=== PATIENT | male | born 1965 | race Caucasian/White ===

== ENCOUNTER 2017-09-07 10:08 | Inpatient (IN) | payer MEDICARE, MEDICAID ==
[~2017-09-07 10:08] MED LIST: ROCURONIUM BROMIDE INJ 50 MG/5 ML VIAL IV ONE
[2017-09-07] MEDS ORDERED: PROPOFOL 100 ML IV PRN (10:20)
[2017-09-07] MEDS ORDERED: ETOMIDATE INJ/PF 20 MG/10 ML SDV IV ONE ×2 (10:27→13:38)
[2017-09-07] MEDS: NORMAL SALINE 1000 ML 1,000 ML IV PRN ×7 (11:10→16:18)
[2017-09-07 11:19] LABS: VENOUS BLOOD HCO3 16.1 mmol/L (20-32); VENOUS BLOOD PH 7.31 (7.30-7.42)
[2017-09-07 11:22] LABS: HEMATOCRIT 44.4 % (37.9-51.0); HEMOGLOBIN 14.2 g/dL (13.5-17.0); MEAN CORPUSCULAR HEMOGLOBIN 29.4 pg (27.0-33.4); MEAN CORPUSCULAR HGB CONC 31.9 g/dL (32.0-36.0); MEAN CORPUSCULAR VOLUME 92 fl (80-97); PLATELET COUNT 310 10^3/uL (150-450); RED BLOOD COUNT 4.83 10^6/uL (4.35-5.55); RED CELL DISTRIBUTION WIDTH 14.9 % (11.5-14.0); WHITE BLOOD COUNT 16.7 10^3/uL (4.0-10.5)
[2017-09-07 11:31] LABS: INTERNATIONAL RATION (INR) 1.04; PARTIAL THROMBOPLASTIN TIME 24.7 SEC (23.5-35.8); PROTHROMBIN TIME 14.1 SEC (11.4-15.4)
[2017-09-07] MEDS ORDERED: DEXTROSE 5%-WATER 250 ML with NOREPINEPHRINE BITARTRATE 4 MG IV PRN ×2 (11:33)
[2017-09-07 11:36] LABS: ALANINE AMINOTRANSFERASE 28 U/L (21-72); ALBUMIN 4.5 g/dL (3.5-5.0); ALKALINE PHOSPHATASE 191 U/L (38-126); ASPARTATE AMINO TRANSFERASE 14 U/L (17-59); BILIRUBIN,DIRECT 0.5 mg/dL (0.0-0.4); BILIRUBIN,TOTAL 0.5 mg/dL (0.2-1.3); BLOOD UREA NITROGEN 57 mg/dL (7-20); CALCIUM 8.5 mg/dL (8.4-10.2); CREATINE KINASE 121 U/L (55-170); POTASSIUM 4.3 mmol/L (3.6-5.0); TOTAL PROTEIN 6.5 g/dL (6.3-8.2)
[2017-09-07] MEDS ORDERED: NOREPINEPHRINE BITARTRATE INJ/PF 4 MG/4 ML SDV IV ONE ×2 (11:37→16:15)
--- NOTE | 2017-09-07 11:37 | RADIOLOGY REPORT (SQ) ---
EXAM DESCRIPTION: CHEST SINGLE VIEW COMPLETED DATE/TIME: 09/07/2017 11:25 am REASON FOR STUDY: ams COMPARISON: 08/17/2010 EXAM PARAMETERS: NUMBER OF VIEWS: One view. TECHNIQUE: Single frontal radiographic view of the chest acquired. RADIATION DOSE: NA LIMITATIONS: None. FINDINGS: LUNGS AND PLEURA: Patchy airspace opacities left lower lobe. Lungs and pleural spaces oth erwise clear. MEDIASTINUM AND HILAR STRUCTURES: No masses. Contour normal. HEART AND VASCULAR STRUCTURES: Heart normal in size. Normal vasculature. BONES: No acute findings. HARDWARE: Endotracheal tube terminates 4.2 cm above the felicitas. Nasogastric tube with side port appr oximately 7.7 cm above the GE junction. Right IJ venous catheter terminates within the caval atrial junction. OTHER: No other significant finding. IMPRESSION: PATCHY AIRSPACE OPACITIES LEFT LOWER LOBE MAY REPRESENT SUBSEGMENTAL ATELECTASIS, ASPIRA TION, OR DEVELOPING PNEUMONIA. NASOGASTRIC TUBE WITH SIDE PORT 7.7 CM ABOVE THE GE JUNCTION. ADVANCEMENT IS RECOMMENDED. REMAINING LINES/TUBES ARE ADEQUATELY POSITIONED. TECHNICAL DOCUMENTATION: JOB ID: [id number] [employer]- All Rights Reserved Reading location - IP/workstation name: [email or web address]
--- NOTE | 2017-09-07 11:38 | RADIOLOGY REPORT (SQ) ---
EXAM DESCRIPTION: CT HEAD WITHOUT COMPLETED DATE/TIME: 09/07/2017 11:28 am REASON FOR STUDY: ams COMPARISON: None. TECHNIQUE: Axial images acquired through the brain without intravenous contrast. Images reviewed wi th bone, brain and subdural windows. Images stored on PACS. All CT scanners at this facility use dose modulation, iterative reconstruction, and/or weight based d osing when appropriate to reduce radiation dose to as low as reasonably achievable (ALARA). [facility]: Dose Right [facility]: CareDose [facility]: Dose Right [facility]: Teradose 4D [facility]: [email or web address] RADIATION DOSE: CT Rad equipment meets quality standard of care and radiation dose reduction techniq ues were employed. CTDIvol: 53.2 mGy. DLP: 991 mGy-cm. mGy. LIMITATIONS: None. FINDINGS: VENTRICLES: Normal size and contour. CEREBRUM: No masses. No hemorrhage. No midline shift. No evidence for acute infarction. Normal gra y/white matter differentiation. No areas of low density in the white matter. CEREBELLUM: No masses. No hemorrhage. No alteration of density. No evidence for acute infarction. EXTRAAXIAL SPACES: No fluid collections. No masses. ORBITS AND GLOBE: No intra- or extraconal masses. Normal contour of globe without masses. CALVARIUM: No fracture. PARANASAL SINUSES: No fluid or mucosal thickening. SOFT TISSUES: No mass or hematoma. OTHER: No other significant finding. IMPRESSION: NORMAL BRAIN CT WITHOUT CONTRAST. EVIDENCE OF ACUTE STROKE: NO. COMMENT: Quality ID # [id number]: Final reports with documentation of one or more dose reduction techniques (e.g., Automated exposure control, adjustment of the mA and/or kV according to patient size, use of iterative reconstruction technique) TECHNICAL DOCUMENTATION: JOB ID: [id number] [employer]- All Rights Reserved Reading location - IP/workstation name: [email or web address]
[2017-09-07 11:41] LABS: CARBON DIOXIDE 15 mmol/L (22-30); CHLORIDE 95 mmol/L (98-107); SODIUM 148.4 mmol/L (137-145)
[2017-09-07 11:44] LABS: ACETAMINOPHEN < 10 ug/mL (10-30); ALCOHOL < 10 mg/dL (NONE DETECTED); SALICYLATE < 1.0 mg/dL (2.0-20.0)
[2017-09-07 11:46] LABS: ABSOLUTE LYMPHOCYTES# (MANUAL) 0.3 10^3/uL (0.5-4.7); ABSOLUTE MONOCYTES # (MANUAL) 0.5 10^3/uL (0.1-1.4); ABSOLUTE NEUTROPHILS# (MANUAL) 15.7 10^3/uL (1.7-8.2); BASOPHILS % (MANUAL) 1 % (0-2); EOSINOPHILS % (MANUAL) 0 % (0-6); LYMPHOCYTES % (MANUAL) 2 % (13-45); MONOCYTES % (MANUAL) 3 % (3-13); SEGMENTED NEUTROPHILS % (MAN) 94 % (42-78); TOTAL CELLS COUNTED 100
[2017-09-07 11:48] LABS: ANION GAP 38 (5-19); ANISOCYTOSIS SLIGHT; GLUCOSE 915 mg/dL (75-110); PLATELET COMMENT ADEQUATE; TOXIC GRANULATION SLIGHT
[2017-09-07 11:49] LABS: PLATELET CLUMPS PRESENT; PLATELET LARGE PRESENT
[2017-09-07 11:50] LABS: TROPONIN I 0.027 ng/mL
[2017-09-07] MEDS ORDERED: PIPERACILLIN/TAZOBACTAM 4.5 GM VIAL IV ONE (11:59)
[2017-09-07] MEDS ORDERED: LORAZEPAM INJ 2 MG/1 ML VIAL IV ONE (12:33)
[2017-09-07] MEDS ORDERED: MIDAZOLAM HCL 50 MG/100 ML RTUINJ IV PRN (12:36)
[2017-09-07] MEDS ORDERED: LIDOCAINE 1% INJ-PF (10 MG/ML) 30 ML SDV INJ ONE (12:44)
[2017-09-07] MEDS ORDERED: VECURONIUM BROMIDE INJ 10 MG VIAL IV ONE ×2 (12:49→12:51)
[2017-09-07 12:57] LABS: APPEARANCE,URINE SLIGHTLY-CLOUDY; BILIRUBIN,URINE NEGATIVE (NEGATIVE); COLOR,URINE YELLOW; GLUCOSE, URINE >=500 mg/dL (NEGATIVE); KETONES,URINE 20 mg/dL (NEGATIVE); LEUKOCYTE ESTERASE,URINE NEGATIVE (NEGATIVE); NITRITE,URINE NEGATIVE (NEGATIVE); PROTEIN,URINE NEGATIVE (NEGATIVE); URINE SPECIFIC GRAVITY 1.024; UROBILINOGEN,URINE NEGATIVE mg/dL (<2.0)
[2017-09-07 12:59] LABS: URINE AMPHETAMINES SCREEN NEGATIVE; URINE BARBITURATES SCREEN NEGATIVE; URINE BENZODIAZEPINES SCREEN UNCONFIRMED POSITIVE; URINE COCAINE SCREEN NEGATIVE; URINE MARIJUANA (THC) SCREEN NEGATIVE; URINE METHADONE SCREEN NEGATIVE; URINE PHENCYCLIDINE SCREEN NEGATIVE
[2017-09-07] MEDS ORDERED: ONDANSETRON HCL INJ/PF 4 MG/2 ML SDV IV PRN ×2 (13:03→13:59)
--- NOTE | 2017-09-07 13:09 | ER Document Report ---
ED General - General Chief Complaint: Altered Mental Status Stated Complaint: ALTERED MENTAL STATUS Time Seen by Provider: 09/07/17 10:17 TRAVEL OUTSIDE OF THE [place] IN LAST 30 DAYS: No - HPI Patient complains to provider of: Altered mental status fever Notes: Patient coming in for evaluation of altered mental status fever. Patient has a history of diabetes schizophrenia hypertension on multiple medications. According EMS family members found the patient earlier this morning with fever nonresponsive. EMS states patient was responding to painful stimuli as they placed an IO N. Upon arrival here patient had minimal responsiveness. Patient' s eyes are open however he was not blinking down pupils are equal and reactive however patient is not following commands not giving any verbal response. Decision made to go ahead and intubate the patient. Patient family member arrived later stating patient otherwise was normal last 24 hours lives by himself however the check on him every morning around 9:00. Patient although he is on multiple psychiatric medications this is controlled by his family members and they do administer his medications. Family stated there is no evidence patient had any access to any extra medications. No other sick contacts recent change with the patient be placed on rexultia for his psychiatric symptoms. - Related Data Allergies/Adverse Reactions: No Known Allergies Allergy (Unverified 09/25/10 10:31) Past Medical History - Social History Smoking Status: Unknown if Ever Smoked Family History: Reviewed & Not Pertinent Patient has suicidal ideation: No - unable to assess Patient has homicidal ideation: No - unable to assess - Past Medical History Cardiac Medical History: Reports: Hx Coronary Artery Disease - hyperlipedmia Denies: Hx Heart Attack, Hx Hypertension Pulmonary Medical History: Denies: Hx Asthma, Hx Bronchitis, Hx COPD, Hx Pneumonia Neurological Medical History: Denies: Hx Cerebrovascular Accident, Hx Seizures Endocrine Medical History: Reports: Hx Diabetes Mellitus Type 2 Renal/ Medical History: Denies: Hx Peritoneal Dialysis Musculoskeltal Medical History: Denies Hx Arthritis Psychiatric Medical History: Reports: Hx Attention Deficit Hyperactivity Disorder Past Surgical History: Denies: Hx Pacemaker Review of Systems - Review of Systems -: Yes ROS unobtainable due to patient's medical condition - Altered mental status Physical Exam - Vital signs Vitals: Resp 36 H 09/07/17 10:10 Interpretation: Hypotensive, Tachycardic, Tachypneic, Febrile - General General appearance: Unresponsive In distress: Severe - HEENT Head: Normocephalic, Atraumatic Eyes: Normal Conjunctiva: Normal Cornea: Embedded foreign body Eyelashes: Normal Pupils: PERRL - Respiratory Respiratory status: Tachypnea Chest status: Nontender Breath sounds: Normal Chest palpation: Normal - Cardiovascular Rhythm: Regular, Tachycardia Heart sounds: Normal auscultation Murmur: No - Abdominal Inspection: Normal Distension: No distension Bowel sounds: Normal Organomegaly: No organomegaly - Back Back: Normal, Nontender - Extremities General upper extremity: Normal inspection, Nontender, Normal color, Other - No rigidity. No: Normal temperature - Warm General lower extremity: Normal inspection, Nontender, Normal color, Other - No rigidity. No: Normal temperature - Warm - Neurological Winslow Coma Scale Eye Opening: Spontaneous Faye Coma Scale Verbal: None Faye Coma Scale Motor: None Faye Coma Scale Total: 6 Sensory: Normal - Skin Skin Temperature: Warm Skin Moisture: Dry Skin Color: Normal Course - Re-evaluation Re-evalutation: 09/07/17 15:01 Patient coming in for altered mental status and a fever. Patient's laboratory studies a slight leukocytosis with chest x-ray showing some patchy infiltrates possible pneumonia. Possible aspiration patient was found down patient was started on Zosyn. Care should profile showed acute renal failure with iron gap no acidosis on VBG. Blood sugar is elevated over 900 with osmolar elevation as well. Head CT was otherwise negative. Urinalysis was positive for benzos however patient is prescribed Valium. Patient is on multiple psychiatric medications with a new antipsychotic consideration for serotonin syndrome neuroleptic malignant syndrome sepsis and meningitis were all in the differential. Also retain most of the lab work back did consult with hospitalist who is requesting lumbar puncture be performed. Patient will be sent to the ICU. Central line was placed as noted. Intubation performed as noted. Lumbar puncture performed as noted. CSF otherwise looks clear. Antibiotics have been ordered by the hospitalist for meningitis coverage. I did send of herpes simplex virus PCR from CSF. serotonin syndrome in neuroleptic malignant syndrome upon discussion collaboration with the family and the hospitalist is less likely patient according family members does not have access to his medications. After antipyretics and IV fluids temperature did normalize. Patient will be admitted to ICU - Vital Signs Vital signs: Temp Pulse Resp BP Pulse Ox 22 H 93/56 L 100 09/07/17 14:01 09/07/17 14:01 09/07/17 14:33 - Laboratory Result Diagrams: 09/07/17 10:54 09/07/17 10:54 Laboratory results interpreted by me: 09/07/17 09/07/17 09/07/17 10:30 10:54 10:54 WBC 16.7 H MCHC 31.9 L RDW 14.9 H Seg Neuts % (Manual) 94 H Lymphocytes % (Manual) 2 L Abs Neuts (Manual) 15.7 H Abs Lymphs (Manual) 0.3 L VBG pCO2 VBG HCO3 Sodium 148.4 H Chloride 95 L Carbon Dioxide 15 L Anion Gap 38 H BUN 57 H Creatinine 3.02 H Est GFR ( Amer) 27 L Est GFR (Non-Af Amer) 22 L Glucose 915 H* Serum Osmolality Direct Bilirubin 0.5 H AST 14 L Alkaline Phosphatase 191 H Ammonia Urine Glucose (UA) >=500 H Urine Ketones 20 H CSF Glucose CSF Total Protein Salicylates < 1.0 L Acetaminophen < 10 L Valproic Acid < 10.0 L 09/07/17 09/07/17 09/07/17 10:54 10:54 10:54 WBC MCHC RDW Seg Neuts % (Manual) Lymphocytes % (Manual) Abs Neuts (Manual) Abs Lymphs (Manual) VBG pCO2 33.0 L VBG HCO3 16.1 L Sodium Chloride Carbon Dioxide Anion Gap BUN Creatinine Est GFR ( Amer) Est GFR (Non-Af Amer) Glucose Serum Osmolality 375 H Direct Bilirubin AST Alkaline Phosphatase Ammonia < 8.7 L Urine Glucose (UA) Urine Ketones CSF Glucose CSF Total Protein Salicylates Acetaminophen Valproic Acid 09/07/17 13:29 WBC MCHC RDW Seg Neuts % (Manual) Lymphocytes % (Manual) Abs Neuts (Manual) Abs Lymphs (Manual) VBG pCO2 VBG HCO3 Sodium Chloride Carbon Dioxide Anion Gap BUN Creatinine Est GFR ( Amer) Est GFR (Non-Af Amer) Glucose Serum Osmolality Direct Bilirubin AST Alkaline Phosphatase Ammonia Urine Glucose (UA) Urine Ketones CSF Glucose 472 H CSF Total Protein 85 H Salicylates Acetaminophen Valproic Acid Critical Care Note - Critical Care Note Total time excluding time spent on procedures (mins): 85 Comments: Time spent multiple evaluations patient critical illness hypotensive fever tachycardia possible sepsis versus serotonin syndrome or neuroleptic malignant syndrome multiple discussions with hospitalist and family members Discharge - Discharge Clinical Impression: Acute kidney injury, Unresponsiveness, Schizophrenia, Diabetes 1.5, managed as type 2, Hyperglycemic hyperosmolar nonketotic coma Altered mental state Qualifiers: Altered mental status type: unspecified Qualified Code(s): R41.82 - Altered mental status, unspecified Fever Qualifiers: Fever type: unspecified Qualified Code(s): R50.9 - Fever, unspecified Condition: Critical Disposition: ADMITTED INPATIENT Admitting Provider: [place] Hospitalist [facility] [place] Unit Admitted: ICU
[2017-09-07] MEDS ORDERED: GLUCAGON,HUMAN RECOMB 1 MG INJ IM PRN (13:36)
[2017-09-07] MEDS ORDERED: DEXTROSE 50%-WATER 25 GM/50 ML DISP.SYRIN IV PRN ×2 (13:36)
[2017-09-07] MEDS ORDERED: DEXTROSE 40% GEL 15 GM TUBE PO PRN ×2 (13:36)
[2017-09-07] MEDS ORDERED: ROCURONIUM BROMIDE INJ 50 MG/5 ML VIAL IV ONE (13:38)
[2017-09-07] MEDS ORDERED: INSULIN REG, HUMAN 100 UNIT/ML 3 ML VIAL (PYX) ONE (13:45)
[2017-09-07] MEDS: NORMAL SALINE 100 ML with INSULIN REGULAR, HUMAN 100 UNIT IV PRN ×4 (13:53→22:01)
[2017-09-07 14:24] LABS: GLUCOSE,CSF 472 mg/dL (40-70); PROTEIN,CSF 85 mg/dL (12-60)
--- NOTE | 2017-09-07 14:25 | PDOC H&P ---
History of Present Illness Admission Date/PCP: 09/07/17 13:58 YOLETTE TORRES MD History of Present Illness: LIAM GRANT is a 51 year old male patient presented with unresponsiveness. Since patient intubated and on mechanical ventilation is not source of history. Brief history is obtained from verbal communication with the ER attending, Patient found unresponsive. Patient has long-standing history of schizophrenia, diabetes mellitus and hypertension. Patient also found to have fever of 102.5. Scan of the head was done and it is unremarkable. To rule out meningitis lumbar puncture was done the appearance of CSF is crystal-clear for the results are pending. Patient is empirically covered with Zosyn. Further detailed history and review of systems unobtainable. Past Medical History Cardiac Medical History: Reports: Coronary Artery Disease - hyperlipedmia Denies: Myocardial Infarction, Hypertension Pulmonary Medical History: Denies: Asthma, Bronchitis, Chronic Obstructive Pulmonary Disease (COPD), Pneumonia Neurological Medical History: Denies: Seizures Endocrine Medical History: Reports: Diabetes Mellitus Type 2 Musculoskeltal Medical History: Denies: Arthritis Psychiatric Medical History: Reports: Attention Deficit Hyperactivity Disorder Hematology: Denies: Anemia Past Surgical History Past Surgical History: Denies: Pacemaker Social History Smoking Status: Unknown if Ever Smoked Family History Family History: Reviewed & Not Pertinent Parental Family History Reviewed: No Children Family History Reviewed: No Sibling(s) Family History Reviewed.: No - Patient intubated Medication/Allergy Home Medications: Atorvastatin Calcium 10 mg PO DAILY 09/07/17 Brexpiprazole [Rexulti] 0.5 mg PO DAILY 09/07/17 Chlorpromazine HCl [Thorazine 50 mg Tablet] 50 mg PO BID 09/07/17 Clozapine 25 mg PO QAM 09/07/17 Clozapine 200 mg PO BID 09/07/17 Desmopressin Acetate 0.2 mg PO TID 09/07/17 Desmopressin Acetate [Ddavp] 0.4 mg PO QHS 09/07/17 Diazepam 10 mg PO QID PRN 09/07/17 Docusate Sodium 100 mg PO BID PRN 09/07/17 Esomeprazole Magnesium 40 mg PO DAILY 09/07/17 Levothyroxine Sodium 50 mcg PO DAILY 09/07/17 Losartan/Hydrochlorothiazide [Losartan-Hctz 100-25 mg Tab] 1 each PO DAILY 09/07 Metformin HCl [Metformin HCl ER] 500 mg PO QHS 09/07/17 Olanzapine 10 mg PO DAILY 09/07/17 Paroxetine HCl [Paxil] 30 mg PO QAM 09/07/17 Ropinirole HCl 1 mg PO QAM 09/07/17 Ropinirole HCl 3.5 mg PO QHS 09/07/17 Trihexyphenidyl HCl 5 mg PO TID 09/07/17 Allergies/Adverse Reactions: No Known Allergies Allergy (Unverified 09/25/10 10:31) Review of Systems ROS unobtainable: Due to mental status Physical Exam Vital Signs: Temp Pulse Resp BP Pulse Ox 22 H 93/56 L 100 09/07/17 14:01 09/07/17 14:01 09/07/17 14:01 General appearance: PRESENT: other - On mechanical ventilation Respiratory exam: PRESENT: decreased breath sounds Cardiovascular exam: PRESENT: tachycardia GI/Abdominal exam: PRESENT: normal bowel sounds, soft. ABSENT: distended, guarding, mass, organolmegaly, rebound, tenderness Results Impressions: Chest X-Ray 09/07/17 10:18 IMPRESSION: PATCHY AIRSPACE OPACITIES LEFT LOWER LOBE MAY REPRESENT SUBSEGMENTAL ATELECTASIS, ASPIRATION, OR DEVELOPING PNEUMONIA. NASOGASTRIC TUBE WITH SIDE PORT 7.7 CM ABOVE THE GE JUNCTION. ADVANCEMENT IS RECOMMENDED. REMAINING LINES/TUBES ARE ADEQUATELY POSITIONED. Head CT 09/07/17 10:48 IMPRESSION: NORMAL BRAIN CT WITHOUT CONTRAST. EVIDENCE OF ACUTE STROKE: NO. Assessment & Plan - Diagnosis (1) DKA (diabetic ketoacidoses) Qualifiers: Diabetes mellitus type: type 2 Is this a current diagnosis for this admission?: Yes Plan: Patient has been started on insulin drip. He is also being hydrated aggressively. He is also only Levophed because of hypotension. (2) Unresponsiveness Plan: In light of unresponsiveness and unexplained fever to have meningitis considered LP was done results pending in the meantime patient covered with Zosyn. (3) Schizophrenia Is this a current diagnosis for this admission?: Yes Plan: Continue his home medication as soon as he is intubated. (4) Diabetes 1.5, managed as type 2 Is this a current diagnosis for this admission?: Yes Plan: Continue insulin drip present transitioned him to subcu soon as he awakened and able to tolerate. (5) Acute kidney injury Is this a current diagnosis for this admission?: Yes Plan: Cautious hydration and will avoid nephrotoxic agents - Time Time Spent: 30 to 50 Minutes - Inpatient Certification Medical Necessity: Need for IV Antibiotics
[2017-09-07] MEDS ORDERED: HEPARIN SOD (PORCINE) 5,000 UNIT/ML 1 ML SYRINGE SUBCUT ONE (15:00)
[2017-09-07 15:03] LABS: ARTERIAL BLOOD BASE EXCESS -13.5 mmol/L; ARTERIAL BLOOD FIO2 35%; ARTERIAL BLOOD H2CO3 0.87 mmol/L (1.05-1.35); ARTERIAL BLOOD HCO3 12.3 mmol/L (20-26); ARTERIAL BLOOD O2 SATURATION 96.9 % (94-98); ARTERIAL BLOOD PCO2 28.9 mmHg (35-45); ARTERIAL BLOOD PH 7.25 (7.35-7.45); ARTERIAL BLOOD PO2 103.2 mmHg (80-100); ARTERIAL BLOOD TOTAL CO2 13.2 mmol/L (23-27)
[2017-09-07 15:12] LABS: APPEARANCE ALL TUBES CLEAR; COLOR ALL TUBES COLORLESS; CSF TOTAL VOLUME 2.5 CC; CSF TUBE NUMBER 1; RED BLOOD CELL,CSF 0 /uL (0-10); VOLUME TUBE 2 0.5 CC; VOLUME TUBE 3 0.5 CC; VOLUME TUBE 4 0.5 CC
[2017-09-07 15:13] LABS: APPEARANCE ALL TUBES CLEAR; COLOR ALL TUBES COLORLESS; CSF TUBE NUMBER 4; VOLUME TUBE 2 0.5 CC; WHITE BLOOD CELL,CSF 3 /uL (0-5)
[2017-09-07 15:14] LABS: CSF TOTAL VOLUME 2.5 CC; RED BLOOD CELL,CSF 0 /uL (0-10); VOLUME TUBE 3 0.5 CC; VOLUME TUBE 4 0.5 CC
[2017-09-07 15:15] LABS: WHITE BLOOD CELL,CSF 3 /uL (0-5)
--- NOTE | 2017-09-07 16:01 | EKG REPORT ---
SEVERITY:- ABNORMAL ECG - SINUS TACHYCARDIA RIGHT AXIS DEVIATION PROBABLE INFERIOR INFARCT, OLD PROLONGED QT INTERVAL : Confirmed by: Jacob Dumont MD 07-Sep-2017 16:00:38
[2017-09-07] MEDS ORDERED: PHENYLEPHRINE HCL INJ/PF 10 MG/1 ML SDV ONE (16:15)
[2017-09-07] MEDS: DEXTROSE 5%-WATER 250 ML with NOREPINEPHRINE BITARTRATE 4 MG IV PRN ×4 (16:18→21:56)
[2017-09-07 16:47] LABS: ARTERIAL BLOOD BASE EXCESS -6.8 mmol/L; ARTERIAL BLOOD FIO2 30%; ARTERIAL BLOOD H2CO3 0.69 mmol/L (1.05-1.35); ARTERIAL BLOOD HCO3 15.3 mmol/L (20-26); ARTERIAL BLOOD O2 SATURATION 97.5 % (94-98); ARTERIAL BLOOD PH 7.44 (7.35-7.45); ARTERIAL BLOOD PO2 93.3 mmHg (80-100)
[2017-09-07 17:09] LABS: BLOOD UREA NITROGEN 51 mg/dL (7-20); CHLORIDE 110 mmol/L (98-107); POTASSIUM 3.6 mmol/L (3.6-5.0)
[2017-09-07 17:14] LABS: CARBON DIOXIDE 17 mmol/L (22-30); SODIUM 153.7 mmol/L (137-145)
[2017-09-07 17:17] LABS: ANION GAP 27 (5-19)
[2017-09-07 17:18] LABS: GLUCOSE 622 mg/dL (75-110)
[2017-09-07] MEDS ORDERED: PIPERACILLIN SODIUM/TAZOBACTAM 4.5 GM in NORMAL SALINE 100 ML IV SCH (18:00)
[2017-09-07] MEDS ORDERED: PIPERACILLIN/TAZOBACTAM 3.375 GM VIAL IV ONE (18:09)
[2017-09-07] MEDS: PIPERACILLIN SODIUM/TAZOBACTAM 3.375 GM in NORMAL SALINE 100 ML IV SCH (18:29)
[2017-09-07 19:12] LABS: ANION GAP 19 (5-19); BLOOD UREA NITROGEN 49 mg/dL (7-20); CARBON DIOXIDE 22 mmol/L (22-30); CHLORIDE 113 mmol/L (98-107); POTASSIUM 3.3 mmol/L (3.6-5.0); SODIUM 154.1 mmol/L (137-145)
[2017-09-07 19:24] LABS: GLUCOSE 477 mg/dL (75-110)
[2017-09-07 21:37] LABS: ANION GAP 17 (5-19); BLOOD UREA NITROGEN 44 mg/dL (7-20); CALCIUM 8.2 mg/dL (8.4-10.2); CARBON DIOXIDE 24 mmol/L (22-30); CHLORIDE 116 mmol/L (98-107); GLUCOSE 326 mg/dL (75-110); SODIUM 156.7 mmol/L (137-145)
[2017-09-07] MEDS ORDERED: PROPOFOL 100 ML IV ONE (21:39)
[2017-09-07] MEDS: MIDAZOLAM HCL 50 MG/100 ML RTUINJ IV PRN (21:54)
[2017-09-07] MEDS ORDERED: PANTOPRAZOLE SODIUM 40 MG VIAL IV SCH ×2 (22:00)
[2017-09-07] MEDS: POTASSI CL 20 MEQ/1/2NS 1L 20 MEQ/1,000 ML RTUINJ IV SCH (22:09)
[2017-09-07] MEDS: HEPARIN SOD (PORCINE) 5,000 UNIT/ML 1 ML SYRINGE SUBCUT SCH (23:04)
[2017-09-07 23:15] LABS: ANION GAP 14 (5-19); BLOOD UREA NITROGEN 43 mg/dL (7-20); CALCIUM 8.3 mg/dL (8.4-10.2); CARBON DIOXIDE 26 mmol/L (22-30); CHLORIDE 118 mmol/L (98-107); GLUCOSE 248 mg/dL (75-110); SODIUM 157.8 mmol/L (137-145)
[2017-09-07] MEDS ORDERED: ACETAMINOPHEN 650 MG SUPP.RECT PR ONE (23:41)
[2017-09-07] MEDS ORDERED: ACETAMINOPHEN 650 MG SUPP.RECT PR PRN (23:56)
[2017-09-08] MEDS: POTASSI CL 20 MEQ/1/2NS 1L 20 MEQ/1,000 ML RTUINJ IV SCH (00:24)
[2017-09-08] MEDS: POTASSIUM CHLORIDE 20 MEQ/50 ML RTU IV SCH ×2 (00:27→01:25)
[2017-09-08] MEDS: PIPERACILLIN SODIUM/TAZOBACTAM 3.375 GM in NORMAL SALINE 100 ML IV SCH ×5 (00:31→23:36)
[2017-09-08] MEDS ORDERED: PANTOPRAZOLE SODIUM 80 MG in NORMAL SALINE 100 ML IV ONE (00:45)
[2017-09-08 00:46] LABS: ANION GAP 12 (5-19); BLOOD UREA NITROGEN 37 mg/dL (7-20); CALCIUM 8.1 mg/dL (8.4-10.2); CARBON DIOXIDE 25 mmol/L (22-30); CHLORIDE 119 mmol/L (98-107); GLUCOSE 177 mg/dL (75-110); SODIUM 156.3 mmol/L (137-145)
[2017-09-08] MEDS: NORMAL SALINE 100 ML with PANTOPRAZOLE SODIUM 80 MG IV PRN ×6 (00:54→17:33)
[2017-09-08] MEDS ORDERED: POTASSI CL 20 MEQ/1/2NS 1L 20 MEQ/1,000 ML RTUINJ IV SCH ×2 (01:00→02:00)
[2017-09-08 02:40] LABS: ANION GAP 11 (5-19); BLOOD UREA NITROGEN 36 mg/dL (7-20); CARBON DIOXIDE 25 mmol/L (22-30); CHLORIDE 120 mmol/L (98-107); GLUCOSE 132 mg/dL (75-110); POTASSIUM 3.2 mmol/L (3.6-5.0); SODIUM 156.2 mmol/L (137-145)
[2017-09-08] MEDS: PROPOFOL 100 ML IV PRN ×4 (03:05→21:00)
[2017-09-08] MEDS: DEXTROSE 5%-WATER 250 ML with NOREPINEPHRINE BITARTRATE 4 MG IV PRN ×6 (03:08→21:11)
[2017-09-08 04:32] LABS: ANION GAP 13 (5-19); BLOOD UREA NITROGEN 34 mg/dL (7-20); CALCIUM 7.8 mg/dL (8.4-10.2); CARBON DIOXIDE 21 mmol/L (22-30); CHLORIDE 119 mmol/L (98-107); GLUCOSE 190 mg/dL (75-110); POTASSIUM 3.6 mmol/L (3.6-5.0); SODIUM 153.4 mmol/L (137-145)
[2017-09-08 05:27] LABS: ARTERIAL BLOOD BASE EXCESS -5.1 mmol/L; ARTERIAL BLOOD H2CO3 0.69 mmol/L (1.05-1.35); ARTERIAL BLOOD HCO3 16.5 mmol/L (20-26); ARTERIAL BLOOD PCO2 22.9 mmHg (35-45); ARTERIAL BLOOD PH 7.48 (7.35-7.45); ARTERIAL BLOOD PO2 139.9 mmHg (80-100); ARTERIAL BLOOD TOTAL CO2 17.2 mmol/L (23-27)
[2017-09-08 05:29] LABS: ARTERIAL BLOOD FIO2 30%
[2017-09-08] MEDS ORDERED: PHENYLEPHRINE HCL INJ/PF 10 MG/1 ML SDV ONE (06:08)
[2017-09-08] MEDS: HEPARIN SOD (PORCINE) 5,000 UNIT/ML 1 ML SYRINGE SUBCUT SCH ×3 (06:19→22:04)
[2017-09-08 06:29] LABS: APPEARANCE,URINE CLOUDY; BILIRUBIN,URINE NEGATIVE (NEGATIVE); COLOR,URINE YELLOW; GLUCOSE, URINE >=500 mg/dL (NEGATIVE); KETONES,URINE 20 mg/dL (NEGATIVE); LEUKOCYTE ESTERASE,URINE TRACE (NEGATIVE); NITRITE,URINE NEGATIVE (NEGATIVE); PROTEIN,URINE NEGATIVE (NEGATIVE); UROBILINOGEN,URINE NEGATIVE mg/dL (<2.0)
[2017-09-08 06:34] LABS: ABSOLUTE BASOPHILS # (AUTO) 0.2 10^3/uL (0.0-0.2); ABSOLUTE LYMPHOCYTES (AUTO) 1.7 10^3/uL (0.5-4.7); ABSOLUTE MONOCYTES (AUTO) 2.2 10^3/uL (0.1-1.4); ABSOLUTE NEUT (AUTO) 12.5 10^3/uL (1.7-8.2); BASOPHILS % (AUTO) 1.2 % (0-2); EOSINOPHILS % (AUTO) 0.2 % (0-6); HEMATOCRIT 38.1 % (37.9-51.0); HEMOGLOBIN 12.6 g/dL (13.5-17.0); LYMPHOCYTES % (AUTO) 10.2 % (13-45); MEAN CORPUSCULAR HGB CONC 33.1 g/dL (32.0-36.0); MONOCYTES % (AUTO) 13.3 % (3-13); PLATELET COUNT 331 10^3/uL (150-450); RED BLOOD COUNT 4.34 10^6/uL (4.35-5.55); RED CELL DISTRIBUTION WIDTH 14.4 % (11.5-14.0); SEGMENTED NEUTROPHILS % (AUTO) 75.1 % (42-78); TOTAL CELLS COUNTED % (AUTO) 100 %; WHITE BLOOD COUNT 16.7 10^3/uL (4.0-10.5)
[2017-09-08 06:42] LABS: MEAN CORPUSCULAR VOLUME 88 fl (80-97)
[2017-09-08 06:48] LABS: ALANINE AMINOTRANSFERASE 28 U/L (21-72); ALKALINE PHOSPHATASE 134 U/L (38-126); ANION GAP 19 (5-19); ASPARTATE AMINO TRANSFERASE 15 U/L (17-59); BILIRUBIN,DIRECT 0.3 mg/dL (0.0-0.4); BILIRUBIN,TOTAL 0.4 mg/dL (0.2-1.3); BLOOD UREA NITROGEN 33 mg/dL (7-20); CALCIUM 7.7 mg/dL (8.4-10.2); CARBON DIOXIDE 16 mmol/L (22-30); CHLORIDE 117 mmol/L (98-107); GLUCOSE 259 mg/dL (75-110); POTASSIUM 3.4 mmol/L (3.6-5.0)
--- NOTE | 2017-09-08 07:07 | RADIOLOGY REPORT (SQ) ---
EXAM DESCRIPTION: CHEST SINGLE VIEW CLINICAL HISTORY: 51 years Male, On mechanical ventilation COMPARISON: 09/07/17. NUMBER OF VIEWS/TECHNIQUE: 1/AP LIMITATIONS: None. FINDINGS: Adequate lung volume, clear parenchyma, adequate appearing endotracheal tube tip is 4.2 cm from the felicitas, right jugular central line tip at the upper right atrium, and adequate appearing enteric tube. No pneumothorax. No acute bone defect. IMPRESSION: No significant change.
[2017-09-08] MEDS: POTASSI CL 20 MEQ/D5-1/2NS 1L 1,000 ML IV PRN ×3 (08:15→23:40)
[2017-09-08] MEDS ORDERED: DEXTROSE 40% GEL 15 GM TUBE PO PRN ×2 (08:40)
[2017-09-08] MEDS ORDERED: DEXTROSE 50%-WATER 25 GM/50 ML DISP.SYRIN IV PRN ×2 (08:40)
[2017-09-08] MEDS ORDERED: GLUCAGON,HUMAN RECOMB 1 MG INJ IM PRN (08:40)
--- NOTE | 2017-09-08 08:47 | PDOC CONSULTATION ---
Consultation Consult Date: 09/07/17 Attending physician:: YELENA ARGUETA Consult reason:: pna;acute resp failure rachel;septic shock;DKA History of Present Illness Admission Date/PCP: 09/07/17 13:58 YOLETTE TORRES MD History of Present Illness: LIAM GRANT is a 51 year old male currently intubated per chart patient found unresponsive;subsuquently intubated with history of diabetes,schizophrenia,poor compliance Past Medical History Cardiac Medical History: Reports: Coronary Artery Disease - hyperlipedmia Denies: Myocardial Infarction, Hypertension Pulmonary Medical History: Denies: Asthma, Bronchitis, Chronic Obstructive Pulmonary Disease (COPD), Pneumonia Neurological Medical History: Denies: Seizures Endocrine Medical History: Reports: Diabetes Mellitus Type 2 Musculoskeltal Medical History: Denies: Arthritis Psychiatric Medical History: Reports: Attention Deficit Hyperactivity Disorder, Schizoaffective Disorder Traumatic Medical History: Denies: Gunshot Wound Hematology: Denies: Anemia, Sickle Cell Disease Infectious Medical History: Denies: Methicillin-Resistant Staph Aureus Past Surgical History Past Surgical History: Denies: Pacemaker Social History Information Source: [facility] Records Smoking Status: Unknown if Ever Smoked Family History Parental Family History Reviewed: No Children Family History Reviewed: No Sibling(s) Family History Reviewed.: No Medication/Allergy Home Medications: Atorvastatin Calcium 10 mg PO DAILY 09/07/17 Brexpiprazole [Rexulti] 0.5 mg PO DAILY 09/07/17 Chlorpromazine HCl [Thorazine 50 mg Tablet] 50 mg PO Q12 09/07/17 Clozapine 25 mg PO QAM 09/07/17 Clozapine 200 mg PO ACSUPPER 09/07/17 Clozapine [Clozaril 100 Mg Tablet] 200 mg PO QHS 09/07/17 Desmopressin Acetate 0.2 mg PO TID 09/07/17 Desmopressin Acetate [Ddavp] 0.4 mg PO QHS 09/07/17 Diazepam 10 mg PO Q6 09/07/17 Docusate Sodium 100 mg PO Q12 09/07/17 Esomeprazole Magnesium 40 mg PO DAILY 09/07/17 Levothyroxine Sodium 50 mcg PO DAILY 09/07/17 Losartan/Hydrochlorothiazide [Losartan-Hctz 100-25 mg Tab] 1 each PO DAILY 09/07 Metformin HCl [Metformin HCl ER] 500 mg PO QHS 09/07/17 Olanzapine 10 mg PO DAILY 09/07/17 Paroxetine HCl [Paxil] 30 mg PO QAM 09/07/17 Ropinirole HCl 1 mg PO QAM 09/07/17 Ropinirole HCl 3 mg PO QHS 09/07/17 Trihexyphenidyl HCl 5 mg PO Q8 09/07/17 Allergies/Adverse Reactions: No Known Allergies Allergy (Unverified 09/25/10 10:31) Review of Systems ROS unobtainable: Due to endotracheal tube Physical Exam Vital Signs: Temp Pulse Resp BP Pulse Ox 22 H 93/56 L 100 09/07/17 14:01 09/07/17 14:01 09/07/17 14:33 General appearance: PRESENT: no acute distress, disheveled, well-developed, well -nourished. ABSENT: cooperative, mild distress Head exam: PRESENT: atraumatic, normocephalic Eye exam: PRESENT: conjunctiva pale. ABSENT: EOMI, nystagmus, periorbital swelling, scleral icterus Mouth exam: PRESENT: dry mucosa, neck supple, tongue midline, other - ET tube Neck exam: ABSENT: carotid bruit, JVD, lymphadenopathy, thyromegaly, tracheal deviation, tracheostomy Respiratory exam: PRESENT: decreased breath sounds, prolonged expiratory phas, rales, rhonchi, symmetrical, unlabored. ABSENT: retraction, stridor, tachypnea Cardiovascular exam: PRESENT: RRR, +S1, +S2, tachycardia Pulses: PRESENT: normal radial pulses GI/Abdominal exam: PRESENT: diminished bowel sounds, soft Extremities exam: ABSENT: calf tenderness, clubbing, full ROM, joint swelling Musculoskeletal exam: ABSENT: ambulatory, deformity, dislocation, full ROM Neurological exam: ABSENT: awake, oriented to person Skin exam: PRESENT: dry, warm Results Laboratory Results: 09/07/17 14:45 09/07/17 09/07/17 14:45 14:45 Carbonic Acid 0.87 L HCO3/H2CO3 Ratio 14:1 ABG pH 7.25 L ABG pCO2 28.9 L ABG pO2 103.2 H ABG HCO3 12.3 L ABG O2 Saturation 96.9 ABG Base Excess -13.5 FiO2 35% Glucose 725 H* Impressions: Chest X-Ray 09/07/17 10:18 IMPRESSION: PATCHY AIRSPACE OPACITIES LEFT LOWER LOBE MAY REPRESENT SUBSEGMENTAL ATELECTASIS, ASPIRATION, OR DEVELOPING PNEUMONIA. NASOGASTRIC TUBE WITH SIDE PORT 7.7 CM ABOVE THE GE JUNCTION. ADVANCEMENT IS RECOMMENDED. REMAINING LINES/TUBES ARE ADEQUATELY POSITIONED. Head CT 09/07/17 10:48 IMPRESSION: NORMAL BRAIN CT WITHOUT CONTRAST. EVIDENCE OF ACUTE STROKE: NO. Assessment & Plan - Diagnosis (1) Acute respiratory failure Qualifiers: Respiratory failure complication: hypoxia Qualified Code(s): J96.01 - Acute respiratory failure with hypoxia Is this a current diagnosis for this admission?: Yes Plan: maintain adequate ventilation maintain ph (2) DKA (diabetic ketoacidoses) Qualifiers: Diabetes mellitus type: type 2 Is this a current diagnosis for this admission?: Yes Plan: bs /.700;urine +ketones;ph acidotic (3) Schizophrenia Is this a current diagnosis for this admission?: Yes - Time Total Critical Time (Minutes): 60
[2017-09-08 08:58] LABS: ANION GAP 19 (5-19); BLOOD UREA NITROGEN 31 mg/dL (7-20); CALCIUM 7.6 mg/dL (8.4-10.2); CARBON DIOXIDE 16 mmol/L (22-30); CHLORIDE 117 mmol/L (98-107); GLUCOSE 296 mg/dL (75-110); POTASSIUM 3.3 mmol/L (3.6-5.0); SODIUM 152.2 mmol/L (137-145)
[2017-09-08] MEDS ORDERED: ONDANSETRON HCL INJ/PF 4 MG/2 ML SDV IV PRN (09:00)
[2017-09-08] MEDS ORDERED: PROPOFOL 100 ML IV ONE (09:28)
[2017-09-08] MEDS ORDERED: ENOXAPARIN SODIUM INJ 30 MG/0.3 ML DISP.SYRIN SUBCUT SCH (10:00)
[2017-09-08] MEDS ORDERED: ENOXAPARIN SODIUM INJ 40 MG/0.4 ML DISP.SYRIN SUBCUT SCH (10:00)
[2017-09-08] MEDS ORDERED: LEVOTHYROXINE SODIUM INJ/PF 0.5 MG SDV IV SCH (10:00)
--- NOTE | 2017-09-08 11:24 | PDOC PROGRESS REPORT ---
Subjective Progress Note for:: 09/08/17 Subjective:: intubated Reason For Visit: UNRESPONSIVE,HYPERGLYCEMIC HYPEROSMOLAR STATE Physical Exam Vital Signs: Temp Pulse Resp BP Pulse Ox 36.9 F L 92 22 H 97/66 L 100 09/07/17 14:25 09/07/17 20:06 09/08/17 08:31 09/08/17 08:30 09/08/17 08:31 Intake & Output 09/07/17 09/08/17 09/09/17 06:59 06:59 06:59 Intake Total 1369 4626 Output Total 3050 325 Balance -1681 4301 Weight 81 kg General appearance: PRESENT: no acute distress, disheveled, well-developed, well -nourished. ABSENT: cooperative Head exam: PRESENT: atraumatic, normocephalic Eye exam: PRESENT: conjunctiva pale. ABSENT: EOMI, nystagmus, periorbital swelling, scleral icterus Mouth exam: PRESENT: dry mucosa, neck supple, tongue midline, other - ET tube in place Neck exam: ABSENT: carotid bruit, JVD, lymphadenopathy, thyromegaly, tracheal deviation, tracheostomy Respiratory exam: PRESENT: decreased breath sounds, prolonged expiratory phas, rhonchi, symmetrical, unlabored. ABSENT: retraction, stridor, tachypnea Cardiovascular exam: PRESENT: RRR, +S1, +S2, tachycardia Pulses: PRESENT: normal radial pulses GI/Abdominal exam: PRESENT: diminished bowel sounds, soft Extremities exam: ABSENT: clubbing, joint swelling, pedal edema Musculoskeletal exam: ABSENT: deformity, dislocation Neurological exam: ABSENT: awake, oriented to person Skin exam: PRESENT: dry, warm Results Laboratory Results: 09/08/17 05:50 09/07/17 09/07/17 09/07/17 14:45 14:45 16:30 WBC RBC Hgb Hct MCV MCH MCHC RDW Plt Count Seg Neutrophils % Lymphocytes % Monocytes % Eosinophils % Basophils % Absolute Neutrophils Absolute Lymphocytes Absolute Monocytes Absolute Eosinophils Absolute Basophils Carbonic Acid 0.87 L HCO3/H2CO3 Ratio 14:1 ABG pH 7.25 L ABG pCO2 28.9 L ABG pO2 103.2 H ABG HCO3 12.3 L ABG O2 Saturation 96.9 ABG Base Excess -13.5 FiO2 35% Sodium Potassium Chloride Carbon Dioxide Anion Gap BUN Creatinine Est GFR ( Amer) Est GFR (Non-Af Amer) Glucose 725 H* Cancelled Calcium Magnesium Total Bilirubin AST ALT Alkaline Phosphatase Ammonia Total Protein Albumin TSH Urine Color Urine Appearance Urine pH Ur Specific [place] Urine Protein Urine Glucose (UA) Urine Ketones Urine Blood Urine Nitrite Ur Leukocyte Esterase Urine WBC (Auto) Urine RBC (Auto) 09/07/17 09/07/17 09/07/17 16:30 16:30 18:30 WBC RBC Hgb Hct MCV MCH MCHC RDW Plt Count Seg Neutrophils % Lymphocytes % Monocytes % Eosinophils % Basophils % Absolute Neutrophils Absolute Lymphocytes Absolute Monocytes Absolute Eosinophils Absolute Basophils Carbonic Acid 0.69 L HCO3/H2CO3 Ratio 22:1 ABG pH 7.44 ABG pCO2 23.0 L ABG pO2 93.3 ABG HCO3 15.3 L ABG O2 Saturation 97.5 ABG Base Excess -6.8 FiO2 30% Sodium 153.7 H 154.1 H Potassium 3.6 3.3 L Chloride 110 H 113 H Carbon Dioxide 17 L 22 Anion Gap 27 H 19 BUN 51 H 49 H Creatinine 2.23 H 1.82 H Est GFR ( Amer) 38 L 48 L Est GFR (Non-Af Amer) 31 L 39 L Glucose 622 H* 477 H* Calcium 8.0 L 8.0 L Magnesium 3.6 H Total Bilirubin AST ALT Alkaline Phosphatase Ammonia Total Protein Albumin TSH Urine Color Urine Appearance Urine pH Ur Specific [place] Urine Protein Urine Glucose (UA) Urine Ketones Urine Blood Urine Nitrite Ur Leukocyte Esterase Urine WBC (Auto) Urine RBC (Auto) 09/07/17 09/07/17 09/08/17 20:55 22:40 00:10 WBC RBC Hgb Hct MCV MCH MCHC RDW Plt Count Seg Neutrophils % Lymphocytes % Monocytes % Eosinophils % Basophils % Absolute Neutrophils Absolute Lymphocytes Absolute Monocytes Absolute Eosinophils Absolute Basophils Carbonic Acid HCO3/H2CO3 Ratio ABG pH ABG pCO2 ABG pO2 ABG HCO3 ABG O2 Saturation ABG Base Excess FiO2 Sodium 156.7 H 157.8 H 156.3 H Potassium 3.0 L* 3.0 L* 3.0 L* Chloride 116 H 118 H 119 H Carbon Dioxide 24 26 25 Anion Gap 17 14 12 BUN 44 H 43 H 37 H Creatinine 1.47 H 1.44 H 1.39 H Est GFR ( Amer) > 60 > 60 > 60 Est GFR (Non-Af Amer) 50 L 52 L 54 L Glucose 326 H 248 H 177 H Calcium 8.2 L 8.3 L 8.1 L Magnesium Total Bilirubin AST ALT Alkaline Phosphatase Ammonia Total Protein Albumin TSH Urine Color Urine Appearance Urine pH Ur Specific [place] Urine Protein Urine Glucose (UA) Urine Ketones Urine Blood Urine Nitrite Ur Leukocyte Esterase Urine WBC (Auto) Urine RBC (Auto) 09/08/17 09/08/17 09/08/17 02:05 04:05 05:15 WBC RBC Hgb Hct MCV MCH MCHC RDW Plt Count Seg Neutrophils % Lymphocytes % Monocytes % Eosinophils % Basophils % Absolute Neutrophils Absolute Lymphocytes Absolute Monocytes Absolute Eosinophils Absolute Basophils Carbonic Acid 0.69 L HCO3/H2CO3 Ratio 23:1 ABG pH 7.48 H ABG pCO2 22.9 L ABG pO2 139.9 H ABG HCO3 16.5 L ABG O2 Saturation 99.0 H ABG Base Excess -5.1 FiO2 30% Sodium 156.2 H 153.4 H Potassium 3.2 L 3.6 Chloride 120 H 119 H Carbon Dioxide 25 21 L Anion Gap 11 13 BUN 36 H 34 H Creatinine 1.33 H 1.22 Est GFR ( Amer) > 60 > 60 Est GFR (Non-Af Amer) 56 L > 60 Glucose 132 H 190 H Calcium 8.0 L 7.8 L Magnesium Total Bilirubin AST ALT Alkaline Phosphatase Ammonia Total Protein Albumin TSH Urine Color Urine Appearance Urine pH Ur Specific [place] Urine Protein Urine Glucose (UA) Urine Ketones Urine Blood Urine Nitrite Ur Leukocyte Esterase Urine WBC (Auto) Urine RBC (Auto) 09/08/17 09/08/17 09/08/17 05:50 05:50 05:50 WBC 16.7 H RBC 4.34 L Hgb 12.6 L Hct 38.1 MCV 88 D MCH 29.0 MCHC 33.1 RDW 14.4 H Plt Count 331 Seg Neutrophils % 75.1 Lymphocytes % 10.2 L Monocytes % 13.3 H Eosinophils % 0.2 Basophils % 1.2 Absolute Neutrophils 12.5 H Absolute Lymphocytes 1.7 Absolute Monocytes 2.2 H Absolute Eosinophils 0.0 Absolute Basophils 0.2 Carbonic Acid HCO3/H2CO3 Ratio ABG pH ABG pCO2 ABG pO2 ABG HCO3 ABG O2 Saturation ABG Base Excess FiO2 Sodium 152.0 H Potassium 3.4 L Chloride 117 H Carbon Dioxide 16 L Anion Gap 19 BUN 33 H Creatinine 1.16 Est GFR ( Amer) > 60 Est GFR (Non-Af Amer) > 60 Glucose 259 H Calcium 7.7 L Magnesium 3.2 H Total Bilirubin 0.4 AST 15 L ALT 28 Alkaline Phosphatase 134 H Ammonia Total Protein 5.0 L Albumin 3.0 L TSH 0.05 L Urine Color Urine Appearance Urine pH Ur Specific [place] Urine Protein Urine Glucose (UA) Urine Ketones Urine Blood Urine Nitrite Ur Leukocyte Esterase Urine WBC (Auto) Urine RBC (Auto) 09/08/17 09/08/17 05:50 06:25 WBC RBC Hgb Hct MCV MCH MCHC RDW Plt Count Seg Neutrophils % Lymphocytes % Monocytes % Eosinophils % Basophils % Absolute Neutrophils Absolute Lymphocytes Absolute Monocytes Absolute Eosinophils Absolute Basophils Carbonic Acid HCO3/H2CO3 Ratio ABG pH ABG pCO2 ABG pO2 ABG HCO3 ABG O2 Saturation ABG Base Excess FiO2 Sodium Potassium Chloride Carbon Dioxide Anion Gap BUN Creatinine Est GFR ( Amer) Est GFR (Non-Af Amer) Glucose Calcium Magnesium Total Bilirubin AST ALT Alkaline Phosphatase Ammonia < 8.7 L Total Protein Albumin TSH Urine Color YELLOW Urine Appearance CLOUDY Urine pH 5.0 Ur Specific [place] 1.020 Urine Protein NEGATIVE Urine Glucose (UA) >=500 H Urine Ketones 20 H Urine Blood MODERATE H Urine Nitrite NEGATIVE Ur Leukocyte Esterase TRACE H Urine WBC (Auto) 9 Urine RBC (Auto) 23 Impressions: Head CT 09/07/17 10:48 IMPRESSION: NORMAL BRAIN CT WITHOUT CONTRAST. EVIDENCE OF ACUTE STROKE: NO. Chest X-Ray 09/08/17 06:00 IMPRESSION: No significant change. Assessment & Plan - Diagnosis (1) Acute respiratory failure Qualifiers: Respiratory failure complication: hypoxia Qualified Code(s): J96.01 - Acute respiratory failure with hypoxia Is this a current diagnosis for this admission?: Yes Plan: Decreased respiratory rate adequate ventilation, Normalize ph (2) DKA (diabetic ketoacidoses) Qualifiers: Diabetes mellitus type: type 2 Is this a current diagnosis for this admission?: Yes Plan: Blood sugars improved persistent ketonuria (3) Schizophrenia Is this a current diagnosis for this admission?: Yes - Time Total Critical Time (Minutes): 40
[2017-09-08] MEDS: LEVOTHYROXINE SODIUM INJ/PF 0.1 MG SDV IV SCH (11:35)
[2017-09-08] MEDS: MIDAZOLAM HCL 50 MG/100 ML RTUINJ IV PRN ×2 (11:36→22:39)
[2017-09-08] MEDS: INSULIN LISPRO 100 UNIT/ML 3 ML VIAL SUBCUT PRN ×4 (11:48→23:56)
[2017-09-08] MEDS ORDERED: POTASSIUM CHLORIDE 20 MEQ/15 ML UDCUP PO ONE (12:15)
--- NOTE | 2017-09-08 12:36 | PDOC PROGRESS REPORT ---
Subjective Progress Note for:: 09/08/17 Subjective:: LIAM GRANT is a 51 year old male patient presented with unresponsiveness. Since patient intubated and on mechanical ventilation is not source of history. Brief history is obtained from verbal communication with the ER attending, Patient found unresponsive. Patient has PMH of schizophrenia , diabetes mellitus, CAD, noncompliance and hypertension. Patient also found to have fever of 102.5. Scan of the head was done and it is unremarkable. Lumbar puncture done and clear CSF with normal opening pressure obtained, Gram stain is negative and cultures are negative. Patient has been managed with aggressive hydration and since patient is hypotensive he has been on Levophed. His insulin drip discontinued and patient switched to subcu Lantus and sliding scale. Still patient has fever of 101.7 this morning. His acute kidney injury is improving evidence of a creatinine trending down from 3.1-1.16. His latest anion gap is 19. Patient has been covered with [employer] empirically. [employer] is on board. Reason For Visit: UNRESPONSIVE,HYPERGLYCEMIC HYPEROSMOLAR STATE Physical Exam Vital Signs: Temp Pulse Resp BP Pulse Ox 36.9 F L 80 16 110/72 100 09/07/17 14:25 09/08/17 10:00 09/08/17 11:31 09/08/17 11:31 09/08/17 12:00 Intake & Output 09/07/17 09/08/17 09/09/17 06:59 06:59 06:59 Intake Total 1369 4626 Output Total 3050 1050 Balance -1681 3576 Weight 81 kg Results Laboratory Results: 09/08/17 05:50 09/08/17 08:00 09/07/17 09/07/17 09/07/17 14:45 14:45 16:30 WBC RBC Hgb Hct MCV MCH MCHC RDW Plt Count Seg Neutrophils % Lymphocytes % Monocytes % Eosinophils % Basophils % Absolute Neutrophils Absolute Lymphocytes Absolute Monocytes Absolute Eosinophils Absolute Basophils Carbonic Acid 0.87 L HCO3/H2CO3 Ratio 14:1 ABG pH 7.25 L ABG pCO2 28.9 L ABG pO2 103.2 H ABG HCO3 12.3 L ABG O2 Saturation 96.9 ABG Base Excess -13.5 FiO2 35% Sodium Potassium Chloride Carbon Dioxide Anion Gap BUN Creatinine Est GFR ( Amer) Est GFR (Non-Af Amer) Glucose 725 H* Cancelled Calcium Magnesium Total Bilirubin AST ALT Alkaline Phosphatase Ammonia Total Protein Albumin TSH Urine Color Urine Appearance Urine pH Ur Specific [place] Urine Protein Urine Glucose (UA) Urine Ketones Urine Blood Urine Nitrite Ur Leukocyte Esterase Urine WBC (Auto) Urine RBC (Auto) 09/07/17 09/07/17 09/07/17 16:30 16:30 18:30 WBC RBC Hgb Hct MCV MCH MCHC RDW Plt Count Seg Neutrophils % Lymphocytes % Monocytes % Eosinophils % Basophils % Absolute Neutrophils Absolute Lymphocytes Absolute Monocytes Absolute Eosinophils Absolute Basophils Carbonic Acid 0.69 L HCO3/H2CO3 Ratio 22:1 ABG pH 7.44 ABG pCO2 23.0 L ABG pO2 93.3 ABG HCO3 15.3 L ABG O2 Saturation 97.5 ABG Base Excess -6.8 FiO2 30% Sodium 153.7 H 154.1 H Potassium 3.6 3.3 L Chloride 110 H 113 H Carbon Dioxide 17 L 22 Anion Gap 27 H 19 BUN 51 H 49 H Creatinine 2.23 H 1.82 H Est GFR ( Amer) 38 L 48 L Est GFR (Non-Af Amer) 31 L 39 L Glucose 622 H* 477 H* Calcium 8.0 L 8.0 L Magnesium 3.6 H Total Bilirubin AST ALT Alkaline Phosphatase Ammonia Total Protein Albumin TSH Urine Color Urine Appearance Urine pH Ur Specific [place] Urine Protein Urine Glucose (UA) Urine Ketones Urine Blood Urine Nitrite Ur Leukocyte Esterase Urine WBC (Auto) Urine RBC (Auto) 09/07/17 09/07/17 09/08/17 20:55 22:40 00:10 WBC RBC Hgb Hct MCV MCH MCHC RDW Plt Count Seg Neutrophils % Lymphocytes % Monocytes % Eosinophils % Basophils % Absolute Neutrophils Absolute Lymphocytes Absolute Monocytes Absolute Eosinophils Absolute Basophils Carbonic Acid HCO3/H2CO3 Ratio ABG pH ABG pCO2 ABG pO2 ABG HCO3 ABG O2 Saturation ABG Base Excess FiO2 Sodium 156.7 H 157.8 H 156.3 H Potassium 3.0 L* 3.0 L* 3.0 L* Chloride 116 H 118 H 119 H Carbon Dioxide 24 26 25 Anion Gap 17 14 12 BUN 44 H 43 H 37 H Creatinine 1.47 H 1.44 H 1.39 H Est GFR ( Amer) > 60 > 60 > 60 Est GFR (Non-Af Amer) 50 L 52 L 54 L Glucose 326 H 248 H 177 H Calcium 8.2 L 8.3 L 8.1 L Magnesium Total Bilirubin AST ALT Alkaline Phosphatase Ammonia Total Protein Albumin TSH Urine Color Urine Appearance Urine pH Ur Specific [place] Urine Protein Urine Glucose (UA) Urine Ketones Urine Blood Urine Nitrite Ur Leukocyte Esterase Urine WBC (Auto) Urine RBC (Auto) 09/08/17 09/08/17 09/08/17 02:05 04:05 05:15 WBC RBC Hgb Hct MCV MCH MCHC RDW Plt Count Seg Neutrophils % Lymphocytes % Monocytes % Eosinophils % Basophils % Absolute Neutrophils Absolute Lymphocytes Absolute Monocytes Absolute Eosinophils Absolute Basophils Carbonic Acid 0.69 L HCO3/H2CO3 Ratio 23:1 ABG pH 7.48 H ABG pCO2 22.9 L ABG pO2 139.9 H ABG HCO3 16.5 L ABG O2 Saturation 99.0 H ABG Base Excess -5.1 FiO2 30% Sodium 156.2 H 153.4 H Potassium 3.2 L 3.6 Chloride 120 H 119 H Carbon Dioxide 25 21 L Anion Gap 11 13 BUN 36 H 34 H Creatinine 1.33 H 1.22 Est GFR ( Amer) > 60 > 60 Est GFR (Non-Af Amer) 56 L > 60 Glucose 132 H 190 H Calcium 8.0 L 7.8 L Magnesium Total Bilirubin AST ALT Alkaline Phosphatase Ammonia Total Protein Albumin TSH Urine Color Urine Appearance Urine pH Ur Specific [place] Urine Protein Urine Glucose (UA) Urine Ketones Urine Blood Urine Nitrite Ur Leukocyte Esterase Urine WBC (Auto) Urine RBC (Auto) 09/08/17 09/08/17 09/08/17 05:50 05:50 05:50 WBC 16.7 H RBC 4.34 L Hgb 12.6 L Hct 38.1 MCV 88 D MCH 29.0 MCHC 33.1 RDW 14.4 H Plt Count 331 Seg Neutrophils % 75.1 Lymphocytes % 10.2 L Monocytes % 13.3 H Eosinophils % 0.2 Basophils % 1.2 Absolute Neutrophils 12.5 H Absolute Lymphocytes 1.7 Absolute Monocytes 2.2 H Absolute Eosinophils 0.0 Absolute Basophils 0.2 Carbonic Acid HCO3/H2CO3 Ratio ABG pH ABG pCO2 ABG pO2 ABG HCO3 ABG O2 Saturation ABG Base Excess FiO2 Sodium 152.0 H Potassium 3.4 L Chloride 117 H Carbon Dioxide 16 L Anion Gap 19 BUN 33 H Creatinine 1.16 Est GFR ( Amer) > 60 Est GFR (Non-Af Amer) > 60 Glucose 259 H Calcium 7.7 L Magnesium 3.2 H Total Bilirubin 0.4 AST 15 L ALT 28 Alkaline Phosphatase 134 H Ammonia Total Protein 5.0 L Albumin 3.0 L TSH 0.05 L Urine Color Urine Appearance Urine pH Ur Specific [place] Urine Protein Urine Glucose (UA) Urine Ketones Urine Blood Urine Nitrite Ur Leukocyte Esterase Urine WBC (Auto) Urine RBC (Auto) 09/08/17 09/08/17 09/08/17 05:50 06:25 08:00 WBC RBC Hgb Hct MCV MCH MCHC RDW Plt Count Seg Neutrophils % Lymphocytes % Monocytes % Eosinophils % Basophils % Absolute Neutrophils Absolute Lymphocytes Absolute Monocytes Absolute Eosinophils Absolute Basophils Carbonic Acid HCO3/H2CO3 Ratio ABG pH ABG pCO2 ABG pO2 ABG HCO3 ABG O2 Saturation ABG Base Excess FiO2 Sodium 152.2 H Potassium 3.3 L Chloride 117 H Carbon Dioxide 16 L Anion Gap 19 BUN 31 H Creatinine 1.25 Est GFR ( Amer) > 60 Est GFR (Non-Af Amer) > 60 Glucose 296 H Calcium 7.6 L Magnesium Total Bilirubin AST ALT Alkaline Phosphatase Ammonia < 8.7 L Total Protein Albumin TSH Urine Color YELLOW Urine Appearance CLOUDY Urine pH 5.0 Ur Specific [place] 1.020 Urine Protein NEGATIVE Urine Glucose (UA) >=500 H Urine Ketones 20 H Urine Blood MODERATE H Urine Nitrite NEGATIVE Ur Leukocyte Esterase TRACE H Urine WBC (Auto) 9 Urine RBC (Auto) 23 Impressions: Head CT 09/07/17 10:48 IMPRESSION: NORMAL BRAIN CT WITHOUT CONTRAST. EVIDENCE OF ACUTE STROKE: NO. Chest X-Ray 09/08/17 06:00 IMPRESSION: No significant change. Assessment & Plan - Diagnosis (1) DKA (diabetic ketoacidoses) Qualifiers: Diabetes mellitus type: type 2 Is this a current diagnosis for this admission?: Yes Plan: Patient has been started on prandial insulin subcu and his insulin drip discontinued He is also being hydrated aggressively. He is being on Levophed because of hypotension. His blood pressure has been improving. (2) Unresponsiveness Is this a current diagnosis for this admission?: Yes Plan: In light of unresponsiveness and unexplained fever to have meningitis considered LP was done results pending in the meantime patient covered with [employer]. (3) Schizophrenia Qualifiers: Schizophrenia type: unspecified Qualified Code(s): F20.9 - Schizophrenia, unspecified Is this a current diagnosis for this admission?: Yes Plan: Continue his home medication as soon as he is intubated. (4) Diabetes 1.5, managed as type 2 Is this a current diagnosis for this admission?: Yes (5) Acute kidney injury Is this a current diagnosis for this admission?: Yes Plan: Resolving. - Time Time Spent with patient: 35 or more minutes
[2017-09-08] MEDS: DEXTROSE 5%-WATER 250 ML with PHENYLEPHRINE HCL 40 MG IV PRN ×4 (14:41→23:37)
[2017-09-08 15:22] LABS: APPEARANCE,URINE SLIGHTLY-CLOUDY; BILIRUBIN,URINE NEGATIVE (NEGATIVE); COLOR,URINE STRAW; GLUCOSE, URINE >=500 mg/dL (NEGATIVE); KETONES,URINE 80 mg/dL (NEGATIVE); LEUKOCYTE ESTERASE,URINE NEGATIVE (NEGATIVE); NITRITE,URINE NEGATIVE (NEGATIVE); PROTEIN,URINE NEGATIVE (NEGATIVE); URIC ACID CRYSTALS,URINE MANY /HPF; URINE SPECIFIC GRAVITY 1.024; UROBILINOGEN,URINE NEGATIVE mg/dL (<2.0)
[2017-09-08 15:37] LABS: ANION GAP 17 (5-19); BLOOD UREA NITROGEN 28 mg/dL (7-20); CALCIUM 7.9 mg/dL (8.4-10.2); CARBON DIOXIDE 16 mmol/L (22-30); CHLORIDE 119 mmol/L (98-107); GLUCOSE 359 mg/dL (75-110); POTASSIUM 3.9 mmol/L (3.6-5.0); SODIUM 151.7 mmol/L (137-145)
[2017-09-08 17:35] LABS: ANION GAP 16 (5-19); BLOOD UREA NITROGEN 26 mg/dL (7-20); CARBON DIOXIDE 18 mmol/L (22-30); CHLORIDE 121 mmol/L (98-107); GLUCOSE 268 mg/dL (75-110); POTASSIUM 3.3 mmol/L (3.6-5.0); SODIUM 154.9 mmol/L (137-145)
[2017-09-08] MEDS ORDERED: ALTEPLASE INJ 2 MG VIAL (CATH CLEARANCE) IV ONE (17:45)
[2017-09-08] MEDS ORDERED: POTASSI CL 20 MEQ/50 ML RIDER 20 MEQ/50 ML RTUPB IV ONE (18:48)
[2017-09-08] MEDS ORDERED: POTASSIUM CHLORIDE 20 MEQ/15 ML UDCUP ONE (18:48)
[2017-09-08] MEDS: POTASSI CL 20 MEQ/50 ML RIDER 20 MEQ/50 ML RTUPB IV SCH ×2 (18:53→20:51)
[2017-09-08 23:32] LABS: ANION GAP 10 (5-19); BLOOD UREA NITROGEN 20 mg/dL (7-20); CALCIUM 7.8 mg/dL (8.4-10.2); CARBON DIOXIDE 19 mmol/L (22-30); CHLORIDE 122 mmol/L (98-107); GLUCOSE 282 mg/dL (75-110); POTASSIUM 3.8 mmol/L (3.6-5.0); SODIUM 151.3 mmol/L (137-145)
[2017-09-08] MEDS: INSULIN GLARGINE,HUM.REC.ANLOG 300 UNIT/3 ML INSULN.PEN SUBCUT SCH (23:38)
[2017-09-09 05:39] LABS: ARTERIAL BLOOD BASE EXCESS -4.1 mmol/L; ARTERIAL BLOOD H2CO3 0.79 mmol/L (1.05-1.35); ARTERIAL BLOOD HCO3 18.4 mmol/L (20-26); ARTERIAL BLOOD PCO2 26.1 mmHg (35-45); ARTERIAL BLOOD PH 7.47 (7.35-7.45); ARTERIAL BLOOD PO2 143.3 mmHg (80-100); ARTERIAL BLOOD TOTAL CO2 19.2 mmol/L (23-27)
[2017-09-09 05:41] LABS: ARTERIAL BLOOD FIO2 30%
[2017-09-09 05:44] LABS: ABSOLUTE BASOPHILS # (AUTO) 0.1 10^3/uL (0.0-0.2); ABSOLUTE EOSINOPHILS # (AUTO) 0.1 10^3/uL (0.0-0.6); ABSOLUTE NEUT (AUTO) 6.2 10^3/uL (1.7-8.2); BASOPHILS % (AUTO) 1.1 % (0-2); HEMATOCRIT 33.9 % (37.9-51.0); HEMOGLOBIN 11.3 g/dL (13.5-17.0); LYMPHOCYTES % (AUTO) 21.6 % (13-45); MEAN CORPUSCULAR HEMOGLOBIN 29.4 pg (27.0-33.4); MEAN CORPUSCULAR HGB CONC 33.2 g/dL (32.0-36.0); MEAN CORPUSCULAR VOLUME 89 fl (80-97); MONOCYTES % (AUTO) 10.7 % (3-13); PLATELET COUNT 253 10^3/uL (150-450); RED BLOOD COUNT 3.83 10^6/uL (4.35-5.55); RED CELL DISTRIBUTION WIDTH 14.9 % (11.5-14.0); SEGMENTED NEUTROPHILS % (AUTO) 65.6 % (42-78); TOTAL CELLS COUNTED % (AUTO) 100 %; WHITE BLOOD COUNT 9.4 10^3/uL (4.0-10.5)
[2017-09-09] MEDS: PIPERACILLIN SODIUM/TAZOBACTAM 3.375 GM in NORMAL SALINE 100 ML IV SCH ×3 (06:07→17:30)
[2017-09-09] MEDS: HEPARIN SOD (PORCINE) 5,000 UNIT/ML 1 ML SYRINGE SUBCUT SCH ×3 (06:08→21:48)
[2017-09-09] MEDS: NORMAL SALINE 100 ML with PANTOPRAZOLE SODIUM 80 MG IV PRN ×6 (06:09→21:49)
--- NOTE | 2017-09-09 06:23 | RADIOLOGY REPORT (SQ) ---
EXAM DESCRIPTION: CHEST SINGLE VIEW CLINICAL HISTORY: On mechanical ventilation COMPARISON: 09/08/2017 FINDINGS: Single frontal view of the chest. Endotracheal tube, NG tube, and right IJ central venous catheter unchanged. Heart is not enlarged. Low lung volumes. Possible small left pleural effusion. No lobar consolidation or pneumothorax identified. No acute osseous abnormalities. Upper abdominal soft tissues are unremarkable. IMPRESSION: 1. No significant interval change.
[2017-09-09] MEDS: INSULIN LISPRO 100 UNIT/ML 3 ML VIAL SUBCUT PRN ×3 (06:35→17:37)
[2017-09-09] MEDS: MIDAZOLAM HCL 50 MG/100 ML RTUINJ IV PRN ×2 (08:35→15:42)
[2017-09-09 08:43] LABS: ANION GAP 8 (5-19); BLOOD UREA NITROGEN 14 mg/dL (7-20); CALCIUM 7.8 mg/dL (8.4-10.2); CARBON DIOXIDE 23 mmol/L (22-30); CHLORIDE 126 mmol/L (98-107); GLUCOSE 198 mg/dL (75-110); POTASSIUM 3.4 mmol/L (3.6-5.0)
[2017-09-09] MEDS: LEVOTHYROXINE SODIUM INJ/PF 0.1 MG SDV IV SCH (09:39)
[2017-09-09] MEDS: POTASSIUM CHLORIDE 20 MEQ/15 ML UDCUP NG SCH (09:39)
[2017-09-09] MEDS ORDERED: (PENDING PHARMACY ID) (Paroxetine Hcl [Paxil] 30 MG) PO SCH (10:30)
[2017-09-09 10:33] LABS: APPEARANCE,URINE CLOUDY; BILIRUBIN,URINE NEGATIVE (NEGATIVE); COLOR,URINE YELLOW; GLUCOSE, URINE >=500 mg/dL (NEGATIVE); KETONES,URINE TRACE mg/dL (NEGATIVE); LEUKOCYTE ESTERASE,URINE NEGATIVE (NEGATIVE); NITRITE,URINE NEGATIVE (NEGATIVE); PROTEIN,URINE 30 mg/dL (NEGATIVE); URIC ACID CRYSTALS,URINE MODERATE /HPF; URINE SPECIFIC GRAVITY 1.032; UROBILINOGEN,URINE NEGATIVE mg/dL (<2.0)
--- NOTE | 2017-09-09 10:53 | PDOC PROGRESS REPORT ---
Subjective Progress Note for:: 09/09/17 Subjective:: Patient is sedated with Diprivan, intubated and on the vent Reason For Visit: UNRESPONSIVE,HYPERGLYCEMIC HYPEROSMOLAR STATE Physical Exam Vital Signs: Temp Pulse Resp BP Pulse Ox 99.0 F 78 18 115/76 98 09/09/17 02:00 09/09/17 09:27 09/09/17 10:16 09/09/17 10:16 09/09/17 10:16 Intake & Output 09/08/17 09/09/17 09/10/17 06:59 06:59 06:59 Intake Total 1369 34151 Output Total 3050 4600 350 Balance -1681 5807 -350 Weight 81 kg 84.2 kg General appearance: PRESENT: no acute distress Head exam: PRESENT: atraumatic Respiratory exam: PRESENT: clear to auscultation cleo Cardiovascular exam: PRESENT: RRR GI/Abdominal exam: PRESENT: soft Extremities exam: PRESENT: other - No edema Neurological exam: PRESENT: other - Deferred Psychiatric exam: PRESENT: other - Sedated Skin exam: PRESENT: warm Results Laboratory Results: 09/09/17 05:30 09/09/17 08:05 09/08/17 09/08/17 09/08/17 14:55 14:55 17:00 WBC RBC Hgb Hct MCV MCH MCHC RDW Plt Count Seg Neutrophils % Lymphocytes % Monocytes % Eosinophils % Basophils % Absolute Neutrophils Absolute Lymphocytes Absolute Monocytes Absolute Eosinophils Absolute Basophils Carbonic Acid HCO3/H2CO3 Ratio ABG pH ABG pCO2 ABG pO2 ABG HCO3 ABG O2 Saturation ABG Base Excess FiO2 Sodium 151.7 H 154.9 H Potassium 3.9 3.3 L Chloride 119 H 121 H Carbon Dioxide 16 L 18 L Anion Gap 17 16 BUN 28 H 26 H Creatinine 1.19 1.11 Est GFR ( Amer) > 60 > 60 Est GFR (Non-Af Amer) > 60 > 60 Glucose 359 H 268 H Calcium 7.9 L 8.0 L Magnesium Triglycerides Urine Color STRAW Urine Appearance SLIGHTLY-CLOUDY Urine pH 5.0 Ur Specific [place] 1.024 Urine Protein NEGATIVE Urine Glucose (UA) >=500 H Urine Ketones 80 H Urine Blood NEGATIVE Urine Nitrite NEGATIVE Ur Leukocyte Esterase NEGATIVE Urine WBC (Auto) 2 Urine RBC (Auto) 2 09/08/17 09/09/17 09/09/17 23:00 05:20 05:30 WBC 9.4 RBC 3.83 L Hgb 11.3 L Hct 33.9 L MCV 89 MCH 29.4 MCHC 33.2 RDW 14.9 H Plt Count 253 Seg Neutrophils % 65.6 Lymphocytes % 21.6 Monocytes % 10.7 Eosinophils % 1.0 Basophils % 1.1 Absolute Neutrophils 6.2 Absolute Lymphocytes 2.0 Absolute Monocytes 1.0 Absolute Eosinophils 0.1 Absolute Basophils 0.1 Carbonic Acid 0.79 L HCO3/H2CO3 Ratio 23:1 ABG pH 7.47 H ABG pCO2 26.1 L ABG pO2 143.3 H ABG HCO3 18.4 L ABG O2 Saturation 99.0 H ABG Base Excess -4.1 FiO2 30% Sodium 151.3 H Potassium 3.8 Chloride 122 H Carbon Dioxide 19 L Anion Gap 10 BUN 20 Creatinine 1.02 Est GFR ( Amer) > 60 Est GFR (Non-Af Amer) > 60 Glucose 282 H Calcium 7.8 L Magnesium Triglycerides Urine Color Urine Appearance Urine pH Ur Specific [place] Urine Protein Urine Glucose (UA) Urine Ketones Urine Blood Urine Nitrite Ur Leukocyte Esterase Urine WBC (Auto) Urine RBC (Auto) 09/09/17 09/09/17 09/09/17 05:30 08:05 09:35 WBC RBC Hgb Hct MCV MCH MCHC RDW Plt Count Seg Neutrophils % Lymphocytes % Monocytes % Eosinophils % Basophils % Absolute Neutrophils Absolute Lymphocytes Absolute Monocytes Absolute Eosinophils Absolute Basophils Carbonic Acid HCO3/H2CO3 Ratio ABG pH ABG pCO2 ABG pO2 ABG HCO3 ABG O2 Saturation ABG Base Excess FiO2 Sodium 157.0 H Potassium 3.4 L Chloride 126 H Carbon Dioxide 23 Anion Gap 8 BUN 14 Creatinine 0.93 Est GFR ( Amer) > 60 Est GFR (Non-Af Amer) > 60 Glucose 198 H Calcium 7.8 L Magnesium 2.8 H Triglycerides 276 H Urine Color YELLOW Urine Appearance CLOUDY Urine pH 5.0 Ur Specific [place] 1.032 Urine Protein 30 H Urine Glucose (UA) >=500 H Urine Ketones TRACE H Urine Blood SMALL H Urine Nitrite NEGATIVE Ur Leukocyte Esterase NEGATIVE Urine WBC (Auto) 4 Urine RBC (Auto) 35 Impressions: Head CT 09/07/17 10:48 IMPRESSION: NORMAL BRAIN CT WITHOUT CONTRAST. EVIDENCE OF ACUTE STROKE: NO. Chest X-Ray 09/09/17 06:00 IMPRESSION: 1. No significant interval change. Assessment & Plan - Diagnosis (1) Diabetes insipidus Is this a current diagnosis for this admission?: Yes Plan: Start him on IV DDAVP and follow his sodium closely. 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 I will stop his D5 half-normal and change him over to just half normal (3) Acute respiratory failure Qualifiers: Respiratory failure complication: hypoxia Qualified Code(s): J96.01 - Acute respiratory failure with hypoxia Is this a current diagnosis for this admission?: Yes Plan: Continue the vent. I think he will probably be weaned today however absent his antipsychotics it would be challenging. I will restart some of his antipsychotics and start trying to wean his Diprivan (5) Schizophrenia Qualifiers: Schizophrenia type: unspecified Qualified Code(s): F20.9 - Schizophrenia, unspecified Is this a current diagnosis for this admission?: Yes Plan: Given his medication list I gather that he has been rather difficult to control. Extremity adding back his antipsychotics. Reportedly his brother believes that the latest edition (Rexulti) resulted in his decompensation so I will continue to hold that - Inpatient Certification Based on my medical assessment, after consideration of the patient's comorbidities, presenting symptoms, or acuity I expect that the services needed warrant INPATIENT care.: Yes
[2017-09-09] MEDS ORDERED: CLOZAPINE 25 MG TABLET PO ONE (11:30)
[2017-09-09] MEDS ORDERED: CHLORPROMAZINE HCL 50 MG TABLET PO ONE (11:30)
[2017-09-09] MEDS: PROPOFOL 100 ML IV PRN ×3 (12:32→21:49)
[2017-09-09] MEDS: POTASSI CL 20 MEQ/1/2NS 1L 1000 ML IV PRN ×2 (12:34→19:48)
[2017-09-09 17:58] LABS: ALBUMIN 2.4 g/dL (3.5-5.0); ANION GAP 9 (5-19); BLOOD UREA NITROGEN 12 mg/dL (7-20); CALCIUM 7.6 mg/dL (8.4-10.2); CARBON DIOXIDE 20 mmol/L (22-30); CHLORIDE 125 mmol/L (98-107); GLUCOSE 151 mg/dL (75-110); PHOSPHORUS 2.3 mg/dL (2.5-4.5); POTASSIUM 3.6 mmol/L (3.6-5.0); SODIUM 153.9 mmol/L (137-145)
[2017-09-09] MEDS ORDERED: DESMOPRESSIN ACETATE INJ 4 MCG/1 ML AMPULE IV SCH (18:00)
[2017-09-09] MEDS: CHLORPROMAZINE HCL 50 MG TABLET PO SCH (21:46)
[2017-09-09] MEDS: CLOZAPINE 100 MG TABLET PO SCH (21:47)
[2017-09-09] MEDS: METFORMIN HCL 500 MG TABLET PO SCH (21:47)
[2017-09-09] MEDS: DOCUSATE SODIUM 100 MG CAPSULE PO SCH (21:47)
[2017-09-09] MEDS: INSULIN GLARGINE,HUM.REC.ANLOG 300 UNIT/3 ML INSULN.PEN SUBCUT SCH (21:50)
[2017-09-09] MEDS ORDERED: (PENDING PHARMACY ID) (Metformin Hcl [Metformin Hcl Er] 500 MG) PO SCH (22:00)
[2017-09-10] MEDS: PIPERACILLIN SODIUM/TAZOBACTAM 3.375 GM in NORMAL SALINE 100 ML IV SCH ×5 (00:11→23:10)
[2017-09-10] MEDS: MIDAZOLAM HCL 50 MG/100 ML RTUINJ IV PRN ×3 (00:12→20:23)
[2017-09-10] MEDS: PROPOFOL 100 ML IV PRN ×5 (03:00→22:16)
[2017-09-10] MEDS: POTASSI CL 20 MEQ/1/2NS 1L 1000 ML IV PRN ×3 (03:01→20:23)
[2017-09-10 05:12] LABS: ABSOLUTE EOSINOPHILS # (AUTO) 0.1 10^3/uL (0.0-0.6); ABSOLUTE LYMPHOCYTES (AUTO) 1.9 10^3/uL (0.5-4.7); ABSOLUTE MONOCYTES (AUTO) 0.5 10^3/uL (0.1-1.4); ABSOLUTE NEUT (AUTO) 4.3 10^3/uL (1.7-8.2); BASOPHILS % (AUTO) 0.7 % (0-2); EOSINOPHILS % (AUTO) 2.1 % (0-6); HEMATOCRIT 30.5 % (37.9-51.0); HEMOGLOBIN 10.2 g/dL (13.5-17.0); LYMPHOCYTES % (AUTO) 27.1 % (13-45); MEAN CORPUSCULAR HEMOGLOBIN 29.9 pg (27.0-33.4); MEAN CORPUSCULAR HGB CONC 33.6 g/dL (32.0-36.0); MEAN CORPUSCULAR VOLUME 89 fl (80-97); MONOCYTES % (AUTO) 7.6 % (3-13); PLATELET COUNT 183 10^3/uL (150-450); RED BLOOD COUNT 3.43 10^6/uL (4.35-5.55); RED CELL DISTRIBUTION WIDTH 15.2 % (11.5-14.0); SEGMENTED NEUTROPHILS % (AUTO) 62.5 % (42-78); TOTAL CELLS COUNTED % (AUTO) 100 %; WHITE BLOOD COUNT 6.9 10^3/uL (4.0-10.5)
[2017-09-10 05:14] LABS: ARTERIAL BLOOD BASE EXCESS -7.4 mmol/L; ARTERIAL BLOOD H2CO3 0.79 mmol/L (1.05-1.35); ARTERIAL BLOOD HCO3 15.9 mmol/L (20-26); ARTERIAL BLOOD O2 SATURATION 98.9 % (94-98); ARTERIAL BLOOD PCO2 26.1 mmHg (35-45); ARTERIAL BLOOD PO2 141.9 mmHg (80-100); ARTERIAL BLOOD TOTAL CO2 16.7 mmol/L (23-27)
[2017-09-10 05:18] LABS: ARTERIAL BLOOD FIO2 30%
[2017-09-10] MEDS: HEPARIN SOD (PORCINE) 5,000 UNIT/ML 1 ML SYRINGE SUBCUT SCH ×3 (05:27→22:17)
[2017-09-10 05:35] LABS: ALANINE AMINOTRANSFERASE 31 U/L (21-72); ALBUMIN 2.4 g/dL (3.5-5.0); ALKALINE PHOSPHATASE 101 U/L (38-126); ANION GAP 13 (5-19); ASPARTATE AMINO TRANSFERASE 14 U/L (17-59); BILIRUBIN,DIRECT 0.3 mg/dL (0.0-0.4); BILIRUBIN,TOTAL 0.3 mg/dL (0.2-1.3); BLOOD UREA NITROGEN 13 mg/dL (7-20); CALCIUM 7.7 mg/dL (8.4-10.2); CARBON DIOXIDE 16 mmol/L (22-30); CHLORIDE 125 mmol/L (98-107); GLUCOSE 163 mg/dL (75-110); POTASSIUM 4.1 mmol/L (3.6-5.0); SODIUM 153.6 mmol/L (137-145); TOTAL PROTEIN 4.4 g/dL (6.3-8.2)
--- NOTE | 2017-09-10 07:23 | RADIOLOGY REPORT (SQ) ---
EXAM DESCRIPTION: CHEST SINGLE VIEW CLINICAL HISTORY: On mechanical ventilation COMPARISON: 09/09/2017 FINDINGS: Single frontal view of the chest. Endotracheal tube, NG tube, and right IJ central venous catheter unchanged. Heart is not enlarged. Low lung volumes. Small left pleural effusion. No lobar consolidation or pneumothorax identified. No acute osseous abnormalities. Upper abdominal soft tissues are unremarkable. IMPRESSION: 1. No significant interval change. Electronically signed by: Puma Bolivar 09/10/2017 6:22 AM
[2017-09-10] MEDS: LEVOTHYROXINE SODIUM INJ/PF 0.1 MG SDV IV SCH (09:01)
[2017-09-10] MEDS: PAROXETINE HCL 20 MG TABLET PO SCH (09:02)
[2017-09-10] MEDS: OLANZAPINE 5 MG TABLET PO SCH (09:03)
[2017-09-10] MEDS: METFORMIN HCL 500 MG TABLET PO SCH ×2 (09:04→22:13)
[2017-09-10] MEDS ORDERED: OLANZAPINE 10 MG PO SCH (10:00)
[2017-09-10] MEDS: CLOZAPINE 25 MG TABLET PO SCH (10:03)
[2017-09-10] MEDS: CHLORPROMAZINE HCL 50 MG TABLET PO SCH ×2 (10:03→22:14)
[2017-09-10] MEDS: DOCUSATE SODIUM 100 MG CAPSULE PO SCH ×2 (10:04→22:15)
[2017-09-10 10:08] LABS: APPEARANCE,URINE SLIGHTLY-CLOUDY; BILIRUBIN,URINE NEGATIVE (NEGATIVE); COLOR,URINE YELLOW; GLUCOSE, URINE >=500 mg/dL (NEGATIVE); KETONES,URINE 80 mg/dL (NEGATIVE); LEUKOCYTE ESTERASE,URINE NEGATIVE (NEGATIVE); NITRITE,URINE NEGATIVE (NEGATIVE); PROTEIN,URINE NEGATIVE (NEGATIVE); URINE SPECIFIC GRAVITY 1.033; UROBILINOGEN,URINE NEGATIVE mg/dL (<2.0)
[2017-09-10] MEDS: POTASSIUM CHLORIDE 20 MEQ/15 ML UDCUP NG SCH (11:12)
[2017-09-10] MEDS ORDERED: DESMOPRESSIN ACETATE INJ 4 MCG/1 ML AMPULE IV SCH (12:00)
--- NOTE | 2017-09-10 12:59 | PDOC PROGRESS REPORT ---
Subjective Progress Note for:: 09/09/17 Subjective:: intubated Reason For Visit: UNRESPONSIVE,HYPERGLYCEMIC HYPEROSMOLAR STATE Physical Exam Vital Signs: Temp Pulse Resp BP Pulse Ox 99.0 F 75 18 114/73 98 09/09/17 02:00 09/09/17 06:00 09/09/17 07:31 09/09/17 07:31 09/09/17 07:31 Intake & Output 09/08/17 09/09/17 09/10/17 06:59 06:59 06:59 Intake Total 1369 43972 Output Total 3050 4600 175 Balance -1681 5807 -175 Weight 81 kg 84.2 kg General appearance: PRESENT: no acute distress, disheveled, obese. ABSENT: cooperative Head exam: PRESENT: atraumatic, normocephalic Eye exam: PRESENT: conjunctiva pale. ABSENT: EOMI, nystagmus, periorbital swelling, scleral icterus Mouth exam: PRESENT: dry mucosa, neck supple, tongue midline, other - ET tube in place Neck exam: ABSENT: carotid bruit, JVD, lymphadenopathy, thyromegaly, tracheal deviation, tracheostomy Respiratory exam: PRESENT: decreased breath sounds, prolonged expiratory phas, rhonchi, symmetrical, unlabored. ABSENT: retraction, stridor, tachypnea Cardiovascular exam: PRESENT: RRR, +S1, +S2, tachycardia Pulses: PRESENT: normal radial pulses GI/Abdominal exam: PRESENT: diminished bowel sounds, soft Extremities exam: ABSENT: clubbing, full ROM, joint swelling Musculoskeletal exam: ABSENT: ambulatory, deformity, dislocation, full ROM Neurological exam: ABSENT: awake, oriented to person Skin exam: PRESENT: dry, warm Results Laboratory Results: 09/09/17 05:30 09/08/17 23:00 09/08/17 09/08/17 09/08/17 08:00 14:55 14:55 WBC RBC Hgb Hct MCV MCH MCHC RDW Plt Count Seg Neutrophils % Lymphocytes % Monocytes % Eosinophils % Basophils % Absolute Neutrophils Absolute Lymphocytes Absolute Monocytes Absolute Eosinophils Absolute Basophils Carbonic Acid HCO3/H2CO3 Ratio ABG pH ABG pCO2 ABG pO2 ABG HCO3 ABG O2 Saturation ABG Base Excess FiO2 Sodium 152.2 H 151.7 H Potassium 3.3 L 3.9 Chloride 117 H 119 H Carbon Dioxide 16 L 16 L Anion Gap 19 17 BUN 31 H 28 H Creatinine 1.25 1.19 Est GFR ( Amer) > 60 > 60 Est GFR (Non-Af Amer) > 60 > 60 Glucose 296 H 359 H Calcium 7.6 L 7.9 L Magnesium Triglycerides Urine Color STRAW Urine Appearance SLIGHTLY-CLOUDY Urine pH 5.0 Ur Specific [place] 1.024 Urine Protein NEGATIVE Urine Glucose (UA) >=500 H Urine Ketones 80 H Urine Blood NEGATIVE Urine Nitrite NEGATIVE Ur Leukocyte Esterase NEGATIVE Urine WBC (Auto) 2 Urine RBC (Auto) 2 09/08/17 09/08/17 09/09/17 17:00 23:00 05:20 WBC RBC Hgb Hct MCV MCH MCHC RDW Plt Count Seg Neutrophils % Lymphocytes % Monocytes % Eosinophils % Basophils % Absolute Neutrophils Absolute Lymphocytes Absolute Monocytes Absolute Eosinophils Absolute Basophils Carbonic Acid 0.79 L HCO3/H2CO3 Ratio 23:1 ABG pH 7.47 H ABG pCO2 26.1 L ABG pO2 143.3 H ABG HCO3 18.4 L ABG O2 Saturation 99.0 H ABG Base Excess -4.1 FiO2 30% Sodium 154.9 H 151.3 H Potassium 3.3 L 3.8 Chloride 121 H 122 H Carbon Dioxide 18 L 19 L Anion Gap 16 10 BUN 26 H 20 Creatinine 1.11 1.02 Est GFR ( Amer) > 60 > 60 Est GFR (Non-Af Amer) > 60 > 60 Glucose 268 H 282 H Calcium 8.0 L 7.8 L Magnesium Triglycerides Urine Color Urine Appearance Urine pH Ur Specific [place] Urine Protein Urine Glucose (UA) Urine Ketones Urine Blood Urine Nitrite Ur Leukocyte Esterase Urine WBC (Auto) Urine RBC (Auto) 09/09/17 09/09/17 05:30 05:30 WBC 9.4 RBC 3.83 L Hgb 11.3 L Hct 33.9 L MCV 89 MCH 29.4 MCHC 33.2 RDW 14.9 H Plt Count 253 Seg Neutrophils % 65.6 Lymphocytes % 21.6 Monocytes % 10.7 Eosinophils % 1.0 Basophils % 1.1 Absolute Neutrophils 6.2 Absolute Lymphocytes 2.0 Absolute Monocytes 1.0 Absolute Eosinophils 0.1 Absolute Basophils 0.1 Carbonic Acid HCO3/H2CO3 Ratio ABG pH ABG pCO2 ABG pO2 ABG HCO3 ABG O2 Saturation ABG Base Excess FiO2 Sodium Potassium Chloride Carbon Dioxide Anion Gap BUN Creatinine Est GFR ( Amer) Est GFR (Non-Af Amer) Glucose Calcium Magnesium 2.8 H Triglycerides 276 H Urine Color Urine Appearance Urine pH Ur Specific [place] Urine Protein Urine Glucose (UA) Urine Ketones Urine Blood Urine Nitrite Ur Leukocyte Esterase Urine WBC (Auto) Urine RBC (Auto) Impressions: Head CT 09/07/17 10:48 IMPRESSION: NORMAL BRAIN CT WITHOUT CONTRAST. EVIDENCE OF ACUTE STROKE: NO. Chest X-Ray 09/09/17 06:00 IMPRESSION: 1. No significant interval change. Assessment & Plan - Diagnosis (1) Acute respiratory failure Qualifiers: Respiratory failure complication: hypoxia Qualified Code(s): J96.01 - Acute respiratory failure with hypoxia Is this a current diagnosis for this admission?: Yes Plan: Multiple pathogens detected and ET aspirate (2) DKA (diabetic ketoacidoses) Qualifiers: Diabetes mellitus type: type 2 Is this a current diagnosis for this admission?: Yes Plan: Ketonuria and acidosis persist (3) Schizophrenia Qualifiers: Schizophrenia type: unspecified Qualified Code(s): F20.9 - Schizophrenia, unspecified Is this a current diagnosis for this admission?: Yes - Time Total Critical Time (Minutes): 40
--- NOTE | 2017-09-10 13:01 | PDOC PROGRESS REPORT ---
Subjective Progress Note for:: 09/10/17 Subjective:: intubated Reason For Visit: UNRESPONSIVE,HYPERGLYCEMIC HYPEROSMOLAR STATE Physical Exam Vital Signs: Temp Pulse Resp BP Pulse Ox 97.4 F 59 L 18 105/78 100 09/10/17 12:00 09/10/17 12:00 09/10/17 12:17 09/10/17 12:17 09/10/17 12:17 Intake & Output 09/09/17 09/10/17 09/11/17 06:59 06:59 06:59 Intake Total 20081 4581 70 Output Total 4600 1985 485 Balance 9083 3469 -765 Weight 84.2 kg 84.5 kg General appearance: PRESENT: no acute distress, disheveled, obese. ABSENT: cooperative Head exam: PRESENT: atraumatic, normocephalic Eye exam: PRESENT: conjunctiva pale. ABSENT: EOMI, nystagmus, periorbital swelling, scleral icterus Mouth exam: PRESENT: dry mucosa, neck supple, tongue midline, other - ET tube in place Neck exam: ABSENT: carotid bruit, JVD, lymphadenopathy, thyromegaly, tracheal deviation, tracheostomy Respiratory exam: PRESENT: decreased breath sounds, prolonged expiratory phas, rales, rhonchi, symmetrical, unlabored. ABSENT: retraction, stridor, tachypnea Cardiovascular exam: PRESENT: RRR, +S1, +S2, tachycardia Pulses: PRESENT: normal radial pulses GI/Abdominal exam: PRESENT: diminished bowel sounds, soft Extremities exam: ABSENT: clubbing, full ROM, joint swelling Musculoskeletal exam: ABSENT: ambulatory, deformity, dislocation Neurological exam: ABSENT: awake, oriented to person Skin exam: PRESENT: dry, warm Results Laboratory Results: 09/10/17 04:50 09/10/17 04:50 09/09/17 09/10/17 09/10/17 17:25 04:50 04:50 WBC 6.9 RBC 3.43 L Hgb 10.2 L Hct 30.5 L MCV 89 MCH 29.9 MCHC 33.6 RDW 15.2 H Plt Count 183 Seg Neutrophils % 62.5 Lymphocytes % 27.1 Monocytes % 7.6 Eosinophils % 2.1 Basophils % 0.7 Absolute Neutrophils 4.3 Absolute Lymphocytes 1.9 Absolute Monocytes 0.5 Absolute Eosinophils 0.1 Absolute Basophils 0.0 Carbonic Acid 0.79 L HCO3/H2CO3 Ratio 20:1 ABG pH 7.40 ABG pCO2 26.1 L ABG pO2 141.9 H ABG HCO3 15.9 L ABG O2 Saturation 98.9 H ABG Base Excess -7.4 FiO2 30% Sodium 153.9 H Potassium 3.6 Chloride 125 H Carbon Dioxide 20 L Anion Gap 9 BUN 12 Creatinine 0.83 Est GFR ( Amer) > 60 Est GFR (Non-Af Amer) > 60 Glucose 151 H Calcium 7.6 L Phosphorus 2.3 L Magnesium Total Bilirubin AST ALT Alkaline Phosphatase Total Protein Albumin 2.4 L Urine Color Urine Appearance Urine pH Ur Specific [place] Urine Protein Urine Glucose (UA) Urine Ketones Urine Blood Urine Nitrite Ur Leukocyte Esterase Urine WBC (Auto) Urine RBC (Auto) 09/10/17 09/10/17 04:50 09:30 WBC RBC Hgb Hct MCV MCH MCHC RDW Plt Count Seg Neutrophils % Lymphocytes % Monocytes % Eosinophils % Basophils % Absolute Neutrophils Absolute Lymphocytes Absolute Monocytes Absolute Eosinophils Absolute Basophils Carbonic Acid HCO3/H2CO3 Ratio ABG pH ABG pCO2 ABG pO2 ABG HCO3 ABG O2 Saturation ABG Base Excess FiO2 Sodium 153.6 H Potassium 4.1 Chloride 125 H Carbon Dioxide 16 L Anion Gap 13 BUN 13 Creatinine 0.76 Est GFR ( Amer) > 60 Est GFR (Non-Af Amer) > 60 Glucose 163 H Calcium 7.7 L Phosphorus Magnesium 2.4 H Total Bilirubin 0.3 AST 14 L ALT 31 Alkaline Phosphatase 101 Total Protein 4.4 L Albumin 2.4 L Urine Color YELLOW Urine Appearance SLIGHTLY-CLOUDY Urine pH 5.0 Ur Specific [place] 1.033 Urine Protein NEGATIVE Urine Glucose (UA) >=500 H Urine Ketones 80 H Urine Blood NEGATIVE Urine Nitrite NEGATIVE Ur Leukocyte Esterase NEGATIVE Urine WBC (Auto) 1 Urine RBC (Auto) 26 09/07/17 14:45 Tracheal Aspirate Gram Stain - Final 09/07/17 14:45 Tracheal Aspirate Sputum Culture - Final Proteus Vulgaris Acinetobacter Baumannii/Haem Klebsiella Oxytoca Group B Beta Streptococcus Normal Madhavi Absent Impressions: Head CT 09/07/17 10:48 IMPRESSION: NORMAL BRAIN CT WITHOUT CONTRAST. EVIDENCE OF ACUTE STROKE: NO. Chest X-Ray 09/10/17 06:00 IMPRESSION: 1. No significant interval change. Assessment & Plan - Diagnosis (1) Acute respiratory failure Qualifiers: Respiratory failure complication: hypoxia Qualified Code(s): J96.01 - Acute respiratory failure with hypoxia Is this a current diagnosis for this admission?: Yes Plan: Significant acidosis metabolic persists respiratory compensation adequate to maintain acceptable pH (2) DKA (diabetic ketoacidoses) Qualifiers: Diabetes mellitus type: type 2 Is this a current diagnosis for this admission?: Yes Plan: Ketonuria and acidosis persist (3) Schizophrenia Qualifiers: Schizophrenia type: unspecified Qualified Code(s): F20.9 - Schizophrenia, unspecified Is this a current diagnosis for this admission?: Yes - Time Total Critical Time (Minutes): 40
--- NOTE | 2017-09-10 13:58 | PDOC PROGRESS REPORT ---
Subjective Progress Note for:: 09/10/17 Subjective:: Patient remains sedated and on the vent. Sedation holiday this morning today and him becoming exceedingly agitated and sedation was resumed Reason For Visit: UNRESPONSIVE,HYPERGLYCEMIC HYPEROSMOLAR STATE Physical Exam Vital Signs: Temp Pulse Resp BP Pulse Ox 97.4 F 59 L 18 105/78 100 09/10/17 12:00 09/10/17 12:00 09/10/17 12:17 09/10/17 12:17 09/10/17 12:17 Intake & Output 09/09/17 09/10/17 09/11/17 06:59 06:59 06:59 Intake Total 93896 4523 70 Output Total 4600 1985 485 Balance 8412 1712 -105 Weight 84.2 kg 84.5 kg General appearance: PRESENT: no acute distress Respiratory exam: PRESENT: clear to auscultation cleo Cardiovascular exam: PRESENT: RRR GI/Abdominal exam: PRESENT: soft Neurological exam: PRESENT: other Psychiatric exam: PRESENT: other - GERD Skin exam: PRESENT: warm Results Laboratory Results: 09/10/17 04:50 09/10/17 04:50 09/09/17 09/10/17 09/10/17 17:25 04:50 04:50 WBC 6.9 RBC 3.43 L Hgb 10.2 L Hct 30.5 L MCV 89 MCH 29.9 MCHC 33.6 RDW 15.2 H Plt Count 183 Seg Neutrophils % 62.5 Lymphocytes % 27.1 Monocytes % 7.6 Eosinophils % 2.1 Basophils % 0.7 Absolute Neutrophils 4.3 Absolute Lymphocytes 1.9 Absolute Monocytes 0.5 Absolute Eosinophils 0.1 Absolute Basophils 0.0 Carbonic Acid 0.79 L HCO3/H2CO3 Ratio 20:1 ABG pH 7.40 ABG pCO2 26.1 L ABG pO2 141.9 H ABG HCO3 15.9 L ABG O2 Saturation 98.9 H ABG Base Excess -7.4 FiO2 30% Sodium 153.9 H Potassium 3.6 Chloride 125 H Carbon Dioxide 20 L Anion Gap 9 BUN 12 Creatinine 0.83 Est GFR ( Amer) > 60 Est GFR (Non-Af Amer) > 60 Glucose 151 H Calcium 7.6 L Phosphorus 2.3 L Magnesium Total Bilirubin AST ALT Alkaline Phosphatase Total Protein Albumin 2.4 L Urine Color Urine Appearance Urine pH Ur Specific [place] Urine Protein Urine Glucose (UA) Urine Ketones Urine Blood Urine Nitrite Ur Leukocyte Esterase Urine WBC (Auto) Urine RBC (Auto) 09/10/17 09/10/17 04:50 09:30 WBC RBC Hgb Hct MCV MCH MCHC RDW Plt Count Seg Neutrophils % Lymphocytes % Monocytes % Eosinophils % Basophils % Absolute Neutrophils Absolute Lymphocytes Absolute Monocytes Absolute Eosinophils Absolute Basophils Carbonic Acid HCO3/H2CO3 Ratio ABG pH ABG pCO2 ABG pO2 ABG HCO3 ABG O2 Saturation ABG Base Excess FiO2 Sodium 153.6 H Potassium 4.1 Chloride 125 H Carbon Dioxide 16 L Anion Gap 13 BUN 13 Creatinine 0.76 Est GFR ( Amer) > 60 Est GFR (Non-Af Amer) > 60 Glucose 163 H Calcium 7.7 L Phosphorus Magnesium 2.4 H Total Bilirubin 0.3 AST 14 L ALT 31 Alkaline Phosphatase 101 Total Protein 4.4 L Albumin 2.4 L Urine Color YELLOW Urine Appearance SLIGHTLY-CLOUDY Urine pH 5.0 Ur Specific [place] 1.033 Urine Protein NEGATIVE Urine Glucose (UA) >=500 H Urine Ketones 80 H Urine Blood NEGATIVE Urine Nitrite NEGATIVE Ur Leukocyte Esterase NEGATIVE Urine WBC (Auto) 1 Urine RBC (Auto) 26 09/07/17 14:45 Tracheal Aspirate Gram Stain - Final 09/07/17 14:45 Tracheal Aspirate Sputum Culture - Final Proteus Vulgaris Acinetobacter Baumannii/Haem Klebsiella Oxytoca Group B Beta Streptococcus Normal Madhavi Absent Impressions: Head CT 09/07/17 10:48 IMPRESSION: NORMAL BRAIN CT WITHOUT CONTRAST. EVIDENCE OF ACUTE STROKE: NO. Chest X-Ray 09/10/17 06:00 IMPRESSION: 1. No significant interval change. Assessment & Plan - Diagnosis (1) Diabetes insipidus Is this a current diagnosis for this admission?: Yes Plan: Increase IV DDAVP and follow his sodium closely. Restart his oral DDAVP once his sodium has normalized (2) DM hyperosmolarity type II, uncontrolled Qualifiers: Diabetes mellitus terminal gauger supervisor insulin use: with chcf use Diabetes mellitus complication detail: with coma Qualified Code(s): E11.01 - Type 2 diabetes mellitus with hyperosmolarity with coma; Z79.4 - skilled nursing (current) use of insulin; Z79.4 - skilled nursing (current) use of insulin; Z79.4 - long term care pharmacist ( current) use of insulin; Z79.4 - long term care pharmacist (current) use of insulin Is this a current diagnosis for this admission?: Yes Plan: Every 4 Accu-Cheks with sliding scale insulin. I will stop his D5 half-normal and change him over to just half normal (3) Acute respiratory failure Qualifiers: Respiratory failure complication: hypoxia Qualified Code(s): J96.01 - Acute respiratory failure with hypoxia Is this a current diagnosis for this admission?: Yes Plan: Per pulmonology (4) Schizophrenia Qualifiers: Schizophrenia type: unspecified Qualified Code(s): F20.9 - Schizophrenia, unspecified Is this a current diagnosis for this admission?: Yes Plan: Given his medication list I gather that he has been rather difficult to control. Continue adding back his antipsychotics and sedatives. Reportedly his brother believes that the latest edition (Rexulti) resulted in his decompensation so I will continue to hold that, but everything else now will admit and added back.
[2017-09-10] MEDS: CEFTAZIDIME PENTAHYDRATE 1 GM in DEXTROSE 5%-WATER 50 ML IV SCH ×2 (14:58→22:15)
[2017-09-10] MEDS: DIAZEPAM 5 MG TABLET PO SCH ×2 (17:40→23:10)
[2017-09-10] MEDS: DESMOPRESSIN ACETATE INJ 4 MCG/1 ML AMPULE IV SCH ×2 (17:49→23:11)
[2017-09-10] MEDS ORDERED: CLOZAPINE 100 MG TABLET PO SCH (18:00)
[2017-09-10 21:08] LABS: HSV I DNA Negative (Negative)
[2017-09-10] MEDS: ROPINIROLE HCL 1 MG TABLET PO SCH (22:13)
[2017-09-10] MEDS: CLOZAPINE 100 MG TABLET PO SCH (22:14)
[2017-09-10] MEDS: FAMOTIDINE INJ/PF 20 MG/2 ML SDV IV SCH (22:15)
[2017-09-10] MEDS: INSULIN GLARGINE,HUM.REC.ANLOG 300 UNIT/3 ML INSULN.PEN SUBCUT SCH (22:18)
[2017-09-11] MEDS: PROPOFOL 100 ML IV PRN ×6 (02:38→22:23)
[2017-09-11] MEDS: PIPERACILLIN SODIUM/TAZOBACTAM 3.375 GM in NORMAL SALINE 100 ML IV SCH ×4 (05:08→23:47)
[2017-09-11] MEDS: MIDAZOLAM HCL 50 MG/100 ML RTUINJ IV PRN ×2 (05:09→19:52)
[2017-09-11] MEDS: DESMOPRESSIN ACETATE INJ 4 MCG/1 ML AMPULE IV SCH ×4 (05:09→23:46)
[2017-09-11] MEDS: DIAZEPAM 5 MG TABLET PO SCH ×4 (05:09→23:47)
[2017-09-11] MEDS: CEFTAZIDIME PENTAHYDRATE 1 GM in DEXTROSE 5%-WATER 50 ML IV SCH ×3 (05:10→22:17)
[2017-09-11] MEDS: HEPARIN SOD (PORCINE) 5,000 UNIT/ML 1 ML SYRINGE SUBCUT SCH ×3 (05:10→22:21)
[2017-09-11 05:49] LABS: ABSOLUTE EOSINOPHILS # (AUTO) 0.2 10^3/uL (0.0-0.6); ABSOLUTE MONOCYTES (AUTO) 0.5 10^3/uL (0.1-1.4); ABSOLUTE NEUT (AUTO) 4.9 10^3/uL (1.7-8.2); BASOPHILS % (AUTO) 0.6 % (0-2); EOSINOPHILS % (AUTO) 2.2 % (0-6); HEMATOCRIT 32.5 % (37.9-51.0); HEMOGLOBIN 10.8 g/dL (13.5-17.0); LYMPHOCYTES % (AUTO) 26.3 % (13-45); MEAN CORPUSCULAR HEMOGLOBIN 29.9 pg (27.0-33.4); MEAN CORPUSCULAR HGB CONC 33.3 g/dL (32.0-36.0); MEAN CORPUSCULAR VOLUME 90 fl (80-97); MONOCYTES % (AUTO) 6.6 % (3-13); PLATELET COUNT 188 10^3/uL (150-450); RED BLOOD COUNT 3.62 10^6/uL (4.35-5.55); RED CELL DISTRIBUTION WIDTH 14.9 % (11.5-14.0); SEGMENTED NEUTROPHILS % (AUTO) 64.3 % (42-78); TOTAL CELLS COUNTED % (AUTO) 100 %; WHITE BLOOD COUNT 7.6 10^3/uL (4.0-10.5)
[2017-09-11 05:51] LABS: ARTERIAL BLOOD BASE EXCESS -13.9 mmol/L; ARTERIAL BLOOD H2CO3 0.82 mmol/L (1.05-1.35); ARTERIAL BLOOD HCO3 11.8 mmol/L (20-26); ARTERIAL BLOOD PCO2 27.2 mmHg (35-45); ARTERIAL BLOOD PH 7.25 (7.35-7.45); ARTERIAL BLOOD PO2 123.3 mmHg (80-100); ARTERIAL BLOOD TOTAL CO2 12.6 mmol/L (23-27)
[2017-09-11 05:52] LABS: ARTERIAL BLOOD FIO2 30%
[2017-09-11 06:04] LABS: ALANINE AMINOTRANSFERASE 34 U/L (21-72); ALBUMIN 2.5 g/dL (3.5-5.0); ALKALINE PHOSPHATASE 111 U/L (38-126); ANION GAP 16 (5-19); ASPARTATE AMINO TRANSFERASE 12 U/L (17-59); BILIRUBIN,DIRECT 0.2 mg/dL (0.0-0.4); BILIRUBIN,TOTAL 0.2 mg/dL (0.2-1.3); BLOOD UREA NITROGEN 14 mg/dL (7-20); CALCIUM 8.2 mg/dL (8.4-10.2); CARBON DIOXIDE 11 mmol/L (22-30); CHLORIDE 122 mmol/L (98-107); GLUCOSE 140 mg/dL (75-110); POTASSIUM 4.6 mmol/L (3.6-5.0); SODIUM 148.6 mmol/L (137-145); TOTAL PROTEIN 4.5 g/dL (6.3-8.2)
[2017-09-11 06:15] LABS: APPEARANCE,URINE CLOUDY; BILIRUBIN,URINE NEGATIVE (NEGATIVE); COLOR,URINE YELLOW; GLUCOSE, URINE >=500 mg/dL (NEGATIVE); KETONES,URINE 80 mg/dL (NEGATIVE); LEUKOCYTE ESTERASE,URINE NEGATIVE (NEGATIVE); NITRITE,URINE NEGATIVE (NEGATIVE); PROTEIN,URINE NEGATIVE (NEGATIVE); URIC ACID CRYSTALS,URINE FEW /HPF; URINE SPECIFIC GRAVITY 1.024; UROBILINOGEN,URINE NEGATIVE mg/dL (<2.0)
--- NOTE | 2017-09-11 06:35 | RADIOLOGY REPORT (SQ) ---
EXAM DESCRIPTION: CHEST SINGLE VIEW CLINICAL HISTORY: resp failure COMPARISON: 09/10/2017 FINDINGS: Single frontal view of the chest. Endotracheal tube, NG tube, and right IJ central venous catheter unchanged. Heart is not enlarged. Low lung volumes. Small left pleural effusion. No lobar consolidation or pneumothorax identified. No acute osseous abnormalities. Upper abdominal soft tissues are unremarkable. IMPRESSION: 1. Stable appearance of the chest. Electronically signed by: Puma Bolivar 09/11/2017 5:33 AM CDT
[2017-09-11 07:10] LABS: HSV II DNA Negative (Negative)
[2017-09-11] MEDS: ROPINIROLE HCL 1 MG TABLET PO SCH ×2 (08:56→22:19)
[2017-09-11] MEDS: FAMOTIDINE INJ/PF 20 MG/2 ML SDV IV SCH ×2 (09:09→22:19)
[2017-09-11] MEDS: DOCUSATE SODIUM 100 MG CAPSULE PO SCH ×2 (09:15→22:18)
[2017-09-11] MEDS: PAROXETINE HCL 20 MG TABLET PO SCH (09:15)
[2017-09-11] MEDS: OLANZAPINE 5 MG TABLET PO SCH (09:17)
[2017-09-11] MEDS: METFORMIN HCL 500 MG TABLET PO SCH ×2 (09:18→22:17)
[2017-09-11] MEDS: LEVOTHYROXINE SODIUM INJ/PF 0.1 MG SDV IV SCH (09:18)
[2017-09-11] MEDS: CHLORPROMAZINE HCL 50 MG TABLET PO SCH ×2 (09:21→22:20)
[2017-09-11] MEDS: CLOZAPINE 25 MG TABLET PO SCH (09:22)
[2017-09-11] MEDS: 1/2 NORMAL SALINE 1,000 ML IV PRN ×2 (12:02→19:54)
--- NOTE | 2017-09-11 13:59 | PDOC PROGRESS REPORT ---
Subjective Progress Note for:: 09/11/17 Subjective:: Sedated and on the vent. We have been trying to wean down his sedation to see whether his home medications less Rexulti (which his brother believes is what tipped him over the edge) will keep him calm enough to extubate. Somewhat mixed results so far. Reason For Visit: UNRESPONSIVE,HYPERGLYCEMIC HYPEROSMOLAR STATE Physical Exam Vital Signs: Temp Pulse Resp BP Pulse Ox 97.6 F 75 12 104/70 99 09/11/17 12:00 09/11/17 08:00 09/11/17 12:19 09/11/17 12:19 09/11/17 12:19 Intake & Output 09/10/17 09/11/17 09/12/17 06:59 06:59 06:59 Intake Total 4583 5511 Output Total 6608 5651 502 Balance 2728 7579 - Weight 84.5 kg 87 kg General appearance: PRESENT: no acute distress Exam: Will open his eyes to stimulation but then drifts right back to sleep Respiratory exam: PRESENT: clear to auscultation cleo Cardiovascular exam: PRESENT: RRR GI/Abdominal exam: PRESENT: soft Neurological exam: PRESENT: other - Moving all 4 extremities. Psychiatric exam: PRESENT: other - Sedated Skin exam: PRESENT: warm Results Laboratory Results: 09/11/17 05:30 09/11/17 05:30 09/11/17 09/11/17 09/11/17 05:30 05:30 05:30 WBC 7.6 RBC 3.62 L Hgb 10.8 L Hct 32.5 L MCV 90 MCH 29.9 MCHC 33.3 RDW 14.9 H Plt Count 188 Seg Neutrophils % 64.3 Lymphocytes % 26.3 Monocytes % 6.6 Eosinophils % 2.2 Basophils % 0.6 Absolute Neutrophils 4.9 Absolute Lymphocytes 2.0 Absolute Monocytes 0.5 Absolute Eosinophils 0.2 Absolute Basophils 0.0 Carbonic Acid 0.82 L HCO3/H2CO3 Ratio 14:1 ABG pH 7.25 L ABG pCO2 27.2 L ABG pO2 123.3 H ABG HCO3 11.8 L ABG O2 Saturation 98.0 ABG Base Excess -13.9 FiO2 30% Sodium 148.6 H Potassium 4.6 Chloride 122 H Carbon Dioxide 11 L Anion Gap 16 BUN 14 Creatinine 0.61 Est GFR ( Amer) > 60 Est GFR (Non-Af Amer) > 60 Glucose 140 H Calcium 8.2 L Magnesium 2.1 Total Bilirubin 0.2 AST 12 L ALT 34 Alkaline Phosphatase 111 Total Protein 4.5 L Albumin 2.5 L Urine Color Urine Appearance Urine pH Ur Specific [place] Urine Protein Urine Glucose (UA) Urine Ketones Urine Blood Urine Nitrite Ur Leukocyte Esterase Urine WBC (Auto) Urine RBC (Auto) 09/11/17 05:30 WBC RBC Hgb Hct MCV MCH MCHC RDW Plt Count Seg Neutrophils % Lymphocytes % Monocytes % Eosinophils % Basophils % Absolute Neutrophils Absolute Lymphocytes Absolute Monocytes Absolute Eosinophils Absolute Basophils Carbonic Acid HCO3/H2CO3 Ratio ABG pH ABG pCO2 ABG pO2 ABG HCO3 ABG O2 Saturation ABG Base Excess FiO2 Sodium Potassium Chloride Carbon Dioxide Anion Gap BUN Creatinine Est GFR ( Amer) Est GFR (Non-Af Amer) Glucose Calcium Magnesium Total Bilirubin AST ALT Alkaline Phosphatase Total Protein Albumin Urine Color YELLOW Urine Appearance CLOUDY Urine pH 5.0 Ur Specific [place] 1.024 Urine Protein NEGATIVE Urine Glucose (UA) >=500 H Urine Ketones 80 H Urine Blood MODERATE H Urine Nitrite NEGATIVE Ur Leukocyte Esterase NEGATIVE Urine WBC (Auto) 2 Urine RBC (Auto) >182 09/07/17 14:45 Tracheal Aspirate Gram Stain - Final 09/07/17 14:45 Tracheal Aspirate Sputum Culture - Final Proteus Vulgaris Acinetobacter Baumannii/Haem Klebsiella Oxytoca Group B Beta Streptococcus Normal Madhavi Absent Impressions: Head CT 09/07/17 10:48 IMPRESSION: NORMAL BRAIN CT WITHOUT CONTRAST. EVIDENCE OF ACUTE STROKE: NO. Chest X-Ray 09/11/17 06:00 IMPRESSION: 1. Stable appearance of the chest. Assessment & Plan - Diagnosis (1) Diabetes insipidus Is this a current diagnosis for this admission?: Yes Plan: Increase IV DDAVP and follow his sodium closely. Restart his oral DDAVP once his sodium has normalized (2) DM hyperosmolarity type II, uncontrolled Qualifiers: Diabetes mellitus termite renewal inspector insulin use: with snf use Diabetes mellitus complication detail: with coma Qualified Code(s): E11.01 - Type 2 diabetes mellitus with hyperosmolarity with coma; Z79.4 - termite control technician (current) use of insulin; Z79.4 - care home (current) use of insulin; Z79.4 - termite control technician ( current) use of insulin; Z79.4 - care home (current) use of insulin Is this a current diagnosis for this admission?: Yes Plan: Every 4 Accu-Cheks with sliding scale insulin. I will stop his D5 half-normal and change him over to just half normal (3) Acute respiratory failure Qualifiers: Respiratory failure complication: hypoxia Qualified Code(s): J96.01 - Acute respiratory failure with hypoxia Is this a current diagnosis for this admission?: Yes Plan: Per pulmonology (4) Schizophrenia Qualifiers: Schizophrenia type: unspecified Qualified Code(s): F20.9 - Schizophrenia, unspecified Is this a current diagnosis for this admission?: Yes Plan: Given his medication list I gather that he has been rather difficult to control. He is on everything from home except Rexulti which was last medication started. Presumably it was started because he had an adequate control of his symptoms on the other medications. I will restart this tomorrow if we are unable to control his behavior without sedation.
[2017-09-11] MEDS: CLOZAPINE 100 MG TABLET PO SCH (22:19)
[2017-09-11] MEDS: INSULIN GLARGINE,HUM.REC.ANLOG 300 UNIT/3 ML INSULN.PEN SUBCUT SCH (22:23)
--- NOTE | 2017-09-11 22:26 | PDOC PROGRESS REPORT ---
Subjective Progress Note for:: 09/11/17 Subjective:: intubated Reason For Visit: UNRESPONSIVE,HYPERGLYCEMIC HYPEROSMOLAR STATE Physical Exam Vital Signs: Temp Pulse Resp BP Pulse Ox 97.7 F 75 14 105/72 100 09/11/17 08:00 09/11/17 08:00 09/11/17 10:19 09/11/17 10:19 09/11/17 10:19 Intake & Output 09/10/17 09/11/17 09/12/17 06:59 06:59 06:59 Intake Total 4557 4602 Output Total 1984 3354 856 Balance 9973 1966 - Weight 84.5 kg 87 kg General appearance: PRESENT: no acute distress, disheveled, obese. ABSENT: cooperative Head exam: PRESENT: atraumatic, normocephalic Eye exam: PRESENT: conjunctiva pale. ABSENT: EOMI, nystagmus, periorbital swelling, scleral icterus Mouth exam: PRESENT: dry mucosa, neck supple, tongue midline, other - ET tube Neck exam: ABSENT: carotid bruit, JVD, lymphadenopathy, thyromegaly, tracheal deviation, tracheostomy Respiratory exam: PRESENT: decreased breath sounds, prolonged expiratory phas, rales, rhonchi, symmetrical, unlabored. ABSENT: retraction, stridor, tachypnea Cardiovascular exam: PRESENT: RRR, +S1, +S2, tachycardia Pulses: PRESENT: normal radial pulses GI/Abdominal exam: PRESENT: diminished bowel sounds, soft Extremities exam: ABSENT: clubbing, full ROM, joint swelling Musculoskeletal exam: ABSENT: deformity, dislocation Neurological exam: ABSENT: awake, oriented to person Skin exam: PRESENT: dry, warm Results Laboratory Results: 09/11/17 05:30 09/11/17 05:30 09/11/17 09/11/17 09/11/17 05:30 05:30 05:30 WBC 7.6 RBC 3.62 L Hgb 10.8 L Hct 32.5 L MCV 90 MCH 29.9 MCHC 33.3 RDW 14.9 H Plt Count 188 Seg Neutrophils % 64.3 Lymphocytes % 26.3 Monocytes % 6.6 Eosinophils % 2.2 Basophils % 0.6 Absolute Neutrophils 4.9 Absolute Lymphocytes 2.0 Absolute Monocytes 0.5 Absolute Eosinophils 0.2 Absolute Basophils 0.0 Carbonic Acid 0.82 L HCO3/H2CO3 Ratio 14:1 ABG pH 7.25 L ABG pCO2 27.2 L ABG pO2 123.3 H ABG HCO3 11.8 L ABG O2 Saturation 98.0 ABG Base Excess -13.9 FiO2 30% Sodium 148.6 H Potassium 4.6 Chloride 122 H Carbon Dioxide 11 L Anion Gap 16 BUN 14 Creatinine 0.61 Est GFR ( Amer) > 60 Est GFR (Non-Af Amer) > 60 Glucose 140 H Calcium 8.2 L Magnesium 2.1 Total Bilirubin 0.2 AST 12 L ALT 34 Alkaline Phosphatase 111 Total Protein 4.5 L Albumin 2.5 L Urine Color Urine Appearance Urine pH Ur Specific [place] Urine Protein Urine Glucose (UA) Urine Ketones Urine Blood Urine Nitrite Ur Leukocyte Esterase Urine WBC (Auto) Urine RBC (Auto) 09/11/17 05:30 WBC RBC Hgb Hct MCV MCH MCHC RDW Plt Count Seg Neutrophils % Lymphocytes % Monocytes % Eosinophils % Basophils % Absolute Neutrophils Absolute Lymphocytes Absolute Monocytes Absolute Eosinophils Absolute Basophils Carbonic Acid HCO3/H2CO3 Ratio ABG pH ABG pCO2 ABG pO2 ABG HCO3 ABG O2 Saturation ABG Base Excess FiO2 Sodium Potassium Chloride Carbon Dioxide Anion Gap BUN Creatinine Est GFR ( Amer) Est GFR (Non-Af Amer) Glucose Calcium Magnesium Total Bilirubin AST ALT Alkaline Phosphatase Total Protein Albumin Urine Color YELLOW Urine Appearance CLOUDY Urine pH 5.0 Ur Specific [place] 1.024 Urine Protein NEGATIVE Urine Glucose (UA) >=500 H Urine Ketones 80 H Urine Blood MODERATE H Urine Nitrite NEGATIVE Ur Leukocyte Esterase NEGATIVE Urine WBC (Auto) 2 Urine RBC (Auto) >182 09/07/17 14:45 Tracheal Aspirate Gram Stain - Final 09/07/17 14:45 Tracheal Aspirate Sputum Culture - Final Proteus Vulgaris Acinetobacter Baumannii/Haem Klebsiella Oxytoca Group B Beta Streptococcus Normal Madhavi Absent Impressions: Head CT 09/07/17 10:48 IMPRESSION: NORMAL BRAIN CT WITHOUT CONTRAST. EVIDENCE OF ACUTE STROKE: NO. Chest X-Ray 09/11/17 06:00 IMPRESSION: 1. Stable appearance of the chest. Assessment & Plan - Diagnosis (1) Acute respiratory failure Qualifiers: Respiratory failure complication: hypoxia Qualified Code(s): J96.01 - Acute respiratory failure with hypoxia Is this a current diagnosis for this admission?: Yes Plan: remains ventilator dependent severe metabolic acidosis with resp compensation (2) DKA (diabetic ketoacidoses) Qualifiers: Diabetes mellitus type: type 2 Is this a current diagnosis for this admission?: Yes Plan: Ketonuria and acidosis persist (3) Schizophrenia Qualifiers: Schizophrenia type: unspecified Qualified Code(s): F20.9 - Schizophrenia, unspecified Is this a current diagnosis for this admission?: Yes - Time Total Critical Time (Minutes): 45
[2017-09-12] MEDS: PROPOFOL 100 ML IV PRN ×3 (03:45→22:21)
[2017-09-12 04:57] LABS: HEMATOCRIT 30.1 % (37.9-51.0); MEAN CORPUSCULAR HEMOGLOBIN 29.9 pg (27.0-33.4); MEAN CORPUSCULAR HGB CONC 33.4 g/dL (32.0-36.0); MEAN CORPUSCULAR VOLUME 90 fl (80-97); PLATELET COUNT 201 10^3/uL (150-450); RED BLOOD COUNT 3.35 10^6/uL (4.35-5.55); RED CELL DISTRIBUTION WIDTH 14.8 % (11.5-14.0); WHITE BLOOD COUNT 5.8 10^3/uL (4.0-10.5)
[2017-09-12 04:58] LABS: ARTERIAL BLOOD BASE EXCESS -15.5 mmol/L; ARTERIAL BLOOD H2CO3 0.66 mmol/L (1.05-1.35); ARTERIAL BLOOD HCO3 9.7 mmol/L (20-26); ARTERIAL BLOOD O2 SATURATION 98.7 % (94-98); ARTERIAL BLOOD PCO2 21.8 mmHg (35-45); ARTERIAL BLOOD PH 7.27 (7.35-7.45); ARTERIAL BLOOD PO2 147.7 mmHg (80-100); ARTERIAL BLOOD TOTAL CO2 10.4 mmol/L (23-27)
[2017-09-12 04:59] LABS: ARTERIAL BLOOD FIO2 30%
[2017-09-12 05:13] LABS: ALANINE AMINOTRANSFERASE 32 U/L (21-72); ALBUMIN 2.3 g/dL (3.5-5.0); ALKALINE PHOSPHATASE 119 U/L (38-126); ASPARTATE AMINO TRANSFERASE 13 U/L (17-59); BILIRUBIN,DIRECT 0.2 mg/dL (0.0-0.4); BILIRUBIN,TOTAL 0.2 mg/dL (0.2-1.3); BLOOD UREA NITROGEN 10 mg/dL (7-20); CALCIUM 8.1 mg/dL (8.4-10.2); CHLORIDE 116 mmol/L (98-107); GLUCOSE 102 mg/dL (75-110); SODIUM 141.2 mmol/L (137-145); TOTAL PROTEIN 4.3 g/dL (6.3-8.2); TRIGLYCERIDES 475 mg/dL (<150)
[2017-09-12 05:20] LABS: ANION GAP 14 (5-19)
[2017-09-12 05:21] LABS: BASOPHILS % (MANUAL) 0 % (0-2)
[2017-09-12 05:24] LABS: ABSOLUTE MONOCYTES # (MANUAL) 0.3 10^3/uL (0.1-1.4)
[2017-09-12 05:26] LABS: ABSOLUTE LYMPHOCYTES# (MANUAL) 1.6 10^3/uL (0.5-4.7); ABSOLUTE NEUTROPHILS# (MANUAL) 3.8 10^3/uL (1.7-8.2); BAND NEUTROPHILS % (MANUAL) 2 % (3-5); CARBON DIOXIDE 11 mmol/L (22-30); EOSINOPHILS % (MANUAL) 1 % (0-6); LYMPHOCYTES % (MANUAL) 27 % (13-45); METAMYELOCYTES % (MANUAL) 1 % (0); MONOCYTES % (MANUAL) 6 % (3-13); SEGMENTED NEUTROPHILS % (MAN) 61 % (42-78); TOTAL CELLS COUNTED 100
[2017-09-12 05:28] LABS: ANISOCYTOSIS SLIGHT; POIKILOCYTOSIS SLIGHT; TEAR DROP CELLS 1+; TOXIC GRANULATION SLIGHT
[2017-09-12 05:29] LABS: PLATELET COMMENT ADEQUATE; PLATELET LARGE PRESENT
[2017-09-12 05:30] LABS: MYELOCYTES % (MANUAL) 2 % (0)
[2017-09-12] MEDS: PIPERACILLIN SODIUM/TAZOBACTAM 3.375 GM in NORMAL SALINE 100 ML IV SCH ×3 (05:51→17:15)
[2017-09-12] MEDS: CEFTAZIDIME PENTAHYDRATE 1 GM in DEXTROSE 5%-WATER 50 ML IV SCH ×3 (05:51→22:17)
[2017-09-12] MEDS: DESMOPRESSIN ACETATE INJ 4 MCG/1 ML AMPULE IV SCH ×3 (05:52→17:14)
[2017-09-12] MEDS: 1/2 NORMAL SALINE 1,000 ML IV PRN (05:52)
[2017-09-12] MEDS: DIAZEPAM 5 MG TABLET PO SCH ×3 (05:52→17:16)
[2017-09-12] MEDS: MIDAZOLAM HCL 50 MG/100 ML RTUINJ IV PRN ×2 (05:53→22:18)
[2017-09-12] MEDS: HEPARIN SOD (PORCINE) 5,000 UNIT/ML 1 ML SYRINGE SUBCUT SCH ×3 (05:54→22:13)
--- NOTE | 2017-09-12 07:22 | RADIOLOGY REPORT (SQ) ---
EXAM DESCRIPTION: CHEST SINGLE VIEW CLINICAL HISTORY: resp failure/shock. Endotracheal tube. COMPARISON: 09/11/2017 FINDINGS: Single frontal view of the chest. Endotracheal tube, NG tube, and right IJ central venous catheter unchanged. Heart is not enlarged. Low lung volumes. Small left pleural effusion. No lobar consolidation or pneumothorax identified. No acute osseous abnormalities. Upper abdominal soft tissues are unremarkable. IMPRESSION: 1. Stable appearance of the chest. Electronically signed by: Puma Bolivar 09/12/2017 6:21 AM CDT
[2017-09-12] MEDS: ROPINIROLE HCL 1 MG TABLET PO SCH ×2 (09:05→22:16)
[2017-09-12] MEDS ORDERED: WATER FOR INJECTION,STERILE 1,000 ML with SODIUM BICARBONATE 100 MEQ IV PRN ×2 (09:05)
[2017-09-12] MEDS: DOCUSATE SODIUM 100 MG CAPSULE PO SCH ×2 (09:09→22:20)
[2017-09-12] MEDS: FAMOTIDINE INJ/PF 20 MG/2 ML SDV IV SCH ×2 (09:10→22:17)
[2017-09-12] MEDS: LEVOTHYROXINE SODIUM INJ/PF 0.1 MG SDV IV SCH (09:11)
[2017-09-12] MEDS: CLOZAPINE 25 MG TABLET PO SCH (09:14)
[2017-09-12] MEDS: CHLORPROMAZINE HCL 50 MG TABLET PO SCH ×2 (09:16→22:15)
[2017-09-12] MEDS ORDERED: DEXTROSE 40% GEL 15 GM TUBE PO PRN (09:27)
[2017-09-12] MEDS ORDERED: GLUCAGON,HUMAN RECOMB 1 MG INJ IM PRN (09:27)
[2017-09-12] MEDS ORDERED: DEXTROSE 40% GEL 15 GM TUBE X 2 PO PRN (09:27)
[2017-09-12] MEDS ORDERED: DEXTROSE 50%-WATER SYRINGE 25 GM/50 ML DOSE IV PRN (09:27)
[2017-09-12] MEDS ORDERED: DEXTROSE 50%-WATER SYRINGE 12.5 GM/25 ML DOSE IV PRN (09:27)
[2017-09-12] MEDS: PAROXETINE HCL 20 MG TABLET PO SCH (09:28)
[2017-09-12] MEDS: OLANZAPINE 5 MG TABLET PO SCH (09:31)
[2017-09-12] MEDS: METFORMIN HCL 500 MG TABLET PO SCH (09:58)
[2017-09-12] MEDS: DEXTROSE 5%-WATER 1000 ML 1,000 ML with SODIUM BICARBONATE 100 MEQ IV PRN ×4 (10:52→22:19)
[2017-09-12] MEDS: INSULIN, REGULAR 100 UNIT/100 ML NORMAL SALINE IV PRN ×4 (11:20→14:15)
--- NOTE | 2017-09-12 14:40 | Progress Note ---
Provider Note Provider Note: ID Consult Note I was asked to review this patient's chart by Pharmacy. I have reviewed the patient's chart, including the CXR, Microbiology results, and progress notes. Patient has a culture from a tracheal aspirate that is growing multiple organisms, including Group B Strep, Acinetobacter, and Klebsiella. CXR is unremarkable. Blood cultures are negative. Patient is afebrile. WBC is now normal. I suspect that the patient has colonization with the above organisms. Given negative CXR, I would consider stopping all antibiotics in this patient. If you feel that the patient needs to be on an antibiotic, would change Zosyn and ceftazidime to ceftriaxone. Please contact me if there are any questions. Justin Geller MD Pager: [phone]
--- NOTE | 2017-09-12 14:55 | PDOC PROGRESS REPORT ---
Subjective Progress Note for:: 09/12/17 Subjective:: Sedated and on the vent. We have been trying to wean down his sedation to see whether his home medications less Rexulti (which his brother believes is what tipped him over the edge) will keep him calm enough to extubate. Somewhat mixed results so far. Reason For Visit: UNRESPONSIVE,HYPERGLYCEMIC HYPEROSMOLAR STATE Physical Exam Vital Signs: Temp Pulse Resp BP Pulse Ox 97.7 F 76 18 105/74 100 09/12/17 12:00 09/12/17 12:00 09/12/17 12:00 09/12/17 12:00 09/12/17 12:00 Intake & Output 09/11/17 09/12/17 09/13/17 06:59 06:59 06:59 Intake Total 4602 4478 Output Total 2635 3805 935 Balance 1967 673 -935 Weight 87 kg 87.8 kg General appearance: PRESENT: no acute distress Respiratory exam: PRESENT: clear to auscultation cleo Cardiovascular exam: PRESENT: RRR GI/Abdominal exam: PRESENT: soft Musculoskeletal exam: PRESENT: normal inspection Neurological exam: PRESENT: other - Sedated Skin exam: PRESENT: warm Results Laboratory Results: 09/12/17 04:45 09/12/17 04:45 09/12/17 09/12/17 09/12/17 04:45 04:45 04:45 WBC 5.8 RBC 3.35 L Hgb 10.0 L Hct 30.1 L MCV 90 MCH 29.9 MCHC 33.4 RDW 14.8 H Plt Count 201 Seg Neutrophils % Not Reportable Lymphocytes % Not Reportable Monocytes % Not Reportable Eosinophils % Not Reportable Basophils % Not Reportable Absolute Neutrophils Not Reportable Absolute Lymphocytes Not Reportable Absolute Monocytes Not Reportable Absolute Eosinophils Not Reportable Absolute Basophils Not Reportable Carbonic Acid 0.66 L HCO3/H2CO3 Ratio 14:1 ABG pH 7.27 L ABG pCO2 21.8 L ABG pO2 147.7 H ABG HCO3 9.7 L ABG O2 Saturation 98.7 H ABG Base Excess -15.5 FiO2 30% Sodium 141.2 Potassium 4.0 Chloride 116 H Carbon Dioxide 11 L Anion Gap 14 BUN 10 Creatinine 0.60 Est GFR ( Amer) > 60 Est GFR (Non-Af Amer) > 60 Glucose 102 Calcium 8.1 L Magnesium 1.9 Total Bilirubin 0.2 AST 13 L ALT 32 Alkaline Phosphatase 119 Total Protein 4.3 L Albumin 2.3 L Triglycerides 475 H 09/12/17 04:45 NT-Pro-B Natriuret Pep 412 Impressions: Head CT 09/07/17 10:48 IMPRESSION: NORMAL BRAIN CT WITHOUT CONTRAST. EVIDENCE OF ACUTE STROKE: NO. Chest X-Ray 09/12/17 06:00 IMPRESSION: 1. Stable appearance of the chest. Assessment & Plan - Diagnosis (1) Diabetes insipidus Is this a current diagnosis for this admission?: Yes Plan: Sodium has normalized. Continue his current DDAVP (2) Metabolic acidosis Is this a current diagnosis for this admission?: Yes Plan: Notably more severe than has been previous. Historically he has had type II diabetes that has been treated with Metformin. Though he has been getting insulin here. He came in with hyperosmolar nonketotic syndrome. I would be surprised if this was DKA. I will check a lactic acid. Could be from extended propofol. Continue to monitor closely. I will put him on some bicarb as a temporizing measure (3) DM hyperosmolarity type II, uncontrolled Qualifiers: Diabetes mellitus long term care social worker insulin use: with long-term use Diabetes mellitus complication detail: with coma Qualified Code(s): E11.01 - Type 2 diabetes mellitus with hyperosmolarity with coma; Z79.4 - terminal operator (current) use of insulin; Z79.4 - terminal operator (current) use of insulin; Z79.4 - terminal operator ( current) use of insulin; Z79.4 - terminal operator (current) use of insulin Is this a current diagnosis for this admission?: Yes Plan: Every 4 Accu-Cheks with sliding scale insulin. (4) Acute respiratory failure Qualifiers: Respiratory failure complication: hypoxia Qualified Code(s): J96.01 - Acute respiratory failure with hypoxia Is this a current diagnosis for this admission?: Yes Plan: Per pulmonology (5) Schizophrenia Qualifiers: Schizophrenia type: unspecified Qualified Code(s): F20.9 - Schizophrenia, unspecified Is this a current diagnosis for this admission?: Yes Plan: Given his medication list I gather that he has been rather difficult to control. He is on everything from home except Rexulti which was last medication started. Presumably it was started because he had an adequate control of his symptoms on the other medications. Continue his current medications
[2017-09-12 19:13] LABS: ALBUMIN 2.2 g/dL (3.5-5.0); ANION GAP 15 (5-19); BLOOD UREA NITROGEN 9 mg/dL (7-20); CALCIUM 8.1 mg/dL (8.4-10.2); CARBON DIOXIDE 11 mmol/L (22-30); CHLORIDE 110 mmol/L (98-107); GLUCOSE 126 mg/dL (75-110); PHOSPHORUS 3.5 mg/dL (2.5-4.5); POTASSIUM 4.2 mmol/L (3.6-5.0); SODIUM 136.2 mmol/L (137-145)
[2017-09-12 19:15] LABS: APPEARANCE,URINE CLOUDY; BILIRUBIN,URINE NEGATIVE (NEGATIVE); COLOR,URINE YELLOW; GLUCOSE, URINE >=500 mg/dL (NEGATIVE); KETONES,URINE 80 mg/dL (NEGATIVE); LEUKOCYTE ESTERASE,URINE NEGATIVE (NEGATIVE); NITRITE,URINE NEGATIVE (NEGATIVE); PROTEIN,URINE NEGATIVE (NEGATIVE); URINE SPECIFIC GRAVITY 1.021; UROBILINOGEN,URINE NEGATIVE mg/dL (<2.0)
[2017-09-12] MEDS: INSULIN GLARGINE,HUM.REC.ANLOG 300 UNIT/3 ML INSULN.PEN SUBCUT SCH (22:14)
[2017-09-12] MEDS: CLOZAPINE 100 MG TABLET PO SCH (22:15)
[2017-09-13] MEDS: DIAZEPAM 5 MG TABLET PO SCH ×4 (00:25→17:58)
[2017-09-13] MEDS: PIPERACILLIN SODIUM/TAZOBACTAM 3.375 GM in NORMAL SALINE 100 ML IV SCH ×4 (00:25→17:58)
[2017-09-13] MEDS: DESMOPRESSIN ACETATE INJ 4 MCG/1 ML AMPULE IV SCH ×2 (00:26→06:03)
[2017-09-13] MEDS: PROPOFOL 100 ML IV PRN ×3 (03:09→21:58)
[2017-09-13 05:02] LABS: ABSOLUTE EOSINOPHILS # (AUTO) 0.1 10^3/uL (0.0-0.6); ABSOLUTE LYMPHOCYTES (AUTO) 1.2 10^3/uL (0.5-4.7); ABSOLUTE MONOCYTES (AUTO) 0.5 10^3/uL (0.1-1.4); ABSOLUTE NEUT (AUTO) 4.6 10^3/uL (1.7-8.2); BASOPHILS % (AUTO) 0.5 % (0-2); EOSINOPHILS % (AUTO) 2.3 % (0-6); HEMATOCRIT 28.9 % (37.9-51.0); LYMPHOCYTES % (AUTO) 18.9 % (13-45); MEAN CORPUSCULAR HGB CONC 34.6 g/dL (32.0-36.0); MEAN CORPUSCULAR VOLUME 87 fl (80-97); MONOCYTES % (AUTO) 8.3 % (3-13); PLATELET COUNT 211 10^3/uL (150-450); RED BLOOD COUNT 3.33 10^6/uL (4.35-5.55); RED CELL DISTRIBUTION WIDTH 14.1 % (11.5-14.0); TOTAL CELLS COUNTED % (AUTO) 100 %; WHITE BLOOD COUNT 6.5 10^3/uL (4.0-10.5)
[2017-09-13 05:04] LABS: ARTERIAL BLOOD BASE EXCESS -9.3 mmol/L; ARTERIAL BLOOD H2CO3 0.75 mmol/L (1.05-1.35); ARTERIAL BLOOD HCO3 14.3 mmol/L (20-26); ARTERIAL BLOOD O2 SATURATION 98.7 % (94-98); ARTERIAL BLOOD PH 7.38 (7.35-7.45); ARTERIAL BLOOD PO2 135.4 mmHg (80-100); ARTERIAL BLOOD TOTAL CO2 15.1 mmol/L (23-27)
[2017-09-13 05:05] LABS: ARTERIAL BLOOD FIO2 30%
[2017-09-13 05:18] LABS: ALANINE AMINOTRANSFERASE 31 U/L (21-72); ALBUMIN 2.3 g/dL (3.5-5.0); ALKALINE PHOSPHATASE 140 U/L (38-126); ANION GAP 15 (5-19); ASPARTATE AMINO TRANSFERASE 16 U/L (17-59); BILIRUBIN,DIRECT 0.2 mg/dL (0.0-0.4); BILIRUBIN,TOTAL 0.2 mg/dL (0.2-1.3); BLOOD UREA NITROGEN 7 mg/dL (7-20); CALCIUM 7.8 mg/dL (8.4-10.2); CARBON DIOXIDE 14 mmol/L (22-30); CHLORIDE 105 mmol/L (98-107); GLUCOSE 125 mg/dL (75-110); PHOSPHORUS 3.4 mg/dL (2.5-4.5); POTASSIUM 3.3 mmol/L (3.6-5.0); SODIUM 133.8 mmol/L (137-145); TOTAL PROTEIN 4.2 g/dL (6.3-8.2)
[2017-09-13] MEDS: HEPARIN SOD (PORCINE) 5,000 UNIT/ML 1 ML SYRINGE SUBCUT SCH ×3 (06:04→22:02)
[2017-09-13] MEDS: CEFTAZIDIME PENTAHYDRATE 1 GM in DEXTROSE 5%-WATER 50 ML IV SCH ×3 (06:06→21:59)
--- NOTE | 2017-09-13 07:07 | RADIOLOGY REPORT (SQ) ---
EXAM DESCRIPTION: CHEST SINGLE VIEW CLINICAL HISTORY: resp failure. Endotracheal tube. COMPARISON: 09/12/2017 FINDINGS: Single frontal view of the chest. Endotracheal tube, NG tube, and right IJ central venous catheter unchanged. Heart is not enlarged. Low lung volumes. Small left pleural effusion. Interval increase in bilateral perihilar and streaky bibasilar opacities. No acute osseous abnormalities. Upper abdominal soft tissues are unremarkable. IMPRESSION: 1. Interval increase in perihilar and bibasilar opacities. This may be related to low lung volumes and atelectasis however developing pneumonic process could produce a similar appearance. Electronically signed by: Puma Bolivar 09/13/2017 6:05 AM CDT
[2017-09-13] MEDS: ROPINIROLE HCL 1 MG TABLET PO SCH ×2 (07:49→22:01)
[2017-09-13] MEDS ORDERED: DESMOPRESSIN ACETATE 0.2 MG PO SCH (10:00)
[2017-09-13] MEDS: CHLORPROMAZINE HCL 50 MG TABLET PO SCH ×2 (10:39→22:01)
[2017-09-13] MEDS: OLANZAPINE 5 MG TABLET PO SCH (10:40)
[2017-09-13] MEDS: PAROXETINE HCL 20 MG TABLET PO SCH (10:40)
[2017-09-13] MEDS: DOCUSATE SODIUM 100 MG CAPSULE PO SCH ×2 (10:41→22:04)
[2017-09-13] MEDS: LEVOTHYROXINE SODIUM INJ/PF 0.1 MG SDV IV SCH (10:41)
[2017-09-13] MEDS: CLOZAPINE 25 MG TABLET PO SCH (10:41)
[2017-09-13] MEDS: FAMOTIDINE INJ/PF 20 MG/2 ML SDV IV SCH ×2 (10:44→22:02)
[2017-09-13] MEDS: MAGNESIUM SULFATE 1 GM/D5W 100 ML IV SCH ×2 (11:36→12:47)
[2017-09-13] MEDS: DEXTROSE 5%-WATER 1000 ML 1,000 ML with SODIUM BICARBONATE 100 MEQ IV PRN ×4 (11:36→21:59)
[2017-09-13] MEDS: POTASSIUM CHLORIDE 20 MEQ/15 ML UDCUP NG SCH ×2 (12:21→14:21)
[2017-09-13 13:44] LABS: APPEARANCE,URINE CLOUDY; BILIRUBIN,URINE NEGATIVE (NEGATIVE); COLOR,URINE YELLOW; GLUCOSE, URINE >=500 mg/dL (NEGATIVE); KETONES,URINE 80 mg/dL (NEGATIVE); LEUKOCYTE ESTERASE,URINE NEGATIVE (NEGATIVE); NITRITE,URINE NEGATIVE (NEGATIVE); PROTEIN,URINE 30 mg/dL (NEGATIVE); URINE SPECIFIC GRAVITY 1.025; UROBILINOGEN,URINE NEGATIVE mg/dL (<2.0)
--- NOTE | 2017-09-13 14:42 | PDOC PROGRESS REPORT ---
Subjective Progress Note for:: 09/13/17 Subjective:: Sedated and on the vent. We have been trying to wean down his sedation to see whether his home medications less Rexulti (which his brother believes is what tipped him over the edge) will keep him calm enough to extubate. Somewhat mixed results so far. Reason For Visit: UNRESPONSIVE,HYPERGLYCEMIC HYPEROSMOLAR STATE Physical Exam Vital Signs: Temp Pulse Resp BP Pulse Ox 98.1 F 90 24 H 121/76 99 09/13/17 00:00 09/12/17 20:00 09/13/17 12:15 09/13/17 12:04 09/13/17 12:15 Intake & Output 09/12/17 09/13/17 09/14/17 06:59 06:59 06:59 Intake Total 4478 3978 Output Total 3805 3490 775 Balance 673 488 -775 Weight 87.8 kg 88.6 kg General appearance: PRESENT: no acute distress Respiratory exam: PRESENT: clear to auscultation cleo Cardiovascular exam: PRESENT: RRR GI/Abdominal exam: PRESENT: soft Neurological exam: PRESENT: other - Sedated. Moving all extremities Skin exam: PRESENT: warm Results Laboratory Results: 09/13/17 04:50 09/13/17 04:50 09/12/17 09/12/17 09/12/17 14:50 14:50 18:34 WBC RBC Hgb Hct MCV MCH MCHC RDW Plt Count Seg Neutrophils % Lymphocytes % Monocytes % Eosinophils % Basophils % Absolute Neutrophils Absolute Lymphocytes Absolute Monocytes Absolute Eosinophils Absolute Basophils Carbonic Acid HCO3/H2CO3 Ratio ABG pH ABG pCO2 ABG pO2 ABG HCO3 ABG O2 Saturation ABG Base Excess FiO2 Sodium 136.2 L Potassium 4.2 Chloride 110 H Carbon Dioxide 11 L Anion Gap 15 BUN 9 Creatinine 0.61 Est GFR ( Amer) > 60 Est GFR (Non-Af Amer) > 60 Glucose 126 H Lactic Acid 0.7 Calcium 8.1 L Phosphorus 3.5 Magnesium Total Bilirubin AST ALT Alkaline Phosphatase Total Protein Albumin 2.2 L Urine Color YELLOW Urine Appearance CLOUDY Urine pH 5.0 Ur Specific [place] 1.021 Urine Protein NEGATIVE Urine Glucose (UA) >=500 H Urine Ketones 80 H Urine Blood SMALL H Urine Nitrite NEGATIVE Ur Leukocyte Esterase NEGATIVE Urine WBC (Auto) 4 Urine RBC (Auto) 09/13/17 09/13/1709/13/18 04:50 04:50 04:50 WBC 6.5 RBC 3.33 L Hgb 10.0 L Hct 28.9 L MCV 87 MCH 30.0 MCHC 34.6 RDW 14.1 H Plt Count 211 Seg Neutrophils % 70.0 Lymphocytes % 18.9 Monocytes % 8.3 Eosinophils % 2.3 Basophils % 0.5 Absolute Neutrophils 4.6 Absolute Lymphocytes 1.2 Absolute Monocytes 0.5 Absolute Eosinophils 0.1 Absolute Basophils 0.0 Carbonic Acid 0.75 L HCO3/H2CO3 Ratio 19:1 ABG pH 7.38 ABG pCO2 25.0 L ABG pO2 135.4 H ABG HCO3 14.3 L ABG O2 Saturation 98.7 H ABG Base Excess -9.3 FiO2 30% Sodium 133.8 L Potassium 3.3 L Chloride 105 Carbon Dioxide 14 L Anion Gap 15 BUN 7 Creatinine 0.52 Est GFR ( Amer) > 60 Est GFR (Non-Af Amer) > 60 Glucose 125 H Lactic Acid Calcium 7.8 L Phosphorus 3.4 Magnesium 1.7 Total Bilirubin 0.2 AST 16 L ALT 31 Alkaline Phosphatase 140 H Total Protein 4.2 L Albumin 2.3 L Urine Color Urine Appearance Urine pH Ur Specific [place] Urine Protein Urine Glucose (UA) Urine Ketones Urine Blood Urine Nitrite Ur Leukocyte Esterase Urine WBC (Auto) Urine RBC (Auto) 09/13/17 13:10 WBC RBC Hgb Hct MCV MCH MCHC RDW Plt Count Seg Neutrophils % Lymphocytes % Monocytes % Eosinophils % Basophils % Absolute Neutrophils Absolute Lymphocytes Absolute Monocytes Absolute Eosinophils Absolute Basophils Carbonic Acid HCO3/H2CO3 Ratio ABG pH ABG pCO2 ABG pO2 ABG HCO3 ABG O2 Saturation ABG Base Excess FiO2 Sodium Potassium Chloride Carbon Dioxide Anion Gap BUN Creatinine Est GFR ( Amer) Est GFR (Non-Af Amer) Glucose Lactic Acid Calcium Phosphorus Magnesium Total Bilirubin AST ALT Alkaline Phosphatase Total Protein Albumin Urine Color YELLOW Urine Appearance CLOUDY Urine pH 5.0 Ur Specific [place] 1.025 Urine Protein 30 H Urine Glucose (UA) >=500 H Urine Ketones 80 H Urine Blood MODERATE H Urine Nitrite NEGATIVE Ur Leukocyte Esterase NEGATIVE Urine WBC (Auto) 1 Urine RBC (Auto) 138 09/07/17 15:17 Blood Blood Culture - Final NO GROWTH IN 5 DAYS 09/12/17 09/12/17 04:45 14:50 Creatine Kinase 40 L NT-Pro-B Natriuret Pep 412 Impressions: Head CT 09/07/17 10:48 IMPRESSION: NORMAL BRAIN CT WITHOUT CONTRAST. EVIDENCE OF ACUTE STROKE: NO. Chest X-Ray 09/13/17 06:00 IMPRESSION: 1. Interval increase in perihilar and bibasilar opacities. This may be related to low lung volumes and atelectasis however developing pneumonic process could produce a similar appearance. Assessment & Plan - Diagnosis (1) Diabetes insipidus Is this a current diagnosis for this admission?: Yes Plan: Sodium has normalized. Resume outpatient/home dose of DDAVP (2) Metabolic acidosis Is this a current diagnosis for this admission?: Yes Plan: Notably more severe than has been previous. Historically he has had type II diabetes that has been treated with Metformin. Though he has been getting insulin here. He came in with hyperosmolar nonketotic syndrome and was not acidotic at that time. I would be surprised if this was DKA, but lactic acid was normal and urine continues to show ketones. Could be from extended propofol. Continue to monitor closely. I will put him on some bicarb as a temporizing measure (3) DM hyperosmolarity type II, uncontrolled Qualifiers: Diabetes mellitus longterm insulin use: with long term care pharmacist use Diabetes mellitus complication detail: with coma Qualified Code(s): E11.01 - Type 2 diabetes mellitus with hyperosmolarity with coma; Z79.4 - senior care (current) use of insulin; Z79.4 - senior care (current) use of insulin; Z79.4 - senior care ( current) use of insulin; Z79.4 - technician terminal and repeater (current) use of insulin Is this a current diagnosis for this admission?: Yes Plan: Very puzzling situation. His serum glucose has been reasonably well-controlled , but his urine continues to show very high glucose and ketones. I will start him on insulin drip, supplement his glucose as needed, and follow his CO2 to see if that improves. (4) Acute respiratory failure Qualifiers: Respiratory failure complication: hypoxia Qualified Code(s): J96.01 - Acute respiratory failure with hypoxia Is this a current diagnosis for this admission?: Yes Plan: Per pulmonology (5) Schizophrenia Qualifiers: Schizophrenia type: unspecified Qualified Code(s): F20.9 - Schizophrenia, unspecified Is this a current diagnosis for this admission?: Yes Plan: Given his medication list I gather that he has been rather difficult to control. He is on everything from home except Rexulti which was last medication started. Presumably it was started because he had an adequate control of his symptoms on the other medications. I do not see nor does the pharmacy after review see any medications that would cause his acidosis. Continue his current medications
[2017-09-13] MEDS: DESMOPRESSIN ACETATE 0.1 MG TABLET PO SCH ×2 (17:57→22:00)
[2017-09-13] MEDS: MIDAZOLAM HCL 50 MG/100 ML RTUINJ IV PRN (17:58)
[2017-09-13 19:46] LABS: ALBUMIN 2.2 g/dL (3.5-5.0); BLOOD UREA NITROGEN 5 mg/dL (7-20); CALCIUM 7.7 mg/dL (8.4-10.2); CHLORIDE 101 mmol/L (98-107); GLUCOSE 155 mg/dL (75-110); PHOSPHORUS 2.7 mg/dL (2.5-4.5); POTASSIUM 3.3 mmol/L (3.6-5.0)
[2017-09-13 19:48] LABS: APPEARANCE,URINE CLEAR; BILIRUBIN,URINE NEGATIVE (NEGATIVE); COLOR,URINE YELLOW; GLUCOSE, URINE >=500 mg/dL (NEGATIVE); KETONES,URINE 20 mg/dL (NEGATIVE); LEUKOCYTE ESTERASE,URINE NEGATIVE (NEGATIVE); NITRITE,URINE NEGATIVE (NEGATIVE); PROTEIN,URINE NEGATIVE (NEGATIVE); URINE SPECIFIC GRAVITY 1.017; UROBILINOGEN,URINE NEGATIVE mg/dL (<2.0)
[2017-09-13 20:09] LABS: SODIUM 130.2 mmol/L (137-145)
[2017-09-13 20:10] LABS: CARBON DIOXIDE 23 mmol/L (22-30)
[2017-09-13 20:11] LABS: ANION GAP 6 (5-19)
[2017-09-13] MEDS ORDERED: DESMOPRESSIN ACETATE 0.4 MG PO SCH (22:00)
[2017-09-13] MEDS: CLOZAPINE 100 MG TABLET PO SCH (22:01)
[2017-09-14] MEDS: DIAZEPAM 5 MG TABLET PO SCH ×5 (02:04→23:14)
[2017-09-14] MEDS: PIPERACILLIN SODIUM/TAZOBACTAM 3.375 GM in NORMAL SALINE 100 ML IV SCH ×2 (02:05→05:58)
[2017-09-14] MEDS: PROPOFOL 100 ML IV PRN ×2 (02:38→08:41)
[2017-09-14 05:24] LABS: ABSOLUTE EOSINOPHILS # (AUTO) 0.1 10^3/uL (0.0-0.6); ABSOLUTE LYMPHOCYTES (AUTO) 1.2 10^3/uL (0.5-4.7); ABSOLUTE MONOCYTES (AUTO) 0.5 10^3/uL (0.1-1.4); EOSINOPHILS % (AUTO) 2.2 % (0-6); HEMATOCRIT 26.1 % (37.9-51.0); HEMOGLOBIN 9.2 g/dL (13.5-17.0); LYMPHOCYTES % (AUTO) 24.1 % (13-45); MEAN CORPUSCULAR HGB CONC 35.4 g/dL (32.0-36.0); MEAN CORPUSCULAR VOLUME 85 fl (80-97); MONOCYTES % (AUTO) 10.8 % (3-13); PLATELET COUNT 225 10^3/uL (150-450); RED BLOOD COUNT 3.08 10^6/uL (4.35-5.55); RED CELL DISTRIBUTION WIDTH 14.1 % (11.5-14.0); SEGMENTED NEUTROPHILS % (AUTO) 61.9 % (42-78); TOTAL CELLS COUNTED % (AUTO) 100 %; WHITE BLOOD COUNT 4.8 10^3/uL (4.0-10.5)
[2017-09-14 05:46] LABS: APPEARANCE,URINE SLIGHTLY-CLOUDY; BILIRUBIN,URINE NEGATIVE (NEGATIVE); COLOR,URINE YELLOW; GLUCOSE, URINE >=500 mg/dL (NEGATIVE); KETONES,URINE 20 mg/dL (NEGATIVE); LEUKOCYTE ESTERASE,URINE NEGATIVE (NEGATIVE); NITRITE,URINE NEGATIVE (NEGATIVE); PROTEIN,URINE NEGATIVE (NEGATIVE); URINE SPECIFIC GRAVITY 1.027
[2017-09-14 05:49] LABS: ARTERIAL BLOOD BASE EXCESS 1.1 mmol/L; ARTERIAL BLOOD H2CO3 1.02 mmol/L (1.05-1.35); ARTERIAL BLOOD HCO3 24.4 mmol/L (20-26); ARTERIAL BLOOD PCO2 33.8 mmHg (35-45); ARTERIAL BLOOD PH 7.48 (7.35-7.45); ARTERIAL BLOOD PO2 101.7 mmHg (80-100); ARTERIAL BLOOD TOTAL CO2 25.5 mmol/L (23-27)
[2017-09-14 05:52] LABS: ARTERIAL BLOOD FIO2 30%
[2017-09-14 05:57] LABS: ALBUMIN 2.1 g/dL (3.5-5.0); ANION GAP 6 (5-19); BLOOD UREA NITROGEN 5 mg/dL (7-20); CALCIUM 7.7 mg/dL (8.4-10.2); CARBON DIOXIDE 25 mmol/L (22-30); CHLORIDE 98 mmol/L (98-107); GLUCOSE 136 mg/dL (75-110); PHOSPHORUS 3.2 mg/dL (2.5-4.5); POTASSIUM 3.1 mmol/L (3.6-5.0); SODIUM 128.7 mmol/L (137-145)
[2017-09-14] MEDS: DEXTROSE 10%-WATER 1,000 ML IV PRN ×2 (05:59→20:54)
[2017-09-14] MEDS: CEFTAZIDIME PENTAHYDRATE 1 GM in DEXTROSE 5%-WATER 50 ML IV SCH (05:59)
[2017-09-14] MEDS: HEPARIN SOD (PORCINE) 5,000 UNIT/ML 1 ML SYRINGE SUBCUT SCH ×3 (06:00→23:13)
[2017-09-14] MEDS: ROPINIROLE HCL 1 MG TABLET PO SCH ×2 (07:05→23:12)
--- NOTE | 2017-09-14 07:05 | RADIOLOGY REPORT (SQ) ---
EXAM DESCRIPTION: CHEST SINGLE VIEW CLINICAL HISTORY: resp failure. Endotracheal tube. COMPARISON: 09/13/2017 FINDINGS: Single frontal view of the chest. Endotracheal tube, NG tube, and right IJ central venous catheter unchanged. Heart is not enlarged. Low lung volumes. Small left pleural effusion. Interval improved aeration with persistent bilateral perihilar and streaky bibasilar opacities. No acute osseous abnormalities. Upper abdominal soft tissues are unremarkable. IMPRESSION: 1. Lidoderm approved aeration of the lung bases bilaterally. Otherwise stable appearance of the chest. Electronically signed by: Puma Bolivar 09/14/2017 6:03 AM CDT
[2017-09-14] MEDS: LEVOTHYROXINE SODIUM INJ/PF 0.1 MG SDV IV SCH (09:12)
[2017-09-14] MEDS: CLOZAPINE 25 MG TABLET PO SCH (09:12)
[2017-09-14] MEDS: OLANZAPINE 5 MG TABLET PO SCH (09:13)
[2017-09-14] MEDS: PAROXETINE HCL 20 MG TABLET PO SCH (09:13)
[2017-09-14] MEDS: DESMOPRESSIN ACETATE 0.1 MG TABLET PO SCH ×4 (09:13→23:11)
[2017-09-14] MEDS: CHLORPROMAZINE HCL 50 MG TABLET PO SCH ×2 (09:14→23:09)
[2017-09-14] MEDS: DOCUSATE SODIUM 100 MG CAPSULE PO SCH ×2 (09:14→23:15)
[2017-09-14] MEDS: FAMOTIDINE INJ/PF 20 MG/2 ML SDV IV SCH ×2 (09:14→23:11)
[2017-09-14] MEDS: POTASSIUM CHLORIDE 20 MEQ/15 ML UDCUP PO SCH ×2 (09:50→11:36)
[2017-09-14] MEDS: INSULIN, REGULAR 100 UNIT/100 ML NORMAL SALINE IV PRN ×2 (10:06)
[2017-09-14] MEDS: DEXTROSE 5%-WATER 1000 ML 1,000 ML with SODIUM BICARBONATE 100 MEQ IV PRN ×4 (10:23→20:05)
--- NOTE | 2017-09-14 10:58 | PDOC PROGRESS REPORT ---
Subjective Progress Note for:: 09/14/17 Subjective:: 51-year-old male with a past medical history of Coronary artery disease Hyperlipidemia COPD Type 2 diabetes ADD Schizophrenia Hypertension. ABDs insipidus He was admitted on September 07 when he was found unresponsive with a fever of 102.5 F, found to have acute renal failure, DKA and severe hypernatremia due to diabetes insipidus. The patient was intubated started on an insulin drip and IV fluids and admitted to the intensive care unit. Hypernatremia was treated with DDAVP and electrolyte and fluid adjustment. Reason For Visit: UNRESPONSIVE,HYPERGLYCEMIC HYPEROSMOLAR STATE Physical Exam Vital Signs: Temp Pulse Resp BP Pulse Ox 98.1 F 72 20 121/83 100 09/14/17 08:00 09/14/17 08:00 09/14/17 10:15 09/14/17 10:05 09/14/17 10:15 Intake & Output 09/13/17 09/14/17 09/15/17 06:59 06:59 06:59 Intake Total 3978 5238 Output Total 3490 2800 600 Balance 488 2438 -600 Weight 88.6 kg 90 kg General appearance: PRESENT: other - sedated on vent, Og tube present Head exam: PRESENT: normocephalic Eye exam: ABSENT: scleral icterus Ear exam: PRESENT: normal external ear exam Throat exam: PRESENT: other - sedated on vent Neck exam: PRESENT: other Respiratory exam: PRESENT: symmetrical, unlabored. ABSENT: crackles Cardiovascular exam: PRESENT: RRR GI/Abdominal exam: PRESENT: normal bowel sounds, soft. ABSENT: tenderness Rectal exam: PRESENT: deferred Gentrourinary exam: PRESENT: indwelling catheter Extremities exam: PRESENT: +2 edema Neurological exam: PRESENT: other - sedated on vent Psychiatric exam: PRESENT: other - sedated on vent Skin exam: ABSENT: petechiae Results Laboratory Results: 09/14/17 05:10 09/14/17 05:10 09/13/17 09/13/17 09/13/17 13:10 18:56 19:11 WBC RBC Hgb Hct MCV MCH MCHC RDW Plt Count Seg Neutrophils % Lymphocytes % Monocytes % Eosinophils % Basophils % Absolute Neutrophils Absolute Lymphocytes Absolute Monocytes Absolute Eosinophils Absolute Basophils Carbonic Acid HCO3/H2CO3 Ratio ABG pH ABG pCO2 ABG pO2 ABG HCO3 ABG O2 Saturation ABG Base Excess FiO2 Sodium 130.2 L Potassium 3.3 L Chloride 101 Carbon Dioxide 23 Anion Gap 6 BUN 5 L Creatinine 0.53 Est GFR ( Amer) > 60 Est GFR (Non-Af Amer) > 60 Glucose 155 H Calcium 7.7 L Phosphorus 2.7 Magnesium Albumin 2.2 L Urine Color YELLOW YELLOW Urine Appearance CLOUDY CLEAR Urine pH 5.0 5.0 Ur Specific [place] 1.025 1.017 Urine Protein 30 H NEGATIVE Urine Glucose (UA) >=500 H >=500 H Urine Ketones 80 H 20 H Urine Blood MODERATE H MODERATE H Urine Nitrite NEGATIVE NEGATIVE Ur Leukocyte Esterase NEGATIVE NEGATIVE Urine WBC (Auto) 1 2 Urine RBC (Auto) 138 24 09/14/17 09/14/17 09/14/17 05:10 05:10 05:10 WBC 4.8 RBC 3.08 L Hgb 9.2 L Hct 26.1 L MCV 85 MCH 30.0 MCHC 35.4 RDW 14.1 H Plt Count 225 Seg Neutrophils % 61.9 Lymphocytes % 24.1 Monocytes % 10.8 Eosinophils % 2.2 Basophils % 1.0 Absolute Neutrophils 3.0 Absolute Lymphocytes 1.2 Absolute Monocytes 0.5 Absolute Eosinophils 0.1 Absolute Basophils 0.0 Carbonic Acid 1.02 L HCO3/H2CO3 Ratio 23:1 ABG pH 7.48 H ABG pCO2 33.8 L ABG pO2 101.7 H ABG HCO3 24.4 ABG O2 Saturation 98.0 ABG Base Excess 1.1 FiO2 30% Sodium 128.7 L Potassium 3.1 L Chloride 98 Carbon Dioxide 25 Anion Gap 6 BUN 5 L Creatinine 0.46 L Est GFR ( Amer) > 60 Est GFR (Non-Af Amer) > 60 Glucose 136 H Calcium 7.7 L Phosphorus 3.2 Magnesium 1.9 Albumin 2.1 L Urine Color Urine Appearance Urine pH Ur Specific [place] Urine Protein Urine Glucose (UA) Urine Ketones Urine Blood Urine Nitrite Ur Leukocyte Esterase Urine WBC (Auto) Urine RBC (Auto) 09/14/17 05:15 WBC RBC Hgb Hct MCV MCH MCHC RDW Plt Count Seg Neutrophils % Lymphocytes % Monocytes % Eosinophils % Basophils % Absolute Neutrophils Absolute Lymphocytes Absolute Monocytes Absolute Eosinophils Absolute Basophils Carbonic Acid HCO3/H2CO3 Ratio ABG pH ABG pCO2 ABG pO2 ABG HCO3 ABG O2 Saturation ABG Base Excess FiO2 Sodium Potassium Chloride Carbon Dioxide Anion Gap BUN Creatinine Est GFR ( Amer) Est GFR (Non-Af Amer) Glucose Calcium Phosphorus Magnesium Albumin Urine Color YELLOW Urine Appearance SLIGHTLY-CLOUDY Urine pH 5.0 Ur Specific [place] 1.027 Urine Protein NEGATIVE Urine Glucose (UA) >=500 H Urine Ketones 20 H Urine Blood MODERATE H Urine Nitrite NEGATIVE Ur Leukocyte Esterase NEGATIVE Urine WBC (Auto) 12 Urine RBC (Auto) >182 09/12/17 09/12/17 04:45 14:50 Creatine Kinase 40 L NT-Pro-B Natriuret Pep 412 Impressions: Head CT 09/07/17 10:48 IMPRESSION: NORMAL BRAIN CT WITHOUT CONTRAST. EVIDENCE OF ACUTE STROKE: NO. Chest X-Ray 09/14/17 06:00 IMPRESSION: 1. Lidoderm approved aeration of the lung bases bilaterally. Otherwise stable appearance of the chest. Assessment & Plan - Diagnosis (1) Acute kidney injury Is this a current diagnosis for this admission?: Yes Plan: Improved with IV fluids. Continue to monitor kidney function. (2) Acute respiratory failure Qualifiers: Respiratory failure complication: hypoxia Qualified Code(s): J96.01 - Acute respiratory failure with hypoxia Is this a current diagnosis for this admission?: Yes (3) Altered mental state Qualifiers: Altered mental status type: stupor Qualified Code(s): R40.1 - Stupor Is this a current diagnosis for this admission?: Yes Plan: Likely secondary to medications for schizophrenia and diabetic ketoacidosis. (4) Diabetes 1.5, managed as type 2 Is this a current diagnosis for this admission?: Yes (5) Diabetes insipidus Is this a current diagnosis for this admission?: Yes Plan: Continue desmopressin. Monitor sodium levels. (6) Schizophrenia Qualifiers: Schizophrenia type: unspecified Qualified Code(s): F20.9 - Schizophrenia, unspecified Is this a current diagnosis for this admission?: Yes Plan: On clozapine and Zyprexa and paroxetine. (7) DKA (diabetic ketoacidoses) Qualifiers: Diabetes mellitus type: type 2 Is this a current diagnosis for this admission?: Yes Plan: Present on admission. Anion gap closed but ketonuria persists. - Time Time Spent with patient: 35 or more minutes
[2017-09-14] MEDS ORDERED: LACTOBACILLUS ACIDOPHILUS 250 MG TAB NG ONE (12:00)
[2017-09-14 12:21] LABS: ALBUMIN 2.3 g/dL (3.5-5.0); ANION GAP 6 (5-19); BLOOD UREA NITROGEN 4 mg/dL (7-20); CALCIUM 7.9 mg/dL (8.4-10.2); CARBON DIOXIDE 27 mmol/L (22-30); CHLORIDE 96 mmol/L (98-107); GLUCOSE 144 mg/dL (75-110); PHOSPHORUS 2.9 mg/dL (2.5-4.5); POTASSIUM 3.4 mmol/L (3.6-5.0); SODIUM 129.2 mmol/L (137-145)
[2017-09-14] MEDS ORDERED: DEXAMETHASONE SOD PHOS INJ 10 MG/1 ML VIAL IV ONE (12:30)
[2017-09-14] MEDS ORDERED: DEXAMETHASONE SOD PHOSPHATE INJ 4 MG/1 ML VIAL ONE (12:42)
[2017-09-14] MEDS ORDERED: DEXAMETHASONE SOD PHOSPHATE INJ 4 MG/1 ML VIAL IV ONE (13:00)
--- NOTE | 2017-09-14 15:31 | PDOC PROGRESS REPORT ---
Subjective Progress Note for:: 09/12/17 Subjective:: Intubated and sedated Reason For Visit: UNRESPONSIVE,HYPERGLYCEMIC HYPEROSMOLAR STATE Physical Exam Vital Signs: Temp Pulse Resp BP Pulse Ox 98.1 F 90 18 123/80 100 09/13/17 00:00 09/12/17 20:00 09/13/17 06:15 09/13/17 06:04 09/13/17 08:00 Intake & Output 09/12/17 09/13/17 09/14/17 06:59 06:59 06:59 Intake Total 4478 3978 Output Total 3805 3490 300 Balance 673 488 -300 Weight 87.8 kg 88.6 kg General appearance: PRESENT: no acute distress, disheveled, obese. ABSENT: cooperative Head exam: PRESENT: atraumatic, normocephalic Eye exam: PRESENT: conjunctiva pale. ABSENT: EOMI, nystagmus, periorbital swelling, scleral icterus Mouth exam: PRESENT: dry mucosa, neck supple, tongue midline, other - ET tube in place Neck exam: ABSENT: carotid bruit, JVD, lymphadenopathy, thyromegaly, tracheal deviation, tracheostomy Respiratory exam: PRESENT: decreased breath sounds, prolonged expiratory phas, rales, rhonchi, symmetrical, unlabored. ABSENT: retraction, stridor, tachypnea Cardiovascular exam: PRESENT: RRR, +S1, +S2, tachycardia Pulses: PRESENT: normal radial pulses GI/Abdominal exam: PRESENT: diminished bowel sounds, soft Extremities exam: ABSENT: clubbing, joint swelling Musculoskeletal exam: ABSENT: deformity, dislocation Neurological exam: ABSENT: awake, oriented to person Skin exam: PRESENT: dry, warm Results Laboratory Results: 09/13/17 04:50 09/13/17 04:50 09/12/17 09/12/17 09/12/17 14:50 14:50 18:34 WBC RBC Hgb Hct MCV MCH MCHC RDW Plt Count Seg Neutrophils % Lymphocytes % Monocytes % Eosinophils % Basophils % Absolute Neutrophils Absolute Lymphocytes Absolute Monocytes Absolute Eosinophils Absolute Basophils Carbonic Acid HCO3/H2CO3 Ratio ABG pH ABG pCO2 ABG pO2 ABG HCO3 ABG O2 Saturation ABG Base Excess FiO2 Sodium 136.2 L Potassium 4.2 Chloride 110 H Carbon Dioxide 11 L Anion Gap 15 BUN 9 Creatinine 0.61 Est GFR ( Amer) > 60 Est GFR (Non-Af Amer) > 60 Glucose 126 H Lactic Acid 0.7 Calcium 8.1 L Phosphorus 3.5 Magnesium Total Bilirubin AST ALT Alkaline Phosphatase Total Protein Albumin 2.2 L Urine Color YELLOW Urine Appearance CLOUDY Urine pH 5.0 Ur Specific [place] 1.021 Urine Protein NEGATIVE Urine Glucose (UA) >=500 H Urine Ketones 80 H Urine Blood SMALL H Urine Nitrite NEGATIVE Ur Leukocyte Esterase NEGATIVE Urine WBC (Auto) 4 09/13/17 09/13/17 09/13/17 04:50 04:50 04:50 WBC 6.5 RBC 3.33 L Hgb 10.0 L Hct 28.9 L MCV 87 MCH 30.0 MCHC 34.6 RDW 14.1 H Plt Count 211 Seg Neutrophils % 70.0 Lymphocytes % 18.9 Monocytes % 8.3 Eosinophils % 2.3 Basophils % 0.5 Absolute Neutrophils 4.6 Absolute Lymphocytes 1.2 Absolute Monocytes 0.5 Absolute Eosinophils 0.1 Absolute Basophils 0.0 Carbonic Acid 0.75 L HCO3/H2CO3 Ratio 19:1 ABG pH 7.38 ABG pCO2 25.0 L ABG pO2 135.4 H ABG HCO3 14.3 L ABG O2 Saturation 98.7 H ABG Base Excess -9.3 FiO2 30% Sodium 133.8 L Potassium 3.3 L Chloride 105 Carbon Dioxide 14 L Anion Gap 15 BUN 7 Creatinine 0.52 Est GFR ( Amer) > 60 Est GFR (Non-Af Amer) > 60 Glucose 125 H Lactic Acid Calcium 7.8 L Phosphorus 3.4 Magnesium 1.7 Total Bilirubin 0.2 AST 16 L ALT 31 Alkaline Phosphatase 140 H Total Protein 4.2 L Albumin 2.3 L Urine Color Urine Appearance Urine pH Ur Specific [place] Urine Protein Urine Glucose (UA) Urine Ketones Urine Blood Urine Nitrite Ur Leukocyte Esterase Urine WBC (Auto) 09/07/17 15:17 Blood Blood Culture - Final NO GROWTH IN 5 DAYS 09/12/17 09/12/17 04:45 14:50 Creatine Kinase 40 L NT-Pro-B Natriuret Pep 412 Impressions: Head CT 09/07/17 10:48 IMPRESSION: NORMAL BRAIN CT WITHOUT CONTRAST. EVIDENCE OF ACUTE STROKE: NO. Chest X-Ray 09/13/17 06:00 IMPRESSION: 1. Interval increase in perihilar and bibasilar opacities. This may be related to low lung volumes and atelectasis however developing pneumonic process could produce a similar appearance. Assessment & Plan - Diagnosis (1) Acute respiratory failure Qualifiers: Respiratory failure complication: hypoxia Qualified Code(s): J96.01 - Acute respiratory failure with hypoxia Is this a current diagnosis for this admission?: Yes Plan: remains ventilator dependent severe metabolic acidosis with adequate compensation (2) DKA (diabetic ketoacidoses) Qualifiers: Diabetes mellitus type: type 2 Is this a current diagnosis for this admission?: Yes Plan: Ketonuria and acidosis persist (3) Schizophrenia Qualifiers: Schizophrenia type: unspecified Qualified Code(s): F20.9 - Schizophrenia, unspecified Is this a current diagnosis for this admission?: Yes - Time Total Critical Time (Minutes): 40
--- NOTE | 2017-09-14 15:33 | PDOC PROGRESS REPORT ---
Subjective Progress Note for:: 09/13/17 Subjective:: Intubated and sedated Reason For Visit: UNRESPONSIVE,HYPERGLYCEMIC HYPEROSMOLAR STATE Physical Exam Vital Signs: Temp Pulse Resp BP Pulse Ox 98.1 F 90 18 123/80 100 09/13/17 00:00 09/12/17 20:00 09/13/17 06:15 09/13/17 06:04 09/13/17 08:00 Intake & Output 09/12/17 09/13/17 09/14/17 06:59 06:59 06:59 Intake Total 4478 3978 Output Total 3805 3490 300 Balance 673 488 -300 Weight 87.8 kg 88.6 kg General appearance: PRESENT: no acute distress, disheveled, obese, well- developed, well-nourished. ABSENT: cooperative, severe distress Head exam: PRESENT: atraumatic, normocephalic Eye exam: PRESENT: conjunctiva pale. ABSENT: EOMI, nystagmus, periorbital swelling, scleral icterus Mouth exam: PRESENT: dry mucosa, neck supple, tongue midline, other - ET tube in place Neck exam: ABSENT: carotid bruit, JVD, lymphadenopathy, thyromegaly, tracheal deviation, tracheostomy Respiratory exam: PRESENT: decreased breath sounds, prolonged expiratory phas, rhonchi, symmetrical, unlabored. ABSENT: retraction, stridor Cardiovascular exam: PRESENT: RRR, +S1, +S2, tachycardia Pulses: PRESENT: normal radial pulses GI/Abdominal exam: PRESENT: diminished bowel sounds, soft Extremities exam: ABSENT: clubbing, joint swelling, pedal edema Musculoskeletal exam: ABSENT: deformity, dislocation Neurological exam: ABSENT: awake, oriented to person Skin exam: PRESENT: dry, warm Results Laboratory Results: 09/13/17 04:50 09/13/17 04:50 09/12/17 09/12/17 09/12/17 14:50 14:50 18:34 WBC RBC Hgb Hct MCV MCH MCHC RDW Plt Count Seg Neutrophils % Lymphocytes % Monocytes % Eosinophils % Basophils % Absolute Neutrophils Absolute Lymphocytes Absolute Monocytes Absolute Eosinophils Absolute Basophils Carbonic Acid HCO3/H2CO3 Ratio ABG pH ABG pCO2 ABG pO2 ABG HCO3 ABG O2 Saturation ABG Base Excess FiO2 Sodium 136.2 L Potassium 4.2 Chloride 110 H Carbon Dioxide 11 L Anion Gap 15 BUN 9 Creatinine 0.61 Est GFR ( Amer) > 60 Est GFR (Non-Af Amer) > 60 Glucose 126 H Lactic Acid 0.7 Calcium 8.1 L Phosphorus 3.5 Magnesium Total Bilirubin AST ALT Alkaline Phosphatase Total Protein Albumin 2.2 L Urine Color YELLOW Urine Appearance CLOUDY Urine pH 5.0 Ur Specific [place] 1.021 Urine Protein NEGATIVE Urine Glucose (UA) >=500 H Urine Ketones 80 H Urine Blood SMALL H Urine Nitrite NEGATIVE Ur Leukocyte Esterase NEGATIVE Urine WBC (Auto) 4 09/13/17 09/13/17 09/13/17 04:50 04:50 04:50 WBC 6.5 RBC 3.33 L Hgb 10.0 L Hct 28.9 L MCV 87 MCH 30.0 MCHC 34.6 RDW 14.1 H Plt Count 211 Seg Neutrophils % 70.0 Lymphocytes % 18.9 Monocytes % 8.3 Eosinophils % 2.3 Basophils % 0.5 Absolute Neutrophils 4.6 Absolute Lymphocytes 1.2 Absolute Monocytes 0.5 Absolute Eosinophils 0.1 Absolute Basophils 0.0 Carbonic Acid 0.75 L HCO3/H2CO3 Ratio 19:1 ABG pH 7.38 ABG pCO2 25.0 L ABG pO2 135.4 H ABG HCO3 14.3 L ABG O2 Saturation 98.7 H ABG Base Excess -9.3 FiO2 30% Sodium 133.8 L Potassium 3.3 L Chloride 105 Carbon Dioxide 14 L Anion Gap 15 BUN 7 Creatinine 0.52 Est GFR ( Amer) > 60 Est GFR (Non-Af Amer) > 60 Glucose 125 H Lactic Acid Calcium 7.8 L Phosphorus 3.4 Magnesium 1.7 Total Bilirubin 0.2 AST 16 L ALT 31 Alkaline Phosphatase 140 H Total Protein 4.2 L Albumin 2.3 L Urine Color Urine Appearance Urine pH Ur Specific [place] Urine Protein Urine Glucose (UA) Urine Ketones Urine Blood Urine Nitrite Ur Leukocyte Esterase Urine WBC (Auto) 09/07/17 15:17 Blood Blood Culture - Final NO GROWTH IN 5 DAYS 09/12/17 09/12/17 04:45 14:50 Creatine Kinase 40 L NT-Pro-B Natriuret Pep 412 Impressions: Head CT 09/07/17 10:48 IMPRESSION: NORMAL BRAIN CT WITHOUT CONTRAST. EVIDENCE OF ACUTE STROKE: NO. Chest X-Ray 09/13/17 06:00 IMPRESSION: 1. Interval increase in perihilar and bibasilar opacities. This may be related to low lung volumes and atelectasis however developing pneumonic process could produce a similar appearance. Assessment & Plan - Diagnosis (1) Acute respiratory failure Qualifiers: Respiratory failure complication: hypoxia Qualified Code(s): J96.01 - Acute respiratory failure with hypoxia Is this a current diagnosis for this admission?: Yes Plan: remains ventilator dependent severe metabolic acidosis with adequate compensation (2) DKA (diabetic ketoacidoses) Qualifiers: Diabetes mellitus type: type 2 Is this a current diagnosis for this admission?: Yes Plan: Ketonuria and acidosis persist (3) Schizophrenia Qualifiers: Schizophrenia type: unspecified Qualified Code(s): F20.9 - Schizophrenia, unspecified Is this a current diagnosis for this admission?: Yes - Time Total Critical Time (Minutes): 40
--- NOTE | 2017-09-14 15:37 | PDOC PROGRESS REPORT ---
Subjective Progress Note for:: 09/14/17 Subjective:: Intubated, sedated arousable Reason For Visit: UNRESPONSIVE,HYPERGLYCEMIC HYPEROSMOLAR STATE Physical Exam Vital Signs: Temp Pulse Resp BP Pulse Ox 98.5 F 74 14 109/79 99 09/14/17 04:56 09/13/17 10:21 09/14/17 06:15 09/14/17 06:05 09/14/17 06:15 Intake & Output 09/13/17 09/14/17 09/15/17 06:59 06:59 06:59 Intake Total 3978 5238 Output Total 3490 2800 Balance 488 2438 Weight 88.6 kg 90 kg General appearance: PRESENT: no acute distress, disheveled, obese, well- developed, well-nourished Head exam: PRESENT: atraumatic, normocephalic Eye exam: PRESENT: conjunctiva pale, EOMI. ABSENT: nystagmus, periorbital swelling, scleral icterus Mouth exam: PRESENT: dry mucosa, neck supple, tongue midline, other - ET tube Neck exam: ABSENT: carotid bruit, JVD, lymphadenopathy, thyromegaly, tracheal deviation, tracheostomy Respiratory exam: PRESENT: decreased breath sounds, prolonged expiratory phas, rales, rhonchi, symmetrical, unlabored. ABSENT: retraction, stridor, tachypnea Cardiovascular exam: PRESENT: RRR, +S1, +S2. ABSENT: tachycardia Pulses: PRESENT: normal radial pulses GI/Abdominal exam: PRESENT: diminished bowel sounds, soft Gentrourinary exam: PRESENT: indwelling catheter Extremities exam: ABSENT: clubbing, joint swelling Musculoskeletal exam: ABSENT: deformity, dislocation Neurological exam: PRESENT: awake, oriented to person Psychiatric exam: PRESENT: flat affect Skin exam: PRESENT: dry, warm Results Laboratory Results: 09/14/17 05:10 09/14/17 05:10 09/13/17 09/13/17 09/13/17 13:10 18:56 19:11 WBC RBC Hgb Hct MCV MCH MCHC RDW Plt Count Seg Neutrophils % Lymphocytes % Monocytes % Eosinophils % Basophils % Absolute Neutrophils Absolute Lymphocytes Absolute Monocytes Absolute Eosinophils Absolute Basophils Carbonic Acid HCO3/H2CO3 Ratio ABG pH ABG pCO2 ABG pO2 ABG HCO3 ABG O2 Saturation ABG Base Excess FiO2 Sodium 130.2 L Potassium 3.3 L Chloride 101 Carbon Dioxide 23 Anion Gap 6 BUN 5 L Creatinine 0.53 Est GFR ( Amer) > 60 Est GFR (Non-Af Amer) > 60 Glucose 155 H Calcium 7.7 L Phosphorus 2.7 Magnesium Albumin 2.2 L Urine Color YELLOW YELLOW Urine Appearance CLOUDY CLEAR Urine pH 5.0 5.0 Ur Specific [place] 1.025 1.017 Urine Protein 30 H NEGATIVE Urine Glucose (UA) >=500 H >=500 H Urine Ketones 80 H 20 H Urine Blood MODERATE H MODERATE H Urine Nitrite NEGATIVE NEGATIVE Ur Leukocyte Esterase NEGATIVE NEGATIVE Urine WBC (Auto) 1 2 Urine RBC (Auto) 138 24 09/14/17 09/14/17 09/14/17 05:10 05:10 05:10 WBC 4.8 RBC 3.08 L Hgb 9.2 L Hct 26.1 L MCV 85 MCH 30.0 MCHC 35.4 RDW 14.1 H Plt Count 225 Seg Neutrophils % 61.9 Lymphocytes % 24.1 Monocytes % 10.8 Eosinophils % 2.2 Basophils % 1.0 Absolute Neutrophils 3.0 Absolute Lymphocytes 1.2 Absolute Monocytes 0.5 Absolute Eosinophils 0.1 Absolute Basophils 0.0 Carbonic Acid 1.02 L HCO3/H2CO3 Ratio 23:1 ABG pH 7.48 H ABG pCO2 33.8 L ABG pO2 101.7 H ABG HCO3 24.4 ABG O2 Saturation 98.0 ABG Base Excess 1.1 FiO2 30% Sodium 128.7 L Potassium 3.1 L Chloride 98 Carbon Dioxide 25 Anion Gap 6 BUN 5 L Creatinine 0.46 L Est GFR ( Amer) > 60 Est GFR (Non-Af Amer) > 60 Glucose 136 H Calcium 7.7 L Phosphorus 3.2 Magnesium 1.9 Albumin 2.1 L Urine Color Urine Appearance Urine pH Ur Specific [place] Urine Protein Urine Glucose (UA) Urine Ketones Urine Blood Urine Nitrite Ur Leukocyte Esterase Urine WBC (Auto) Urine RBC (Auto) 09/14/17 05:15 WBC RBC Hgb Hct MCV MCH MCHC RDW Plt Count Seg Neutrophils % Lymphocytes % Monocytes % Eosinophils % Basophils % Absolute Neutrophils Absolute Lymphocytes Absolute Monocytes Absolute Eosinophils Absolute Basophils Carbonic Acid HCO3/H2CO3 Ratio ABG pH ABG pCO2 ABG pO2 ABG HCO3 ABG O2 Saturation ABG Base Excess FiO2 Sodium Potassium Chloride Carbon Dioxide Anion Gap BUN Creatinine Est GFR ( Amer) Est GFR (Non-Af Amer) Glucose Calcium Phosphorus Magnesium Albumin Urine Color YELLOW Urine Appearance SLIGHTLY-CLOUDY Urine pH 5.0 Ur Specific [place] 1.027 Urine Protein NEGATIVE Urine Glucose (UA) >=500 H Urine Ketones 20 H Urine Blood MODERATE H Urine Nitrite NEGATIVE Ur Leukocyte Esterase NEGATIVE Urine WBC (Auto) 12 Urine RBC (Auto) >182 09/12/17 09/12/17 04:45 14:50 Creatine Kinase 40 L NT-Pro-B Natriuret Pep 412 Impressions: Head CT 09/07/17 10:48 IMPRESSION: NORMAL BRAIN CT WITHOUT CONTRAST. EVIDENCE OF ACUTE STROKE: NO. Chest X-Ray 09/14/17 06:00 IMPRESSION: 1. Lidoderm approved aeration of the lung bases bilaterally. Otherwise stable appearance of the chest. Assessment & Plan - Diagnosis (1) Acute respiratory failure Qualifiers: Respiratory failure complication: hypoxia Qualified Code(s): J96.01 - Acute respiratory failure with hypoxia Is this a current diagnosis for this admission?: Yes Plan: Demand for respiratory compensation there is currently < Acidosis is improved nominal will proceed with extubation is respiratory rate, minute ventilation, FiO2 and airway pressures suggest successful extubation (2) DKA (diabetic ketoacidoses) Qualifiers: Diabetes mellitus type: type 2 Is this a current diagnosis for this admission?: Yes Plan: Ketonuria persist (3) Schizophrenia Qualifiers: Schizophrenia type: unspecified Qualified Code(s): F20.9 - Schizophrenia, unspecified Is this a current diagnosis for this admission?: Yes - Time Total Critical Time (Minutes): 55
[2017-09-14] MEDS: LACTOBACILLUS ACIDOPHILUS 250 MG TAB NG SCH (17:05)
[2017-09-14 18:32] LABS: ALBUMIN 2.8 g/dL (3.5-5.0); ANION GAP 6 (5-19); BLOOD UREA NITROGEN 4 mg/dL (7-20); CALCIUM 8.8 mg/dL (8.4-10.2); CARBON DIOXIDE 32 mmol/L (22-30); CHLORIDE 101 mmol/L (98-107); GLUCOSE 163 mg/dL (75-110); PHOSPHORUS 3.6 mg/dL (2.5-4.5); POTASSIUM 3.9 mmol/L (3.6-5.0)
[2017-09-14] MEDS: CLOZAPINE 100 MG TABLET PO SCH (23:10)
[2017-09-15] MEDS: DIAZEPAM 5 MG TABLET PO SCH ×3 (06:02→17:16)
[2017-09-15] MEDS: HEPARIN SOD (PORCINE) 5,000 UNIT/ML 1 ML SYRINGE SUBCUT SCH (06:03)
[2017-09-15] MEDS: DEXTROSE 5%-WATER 1000 ML 1,000 ML with SODIUM BICARBONATE 100 MEQ IV PRN ×2 (06:04)
[2017-09-15 06:08] LABS: HEMATOCRIT 30.4 % (37.9-51.0); HEMOGLOBIN 10.6 g/dL (13.5-17.0); MEAN CORPUSCULAR HEMOGLOBIN 29.6 pg (27.0-33.4); MEAN CORPUSCULAR HGB CONC 34.9 g/dL (32.0-36.0); MEAN CORPUSCULAR VOLUME 85 fl (80-97); PLATELET COUNT 316 10^3/uL (150-450); RED BLOOD COUNT 3.58 10^6/uL (4.35-5.55); RED CELL DISTRIBUTION WIDTH 14.1 % (11.5-14.0); WHITE BLOOD COUNT 6.7 10^3/uL (4.0-10.5)
[2017-09-15 06:24] LABS: ALBUMIN 2.5 g/dL (3.5-5.0); ANION GAP 6 (5-19); BLOOD UREA NITROGEN 3 mg/dL (7-20); CALCIUM 8.7 mg/dL (8.4-10.2); CARBON DIOXIDE 35 mmol/L (22-30); CHLORIDE 104 mmol/L (98-107); GLUCOSE 195 mg/dL (75-110); PHOSPHORUS 3.6 mg/dL (2.5-4.5); POTASSIUM 3.5 mmol/L (3.6-5.0); SODIUM 144.5 mmol/L (137-145)
[2017-09-15 06:34] LABS: ABSOLUTE LYMPHOCYTES# (MANUAL) 1.6 10^3/uL (0.5-4.7); ABSOLUTE MONOCYTES # (MANUAL) 0.7 10^3/uL (0.1-1.4); ABSOLUTE NEUTROPHILS# (MANUAL) 4.3 10^3/uL (1.7-8.2); BAND NEUTROPHILS % (MANUAL) 2 % (3-5); BASOPHILS % (MANUAL) 0 % (0-2); EOSINOPHILS % (MANUAL) 1 % (0-6); LYMPHOCYTES % (MANUAL) 24 % (13-45); METAMYELOCYTES % (MANUAL) 1 % (0); MONOCYTES % (MANUAL) 11 % (3-13); SEGMENTED NEUTROPHILS % (MAN) 61 % (42-78); TOTAL CELLS COUNTED 100
[2017-09-15 06:34] LABS: APPEARANCE,URINE CLEAR; BILIRUBIN,URINE NEGATIVE (NEGATIVE); COLOR,URINE YELLOW; GLUCOSE, URINE >=500 mg/dL (NEGATIVE); KETONES,URINE NEGATIVE (NEGATIVE); LEUKOCYTE ESTERASE,URINE NEGATIVE (NEGATIVE); NITRITE,URINE NEGATIVE (NEGATIVE); PROTEIN,URINE 30 mg/dL (NEGATIVE); URINE SPECIFIC GRAVITY 1.027
[2017-09-15 06:36] LABS: SCHISTOCYTES SLIGHT; TOXIC GRANULATION 1+
[2017-09-15 06:37] LABS: PLATELET COMMENT ADEQUATE; PLATELET GIANT PRESENT; PLATELET LARGE PRESENT
--- NOTE | 2017-09-15 08:39 | RADIOLOGY REPORT (SQ) ---
EXAM DESCRIPTION: CHEST SINGLE VIEW COMPLETED DATE/TIME: 09/15/2017 6:09 am REASON FOR STUDY: resp failure COMPARISON: 09/14/2017 EXAM PARAMETERS: NUMBER OF VIEWS: One view. TECHNIQUE: Single frontal radiographic view of the chest acquired. RADIATION DOSE: NA LIMITATIONS: None. FINDINGS: LUNGS AND PLEURA: Low lung volumes. Persistent patchy bilateral perihilar and bibasilar streaky opacities. No pneumothorax or pleural effusion. MEDIASTINUM AND HILAR STRUCTURES: No masses. Contour normal. HEART AND VASCULAR STRUCTURES: Heart normal in size. Normal vasculature. BONES: No acute findings. HARDWARE: Endotracheal and nasogastric tubes have been removed. Right internal jugular central veno us catheter, unchanged. OTHER: No other significant finding. IMPRESSION: 1 Interval removal of endotracheal and nasogastric tube since the previous examination. 2 Persistent streaky bilateral perihilar and bibasilar opacities. TECHNICAL DOCUMENTATION: JOB ID: [id number] [employer]em[employer] K [employer]- All Rights Reserved Reading location - IP/workstation name: [email or web address]
[2017-09-15] MEDS: INSULIN, REGULAR 100 UNIT/100 ML NORMAL SALINE IV PRN ×2 (08:57)
[2017-09-15] MEDS: DESMOPRESSIN ACETATE 0.1 MG TABLET PO SCH ×4 (10:00→21:30)
[2017-09-15] MEDS: DEXTROSE 10%-WATER 1,000 ML IV PRN (10:34)
[2017-09-15] MEDS: LEVOTHYROXINE SODIUM INJ/PF 0.1 MG SDV IV SCH (10:39)
[2017-09-15] MEDS: FAMOTIDINE INJ/PF 20 MG/2 ML SDV IV SCH ×2 (10:40→21:35)
[2017-09-15] MEDS ORDERED: 1/2 NORMAL SALINE 1,000 ML with POTASSIUM CHLORIDE 40 MEQ IV PRN ×2 (12:01)
--- NOTE | 2017-09-15 12:18 | PDOC PROGRESS REPORT ---
Subjective Progress Note for:: 09/15/17 Subjective:: 51-year-old male with a past medical history of Coronary artery disease Hyperlipidemia COPD Type 2 diabetes ADD Schizophrenia Hypertension. Diabetes insipidus medication noncompliance He was admitted on September 07 when he was found unresponsive with a fever of 102.5 F, found to have acute renal failure, DKA and severe hypernatremia due to diabetes insipidus. The patient was intubated started on an insulin drip and IV fluids and admitted to the intensive care unit. Hypernatremia was treated with DDAVP and electrolyte and fluid adjustment. He was extubated on 09/14/17 and is awaiting a formal swallow eval. He will be weaned off the Insulin and D10 gtt and started on lantus and 1/2NS with potassium. Complains of dry mouth. Denies abdominal plain chest pain or shortness of breath. Reason For Visit: UNRESPONSIVE,HYPERGLYCEMIC HYPEROSMOLAR STATE Physical Exam Vital Signs: Temp Pulse Resp BP Pulse Ox 97.5 F 76 13 122/87 H 98 09/15/17 12:00 09/15/17 12:00 09/15/17 12:00 09/15/17 12:00 09/15/17 12:00 Intake & Output 09/14/17 09/15/17 09/16/17 06:59 06:59 06:59 Intake Total 5238 4648 Output Total 2800 36132 950 Balance 8388 -4664 -950 Weight 90 kg 84 kg General appearance: PRESENT: no acute distress, disheveled Head exam: PRESENT: normocephalic Eye exam: ABSENT: scleral icterus Ear exam: PRESENT: normal external ear exam Mouth exam: PRESENT: dry mucosa, neck supple Teeth exam: PRESENT: poor dentation Neck exam: ABSENT: tracheal deviation Respiratory exam: PRESENT: symmetrical, unlabored Cardiovascular exam: PRESENT: RRR GI/Abdominal exam: PRESENT: normal bowel sounds, soft. ABSENT: tenderness Rectal exam: PRESENT: deferred Gentrourinary exam: PRESENT: indwelling catheter Extremities exam: ABSENT: calf tenderness Neurological exam: PRESENT: awake, oriented to situation Psychiatric exam: PRESENT: flat affect Skin exam: ABSENT: petechiae Results Laboratory Results: 09/15/17 06:00 09/15/17 06:00 09/14/17 09/14/17 09/14/17 11:55 13:58 17:52 WBC RBC Hgb Hct MCV MCH MCHC RDW Plt Count Seg Neutrophils % Lymphocytes % Monocytes % Eosinophils % Basophils % Absolute Neutrophils Absolute Lymphocytes Absolute Monocytes Absolute Eosinophils Absolute Basophils Carbonic Acid HCO3/H2CO3 Ratio ABG pH ABG pCO2 ABG pO2 ABG HCO3 ABG O2 Saturation ABG Base Excess FiO2 Sodium 129.2 L 139.0 Potassium 3.4 L 3.4 L 3.9 Chloride 96 L 101 Carbon Dioxide 27 32 H Anion Gap 6 6 BUN 4 L 4 L Creatinine 0.51 L 0.51 L Est GFR ( Amer) > 60 > 60 Est GFR (Non-Af Amer) > 60 > 60 Glucose 144 H 163 H Calcium 7.9 L 8.8 Phosphorus 2.9 3.6 Magnesium Albumin 2.3 L 2.8 L Urine Color Urine Appearance Urine pH Ur Specific [place] Urine Protein Urine Glucose (UA) Urine Ketones Urine Blood Urine Nitrite Ur Leukocyte Esterase Urine WBC (Auto) Urine RBC (Auto) 09/15/17 09/15/17 09/15/17 06:00 06:00 06:10 WBC 6.7 RBC 3.58 L Hgb 10.6 L Hct 30.4 L MCV 85 MCH 29.6 MCHC 34.9 RDW 14.1 H Plt Count 316 Seg Neutrophils % Not Reportable Lymphocytes % Not Reportable Monocytes % Not Reportable Eosinophils % Not Reportable Basophils % Not Reportable Absolute Neutrophils Not Reportable Absolute Lymphocytes Not Reportable Absolute Monocytes Not Reportable Absolute Eosinophils Not Reportable Absolute Basophils Not Reportable Carbonic Acid HCO3/H2CO3 Ratio ABG pH ABG pCO2 ABG pO2 ABG HCO3 ABG O2 Saturation ABG Base Excess FiO2 Sodium 144.5 Potassium 3.5 L Chloride 104 Carbon Dioxide 35 H Anion Gap 6 BUN 3 L Creatinine 0.49 L Est GFR ( Amer) > 60 Est GFR (Non-Af Amer) > 60 Glucose 195 H Calcium 8.7 Phosphorus 3.6 Magnesium 2.4 H Albumin 2.5 L Urine Color YELLOW Urine Appearance CLEAR Urine pH 8.0 Ur Specific [place] 1.027 Urine Protein 30 H Urine Glucose (UA) >=500 H Urine Ketones NEGATIVE Urine Blood MODERATE H Urine Nitrite NEGATIVE Ur Leukocyte Esterase NEGATIVE Urine WBC (Auto) 4 Urine RBC (Auto) 47 09/15/17 08:00 WBC RBC Hgb Hct MCV MCH MCHC RDW Plt Count Seg Neutrophils % Lymphocytes % Monocytes % Eosinophils % Basophils % Absolute Neutrophils Absolute Lymphocytes Absolute Monocytes Absolute Eosinophils Absolute Basophils Carbonic Acid Cancelled HCO3/H2CO3 Ratio Cancelled ABG pH Cancelled ABG pCO2 Cancelled ABG pO2 Cancelled ABG HCO3 Cancelled ABG O2 Saturation Cancelled ABG Base Excess Cancelled FiO2 Cancelled Sodium Potassium Chloride Carbon Dioxide Anion Gap BUN Creatinine Est GFR ( Amer) Est GFR (Non-Af Amer) Glucose Calcium Phosphorus Magnesium Albumin Urine Color Urine Appearance Urine pH Ur Specific [place] Urine Protein Urine Glucose (UA) Urine Ketones Urine Blood Urine Nitrite Ur Leukocyte Esterase Urine WBC (Auto) Urine RBC (Auto) 09/12/17 09/12/17 04:45 14:50 Creatine Kinase 40 L NT-Pro-B Natriuret Pep 412 Impressions: Head CT 09/07/17 10:48 IMPRESSION: NORMAL BRAIN CT WITHOUT CONTRAST. EVIDENCE OF ACUTE STROKE: NO. Chest X-Ray 09/15/17 06:00 IMPRESSION: 1 Interval removal of endotracheal and nasogastric tube since the previous examination. 2 Persistent streaky bilateral perihilar and bibasilar opacities. Assessment & Plan - Diagnosis (1) Acute kidney injury Is this a current diagnosis for this admission?: Yes Plan: Improved with IV fluids. Continue to monitor kidney function. (2) Acute respiratory failure Qualifiers: Respiratory failure complication: hypoxia Qualified Code(s): J96.01 - Acute respiratory failure with hypoxia Is this a current diagnosis for this admission?: Yes Plan: Resolved (3) Altered mental state Qualifiers: Altered mental status type: stupor Qualified Code(s): R40.1 - Stupor Is this a current diagnosis for this admission?: Yes Plan: Likely secondary to medications for schizophrenia and diabetic ketoacidosis. Improving (4) Diabetes 1.5, managed as type 2 Is this a current diagnosis for this admission?: Yes Plan: Lantus and sliding scale, wean Insulin gtt off (5) Diabetes insipidus Is this a current diagnosis for this admission?: Yes Plan: Continue desmopressin. Monitor sodium levels. (6) Schizophrenia Qualifiers: Schizophrenia type: unspecified Qualified Code(s): F20.9 - Schizophrenia, unspecified Is this a current diagnosis for this admission?: Yes Plan: On clozapine and Zyprexa and paroxetine. psych consult for medication management (7) DKA (diabetic ketoacidoses) Qualifiers: Diabetes mellitus type: type 2 Is this a current diagnosis for this admission?: Yes Plan: Present on admission. Anion gap closed and ketonuria resolved - Time Time Spent with patient: 35 or more minutes
[2017-09-15 12:59] LABS: ANION GAP 7 (5-19); BLOOD UREA NITROGEN 3 mg/dL (7-20); CALCIUM 8.5 mg/dL (8.4-10.2); CARBON DIOXIDE 35 mmol/L (22-30); CHLORIDE 101 mmol/L (98-107); GLUCOSE 169 mg/dL (75-110); POTASSIUM 3.1 mmol/L (3.6-5.0); SODIUM 143.3 mmol/L (137-145)
[2017-09-15 13:01] LABS: HEMATOCRIT 29.3 % (37.9-51.0); HEMOGLOBIN 10.2 g/dL (13.5-17.0); MEAN CORPUSCULAR HEMOGLOBIN 29.7 pg (27.0-33.4); MEAN CORPUSCULAR HGB CONC 34.9 g/dL (32.0-36.0); MEAN CORPUSCULAR VOLUME 85 fl (80-97); PLATELET COUNT 327 10^3/uL (150-450); RED BLOOD COUNT 3.44 10^6/uL (4.35-5.55); WHITE BLOOD COUNT 6.7 10^3/uL (4.0-10.5)
[2017-09-15 13:07] LABS: INTERNATIONAL RATION (INR) 0.88; PROTHROMBIN TIME 12.3 SEC (11.4-15.4)
[2017-09-15] MEDS: LACTOBACILLUS ACIDOPHILUS 250 MG TAB NG SCH ×2 (13:40→17:15)
[2017-09-15] MEDS: OLANZAPINE 5 MG TABLET PO SCH (13:41)
[2017-09-15] MEDS: PAROXETINE HCL 20 MG TABLET PO SCH (13:42)
[2017-09-15] MEDS: ROPINIROLE HCL 1 MG TABLET PO SCH ×2 (13:43→21:28)
[2017-09-15] MEDS: DOCUSATE SODIUM 100 MG CAPSULE PO SCH ×2 (13:46→21:08)
[2017-09-15] MEDS: CHLORPROMAZINE HCL 50 MG TABLET PO SCH ×2 (13:47→21:36)
[2017-09-15] MEDS: CLOZAPINE 25 MG TABLET PO SCH (13:48)
--- NOTE | 2017-09-15 13:55 | PDOC PROGRESS REPORT ---
Subjective Progress Note for:: 09/15/17 Subjective:: 24 hours status post extubation stable thus far Reason For Visit: UNRESPONSIVE,HYPERGLYCEMIC HYPEROSMOLAR STATE Physical Exam Vital Signs: Temp Pulse Resp BP Pulse Ox 96.8 F L 92 13 111/78 98 09/15/17 03:52 09/14/17 20:00 09/15/17 06:00 09/15/17 05:35 09/15/17 06:00 Intake & Output 09/14/17 09/15/17 09/16/17 06:59 06:59 06:59 Intake Total 5238 4648 Output Total 8675 82812 Balance 1517 -9289 Weight 90 kg 84 kg General appearance: PRESENT: no acute distress, disheveled, obese Head exam: PRESENT: atraumatic, normocephalic Eye exam: PRESENT: conjunctiva pale, EOMI. ABSENT: nystagmus, periorbital swelling, scleral icterus Mouth exam: PRESENT: moist, neck supple, tongue midline Neck exam: ABSENT: carotid bruit, JVD, lymphadenopathy, thyromegaly, tracheal deviation, tracheostomy Respiratory exam: PRESENT: decreased breath sounds, prolonged expiratory phas, rales, rhonchi, unlabored, wheezes. ABSENT: retraction, stridor, tachypnea Cardiovascular exam: PRESENT: RRR, +S1, +S2, tachycardia Pulses: PRESENT: normal radial pulses GI/Abdominal exam: PRESENT: diminished bowel sounds, soft Extremities exam: ABSENT: calf tenderness, clubbing, joint swelling Musculoskeletal exam: ABSENT: ambulatory, deformity, dislocation Neurological exam: PRESENT: awake, oriented to person Skin exam: PRESENT: dry, warm Results Laboratory Results: 09/15/17 06:00 09/15/17 06:00 09/14/17 09/14/17 09/14/17 11:55 13:58 17:52 WBC RBC Hgb Hct MCV MCH MCHC RDW Plt Count Seg Neutrophils % Lymphocytes % Monocytes % Eosinophils % Basophils % Absolute Neutrophils Absolute Lymphocytes Absolute Monocytes Absolute Eosinophils Absolute Basophils Sodium 129.2 L 139.0 Potassium 3.4 L 3.4 L 3.9 Chloride 96 L 101 Carbon Dioxide 27 32 H Anion Gap 6 6 BUN 4 L 4 L Creatinine 0.51 L 0.51 L Est GFR ( Amer) > 60 > 60 Est GFR (Non-Af Amer) > 60 > 60 Glucose 144 H 163 H Calcium 7.9 L 8.8 Phosphorus 2.9 3.6 Magnesium Albumin 2.3 L 2.8 L Urine Color Urine Appearance Urine pH Ur Specific [place] Urine Protein Urine Glucose (UA) Urine Ketones Urine Blood Urine Nitrite Ur Leukocyte Esterase Urine WBC (Auto) Urine RBC (Auto) 09/15/17 09/15/17 09/15/17 06:00 06:00 06:10 WBC 6.7 RBC 3.58 L Hgb 10.6 L Hct 30.4 L MCV 85 MCH 29.6 MCHC 34.9 RDW 14.1 H Plt Count 316 Seg Neutrophils % Not Reportable Lymphocytes % Not Reportable Monocytes % Not Reportable Eosinophils % Not Reportable Basophils % Not Reportable Absolute Neutrophils Not Reportable Absolute Lymphocytes Not Reportable Absolute Monocytes Not Reportable Absolute Eosinophils Not Reportable Absolute Basophils Not Reportable Sodium 144.5 Potassium 3.5 L Chloride 104 Carbon Dioxide 35 H Anion Gap 6 BUN 3 L Creatinine 0.49 L Est GFR ( Amer) > 60 Est GFR (Non-Af Amer) > 60 Glucose 195 H Calcium 8.7 Phosphorus 3.6 Magnesium 2.4 H Albumin 2.5 L Urine Color YELLOW Urine Appearance CLEAR Urine pH 8.0 Ur Specific [place] 1.027 Urine Protein 30 H Urine Glucose (UA) >=500 H Urine Ketones NEGATIVE Urine Blood MODERATE H Urine Nitrite NEGATIVE Ur Leukocyte Esterase NEGATIVE Urine WBC (Auto) 4 Urine RBC (Auto) 47 09/12/17 09/12/17 04:45 14:50 Creatine Kinase 40 L NT-Pro-B Natriuret Pep 412 Impressions: Head CT 09/07/17 10:48 IMPRESSION: NORMAL BRAIN CT WITHOUT CONTRAST. EVIDENCE OF ACUTE STROKE: NO. Assessment & Plan - Diagnosis (1) Acute respiratory failure Qualifiers: Respiratory failure complication: hypoxia Qualified Code(s): J96.01 - Acute respiratory failure with hypoxia Is this a current diagnosis for this admission?: Yes Plan: Status post extubation stable thus far (2) DKA (diabetic ketoacidoses) Qualifiers: Diabetes mellitus type: type 2 Is this a current diagnosis for this admission?: Yes Plan: No ketonuria no acidosis (3) Schizophrenia Qualifiers: Schizophrenia type: unspecified Qualified Code(s): F20.9 - Schizophrenia, unspecified Is this a current diagnosis for this admission?: Yes - Time Total Critical Time (Minutes): 45
[2017-09-15] MEDS ORDERED: INSULIN GLARGINE,HUM.REC.ANLOG 300 UNIT/3 ML INSULN.PEN SUBCUT ONE (14:00)
[2017-09-15] MEDS ORDERED: POTASSIUM CHLORIDE 10 MEQ TABLET.SA PO ONE (15:00)
[2017-09-15] MEDS: 1/2 NORMAL SALINE 1,000 ML IV PRN ×2 (15:26→21:38)
[2017-09-15] MEDS ORDERED: CLOZAPINE 100 MG TABLET PO ONE (17:00)
[2017-09-15] MEDS: CLOZAPINE 100 MG TABLET PO SCH (21:35)
[2017-09-16] MEDS: DIAZEPAM 5 MG TABLET PO SCH ×2 (00:31→05:01)
[2017-09-16 05:29] LABS: HEMATOCRIT 27.2 % (37.9-51.0); HEMOGLOBIN 9.5 g/dL (13.5-17.0); MEAN CORPUSCULAR HEMOGLOBIN 29.9 pg (27.0-33.4); MEAN CORPUSCULAR HGB CONC 34.9 g/dL (32.0-36.0); MEAN CORPUSCULAR VOLUME 86 fl (80-97); PLATELET COUNT 364 10^3/uL (150-450); RED BLOOD COUNT 3.18 10^6/uL (4.35-5.55); RED CELL DISTRIBUTION WIDTH 14.4 % (11.5-14.0)
[2017-09-16 05:44] LABS: BLOOD UREA NITROGEN 3 mg/dL (7-20); CALCIUM 8.4 mg/dL (8.4-10.2); CARBON DIOXIDE 33 mmol/L (22-30); CHLORIDE 101 mmol/L (98-107); GLUCOSE 95 mg/dL (75-110); POTASSIUM 3.7 mmol/L (3.6-5.0); SODIUM 138.3 mmol/L (137-145)
[2017-09-16 06:06] LABS: ABSOLUTE MONOCYTES # (MANUAL) 0.9 10^3/uL (0.1-1.4); ABSOLUTE NEUTROPHILS# (MANUAL) 2.9 10^3/uL (1.7-8.2); BAND NEUTROPHILS % (MANUAL) 2 % (3-5); BASOPHILS % (MANUAL) 0 % (0-2); EOSINOPHILS % (MANUAL) 3 % (0-6); LYMPHOCYTES % (MANUAL) 34 % (13-45); MONOCYTES % (MANUAL) 15 % (3-13); MYELOCYTES % (MANUAL) 1 % (0); SEGMENTED NEUTROPHILS % (MAN) 45 % (42-78); TOTAL CELLS COUNTED 100; TOXIC VACUOLATION PRESENT
[2017-09-16 06:08] LABS: RBC MORPHOLOGY COMMENT NORMO-CYTIC/CHROMIC
[2017-09-16 06:09] LABS: PLATELET COMMENT ADEQUATE; PLATELET LARGE PRESENT
[2017-09-16 06:40] LABS: ANION GAP 5 (5-19)
[2017-09-16] MEDS ORDERED: DEXTROSE 50%-WATER 25 GM/50 ML DISP.SYRIN IV PRN ×2 (07:56)
[2017-09-16] MEDS ORDERED: INSULIN REG, HUMAN 100 UNIT/ML 3 ML VIAL (PYX) SUBCUT PRN (07:56)
[2017-09-16] MEDS ORDERED: GLUCAGON,HUMAN RECOMB 1 MG INJ IM PRN (07:56)
[2017-09-16] MEDS ORDERED: DEXTROSE 40% GEL 15 GM TUBE PO PRN ×2 (07:56)
[2017-09-16] MEDS ORDERED: 1/2 NORMAL SALINE 1,000 ML IV PRN (07:58)
[2017-09-16] MEDS ORDERED: DIAZEPAM 5 MG TABLET PO PRN (08:01)
[2017-09-16] MEDS: ROPINIROLE HCL 1 MG TABLET PO SCH ×2 (08:12→21:29)
--- NOTE | 2017-09-16 08:21 | RADIOLOGY REPORT (SQ) ---
EXAM DESCRIPTION: CHEST SINGLE VIEW COMPLETED DATE/TIME: 09/16/2017 6:52 am REASON FOR STUDY: pna COMPARISON: Chest films 09/15/2017, 09/14/2017, 09/13/2017, 09/08/2017 EXAM PARAMETERS: NUMBER OF VIEWS: One view. TECHNIQUE: Single frontal radiographic view of the chest acquired. RADIATION DOSE: NA LIMITATIONS: None. FINDINGS: LUNGS AND PLEURA: Minimal bandlike atelectasis at both bases. No pleural effusion. No pneumothorax. MEDIASTINUM AND HILAR STRUCTURES: No masses. Contour normal. HEART AND VASCULAR STRUCTURES: Borderline cardiomegaly BONES: No acute findings. HARDWARE: Right jugular line tip in the right atrium OTHER: No other significant finding. IMPRESSION: Minimal bibasilar atelectasis. TECHNICAL DOCUMENTATION: JOB ID: [id number] [employer]- All Rights Reserved Reading location - IP/workstation name: [email or web address]
[2017-09-16] MEDS: CHLORPROMAZINE HCL 50 MG TABLET PO SCH (10:00)
[2017-09-16] MEDS: OLANZAPINE 5 MG TABLET PO SCH ×2 (10:00→17:34)
[2017-09-16] MEDS: CLOZAPINE 25 MG TABLET PO SCH (10:00)
[2017-09-16] MEDS: DOCUSATE SODIUM 100 MG CAPSULE PO SCH ×2 (12:19→21:33)
[2017-09-16] MEDS: INSULIN GLARGINE,HUM.REC.ANLOG 300 UNIT/3 ML INSULN.PEN SUBCUT SCH (12:19)
[2017-09-16] MEDS: LEVOTHYROXINE SODIUM INJ/PF 0.1 MG SDV IV SCH (12:25)
[2017-09-16] MEDS: POTASSIUM CHLORIDE 20 MEQ/15 ML UDCUP PO SCH (12:26)
[2017-09-16] MEDS: FAMOTIDINE INJ/PF 20 MG/2 ML SDV IV SCH ×2 (12:26→21:32)
[2017-09-16] MEDS: LACTOBACILLUS ACIDOPHILUS 250 MG TAB NG SCH ×2 (12:27→17:33)
[2017-09-16] MEDS: PAROXETINE HCL 20 MG TABLET PO SCH (12:27)
[2017-09-16] MEDS: DESMOPRESSIN ACETATE 0.1 MG TABLET PO SCH ×4 (12:27→21:31)
[2017-09-16] MEDS: ENOXAPARIN SODIUM INJ 40 MG/0.4 ML DISP.SYRIN SUBCUT SCH (12:34)
--- NOTE | 2017-09-16 13:24 | PDOC PROGRESS REPORT ---
Subjective Progress Note for:: 09/16/17 Subjective:: 51-year-old male with a past medical history of Coronary artery disease Hyperlipidemia COPD Type 2 diabetes ADD Schizophrenia Hypertension. Diabetes insipidus medication noncompliance He was admitted on September 07 when he was found unresponsive with a fever of 102.5 F, found to have acute renal failure, DKA and severe hypernatremia due to diabetes insipidus. The patient was intubated started on an insulin drip and IV fluids and admitted to the intensive care unit. Hypernatremia was treated with DDAVP and electrolyte and fluid adjustment. He was extubated on 09/14/17 and okay with speech therapy. He was weaned off the Insulin and D10 gtt and started on lantus. Sugars are well controlled. He reports auditory hallucinations which are mild. He had one episode of visual hallucination yesterday. He is not sure of what medications he was taking at home. His brother Han lives with them and helps his with his medications. I have requested a home medication list. We have also requested psychiatry evaluation for possible titration of his medication since it is making him overly sedated. Plan to remove Spears catheter and right IJ central line and PT evaluation. Reason For Visit: UNRESPONSIVE,HYPERGLYCEMIC HYPEROSMOLAR STATE Physical Exam Vital Signs: Temp Pulse Resp BP Pulse Ox 97.7 F 89 16 137/73 H 97 09/16/17 12:00 09/16/17 12:00 09/16/17 12:00 09/16/17 12:00 09/16/17 12:00 Intake & Output 09/15/17 09/16/17 09/17/17 06:59 06:59 06:59 Intake Total 4648 3120 Output Total 63788 2345 880 Balance -7327 775 -880 Weight 84 kg 84.5 kg General appearance: PRESENT: no acute distress Head exam: PRESENT: normocephalic Eye exam: ABSENT: scleral icterus Ear exam: PRESENT: normal external ear exam Mouth exam: PRESENT: neck supple Neck exam: PRESENT: other - Right IJ triple-lumen Respiratory exam: PRESENT: rhonchi, symmetrical, unlabored Cardiovascular exam: PRESENT: RRR GI/Abdominal exam: PRESENT: normal bowel sounds, soft. ABSENT: tenderness Rectal exam: PRESENT: deferred Gentrourinary exam: PRESENT: indwelling catheter Extremities exam: ABSENT: pedal edema Musculoskeletal exam: PRESENT: normal inspection Neurological exam: PRESENT: alert, awake, oriented to person Psychiatric exam: PRESENT: appropriate affect Skin exam: ABSENT: petechiae Results Laboratory Results: 09/16/17 05:05 09/16/17 05:05 09/15/17 09/16/17 09/16/17 12:53 05:05 05:05 WBC 6.0 RBC 3.18 L Hgb 9.5 L Hct 27.2 L MCV 86 MCH 29.9 MCHC 34.9 RDW 14.4 H Plt Count 364 Seg Neutrophils % Not Reportable Lymphocytes % Not Reportable Monocytes % Not Reportable Eosinophils % Not Reportable Basophils % Not Reportable Absolute Neutrophils Not Reportable Absolute Lymphocytes Not Reportable Absolute Monocytes Not Reportable Absolute Eosinophils Not Reportable Absolute Basophils Not Reportable Sodium 138.3 Potassium 3.7 Chloride 101 Carbon Dioxide 33 H Anion Gap 5 BUN 3 L Creatinine Cancelled 0.42 L Est GFR ( Amer) Cancelled > 60 Est GFR (Non-Af Amer) Cancelled > 60 Glucose 95 Calcium 8.4 Magnesium 2.0 09/12/17 09/12/17 04:45 14:50 Creatine Kinase 40 L NT-Pro-B Natriuret Pep 412 Impressions: Head CT 09/07/17 10:48 IMPRESSION: NORMAL BRAIN CT WITHOUT CONTRAST. EVIDENCE OF ACUTE STROKE: NO. Chest X-Ray 09/16/17 06:00 IMPRESSION: Minimal bibasilar atelectasis. Assessment & Plan - Diagnosis (1) Acute kidney injury Is this a current diagnosis for this admission?: Yes Plan: Improved with IV fluids. Continue to monitor kidney function. (2) Acute respiratory failure Qualifiers: Respiratory failure complication: hypoxia Qualified Code(s): J96.01 - Acute respiratory failure with hypoxia Is this a current diagnosis for this admission?: Yes Plan: Resolved (3) Altered mental state Qualifiers: Altered mental status type: stupor Qualified Code(s): R40.1 - Stupor Is this a current diagnosis for this admission?: Yes Plan: Likely secondary to medications for schizophrenia and hypernatremia and diabetic ketoacidosis. Much improved. (4) Diabetes 1.5, managed as type 2 Is this a current diagnosis for this admission?: Yes Plan: Lantus and sliding scale. (5) Diabetes insipidus Is this a current diagnosis for this admission?: Yes Plan: Continue desmopressin. Monitor sodium levels. (6) Schizophrenia Qualifiers: Schizophrenia type: unspecified Qualified Code(s): F20.9 - Schizophrenia, unspecified Is this a current diagnosis for this admission?: Yes Plan: On clozapine and Zyprexa and paroxetine. Psych consult for medication management (7) DKA (diabetic ketoacidoses) Qualifiers: Diabetes mellitus type: type 2 Is this a current diagnosis for this admission?: Yes Plan: Present on admission. Anion gap closed and ketonuria resolved - Time Time Spent with patient: 35 or more minutes
--- NOTE | 2017-09-16 15:04 | PSYCHOLOGICAL NOTE ---
Psych Note - Psych Note Psych Note: Reason for consult: Medication recommendation Contact Permissions: Patient's brother Ant Garcia Patient is a 51-year-old male. Patient reports when he was in his early 20s he was diagnosed with schizophrenia and bipolar. Patient reports that he has been to inpatient psychiatric hospitals 3 times in his life 1 at [facility], one at [facility], and one in [facility]. Patient reports right now he feels that aside from medical his mental health is fine. Patient reports last time he was in inpatient was because a "pattern of mental health". Patient reports on a scale of 1 through 10, with 10 being things are better (regarding his depression) he is at a 9. Patient reports he is happy because he lives with his brother and his brother is a good vocational rehabilitation teacher. Patient reports he has been a patient at [facility] for 7 years. Patient reports he is doing fine. Medication recommendation made by contracted [facility] contracted psychiatric provider Dr. Preston MD includes: 1. Discontinue Valium 2. Discontinue Thorazine . Discontinue Paxil 4. Clozaril 200 mg q. at bedtime 5. Zyprexa 5 mg twice a day 6. Begin clonidine 0.1 mg every 12 hours as needed for agitation and anxiety 7. Begin Cogentin 1 mg daily 8. Begin Haldol 5 mg twice a day Diagnosis: Per Hx 295.90 (F20.9) Schizophrenia Disorder Per Hx 296.80 (F31.9) Bipolar Disorder Impression/plan: Patient is psychiatrically clear. Clinician observed the primary reason for consult was for medication recommendations, recommendations were made by contracted psychiatric provider. Please reconsult mental health if additional recommendations are needed. Attending physician in agreement with plan. Consulted with Dr. Ferrara regarding the management and care of patient.
[2017-09-16] MEDS ORDERED: CLOZAPINE 100 MG TABLET PO SCH (16:00)
[2017-09-16] MEDS ORDERED: BENZTROPINE MESYLATE 1 MG TABLET PO ONE (16:00)
[2017-09-16] MEDS: HALOPERIDOL 5 MG TABLET PO SCH (17:34)
--- NOTE | 2017-09-16 18:11 | PDOC PROGRESS REPORT ---
Subjective Progress Note for:: 09/16/17 Subjective:: stable thus far Reason For Visit: UNRESPONSIVE,HYPERGLYCEMIC HYPEROSMOLAR STATE Physical Exam Vital Signs: Temp Pulse Resp BP Pulse Ox 97.8 F 79 13 134/87 H 95 09/16/17 08:00 09/16/17 08:00 09/16/17 08:00 09/16/17 08:00 09/16/17 08:00 Intake & Output 09/15/17 09/16/17 09/17/17 06:59 06:59 06:59 Intake Total 4648 3120 Output Total 30749 8855 225 Balance -7378 775 -225 Weight 84 kg 84.5 kg General appearance: PRESENT: no acute distress, disheveled, obese Head exam: PRESENT: atraumatic, normocephalic Eye exam: PRESENT: conjunctiva pale, EOMI. ABSENT: nystagmus, periorbital swelling, scleral icterus Mouth exam: PRESENT: dry mucosa, neck supple, tongue midline Neck exam: ABSENT: carotid bruit, JVD, lymphadenopathy, thyromegaly, tracheal deviation, tracheostomy Respiratory exam: PRESENT: decreased breath sounds, prolonged expiratory phas, rales, rhonchi, unlabored. ABSENT: retraction, stridor, tachypnea Cardiovascular exam: PRESENT: RRR, +S1, +S2 Pulses: PRESENT: normal radial pulses GI/Abdominal exam: PRESENT: diminished bowel sounds, soft Extremities exam: ABSENT: clubbing, joint swelling Musculoskeletal exam: ABSENT: deformity, dislocation Neurological exam: PRESENT: awake Psychiatric exam: PRESENT: flat affect Skin exam: PRESENT: dry, warm Results Laboratory Results: 09/16/17 05:05 09/16/17 05:05 09/15/17 09/15/17 09/15/17 12:15 12:53 12:53 WBC 6.7 RBC 3.44 L Hgb 10.2 L Hct 29.3 L MCV 85 MCH 29.7 MCHC 34.9 RDW 14.0 Plt Count 327 Seg Neutrophils % Lymphocytes % Monocytes % Eosinophils % Basophils % Absolute Neutrophils Absolute Lymphocytes Absolute Monocytes Absolute Eosinophils Absolute Basophils Sodium 143.3 Potassium 3.1 L Chloride 101 Carbon Dioxide 35 H Anion Gap 7 BUN 3 L Creatinine 0.46 L Cancelled Est GFR ( Amer) > 60 Cancelled Est GFR (Non-Af Amer) > 60 Cancelled Glucose 169 H Calcium 8.5 Magnesium 09/16/17 09/16/17 05:05 05:05 WBC 6.0 RBC 3.18 L Hgb 9.5 L Hct 27.2 L MCV 86 MCH 29.9 MCHC 34.9 RDW 14.4 H Plt Count 364 Seg Neutrophils % Not Reportable Lymphocytes % Not Reportable Monocytes % Not Reportable Eosinophils % Not Reportable Basophils % Not Reportable Absolute Neutrophils Not Reportable Absolute Lymphocytes Not Reportable Absolute Monocytes Not Reportable Absolute Eosinophils Not Reportable Absolute Basophils Not Reportable Sodium 138.3 Potassium 3.7 Chloride 101 Carbon Dioxide 33 H Anion Gap 5 BUN 3 L Creatinine 0.42 L Est GFR ( Amer) > 60 Est GFR (Non-Af Amer) > 60 Glucose 95 Calcium 8.4 Magnesium 2.0 09/12/17 09/12/17 04:45 14:50 Creatine Kinase 40 L NT-Pro-B Natriuret Pep 412 Impressions: Head CT 09/07/17 10:48 IMPRESSION: NORMAL BRAIN CT WITHOUT CONTRAST. EVIDENCE OF ACUTE STROKE: NO. Chest X-Ray 09/16/17 06:00 IMPRESSION: Minimal bibasilar atelectasis. Assessment & Plan - Diagnosis (1) Acute respiratory failure Qualifiers: Respiratory failure complication: hypoxia Qualified Code(s): J96.01 - Acute respiratory failure with hypoxia Is this a current diagnosis for this admission?: Yes Plan: Respiratory status stable (2) DKA (diabetic ketoacidoses) Qualifiers: Diabetes mellitus type: type 2 Is this a current diagnosis for this admission?: Yes Plan: No ketonuria no acidosis (3) Schizophrenia Qualifiers: Schizophrenia type: unspecified Qualified Code(s): F20.9 - Schizophrenia, unspecified Is this a current diagnosis for this admission?: Yes - Time Total Critical Time (Minutes): 35
[2017-09-16] MEDS: CLOZAPINE 100 MG TABLET PO SCH (21:30)
[2017-09-17] MEDS: BENZTROPINE MESYLATE 1 MG TABLET PO SCH ×2 (05:23→18:09)
[2017-09-17] MEDS: HALOPERIDOL 5 MG TABLET PO SCH ×2 (05:23→18:07)
[2017-09-17] MEDS: OLANZAPINE 5 MG TABLET PO SCH ×2 (05:23→18:07)
[2017-09-17] MEDS: DOCUSATE SODIUM 100 MG CAPSULE PO SCH ×2 (09:52→21:12)
[2017-09-17] MEDS: LACTOBACILLUS ACIDOPHILUS 250 MG TAB NG SCH ×2 (11:36→18:09)
[2017-09-17] MEDS: ROPINIROLE HCL 1 MG TABLET PO SCH ×2 (11:37→21:15)
[2017-09-17] MEDS: DESMOPRESSIN ACETATE 0.1 MG TABLET PO SCH ×4 (11:38→21:15)
[2017-09-17] MEDS: POTASSIUM CHLORIDE 20 MEQ/15 ML UDCUP PO SCH (11:39)
[2017-09-17] MEDS: FAMOTIDINE INJ/PF 20 MG/2 ML SDV IV SCH ×2 (11:39→21:16)
--- NOTE | 2017-09-17 11:39 | PDOC PROGRESS REPORT ---
Subjective Progress Note for:: 09/17/17 Subjective:: w/o complaints Reason For Visit: UNRESPONSIVE,HYPERGLYCEMIC HYPEROSMOLAR STATE Physical Exam Vital Signs: Temp Pulse Resp BP Pulse Ox 98.1 F 80 14 144/87 H 97 09/17/17 04:00 09/17/17 04:00 09/17/17 06:15 09/17/17 04:43 09/17/17 04:43 Intake & Output 09/16/17 09/17/17 09/18/17 06:59 06:59 06:59 Intake Total 3120 1583 Output Total 2345 2060 Balance 775 -477 Weight 84.5 kg 83.9 kg General appearance: PRESENT: no acute distress, cooperative, disheveled, obese Head exam: PRESENT: atraumatic, normocephalic Eye exam: PRESENT: conjunctiva pale, EOMI. ABSENT: nystagmus, periorbital swelling, scleral icterus Mouth exam: PRESENT: moist, neck supple, tongue midline Neck exam: ABSENT: carotid bruit, JVD, lymphadenopathy, thyromegaly, tracheal deviation, tracheostomy Respiratory exam: PRESENT: decreased breath sounds, prolonged expiratory phas, rhonchi, symmetrical, unlabored. ABSENT: rales, retraction, stridor, tachypnea Cardiovascular exam: PRESENT: RRR, +S1, +S2 Pulses: PRESENT: normal radial pulses - 26859 GI/Abdominal exam: PRESENT: diminished bowel sounds, soft Extremities exam: ABSENT: calf tenderness, clubbing, full ROM Musculoskeletal exam: ABSENT: deformity, dislocation Neurological exam: PRESENT: awake Psychiatric exam: PRESENT: flat affect Skin exam: PRESENT: dry, warm Results Laboratory Results: 09/16/17 05:05 09/16/17 05:05 09/12/17 09/12/17 04:45 14:50 Creatine Kinase 40 L NT-Pro-B Natriuret Pep 412 Impressions: Head CT 09/07/17 10:48 IMPRESSION: NORMAL BRAIN CT WITHOUT CONTRAST. EVIDENCE OF ACUTE STROKE: NO. Chest X-Ray 09/16/17 06:00 IMPRESSION: Minimal bibasilar atelectasis. Assessment & Plan - Diagnosis (1) Acute respiratory failure Qualifiers: Respiratory failure complication: hypoxia Qualified Code(s): J96.01 - Acute respiratory failure with hypoxia Is this a current diagnosis for this admission?: Yes Plan: Respiratory status stable (2) DKA (diabetic ketoacidoses) Qualifiers: Diabetes mellitus type: type 2 Is this a current diagnosis for this admission?: Yes Plan: No ketonuria no acidosis (3) Schizophrenia Qualifiers: Schizophrenia type: unspecified Qualified Code(s): F20.9 - Schizophrenia, unspecified Is this a current diagnosis for this admission?: Yes - Time Total Critical Time (Minutes): 35
[2017-09-17] MEDS: ENOXAPARIN SODIUM INJ 40 MG/0.4 ML DISP.SYRIN SUBCUT SCH (11:40)
[2017-09-17] MEDS: INSULIN GLARGINE,HUM.REC.ANLOG 300 UNIT/3 ML INSULN.PEN SUBCUT SCH (11:45)
--- NOTE | 2017-09-17 16:58 | PDOC PROGRESS REPORT ---
Subjective Progress Note for:: 09/17/17 Subjective:: The patient is an extremely unfortunate 51-year-old male with a past medical history significant for adult onset schizophrenia with bipolar disorder. He has known diabetes insipidus, type 2 diabetes, coronary artery disease, hypertension and COPD. He has had issues with noncompliance in the past. The patient was admitted to the hospital on September 07 when he was found unresponsive with a fever of 102.5. He was found to have acute renal failure, diabetic ketoacidosis and severe hypernatremia due to his diabetes insipidus. The patient was initially intubated and started on an insulin drip with IV fluids. His hypernatremia was treated with DDAVP and electrolyte and fluid adjustments. He was extubated on 09/14/2017 and is doing quite well. He currently is off of his insulin drip and has been started on Lantus and his sugars are well controlled. He initially had some auditory hallucinations which have been quite mild resolved. Yesterday the patient was seen by psychiatry and they have made some adjustments to his medications. The patient lives with his brother Han and they feel it is safe for him to go home with him as he is helping manage his medications. The patient has had his Spears catheter removed and he was evaluated by physical therapy. He was quite weak but was able to ambulate a bit. Nursing staff thinks that physical therapy comes back and work with them that he will get back on his feet. He has been downgraded out of the ICU but is still there as there are no beds available. Today when I saw him he has no complaints. He is awake alert and oriented 3. He denies fever chills. No chest pain, shortness of breath or cough. No nausea , vomiting or diarrhea. He is voiding without difficulty after his Spears catheter was removed. Reason For Visit: UNRESPONSIVE,HYPERGLYCEMIC HYPEROSMOLAR STATE Physical Exam Vital Signs: Temp Pulse Resp BP Pulse Ox 97.7 F 85 19 125/87 H 97 09/17/17 12:00 09/17/17 12:00 09/17/17 14:45 09/17/17 12:00 09/17/17 12:00 Intake & Output 09/16/17 09/17/17 09/18/17 06:59 06:59 06:59 Intake Total 3120 1583 200 Output Total 2345 2060 Balance 775 -477 200 Weight 84.5 kg 83.9 kg General appearance: PRESENT: no acute distress, well-developed, well-nourished Head exam: PRESENT: atraumatic, normocephalic Respiratory exam: PRESENT: clear to auscultation cleo. ABSENT: rales, rhonchi, wheezes Cardiovascular exam: PRESENT: RRR. ABSENT: diastolic murmur, rubs, systolic murmur GI/Abdominal exam: PRESENT: normal bowel sounds, soft. ABSENT: distended, guarding, mass, organolmegaly, rebound, tenderness Rectal exam: PRESENT: deferred Extremities exam: PRESENT: full ROM. ABSENT: calf tenderness, clubbing, pedal edema Neurological exam: PRESENT: alert, awake, oriented to person, oriented to place , oriented to time, oriented to situation, CN II-XII grossly intact. ABSENT: motor sensory deficit Psychiatric exam: PRESENT: unusual affect. ABSENT: agitated, anxious, depressed Skin exam: PRESENT: dry, intact, warm. ABSENT: cyanosis, rash Results Laboratory Results: 09/16/17 05:05 09/16/17 05:05 09/12/17 09/12/17 04:45 14:50 Creatine Kinase 40 L NT-Pro-B Natriuret Pep 412 Impressions: Head CT 09/07/17 10:48 IMPRESSION: NORMAL BRAIN CT WITHOUT CONTRAST. EVIDENCE OF ACUTE STROKE: NO. Chest X-Ray 09/16/17 06:00 IMPRESSION: Minimal bibasilar atelectasis. Assessment & Plan - Diagnosis (1) Acute respiratory failure Qualifiers: Respiratory failure complication: hypoxia Qualified Code(s): J96.01 - Acute respiratory failure with hypoxia Is this a current diagnosis for this admission?: Yes Plan: Requiring mechanical ventilation in the ICU. Resolved. He has been successfully extubated and is doing quite well (2) DKA (diabetic ketoacidoses) Qualifiers: Diabetes mellitus type: type 2 Is this a current diagnosis for this admission?: Yes Plan: Resolved. His blood sugars are stable on current regimen (3) Acute renal failure Is this a current diagnosis for this admission?: Yes Plan: Secondary to severe dehydration from his diabetes insipidus. Resolved (4) Encephalopathy Is this a current diagnosis for this admission?: Yes Plan: Multifactorial secondary to his whole acute illness, urinary tract infection and electrolyte abnormalities. Resolved. He is back to his cognitive baseline (5) Diabetes insipidus Is this a current diagnosis for this admission?: Yes Plan: Continue current dosing of DDAVP (6) Diabetes 1.5, managed as type 2 Is this a current diagnosis for this admission?: Yes Plan: Stable on current regimen. (7) Hypernatremia Is this a current diagnosis for this admission?: Yes Plan: Secondary to uncontrolled diabetes insipidus. Resolved (8) UTI (urinary tract infection) Is this a current diagnosis for this admission?: Yes Plan: He is completed a course of antibiotic therapy (9) Schizophrenia Qualifiers: Schizophrenia type: unspecified Qualified Code(s): F20.9 - Schizophrenia, unspecified Is this a current diagnosis for this admission?: Yes Plan: Medications were adjusted by psychiatry and he is doing much better. (10) Anemia Is this a current diagnosis for this admission?: Yes Plan: He had a precipitous drop in his hemoglobin due to hemodilution. His hemoglobin is stable. (11) Hyponatremia Is this a current diagnosis for this admission?: Yes Plan: Resolved (12) Hematuria Is this a current diagnosis for this admission?: Yes Plan: Possibly due to his Spears catheter. Just need to keep an eye on this for now. (13) Hypokalemia Is this a current diagnosis for this admission?: Yes Plan: Repleted and resolved (14) Hypophosphatemia Is this a current diagnosis for this admission?: Yes Plan: Repleted and resolved - Time Time Spent with patient: 25-34 minutes - Inpatient Certification Medical Necessity: Other - Inpatient hospitalization remains necessary. Physical therapy has seen the patient and he does have some ambulatory dysfunction. Hopefully since his medications were adjusted yesterday and he is not so sleepy he will be able to further participate in he can just go directly home. Otherwise he may require subacute rehabilitation prior to discharge.
[2017-09-17] MEDS: CLOZAPINE 100 MG TABLET PO SCH (21:15)
[2017-09-18 04:15] LABS: ABSOLUTE BASOPHILS # (AUTO) 0.1 10^3/uL (0.0-0.2); ABSOLUTE EOSINOPHILS # (AUTO) 0.1 10^3/uL (0.0-0.6); ABSOLUTE NEUT (AUTO) 3.7 10^3/uL (1.7-8.2); BASOPHILS % (AUTO) 0.8 % (0-2); EOSINOPHILS % (AUTO) 1.4 % (0-6); HEMATOCRIT 31.6 % (37.9-51.0); HEMOGLOBIN 10.9 g/dL (13.5-17.0); LYMPHOCYTES % (AUTO) 28.7 % (13-45); MEAN CORPUSCULAR HEMOGLOBIN 29.5 pg (27.0-33.4); MEAN CORPUSCULAR HGB CONC 34.5 g/dL (32.0-36.0); MEAN CORPUSCULAR VOLUME 86 fl (80-97); MONOCYTES % (AUTO) 15.1 % (3-13); PLATELET COUNT 382 10^3/uL (150-450); RED BLOOD COUNT 3.69 10^6/uL (4.35-5.55); RED CELL DISTRIBUTION WIDTH 14.2 % (11.5-14.0); TOTAL CELLS COUNTED % (AUTO) 100 %; WHITE BLOOD COUNT 6.8 10^3/uL (4.0-10.5)
[2017-09-18 04:32] LABS: ANION GAP 9 (5-19); BLOOD UREA NITROGEN 5 mg/dL (7-20); CALCIUM 8.4 mg/dL (8.4-10.2); CARBON DIOXIDE 24 mmol/L (22-30); CHLORIDE 93 mmol/L (98-107); GLUCOSE 116 mg/dL (75-110)
[2017-09-18] MEDS: OLANZAPINE 5 MG TABLET PO SCH ×2 (06:26→17:37)
[2017-09-18] MEDS: HALOPERIDOL 5 MG TABLET PO SCH ×2 (06:26→17:37)
[2017-09-18] MEDS: BENZTROPINE MESYLATE 1 MG TABLET PO SCH ×2 (06:26→17:39)
[2017-09-18] MEDS: POTASSIUM CHLORIDE 20 MEQ/15 ML UDCUP PO SCH (09:46)
[2017-09-18] MEDS: FAMOTIDINE INJ/PF 20 MG/2 ML SDV IV SCH (09:46)
[2017-09-18] MEDS: LACTOBACILLUS ACIDOPHILUS 250 MG TAB NG SCH ×2 (09:47→17:39)
[2017-09-18] MEDS: ROPINIROLE HCL 1 MG TABLET PO SCH ×2 (09:47→22:32)
[2017-09-18] MEDS: DESMOPRESSIN ACETATE 0.1 MG TABLET PO SCH ×4 (09:48→22:31)
[2017-09-18] MEDS: INSULIN GLARGINE,HUM.REC.ANLOG 300 UNIT/3 ML INSULN.PEN SUBCUT SCH (09:49)
[2017-09-18] MEDS: ENOXAPARIN SODIUM INJ 40 MG/0.4 ML DISP.SYRIN SUBCUT SCH (10:05)
[2017-09-18] MEDS: DOCUSATE SODIUM 100 MG CAPSULE PO SCH ×2 (10:06→22:34)
--- NOTE | 2017-09-18 11:41 | PDOC PROGRESS REPORT ---
Subjective Progress Note for:: 09/18/17 Subjective:: w/o complaints Reason For Visit: UNRESPONSIVE,HYPERGLYCEMIC HYPEROSMOLAR STATE Physical Exam Vital Signs: Temp Pulse Resp BP Pulse Ox 97.4 F 77 13 150/88 H 99 09/18/17 04:00 09/18/17 08:00 09/18/17 07:00 09/18/17 04:16 09/18/17 04:00 Intake & Output 09/17/17 09/18/17 09/19/17 06:59 06:59 06:59 Intake Total 1583 1673 Output Total 2060 Balance -477 1673 Weight 83.9 kg 81.5 kg General appearance: PRESENT: no acute distress, disheveled, well-developed Head exam: PRESENT: atraumatic, normocephalic Eye exam: PRESENT: conjunctiva pale, EOMI. ABSENT: nystagmus, periorbital swelling, scleral icterus Mouth exam: PRESENT: dry mucosa, neck supple, tongue midline Neck exam: ABSENT: carotid bruit, JVD, lymphadenopathy, thyromegaly, tracheal deviation, tracheostomy Respiratory exam: PRESENT: decreased breath sounds, prolonged expiratory phas, rales, rhonchi, unlabored. ABSENT: retraction, stridor, tachypnea Cardiovascular exam: PRESENT: RRR, +S1, +S2 Pulses: PRESENT: normal radial pulses - [id number] GI/Abdominal exam: PRESENT: diminished bowel sounds, soft Extremities exam: ABSENT: calf tenderness, clubbing, joint swelling Musculoskeletal exam: ABSENT: deformity, dislocation Neurological exam: PRESENT: awake Psychiatric exam: PRESENT: flat affect Skin exam: PRESENT: dry, warm Results Laboratory Results: 09/18/17 03:53 09/18/17 03:53 09/18/17 09/18/17 03:53 03:53 WBC 6.8 RBC 3.69 L Hgb 10.9 L Hct 31.6 L MCV 86 MCH 29.5 MCHC 34.5 RDW 14.2 H Plt Count 382 Seg Neutrophils % 54.0 Lymphocytes % 28.7 Monocytes % 15.1 H Eosinophils % 1.4 Basophils % 0.8 Absolute Neutrophils 3.7 Absolute Lymphocytes 2.0 Absolute Monocytes 1.0 Absolute Eosinophils 0.1 Absolute Basophils 0.1 Sodium 126.0 L Potassium 4.0 Chloride 93 L Carbon Dioxide 24 Anion Gap 9 BUN 5 L Creatinine 0.54 Est GFR ( Amer) > 60 Est GFR (Non-Af Amer) > 60 Glucose 116 H Calcium 8.4 09/12/17 09/12/17 04:45 14:50 Creatine Kinase 40 L NT-Pro-B Natriuret Pep 412 Impressions: Head CT 09/07/17 10:48 IMPRESSION: NORMAL BRAIN CT WITHOUT CONTRAST. EVIDENCE OF ACUTE STROKE: NO. Chest X-Ray 09/16/17 06:00 IMPRESSION: Minimal bibasilar atelectasis. Assessment & Plan - Diagnosis (1) Acute respiratory failure Qualifiers: Respiratory failure complication: hypoxia Qualified Code(s): J96.01 - Acute respiratory failure with hypoxia Is this a current diagnosis for this admission?: Yes Plan: Respiratory status stable (2) DKA (diabetic ketoacidoses) Qualifiers: Diabetes mellitus type: type 2 Is this a current diagnosis for this admission?: Yes Plan: No ketonuria no acidosis (3) Schizophrenia Qualifiers: Schizophrenia type: unspecified Qualified Code(s): F20.9 - Schizophrenia, unspecified Is this a current diagnosis for this admission?: Yes - Time Total Critical Time (Minutes): 35
--- NOTE | 2017-09-18 16:12 | PDOC PROGRESS REPORT ---
Subjective Progress Note for:: 09/18/17 Subjective:: Sitting in bed, no acute distress, conversational and pleasant. Voices no complaints or requests. Review of physical therapy notes indicates very limited mobility currently. Reason For Visit: UNRESPONSIVE,HYPERGLYCEMIC HYPEROSMOLAR STATE Physical Exam Vital Signs: Temp Pulse Resp BP Pulse Ox 98.4 F 77 17 129/80 H 98 09/18/17 12:00 09/18/17 08:00 09/18/17 12:35 09/18/17 12:35 09/18/17 12:35 Intake & Output 09/17/17 09/18/17 09/19/17 06:59 06:59 06:59 Intake Total 1583 1673 150 Output Total 2060 Balance -477 1673 150 Weight 83.9 kg 81.5 kg General appearance: PRESENT: no acute distress, cooperative Respiratory exam: PRESENT: clear to auscultation cleo Cardiovascular exam: PRESENT: RRR GI/Abdominal exam: PRESENT: soft Musculoskeletal exam: PRESENT: normal inspection Neurological exam: PRESENT: alert Psychiatric exam: PRESENT: unusual affect Skin exam: PRESENT: warm Results Laboratory Results: 09/18/17 03:53 09/18/17 03:53 09/18/17 09/18/17 03:53 03:53 WBC 6.8 RBC 3.69 L Hgb 10.9 L Hct 31.6 L MCV 86 MCH 29.5 MCHC 34.5 RDW 14.2 H Plt Count 382 Seg Neutrophils % 54.0 Lymphocytes % 28.7 Monocytes % 15.1 H Eosinophils % 1.4 Basophils % 0.8 Absolute Neutrophils 3.7 Absolute Lymphocytes 2.0 Absolute Monocytes 1.0 Absolute Eosinophils 0.1 Absolute Basophils 0.1 Sodium 126.0 L Potassium 4.0 Chloride 93 L Carbon Dioxide 24 Anion Gap 9 BUN 5 L Creatinine 0.54 Est GFR ( Amer) > 60 Est GFR (Non-Af Amer) > 60 Glucose 116 H Calcium 8.4 09/12/17 09/12/17 04:45 14:50 Creatine Kinase 40 L NT-Pro-B Natriuret Pep 412 Impressions: Head CT 09/07/17 10:48 IMPRESSION: NORMAL BRAIN CT WITHOUT CONTRAST. EVIDENCE OF ACUTE STROKE: NO. Chest X-Ray 09/16/17 06:00 IMPRESSION: Minimal bibasilar atelectasis. Assessment & Plan - Diagnosis (1) Diabetes insipidus Is this a current diagnosis for this admission?: Yes Plan: Sodium is down a little bit today on his usual DDAVP. Recheck in the morning (2) Acute respiratory failure Qualifiers: Respiratory failure complication: hypoxia Qualified Code(s): J96.01 - Acute respiratory failure with hypoxia Is this a current diagnosis for this admission?: Yes Plan: Resolved patient is stable on room air (3) Schizophrenia Qualifiers: Schizophrenia type: unspecified Qualified Code(s): F20.9 - Schizophrenia, unspecified Is this a current diagnosis for this admission?: Yes Plan: Medications were adjusted by psychiatry. He certainly appears stable (4) DKA (diabetic ketoacidoses) Qualifiers: Diabetes mellitus type: type 2 Is this a current diagnosis for this admission?: Yes Plan: Odd picture. Blood sugars were controlled. He is a type II diabetic. His acidosis resolved with an insulin drip. His brother takes care of them would very much prefer to see him off of subcu insulin. I will try resuming his home medications and continue to monitor closely (5) Hyponatremia Is this a current diagnosis for this admission?: Yes
[2017-09-18] MEDS ORDERED: ATORVASTATIN CALCIUM 10 MG TABLET PO SCH (22:00)
[2017-09-18] MEDS: CLOZAPINE 100 MG TABLET PO SCH (22:33)
[2017-09-19] MEDS ORDERED: LANSOPRAZOLE 30 MG TAB.RAP.DR PO SCH (06:00)
[2017-09-19] MEDS: HALOPERIDOL 5 MG TABLET PO SCH (06:18)
[2017-09-19] MEDS: OLANZAPINE 5 MG TABLET PO SCH (06:18)
[2017-09-19] MEDS: BENZTROPINE MESYLATE 1 MG TABLET PO SCH (06:19)
[2017-09-19] MEDS: ROPINIROLE HCL 1 MG TABLET PO SCH (07:43)
[2017-09-19] MEDS: LACTOBACILLUS ACIDOPHILUS 250 MG TAB NG SCH (07:48)
[2017-09-19] MEDS: DOCUSATE SODIUM 100 MG CAPSULE PO SCH (07:51)
[2017-09-19] MEDS: POTASSIUM CHLORIDE 20 MEQ/15 ML UDCUP PO SCH (07:52)
[2017-09-19] MEDS: ENOXAPARIN SODIUM INJ 40 MG/0.4 ML DISP.SYRIN SUBCUT SCH (07:54)
[2017-09-19] MEDS ORDERED: METFORMIN HCL 500 MG TABLET PO SCH (08:00)
[2017-09-19] MEDS ORDERED: (PENDING PHARMACY ID) (Esomeprazole Magnesium [Esomeprazole Magnesium] 40 MG) PO SCH (10:00)
[2017-09-19] MEDS: DESMOPRESSIN ACETATE 0.1 MG TABLET PO SCH (10:24)
[2017-09-19 11:04] VITALS: BP 124/87
--- NOTE | 2017-09-19 17:39 | PDOC DISCHARGE SUMMARY ---
General - Admit/Disc Date/PCP Admission Date/Primary Care Provider: 09/07/17 13:58 YOLETTE TORRES MD Discharge Date: 09/19/17 - Discharge Diagnosis (1) Diabetes insipidus Is this a current diagnosis for this admission?: Yes Summary: Treated initially with IV DDAVP, and then transition over to his oral home dose. Continued outpatient follow-up (2) Acute respiratory failure Is this a current diagnosis for this admission?: Yes Summary: Required intubation. Now stable on room air (3) Schizophrenia Is this a current diagnosis for this admission?: Yes Summary: Medications were adjusted by psychiatry to good effect (4) DKA (diabetic ketoacidoses) Is this a current diagnosis for this admission?: Yes Summary: Treated with an insulin drip. His brother who cares for him is insisting we discharge him on oral medication only. He had previously been managed with Metformin. Close outpatient follow-up. I will have home health come in and check his blood sugars since his brother will not. (5) Hyponatremia Is this a current diagnosis for this admission?: Yes Summary: Due to DI - Additional Information Discharge Diet: Diabetic Discharge Activity: Activity As Tolerated Prescriptions: Benztropine Mesylate [Cogentin 1 mg Tablet] 1 mg PO Q12A #60 tablet Haloperidol [Haldol 5 mg Tablet] 5 mg PO Q12A #60 tablet Metformin HCl [Glucophage 500 mg Tablet] 500 mg PO BIDACBS #60 tablet Home Medications: Atorvastatin Calcium 10 mg PO DAILY 09/07/17 Clozapine [Clozaril 100 mg Tablet] 200 mg PO QHS 09/07/17 Desmopressin Acetate 0.2 mg PO TID 09/07/17 Desmopressin Acetate [Ddavp] 0.4 mg PO QHS 09/07/17 Docusate Sodium 100 mg PO Q12 09/07/17 Esomeprazole Magnesium 40 mg PO DAILY 09/07/17 Levothyroxine Sodium 50 mcg PO DAILY 09/07/17 Olanzapine 10 mg PO DAILY 09/07/17 Ropinirole HCl 1 mg PO QAM 09/07/17 Ropinirole HCl 3 mg PO QHS 09/07/17 Benztropine Mesylate [Cogentin 1 mg Tablet] 1 mg PO Q12A #60 tablet 09/19/17 Diazepam [Valium 5 mg Tablet] 5 mg PO Q6HP PRN tablet 09/19/17 Haloperidol [Haldol 5 mg Tablet] 5 mg PO Q12A #60 tablet 09/19/17 Metformin HCl [Glucophage 500 mg Tablet] 500 mg PO BIDACBS #60 tablet 09/19/17 History of Present Illness Patient complains of: Unarousable History of Present Illness: LIAM GRANT is a 51 year old male who presented with unresponsiveness. Since patient intubated and on mechanical ventilation is not source of history. Brief history is obtained from verbal communication with the ER attending, Patient found unresponsive. Patient has long-standing history of schizophrenia , diabetes mellitus and hypertension. Patient also found to have fever of 102.5. Scan of the head was done and it is unremarkable. To rule out meningitis lumbar puncture was done the appearance of CSF is crystal-clear for the results are pending. Patient is empirically covered with Zosyn. Further detailed history and review of systems unobtainable. Further history obtained later from his brother revealed that he had been having his psychiatric medications adjusted, had been getting more somnolent and confused. The day of presentation his brother was unable to wake the patient and so activated EMS. Hospital Course Hospital Course: He was treated with an insulin drip and aggressively hydrated. He briefly required Levophed to maintain his blood pressure. The ventilator was managed by pulmonology and after we got his acidosis corrected we are able to get him extubated. After we were able to get him extubated we had him evaluated by psychiatry they made several changes to his medical regimen to good effect. We have had him working with physical therapy and he is weak but is able to ambulate short distances. He is very anxious to go home, and brother wants him to come home. So he will be discharged. As noted, his brother is extremely resistant to either checking the patient's blood sugars or to giving him insulin. I will have home health come out and monitor his blood sugars, and get home physical therapy to work with him on strengthening. Physical Exam Vital Signs: Temp Pulse Resp BP Pulse Ox 98.4 F 92 16 124/87 H 100 09/19/17 12:23 09/19/17 12:23 09/19/17 12:23 09/19/17 12:23 09/19/17 12:23 Intake & Output 09/18/17 09/19/17 09/20/17 06:59 06:59 06:59 Intake Total 1673 801 Balance 1673 801 Weight 179 lb 10.828 oz 171 lb 1.259 oz General appearance: PRESENT: no acute distress, cooperative Respiratory exam: PRESENT: clear to auscultation cleo Cardiovascular exam: PRESENT: RRR GI/Abdominal exam: PRESENT: soft Extremities exam: PRESENT: other - No edema Neurological exam: PRESENT: alert, oriented to person, oriented to place, abnormal gait - Due to weakness, CN II-XII grossly intact, motor sensory deficit Psychiatric exam: PRESENT: normal mood, unusual affect Skin exam: PRESENT: dry, warm Results Laboratory Results: 09/18/17 03:53 09/18/17 03:53 09/12/17 09/12/17 04:45 14:50 Creatine Kinase 40 L NT-Pro-B Natriuret Pep 412 Impressions: Head CT 09/07/17 10:48 IMPRESSION: NORMAL BRAIN CT WITHOUT CONTRAST. EVIDENCE OF ACUTE STROKE: NO. Chest X-Ray 09/16/17 06:00 IMPRESSION: Minimal bibasilar atelectasis. Qualifiers - * PATIENT BEING DISCHARGED WITH ANY OF THE FOLLOWING DIAGNOSIS: No
--- NOTE | 2017-09-21 15:59 | PDOC PROGRESS REPORT ---
Subjective Progress Note for:: 09/19/17 Subjective:: remains w/o complaints Reason For Visit: UNRESPONSIVE,HYPERGLYCEMIC HYPEROSMOLAR STATE Physical Exam Vital Signs: Temp Pulse Resp BP Pulse Ox 98.5 F 79 15 122/79 99 09/19/17 04:00 09/19/17 04:00 09/19/17 10:15 09/19/17 07:47 09/19/17 10:15 Intake & Output 09/18/17 09/19/17 09/20/17 06:59 06:59 06:59 Intake Total 1673 801 Balance 1673 801 Weight 81.5 kg 77.6 kg General appearance: PRESENT: no acute distress, cooperative, disheveled, well- developed Head exam: PRESENT: atraumatic, normocephalic Eye exam: PRESENT: conjunctiva pale, EOMI. ABSENT: nystagmus, periorbital swelling, scleral icterus Mouth exam: PRESENT: moist, neck supple, tongue midline Neck exam: ABSENT: carotid bruit, JVD, lymphadenopathy, thyromegaly, tracheal deviation, tracheostomy Respiratory exam: PRESENT: decreased breath sounds, prolonged expiratory phas, rales, rhonchi, unlabored Cardiovascular exam: PRESENT: RRR, +S1, +S2 Pulses: PRESENT: normal radial pulses GI/Abdominal exam: PRESENT: normal bowel sounds, soft Extremities exam: ABSENT: calf tenderness, clubbing, joint swelling Musculoskeletal exam: ABSENT: deformity, dislocation Neurological exam: PRESENT: alert, awake Psychiatric exam: PRESENT: flat affect Skin exam: PRESENT: dry, warm Results Laboratory Results: 09/18/17 03:53 09/18/17 03:53 09/12/17 09/12/17 04:45 14:50 Creatine Kinase 40 L NT-Pro-B Natriuret Pep 412 Impressions: Head CT 09/07/17 10:48 IMPRESSION: NORMAL BRAIN CT WITHOUT CONTRAST. EVIDENCE OF ACUTE STROKE: NO. Chest X-Ray 09/16/17 06:00 IMPRESSION: Minimal bibasilar atelectasis. Assessment & Plan - Diagnosis (1) Acute respiratory failure Qualifiers: Respiratory failure complication: hypoxia Qualified Code(s): J96.01 - Acute respiratory failure with hypoxia Is this a current diagnosis for this admission?: Yes Plan: stable not resolved (2) DKA (diabetic ketoacidoses) Qualifiers: Diabetes mellitus type: type 2 Is this a current diagnosis for this admission?: Yes Plan: No ketonuria no acidosis (3) Schizophrenia Qualifiers: Schizophrenia type: unspecified Qualified Code(s): F20.9 - Schizophrenia, unspecified Is this a current diagnosis for this admission?: Yes
== END 2017-09-19 13:00 | disposition home health service (06) | DRG 207 ==
LOC: ER 10:08 → EH 13:58 → ICU 14:25
PROVIDERS: ADMIT Internal Medicine; ATTEND Internal Medicine
PROC: 5A1955Z Respiratory Ventilation, Greater than 96 Consecutive Hours (ICD-10-PCS; principal; 2017-09-07)
PROC: 009U3ZX Drainage of Spinal Canal, Percutaneous Approach, Diagnostic (ICD-10-PCS; 2017-09-07)
PROC: 0BH17EZ Insertion of Endotracheal Airway into Trachea, Via Natural or Artificial Opening (ICD-10-PCS; 2017-09-07)
PROC: 02H633Z Insertion of Infusion Device into Right Atrium, Percutaneous Approach (ICD-10-PCS; 2017-09-07)
PROC: 5A09457 Assistance with Respiratory Ventilation, 24-96 Consecutive Hours, Continuous Positive Airway Pressure (ICD-10-PCS; 2017-09-14)
DX: J96.01 Acute respiratory failure with hypoxia (principal); E11.10 Type 2 diabetes mellitus with ketoacidosis without coma; E87.1 Hypo-osmolality and hyponatremia; N17.9 Acute kidney failure, unspecified; N39.0 Urinary tract infection, site not specified; F90.9 Attention-deficit hyperactivity disorder, unspecified type; F25.9 Schizoaffective disorder, unspecified; I25.10 Atherosclerotic heart disease of native coronary artery without angina pectoris; E78.00 Pure hypercholesterolemia, unspecified; I10 Essential (primary) hypertension; B96.4 Proteus (mirabilis) (morganii) as the cause of diseases classified elsewhere; B96.1 Klebsiella pneumoniae [K. pneumoniae] as the cause of diseases classified elsewhere; B95.1 Streptococcus, group B, as the cause of diseases classified elsewhere; E87.6 Hypokalemia; E83.42 Hypomagnesemia; R41.82 Altered mental status, unspecified; T43.95XA Adverse effect of unspecified psychotropic drug, initial encounter; E86.0 Dehydration; D64.9 Anemia, unspecified; E83.39 Other disorders of phosphorus metabolism; R31.9 Hematuria, unspecified; Z79.84 Long term (current) use of oral hypoglycemic drugs; Z79.4 Long term (current) use of insulin; Z79.899 Other long term (current) drug therapy; Z91.19 Patient's noncompliance with other medical treatment and regimen
CPT/HCPCS: 36415; 51702; 70450; 71045; 80048; 80053; 80069; 80164; 80307; 81001; 82140; 82271; 82550; 82803; 82945; 82947; 82962; 83036; 83605; 83735; 83880; 83930; 83935; 84132; 84157; 84443; 84478; 84484; 85025; 85027; 85610; 85730; 87040; 87070; 87077; 87086; 87088; 87186; 87205; 87529; 89050; 93005; 93010; 94002; 94003; 96361; 96365; 96366; 96368; 99291; 99292; C1751; G8978-GP; G8979-GP; G8996-GN; G8997-GN; J0713; J1100; J1644; J1650; J1815; J2250; J2370; J2543; J2597; J2704; J2997; J3475; J3480; J3490; J7030; J7060; S0028; S0164

== ENCOUNTER 2017-12-27 12:05 | Inpatient (IN) | payer MEDICARE, MEDICAID ==
--- NOTE | 2017-12-27 12:31 | ER Document Report ---
ED Neuro Symptoms/Deficit - General Chief Complaint: Possible Overdose Stated Complaint: POSSIBLE OVERDOSE Time Seen by Provider: 12/27/17 12:14 Notes: 52-year-old male. Severe mental health issues. Brother is guardian. Brother gets in his medications. Handed him the medication box had his daily meds in it. Was only supposed to take the morning pills but when brother came back the patient had taken all of the pills. Denies wanting to hurt himself. Brother states that he has severe mental issues and significant cognitive issues. Patient states that he has some mild indigestion but otherwise feels fine. I have greeted and performed a rapid initial assessment of this patient. A comprehensive ED assessment and evaluation of the patient, analysis of test results and completion of the medical decision making process will be conducted by additional ED providers. TRAVEL OUTSIDE OF THE [place] IN LAST 30 DAYS: No - Related Data Allergies/Adverse Reactions: No Known Allergies Allergy (Verified 12/27/17 12:06) Past Medical History - Social History Smoking Status: Unknown if Ever Smoked Family History: Reviewed & Not Pertinent Patient has suicidal ideation: No Patient has homicidal ideation: No - Past Medical History Cardiac Medical History: Reports: Hx Coronary Artery Disease - hyperlipedmia Denies: Hx Heart Attack, Hx Hypertension Pulmonary Medical History: Denies: Hx Asthma, Hx Bronchitis, Hx COPD, Hx Pneumonia Neurological Medical History: Denies: Hx Cerebrovascular Accident, Hx Seizures Endocrine Medical History: Reports: Hx Diabetes Mellitus Type 2 Renal/ Medical History: Denies: Hx Peritoneal Dialysis Musculoskeletal Medical History: Denies Hx Arthritis Psychiatric Medical History: Reports: Hx Attention Deficit Hyperactivity Disorder, Hx Schizoaffective Disorder Traumatic Medical History: Denies: Hx Gunshot Wound Infectious Medical History: Denies: Hx MRSA Past Surgical History: Denies: Hx Pacemaker Physical Exam - Vital signs Vitals: Temp Pulse Resp BP Pulse Ox 98.1 F 101 H 20 128/78 H 98 12/27/17 12:12/27/17 12:12/27/17 12:12/27/17 12:12/27/17 12:09 Course - Vital Signs Vital signs: Temp Pulse Resp BP Pulse Ox 98.1 F 101 H 20 128/78 H 98 12/27/17 12:12/27/17 12:12/27/17 12:12/27/17 12:09 12/27/17 12:09 Discharge - Discharge Referrals: YOLETTE TORRES MD [Primary Care Provider] - Follow up as needed
--- NOTE | 2017-12-27 13:22 | ER Document Report ---
ED General - General Chief Complaint: Possible Overdose Stated Complaint: POSSIBLE OVERDOSE Time Seen by Provider: 12/27/17 12:14 TRAVEL OUTSIDE OF THE [place] IN LAST 30 DAYS: No - HPI Notes: Patient is a 52-year-old male with extensive medical history and mental health history who presents to the ED with brother complaining of possible overdose with his medications. Patient takes multiple medicines at 4 different times throughout the day. Pt was told by the voices in his head to take all of his medications this morning. Brother states that he handed the patient his pillbox and he was only supposed to take the morning dose, but took all of his meds for each time of the day at once at 1038am. Patient has past medical history of type II diabetic, mental health disorder, hypothyroid, GERD, hyperlipidemia. Brother states he is otherwise acting and behaving normally as he was prior to taking all of his meds at once. Patient states that he has been hearing voices in his head which he has been for a long time. Patient states that he is suicidal, but would not elaborate on any planning. Patient denies any homicidal ideation. Brother states that the primary difference that he has noticed since he took his meds is he will refuse to answer questions and is not as talkative as he normally would be. Brother states that he has been eating and drinking without difficulties. He is urinating normally. Patient does not have any concern of pain. Patient states that he feels "antsy." He has no other concerns or complaints at this time. Denies any drug allergies. He is usually seen at [facility]. Denies any headache, fever, neck pain, changes in vision/speech/mentation/hearing, URI, sore throat, chest pain, palpitations, syncope, cough, shortness of breath, wheeze, dyspnea, abdominal pain, nausea/ vomiting/diarrhea, urinary retention, dysuria, hematuria, loss of control of bowel or bladder, numbness/tingling, saddle anesthesia, muscle paralysis/ weakness, or rash. - Related Data Allergies/Adverse Reactions: No Known Allergies Allergy (Verified 12/27/17 12:06) Past Medical History - Social History Smoking Status: Unknown if Ever Smoked Family History: Reviewed & Not Pertinent Patient has suicidal ideation: No Patient has homicidal ideation: No - Past Medical History Cardiac Medical History: Reports: Hx Coronary Artery Disease - hyperlipedmia Denies: Hx Heart Attack, Hx Hypertension Pulmonary Medical History: Denies: Hx Asthma, Hx Bronchitis, Hx COPD, Hx Pneumonia Neurological Medical History: Denies: Hx Cerebrovascular Accident, Hx Seizures Endocrine Medical History: Reports: Hx Diabetes Mellitus Type 2 Renal/ Medical History: Denies: Hx Peritoneal Dialysis Musculoskeletal Medical History: Denies Hx Arthritis Psychiatric Medical History: Reports: Hx Attention Deficit Hyperactivity Disorder, Hx Schizoaffective Disorder Traumatic Medical History: Denies: Hx Gunshot Wound Infectious Medical History: Denies: Hx MRSA Past Surgical History: Denies: Hx Pacemaker Review of Systems - Review of Systems -: Yes All other systems reviewed and negative Physical Exam - Vital signs Vitals: Temp Pulse Resp BP Pulse Ox 98.1 F 101 H 20 128/78 H 98 12/27/17 12:09 12/27/17 12:09 12/27/17 12:09 12/27/17 12:12/27/17 12:09 - Notes Notes: PHYSICAL EXAMINATION: GENERAL: Well-appearing, well-nourished and in no acute distress. A&Ox3. Answers questions appropriately, but will stop talking if he does not want to answer any more questions. HEAD: Atraumatic, normocephalic. Non-tender. EYES: Pupils equal round and reactive to light, extraocular movements intact, sclera anicteric, conjunctiva are normal. No nystagmus. vis tello intact. ENT: Nares patent and without discharge. oropharynx clear without exudates. No tonsilar hypertrophy or erythema. Moist mucous membranes. NECK: Normal range of motion, supple without lymphadenopathy. No rigidity/ meningismus. No midline tenderness. LUNGS: Breath sounds clear to auscultation bilaterally and equal. No wheezes rales or rhonchi. HEART: Regular rate and rhythm without murmurs, rubs, gallops. ABDOMEN: Soft, nontender, nondistended abdomen. No guarding, no rebound. Normal bowel sounds present. No CVA tenderness bilaterally. Musculoskeletal: Ext b/l: FROM to passive/active. Strength 5+/5. No deficits noted. No bony tenderness of extremities. Extremities: No cyanosis, clubbing, or edema b/l. Peripheral pulses 2+. Capillary refill less than 2 seconds. NEUROLOGICAL: GCS 15. Cranial nerves grossly intact. Normal speech, normal gait. Normal sensory, motor exams. Reflexes 2+ b/l. Pronator drift negative. Heel/daniels, finger/nose wnl. PSYCH: flat affect SKIN: Warm, Dry, normal turgor, no rashes or lesions noted. Course - Re-evaluation Re-evalutation: 12/27/17 13:24 Poison control notified. Pt to be IVC'd. 12/27/17 13:34 Poison control was notified (Ivon Landeros) who stated that most of his meds are within range for a daily dose. She recommends we check electrolytes, monitor EKG/QTc, and monitor for at least 6 hours post ingestion. Labs and fluids have been ordered. Urine ordered. Pt is sitting comfortably and is in no acute distress at this time. 12/27/17 14:18 Patient was found to be hyponatremic at 110.5. Urine osmolality ordered. Reviewed with hospitalist provider, Mat Darnell NP, who accepted pt to tele bed. Reviewed with pt and family who are in agreement with plan. Pt received 100cc of NS prior to receiving lab result. Fluid has since been d/c 'd and deferred to hospitalist orders. - Vital Signs Vital signs: Temp Pulse Resp BP Pulse Ox 98.1 F 101 H 16 128/78 H 98 12/27/17 12:09 12/27/17 12:09 12/27/17 14:00 12/27/17 12:09 12/27/17 12:09 - Laboratory Result Diagrams: 12/27/17 13:05 12/27/17 13:05 Laboratory results interpreted by me: 12/27/17 12/27/17 13:05 13:05 WBC 10.9 H Hgb 12.1 L Hct 34.2 L MCV 76 L MCH 26.8 L RDW 16.5 H Seg Neutrophils % 88.7 H Lymphocytes % 6.5 L Absolute Neutrophils 9.7 H Sodium 110.5 L* Chloride 74 L Carbon Dioxide 21 L BUN 5 L Creatinine 0.50 L Glucose 123 H Alkaline Phosphatase 143 H Salicylates < 1.0 L Acetaminophen < 10 L Discharge - Discharge Clinical Impression: Hyponatremia Overdose Qualifiers: Encounter type: initial encounter Injury intent: undetermined intent Qualified Code(s): T50.904A - Poisoning by unspecified drugs, medicaments and biological substances, undetermined, initial encounter Condition: Stable Disposition: ADMITTED INPATIENT Admitting Provider: Hospitalist - [facility] Admitted: Telemetry Referrals: YOLETTE TORRES MD [Primary Care Provider] - Follow up as needed
[2017-12-27] MEDS ORDERED: NORMAL SALINE 1000 ML 1,000 ML IV ONE (13:36)
[2017-12-27 13:37] LABS: ABSOLUTE EOSINOPHILS # (AUTO) 0.1 10^3/uL (0.0-0.6); ABSOLUTE LYMPHOCYTES (AUTO) 0.7 10^3/uL (0.5-4.7); ABSOLUTE MONOCYTES (AUTO) 0.4 10^3/uL (0.1-1.4); ABSOLUTE NEUT (AUTO) 9.7 10^3/uL (1.7-8.2); BASOPHILS % (AUTO) 0.4 % (0-2); EOSINOPHILS % (AUTO) 0.6 % (0-6); HEMATOCRIT 34.2 % (37.9-51.0); HEMOGLOBIN 12.1 g/dL (13.5-17.0); LYMPHOCYTES % (AUTO) 6.5 % (13-45); MEAN CORPUSCULAR HEMOGLOBIN 26.8 pg (27.0-33.4); MEAN CORPUSCULAR HGB CONC 35.5 g/dL (32.0-36.0); MEAN CORPUSCULAR VOLUME 76 fl (80-97); MONOCYTES % (AUTO) 3.8 % (3-13); PLATELET COUNT 387 10^3/uL (150-450); RED BLOOD COUNT 4.53 10^6/uL (4.35-5.55); RED CELL DISTRIBUTION WIDTH 16.5 % (11.5-14.0); SEGMENTED NEUTROPHILS % (AUTO) 88.7 % (42-78); TOTAL CELLS COUNTED % (AUTO) 100 %; WHITE BLOOD COUNT 10.9 10^3/uL (4.0-10.5)
[2017-12-27 13:38] LABS: VENOUS BLOOD BASE EXCESS -3.9 mmol/L; VENOUS BLOOD HCO3 20.5 mmol/L (20-32); VENOUS BLOOD PH 7.39 (7.30-7.42)
[2017-12-27 13:56] LABS: BLOOD UREA NITROGEN 5 mg/dL (7-20); CALCIUM 9.1 mg/dL (8.4-10.2); GLUCOSE 123 mg/dL (75-110)
[2017-12-27 13:57] LABS: ALANINE AMINOTRANSFERASE 25 U/L (21-72); ALBUMIN 4.6 g/dL (3.5-5.0); ALKALINE PHOSPHATASE 143 U/L (38-126); ANION GAP 16 (5-19); ASPARTATE AMINO TRANSFERASE 22 U/L (17-59); BILIRUBIN,DIRECT 0.4 mg/dL (0.0-0.4); BILIRUBIN,TOTAL 0.6 mg/dL (0.2-1.3); CARBON DIOXIDE 21 mmol/L (22-30); CHLORIDE 74 mmol/L (98-107); LITHIUM 0.9 mEq/L (0.6-1.2); POTASSIUM 3.8 mmol/L (3.6-5.0); TOTAL PROTEIN 7.6 g/dL (6.3-8.2)
[2017-12-27 14:00] LABS: ACETAMINOPHEN < 10 ug/mL (10-30); SALICYLATE < 1.0 mg/dL (2.0-20.0)
[2017-12-27 14:03] LABS: SODIUM 110.5 mmol/L (137-145)
[2017-12-27] MEDS: NORMAL SALINE 1000 ML 1,000 ML IV PRN (15:41)
[2017-12-27] MEDS ORDERED: DOCUSATE SODIUM 100 MG CAPSULE PO PRN (15:43)
[2017-12-27] MEDS ORDERED: ALBUTEROL SULFATE HFA (90 MCG/PUFF) 8 GM MDI (1 MDI/ER DISP) IH PRN (15:43)
[2017-12-27 15:47] LABS: APPEARANCE,URINE CLOUDY; BILIRUBIN,URINE NEGATIVE (NEGATIVE); COLOR,URINE AMBER; GLUCOSE, URINE >=500 mg/dL (NEGATIVE); KETONES,URINE TRACE mg/dL (NEGATIVE); LEUKOCYTE ESTERASE,URINE MODERATE (NEGATIVE); NITRITE,URINE POSITIVE (NEGATIVE); PROTEIN,URINE 30 mg/dL (NEGATIVE); URINE SPECIFIC GRAVITY 1.024
[2017-12-27] MEDS ORDERED: GLUCAGON,HUMAN RECOMB 1 MG INJ IM PRN (15:48)
[2017-12-27] MEDS ORDERED: DEXTROSE 50%-WATER 25 GM/50 ML DISP.SYRIN IV PRN ×2 (15:48)
[2017-12-27] MEDS ORDERED: DEXTROSE 40% GEL 15 GM TUBE PO PRN ×2 (15:48)
[2017-12-27] MEDS ORDERED: ALBUTEROL SULFATE HFA (90 MCG/PUFF) 200 PUFF/8.5 GM MDI IH PRN (16:13)
[2017-12-27 16:22] LABS: URINE AMPHETAMINES SCREEN NEGATIVE; URINE BARBITURATES SCREEN NEGATIVE; URINE BENZODIAZEPINES SCREEN UNCONFIRMED POSITIVE; URINE COCAINE SCREEN NEGATIVE; URINE MARIJUANA (THC) SCREEN NEGATIVE; URINE METHADONE SCREEN NEGATIVE; URINE PHENCYCLIDINE SCREEN NEGATIVE
[2017-12-27 16:36] LABS: OSMOLALITY,URINE 547 mOsm/kg (300-900)
[2017-12-27 16:57] LABS: URINE SODIUM 16 mmol/L (30-90)
[2017-12-27] MEDS ORDERED: CEFTRIAXONE 1 GM/D5W RTU 1 GM/50 ML RTUPB IV ONE (17:00)
[2017-12-27] MEDS ORDERED: TRIHEXYPHENIDYL HCL 5 MG TABLET ONE (18:55)
[2017-12-27] MEDS ORDERED: CEFTRIAXONE INJ 500 MG VIAL ONE (19:05)
--- NOTE | 2017-12-27 19:05 | PDOC H&P ---
History of Present Illness Admission Date/PCP: 12/27/17 14:29 YOLETTE TORRES MD Patient complains of: took all of todays pills this am History of Present Illness: LIAM GRANT is a 52 year old male with schizoaffective, diabetes and diabetes insipidus on hctz and ddavp was found to have Na110 and suicidal thoughts. Past Medical History Cardiac Medical History: Reports: Hyperlipidema, Hypertension Denies: Myocardial Infarction Pulmonary Medical History: Reports: Chronic Obstructive Pulmonary Disease (COPD) , Respiratory Failure EENT Medical History: Reports: None Neurological Medical History: Reports: None Endocrine Medical History: Reports: Diabetes Mellitus Type 2, Hypothyroidism Malignancy Medical History: Reports: Other - di GI Medical History: Reports: Gastroesophageal Reflux Disease Musculoskeltal Medical History: Reports: None Skin Medical History: Reports: None Psychiatric Medical History: Reports: Attention Deficit Hyperactivity Disorder, Schizoaffective Disorder Traumatic Medical History: Reports: None Hematology: Denies: Anemia Infectious Medical History: Reports: None Social History Information Source: Dr. Porter Lives with: Family Smoking Status: Current Every Day Smoker Frequency of Alcohol Use: Heavy - Advance Directive Resuscitation Status: Full Code Family History Family History: Reviewed & Not Pertinent Parental Family History Reviewed: Yes Children Family History Reviewed: Yes Sibling(s) Family History Reviewed.: Yes Medication/Allergy Home Medications: Albuterol Sulfate [Ventolin HFA MDI 18 GM] 2 puff IH Q6HP PRN 12/27/17 Atorvastatin Calcium [Lipitor 10 mg Tablet] 10 mg PO QHS 12/27/17 Brexpiprazole [Rexulti] 0.5 mg PO DAILY 12/27/17 Clozapine [Clozaril 100 mg Tablet] 150 mg PO QHS 12/27/17 Clozapine [Clozaril 100 mg Tablet] 150 mg PO WSUPPER 12/27/17 Clozapine [Clozaril 25 mg Tablet] 25 mg PO QAM 12/27/17 Desmopressin Acetate [Ddavp] 0.2 mg PO TID 12/27/17 Desmopressin Acetate [Ddavp] 0.4 mg PO QHS 12/27/17 Diazepam [Valium] 10 mg PO Q6HP PRN 12/27/17 Docusate Sodium [Colace 100 mg Capsule] 100 mg PO BIDP PRN 12/27/17 Esomeprazole Magnesium [Nexium] 40 mg PO DAILY 12/27/17 Glimepiride [Amaryl 4 mg Tablet] 4 mg PO DAILY 12/27/17 Levothyroxine Sodium [Synthroid 0.05 mg Tablet] 0.05 mg PO Q6AM 12/27/17 Losartan/Hydrochlorothiazide [Losartan-Hctz 100-25 mg Tab] 1 tab PO DAILY Metformin HCl [Glucophage 500 mg Tablet] 1,000 mg PO BID 12/27/17 Paroxetine HCl [Paxil] 30 mg PO QAM 12/27/17 Ropinirole HCl [Requip 2 mg Tablet] 1 mg PO Q12 12/27/17 Trihexyphenidyl HCl [Artane 5 mg Tablet] 5 mg PO MEALS 12/27/17 Umeclidinium Brm/Vilanterol Tr [Anoro Ellipta 62.5-25 Mcg INH] 1 each IH Umeclidinium Brm/Vilanterol Tr [Anoro Ellipta 62.5-25 Mcg INH] 1 puff IH DAILY 12/27/17 Allergies/Adverse Reactions: No Known Allergies Allergy (Verified 12/27/17 12:06) Review of Systems ROS unobtainable: Due to mental status Physical Exam Vital Signs: Temp Pulse Resp BP Pulse Ox 98.1 F 101 H 18 126/83 H 98 12/27/17 12:09 12/27/17 12:09 12/27/17 15:20 12/27/17 15:20 12/27/17 12:09 General appearance: PRESENT: no acute distress Mouth exam: PRESENT: moist Neck exam: ABSENT: lymphadenopathy, tenderness, thyromegaly, tracheal deviation Respiratory exam: PRESENT: clear to auscultation cleo Cardiovascular exam: ABSENT: diastolic murmur, irregular rhythm, systolic murmur GI/Abdominal exam: ABSENT: mass, organolmegaly, tenderness Extremities exam: ABSENT: pedal edema Neurological exam: PRESENT: alert. ABSENT: oriented to time, oriented to situation Psychiatric exam: PRESENT: unusual affect Results Laboratory Results: Abnormal - 24 hr 12/27/17 12/27/17 12/27/17 13:05 13:05 15:16 WBC 10.9 H Hgb 12.1 L Hct 34.2 L MCV 76 L MCH 26.8 L RDW 16.5 H Seg Neutrophils % 88.7 H Lymphocytes % 6.5 L Absolute Neutrophils 9.7 H Sodium 110.5 L* Chloride 74 L Carbon Dioxide 21 L BUN 5 L Creatinine 0.50 L Glucose 123 H Alkaline Phosphatase 143 H Urine Protein 30 H Urine Glucose (UA) >=500 H Urine Ketones TRACE H Urine Nitrite POSITIVE H Urine Urobilinogen 2.0 H Ur Leukocyte Esterase MODERATE H Salicylates < 1.0 L Acetaminophen < 10 L Assessment & Plan - Diagnosis (1) Hyponatremia Is this a current diagnosis for this admission?: Yes Plan: stop hctz & ddavp. Saline & fluid restriction (2) Diabetes insipidus Is this a current diagnosis for this admission?: Yes Plan: hold ddavp. Consider much lower dose in future. (3) Type 2 diabetes mellitus without complications Qualifiers: Diabetes mellitus retirement insulin use: without retirement use Qualified Code(s): E11.9 - Type 2 diabetes mellitus without complications Is this a current diagnosis for this admission?: Yes Plan: sliding scale (4) Atrophy of thyroid Is this a current diagnosis for this admission?: Yes Plan: continue (5) Schizoaffective disorder, bipolar type without good prognostic features Is this a current diagnosis for this admission?: Yes Plan: psych consult (6) Panacinar emphysema Is this a current diagnosis for this admission?: Yes Plan: albuterol since anoro nonformulary (7) Essential (primary) hypertension Is this a current diagnosis for this admission?: Yes Plan: hold arb too (8) Gastro-esophageal reflux disease without esophagitis Is this a current diagnosis for this admission?: Yes Plan: prevacid (9) Acute cystitis without hematuria Is this a current diagnosis for this admission?: Yes Plan: culture ceftri - Inpatient Certification Based on my medical assessment, after consideration of the patient's comorbidities, presenting symptoms, or acuity I expect that the services needed warrant INPATIENT care.: Yes I certify that my determination is in accordance with my understanding of Medicare's requirements for reasonable and necessary INPATIENT services [42 CFR 412.3e].: Yes Medical Necessity: Failure to Improve With Outpatient Therapy, Significant Comorbidiites Make Outpatient Treatment Too Risky, Need Close Monitoring Due to Risk of Patient Decompensation, Need For IV Fluids, Need For Continuous Telemetry Monitoring, Need for Nebulizer Therapy and Monitoring of Response, Need for IV Antibiotics, Risk of Complication if Not Cared For in Hospital, Risk of Diagnosis Which Will Require Inpatient Eval/Care/Monitoring
[2017-12-27] MEDS: TRIHEXYPHENIDYL HCL 5 MG TABLET PO SCH (19:32)
[2017-12-27] MEDS: ENOXAPARIN SODIUM INJ 40 MG/0.4 ML DISP.SYRIN SUBCUT SCH (19:36)
[2017-12-27] MEDS: CLOZAPINE 100 MG TABLET PO SCH (19:37)
[2017-12-27] MEDS: METFORMIN HCL 500 MG TABLET PO SCH (19:37)
[2017-12-27] MEDS: ATORVASTATIN CALCIUM 10 MG TABLET PO SCH (21:46)
[2017-12-27] MEDS: ROPINIROLE HCL 1 MG TABLET PO SCH (21:46)
[2017-12-27] MEDS ORDERED: ROPINIROLE HCL 2 MG TABLET PO SCH (22:00)
[2017-12-28] MEDS: NORMAL SALINE 1000 ML 1,000 ML IV PRN ×3 (00:52→23:16)
[2017-12-28] MEDS: LANSOPRAZOLE 30 MG TAB.RAP.DR PO SCH (05:29)
[2017-12-28] MEDS: LEVOTHYROXINE SODIUM 0.05 MG TABLET PO SCH (05:29)
[2017-12-28 06:19] LABS: RETICULOCYTE COUNT (AUTO) 1.88 % (0.66-2.85)
[2017-12-28 06:32] LABS: ANION GAP 13 (5-19); BLOOD UREA NITROGEN 6 mg/dL (7-20); CALCIUM 8.4 mg/dL (8.4-10.2); CARBON DIOXIDE 19 mmol/L (22-30); CHLORIDE 81 mmol/L (98-107); GLUCOSE 74 mg/dL (75-110); POTASSIUM 3.5 mmol/L (3.6-5.0)
[2017-12-28 06:52] LABS: SODIUM 113.4 mmol/L (137-145)
--- NOTE | 2017-12-28 07:12 | PDOC PROGRESS REPORT ---
Subjective Progress Note for:: 12/28/17 Subjective:: better Reason For Visit: HYPONATREMIA Physical Exam Vital Signs: Temp Pulse Resp BP Pulse Ox 97.5 F 84 20 105/56 L 99 12/28/17 04:07 12/28/17 04:07 12/28/17 04:07 12/28/17 04:07 12/28/17 04:07 Intake & Output 12/26/17 12/27/17 12/28/17 07:59 07:59 07:59 Intake Total 1323 Output Total 200 Balance 1123 Weight 168 lb 10.458 oz General appearance: PRESENT: no acute distress Respiratory exam: PRESENT: clear to auscultation cleo Cardiovascular exam: ABSENT: diastolic murmur, irregular rhythm, systolic murmur GI/Abdominal exam: ABSENT: mass, organolmegaly, tenderness Extremities exam: ABSENT: pedal edema Neurological exam: ABSENT: oriented to situation Psychiatric exam: PRESENT: appropriate affect Results Laboratory Results: 12/28/17 05:20 Abnormal - 24 hr 12/27/17 12/27/17 12/27/17 13:05 13:05 15:16 WBC 10.9 H Hgb 12.1 L Hct 34.2 L MCV 76 L MCH 26.8 L RDW 16.5 H Seg Neutrophils % 88.7 H Lymphocytes % 6.5 L Absolute Neutrophils 9.7 H Sodium 110.5 L* Potassium Chloride 74 L Carbon Dioxide 21 L BUN 5 L Creatinine 0.50 L Glucose 123 H POC Glucose Serum Osmolality Alkaline Phosphatase 143 H Urine Protein 30 H Urine Glucose (UA) >=500 H Urine Ketones TRACE H Urine Nitrite POSITIVE H Urine Urobilinogen 2.0 H Ur Leukocyte Esterase MODERATE H Urine Sodium Salicylates < 1.0 L Acetaminophen < 10 L 12/27/17 12/27/17 12/27/17 15:16 15:54 21:19 WBC Hgb Hct MCV MCH RDW Seg Neutrophils % Lymphocytes % Absolute Neutrophils Sodium Potassium Chloride Carbon Dioxide BUN Creatinine Glucose POC Glucose 65 L Serum Osmolality 222 L Alkaline Phosphatase Urine Protein Urine Glucose (UA) Urine Ketones Urine Nitrite Urine Urobilinogen Ur Leukocyte Esterase Urine Sodium 16 L Salicylates Acetaminophen 12/27/17 12/27/17 12/28/17 22:16 22:41 05:20 WBC Hgb Hct MCV MCH RDW Seg Neutrophils % Lymphocytes % Absolute Neutrophils Sodium 113.4 L* Potassium 3.5 L Chloride 81 L Carbon Dioxide 19 L BUN 6 L Creatinine 0.45 L Glucose 74 L POC Glucose 48 L 162 H Serum Osmolality Alkaline Phosphatase Urine Protein Urine Glucose (UA) Urine Ketones Urine Nitrite Urine Urobilinogen Ur Leukocyte Esterase Urine Sodium Salicylates Acetaminophen Assessment & Plan - Diagnosis (1) Hyponatremia Is this a current diagnosis for this admission?: Yes Plan: slowly improving as desired (2) Diabetes insipidus Is this a current diagnosis for this admission?: Yes (3) Type 2 diabetes mellitus without complications Qualifiers: Diabetes mellitus assisted insulin use: without assisted use Qualified Code(s): E11.9 - Type 2 diabetes mellitus without complications Is this a current diagnosis for this admission?: Yes Plan: reaction bs48. Stopped glimepiride (4) Atrophy of thyroid Is this a current diagnosis for this admission?: Yes (5) Schizoaffective disorder, bipolar type without good prognostic features Is this a current diagnosis for this admission?: Yes (6) Panacinar emphysema Is this a current diagnosis for this admission?: Yes (7) Essential (primary) hypertension Is this a current diagnosis for this admission?: Yes (8) Gastro-esophageal reflux disease without esophagitis Is this a current diagnosis for this admission?: Yes (9) Acute cystitis without hematuria Is this a current diagnosis for this admission?: Yes Plan: afebrile on ceftri - Inpatient Certification Medical Necessity: Failure to Improve With Outpatient Therapy, Significant Comorbidiites Make Outpatient Treatment Too Risky, Need Close Monitoring Due to Risk of Patient Decompensation, Need For IV Fluids, Need For Continuous Telemetry Monitoring, Need for IV Antibiotics, Risk of Complication if Not Cared For in Hospital, Risk of Diagnosis Which Will Require Inpatient Eval/Care/ Monitoring
[2017-12-28 07:35] LABS: FOLATE 5.93 ng/mL (>2.76)
[2017-12-28] MEDS: CLOZAPINE 25 MG TABLET PO SCH (08:44)
[2017-12-28] MEDS: TRIHEXYPHENIDYL HCL 5 MG TABLET PO SCH ×3 (08:44→17:38)
--- NOTE | 2017-12-28 09:54 | EKG REPORT ---
SEVERITY:- BORDERLINE ECG - SINUS RHYTHM BORDERLINE PROLONGED QT INTERVAL : Confirmed by: Jesus Braxton 28-Dec-2017 09:53:11
[2017-12-28] MEDS ORDERED: CEFTRIAXONE 1 GM/D5W RTU 1 GM/50 ML RTUPB IV SCH (10:00)
[2017-12-28] MEDS ORDERED: GLIMEPIRIDE 4 MG TABLET PO SCH (10:00)
[2017-12-28] MEDS: ROPINIROLE HCL 1 MG TABLET PO SCH ×2 (11:24→21:23)
[2017-12-28] MEDS: ENOXAPARIN SODIUM INJ 40 MG/0.4 ML DISP.SYRIN SUBCUT SCH (11:24)
[2017-12-28] MEDS: METFORMIN HCL 500 MG TABLET PO SCH ×2 (11:24→17:37)
[2017-12-28 12:39] LABS: ALANINE AMINOTRANSFERASE 29 U/L (21-72); ALBUMIN 4.8 g/dL (3.5-5.0); ALKALINE PHOSPHATASE 161 U/L (38-126); ANION GAP 17 (5-19); ASPARTATE AMINO TRANSFERASE 18 U/L (17-59); BILIRUBIN,DIRECT 0.3 mg/dL (0.0-0.4); BILIRUBIN,TOTAL 0.4 mg/dL (0.2-1.3); BLOOD UREA NITROGEN 5 mg/dL (7-20); CALCIUM 9.7 mg/dL (8.4-10.2); CARBON DIOXIDE 22 mmol/L (22-30); CHLORIDE 86 mmol/L (98-107); GLUCOSE 116 mg/dL (75-110); SODIUM 124.6 mmol/L (137-145); TOTAL PROTEIN 7.7 g/dL (6.3-8.2)
[2017-12-28] MEDS: MAGNESIUM OXIDE 400 MG TABLET PO SCH (17:37)
[2017-12-28] MEDS: SODIUM BICARBONATE 650 MG TABLET PO SCH (17:38)
[2017-12-28] MEDS: POTASSIUM CHLORIDE 10 MEQ CAPSULE.ER PO SCH (17:38)
[2017-12-28] MEDS: CLOZAPINE 100 MG TABLET PO SCH ×2 (17:39→21:23)
[2017-12-28] MEDS: CEFTRIAXONE SODIUM 1,000 MG in DEXTROSE 5%-WATER 50 ML IV SCH (17:40)
[2017-12-28] MEDS: ATORVASTATIN CALCIUM 10 MG TABLET PO SCH (21:23)
--- NOTE | 2017-12-28 23:46 | EKG REPORT ---
SEVERITY:- BORDERLINE ECG - SINUS RHYTHM BORDERLINE PROLONGED QT INTERVAL : Confirmed by: Jesus Braxton 28-Dec-2017 23:45:07
[2017-12-29] MEDS: LEVOTHYROXINE SODIUM 0.05 MG TABLET PO SCH (06:07)
[2017-12-29] MEDS: LANSOPRAZOLE 30 MG TAB.RAP.DR PO SCH (06:07)
[2017-12-29 08:01] LABS: ANION GAP 12 (5-19); BLOOD UREA NITROGEN 9 mg/dL (7-20); CALCIUM 9.6 mg/dL (8.4-10.2); CARBON DIOXIDE 23 mmol/L (22-30); CHLORIDE 107 mmol/L (98-107); GLUCOSE 94 mg/dL (75-110); POTASSIUM 4.9 mmol/L (3.6-5.0)
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
[2017-12-29] MEDS: POTASSIUM CHLORIDE 10 MEQ CAPSULE.ER PO SCH ×2 (09:27→18:22)
[2017-12-29] MEDS: SODIUM BICARBONATE 650 MG TABLET PO SCH ×2 (09:27→18:22)
[2017-12-29] MEDS: ROPINIROLE HCL 1 MG TABLET PO SCH ×2 (09:27→21:02)
[2017-12-29] MEDS: MAGNESIUM OXIDE 400 MG TABLET PO SCH ×2 (09:27→18:22)
[2017-12-29] MEDS: CLOZAPINE 25 MG TABLET PO SCH (09:28)
[2017-12-29] MEDS: TRIHEXYPHENIDYL HCL 5 MG TABLET PO SCH ×3 (09:28→18:23)
[2017-12-29] MEDS: LUBIPROSTONE 24 MCG CAPSULE PO SCH ×2 (09:28→18:24)
[2017-12-29] MEDS: ENOXAPARIN SODIUM INJ 40 MG/0.4 ML DISP.SYRIN SUBCUT SCH (09:29)
[2017-12-29] MEDS: DESMOPRESSIN ACETATE 0.1 MG TABLET PO SCH ×3 (09:34→18:22)
[2017-12-29] MEDS: INSULIN REG, HUMAN 100 UNIT/ML 3 ML VIAL (PYX) SUBCUT PRN ×2 (12:30→18:23)
[2017-12-29] MEDS: CLOZAPINE 100 MG TABLET PO SCH ×2 (18:23→21:01)
[2017-12-29] MEDS: CEFTRIAXONE SODIUM 1,000 MG in DEXTROSE 5%-WATER 50 ML IV SCH (18:24)
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
[2017-12-29] MEDS: ATORVASTATIN CALCIUM 10 MG TABLET PO SCH (21:02)
[2017-12-30] MEDS: LEVOTHYROXINE SODIUM 0.05 MG TABLET PO SCH (05:49)
[2017-12-30] MEDS: LANSOPRAZOLE 30 MG TAB.RAP.DR PO SCH (05:49)
[2017-12-30 06:59] LABS: ANION GAP 12 (5-19); BLOOD UREA NITROGEN 13 mg/dL (7-20); CALCIUM 9.3 mg/dL (8.4-10.2); CARBON DIOXIDE 23 mmol/L (22-30); CHLORIDE 103 mmol/L (98-107); GLUCOSE 99 mg/dL (75-110); POTASSIUM 4.9 mmol/L (3.6-5.0); SODIUM 138.3 mmol/L (137-145)
[2017-12-30] MEDS: TRIHEXYPHENIDYL HCL 5 MG TABLET PO SCH ×3 (08:19→17:19)
[2017-12-30] MEDS: CLOZAPINE 25 MG TABLET PO SCH (08:19)
[2017-12-30] MEDS: ROPINIROLE HCL 1 MG TABLET PO SCH ×2 (10:58→21:47)
[2017-12-30] MEDS: LUBIPROSTONE 24 MCG CAPSULE PO SCH ×2 (10:58→17:19)
[2017-12-30] MEDS: MAGNESIUM OXIDE 400 MG TABLET PO SCH ×2 (10:59→17:20)
[2017-12-30] MEDS: POTASSIUM CHLORIDE 10 MEQ CAPSULE.ER PO SCH ×2 (10:59→17:23)
[2017-12-30] MEDS: SODIUM BICARBONATE 650 MG TABLET PO SCH ×2 (10:59→17:23)
[2017-12-30] MEDS: ENOXAPARIN SODIUM INJ 40 MG/0.4 ML DISP.SYRIN SUBCUT SCH (11:00)
[2017-12-30] MEDS: DESMOPRESSIN ACETATE 0.1 MG TABLET PO SCH ×3 (11:00→17:20)
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
[2017-12-30] MEDS: INSULIN REG, HUMAN 100 UNIT/ML 3 ML VIAL (PYX) SUBCUT PRN (17:17)
[2017-12-30] MEDS: CLOZAPINE 100 MG TABLET PO SCH ×2 (17:18→21:47)
[2017-12-30] MEDS: CEFTRIAXONE SODIUM 1,000 MG in DEXTROSE 5%-WATER 50 ML IV SCH (17:24)
--- NOTE | 2017-12-30 19:29 | Progress Note ---
Provider Note Provider Note: ID Consult Note Asked to review patient's chart by Pharmacy. Pt not seen or examined. Reviewed provider notes, VS, lab results. Pt is a 52 year old man with DM, GERD, hyperlipdiemia, DI, and schizoaffective d /o who was admitted through the [facility] ED for overdose. Pt apparently took all of his medications for the day at one time. According to the ED note, pt endorsed he was suicidal and reported voices telling him to take all the medications. His brother reported the patient had up to that point been eating and drinking without difficulty and urinating normally. According to ED provider note, pt had no c/o abdominal pain, n/v, urinary retention, dysuria, hematuria, or fever. Dysuria is not documented in subsequent notes, and pt has not had suprapubic tenderness on exam. Pt has been afebrile. Blood cultures are negative. U/A on 12/27 had 66 WBC, moderate leukocyte esterase, positive nitrites. UCx grew >100k cfu Klebsiella pneumoniae. Pt has been receiving IV Rocephin for diagnosis of acute cystitis. Impression/Recommendations Asymptomatic bacteriuria - U/A and UCx are not sufficient to dx UTI in absence of typical irritative urinary symptoms (urgency, dysuria, suprapubic pain). Asymptomatic colonization of urine can occur and increases with age and comorbidities. Situations in which asymptomatic bacteriuria would require antibiotic therapy are and prior to invasive urologic procedure where mucosal bleeding is anticipated. Otherwise, no antibiotic is indicated. - Recommend discontinuing Rocephin Elvin Alejandra MD [facility] Infectious Diseases pager [phone]
[2017-12-30] MEDS: ATORVASTATIN CALCIUM 10 MG TABLET PO SCH (21:47)
[2017-12-31] MEDS: LANSOPRAZOLE 30 MG TAB.RAP.DR PO SCH (05:47)
[2017-12-31] MEDS: LEVOTHYROXINE SODIUM 0.05 MG TABLET PO SCH (05:47)
[2017-12-31 06:58] LABS: ANION GAP 11 (5-19); BLOOD UREA NITROGEN 15 mg/dL (7-20); CALCIUM 9.3 mg/dL (8.4-10.2); CARBON DIOXIDE 24 mmol/L (22-30); CHLORIDE 99 mmol/L (98-107); GLUCOSE 92 mg/dL (75-110); POTASSIUM 4.9 mmol/L (3.6-5.0); SODIUM 133.8 mmol/L (137-145)
[2017-12-31] MEDS: TRIHEXYPHENIDYL HCL 5 MG TABLET PO SCH ×3 (08:10→17:33)
[2017-12-31] MEDS: CLOZAPINE 25 MG TABLET PO SCH (08:10)
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
[2017-12-31] MEDS: LUBIPROSTONE 24 MCG CAPSULE PO SCH ×2 (10:00→17:33)
[2017-12-31] MEDS: DESMOPRESSIN ACETATE 0.1 MG TABLET PO SCH ×2 (10:01→17:33)
[2017-12-31] MEDS: METFORMIN HCL 500 MG TABLET PO SCH (10:01)
[2017-12-31] MEDS: ENOXAPARIN SODIUM INJ 40 MG/0.4 ML DISP.SYRIN SUBCUT SCH (10:01)
[2017-12-31] MEDS: ROPINIROLE HCL 1 MG TABLET PO SCH ×2 (10:01→21:52)
[2017-12-31] MEDS: CLOZAPINE 100 MG TABLET PO SCH ×2 (17:33→21:53)
[2017-12-31] MEDS: ATORVASTATIN CALCIUM 10 MG TABLET PO SCH (21:52)
[2018-01-01] MEDS: LEVOTHYROXINE SODIUM 0.05 MG TABLET PO SCH (05:50)
[2018-01-01] MEDS: LANSOPRAZOLE 30 MG TAB.RAP.DR PO SCH (05:50)
[2018-01-01 06:32] LABS: ANION GAP 13 (5-19); BLOOD UREA NITROGEN 13 mg/dL (7-20); CALCIUM 9.4 mg/dL (8.4-10.2); CARBON DIOXIDE 21 mmol/L (22-30); CHLORIDE 96 mmol/L (98-107); GLUCOSE 99 mg/dL (75-110); POTASSIUM 4.5 mmol/L (3.6-5.0); SODIUM 130.4 mmol/L (137-145)
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
[2018-01-01] MEDS: TRIHEXYPHENIDYL HCL 5 MG TABLET PO SCH ×3 (08:00→17:16)
[2018-01-01] MEDS: CLOZAPINE 25 MG TABLET PO SCH (08:25)
[2018-01-01] MEDS: ENOXAPARIN SODIUM INJ 40 MG/0.4 ML DISP.SYRIN SUBCUT SCH (10:19)
[2018-01-01] MEDS: METFORMIN HCL 500 MG TABLET PO SCH (10:20)
[2018-01-01] MEDS: ROPINIROLE HCL 1 MG TABLET PO SCH ×2 (10:20→21:54)
[2018-01-01] MEDS: LUBIPROSTONE 24 MCG CAPSULE PO SCH ×2 (10:20→17:16)
[2018-01-01] MEDS: CLOZAPINE 100 MG TABLET PO SCH ×2 (17:16→21:56)
[2018-01-01] MEDS: ATORVASTATIN CALCIUM 10 MG TABLET PO SCH (21:55)
[2018-01-01] MEDS ORDERED: DESMOPRESSIN ACETATE 0.1 MG TABLET PO SCH (22:00)
[2018-01-02] MEDS: LEVOTHYROXINE SODIUM 0.05 MG TABLET PO SCH (06:01)
[2018-01-02] MEDS: LANSOPRAZOLE 30 MG TAB.RAP.DR PO SCH (06:02)
[2018-01-02 06:38] LABS: ANION GAP 16 (5-19); BLOOD UREA NITROGEN 18 mg/dL (7-20); CALCIUM 9.7 mg/dL (8.4-10.2); CARBON DIOXIDE 21 mmol/L (22-30); CHLORIDE 107 mmol/L (98-107); GLUCOSE 107 mg/dL (75-110); POTASSIUM 4.8 mmol/L (3.6-5.0); SODIUM 143.9 mmol/L (137-145)
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
[2018-01-02] MEDS: METFORMIN HCL 500 MG TABLET PO SCH (09:14)
[2018-01-02] MEDS: LUBIPROSTONE 24 MCG CAPSULE PO SCH ×2 (09:14→17:36)
[2018-01-02] MEDS: CLOZAPINE 25 MG TABLET PO SCH (09:14)
[2018-01-02] MEDS: TRIHEXYPHENIDYL HCL 5 MG TABLET PO SCH ×3 (09:14→17:36)
[2018-01-02] MEDS: ENOXAPARIN SODIUM INJ 40 MG/0.4 ML DISP.SYRIN SUBCUT SCH (09:15)
[2018-01-02] MEDS: ROPINIROLE HCL 1 MG TABLET PO SCH ×2 (09:15→21:48)
[2018-01-02] MEDS: CLOZAPINE 100 MG TABLET PO SCH ×2 (17:37→21:50)
[2018-01-02] MEDS: ATORVASTATIN CALCIUM 10 MG TABLET PO SCH (21:48)
[2018-01-03 06:23] LABS: ANION GAP 15 (5-19); BLOOD UREA NITROGEN 22 mg/dL (7-20); CALCIUM 9.6 mg/dL (8.4-10.2); CARBON DIOXIDE 20 mmol/L (22-30); CHLORIDE 110 mmol/L (98-107); GLUCOSE 91 mg/dL (75-110); POTASSIUM 4.5 mmol/L (3.6-5.0)
[2018-01-03] MEDS: LEVOTHYROXINE SODIUM 0.05 MG TABLET PO SCH (07:48)
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
[2018-01-03 08:15] VITALS: BP 118/81
[2018-01-03] MEDS: ROPINIROLE HCL 1 MG TABLET PO SCH (09:46)
[2018-01-03] MEDS: METFORMIN HCL 500 MG TABLET PO SCH (09:46)
[2018-01-03] MEDS: TRIHEXYPHENIDYL HCL 5 MG TABLET PO SCH ×2 (09:46→12:01)
[2018-01-03] MEDS: ENOXAPARIN SODIUM INJ 40 MG/0.4 ML DISP.SYRIN SUBCUT SCH (09:46)
[2018-01-03] MEDS: CLOZAPINE 25 MG TABLET PO SCH (09:46)
== END 2018-01-03 12:39 | disposition home or self-care (01) | DRG 641 ==
LOC: ER 12:05 → EH 14:29 → 3S 18:08
PROVIDERS: ADMIT Family Medicine; ATTEND Family Medicine
DX: E87.1 Hypo-osmolality and hyponatremia (principal); E23.2 Diabetes insipidus; R45.851 Suicidal ideations; R44.0 Auditory hallucinations; N30.00 Acute cystitis without hematuria; T76.11XA Adult physical abuse, suspected, initial encounter; E03.9 Hypothyroidism, unspecified; J43.1 Panlobular emphysema; E11.8 Type 2 diabetes mellitus with unspecified complications; R63.1 Polydipsia; R35.8 Other polyuria; K21.9 Gastro-esophageal reflux disease without esophagitis; F25.9 Schizoaffective disorder, unspecified; I25.10 Atherosclerotic heart disease of native coronary artery without angina pectoris; E78.5 Hyperlipidemia, unspecified; I10 Essential (primary) hypertension; F90.9 Attention-deficit hyperactivity disorder, unspecified type; F17.210 Nicotine dependence, cigarettes, uncomplicated; Y92.89 Other specified places as the place of occurrence of the external cause; Z79.84 Long term (current) use of oral hypoglycemic drugs; Z79.51 Long term (current) use of inhaled steroids; Z79.899 Other long term (current) drug therapy
CPT/HCPCS: 36415; 80048; 80053; 80178; 80307; 81001; 82607; 82728; 82746; 82803; 82962; 83540; 83550; 83605; 83690; 83735; 83930; 83935; 84300; 85025; 85045; 87040; 87086; 87088; 87186; 93005; 93010; 99285; J0696; J1650; J1815; J3490; J7030

== ENCOUNTER 2020-05-04 12:40 | Inpatient (IN) | payer MEDICARE, MEDICAID ==
[2020-05-04] MEDS ORDERED: NORMAL SALINE 1000 ML 1,000 ML IV ONE (13:16)
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
[2020-05-04 13:26] LABS: ABSOLUTE MONOCYTES (AUTO) 0.9 10^3/uL (0.1-1.4); ABSOLUTE NEUT (AUTO) 9.3 10^3/uL (1.7-8.2); BASOPHILS % (AUTO) 0.3 % (0-2); EOSINOPHILS % (AUTO) 0.1 % (0-6); HEMATOCRIT 44.4 % (37.9-51.0); HEMOGLOBIN 15.2 g/dL (13.5-17.0); LYMPHOCYTES % (AUTO) 8.8 % (13-45); MEAN CORPUSCULAR HEMOGLOBIN 30.6 pg (27.0-33.4); MEAN CORPUSCULAR HGB CONC 34.3 g/dL (32.0-36.0); MEAN CORPUSCULAR VOLUME 89 fl (80-97); MONOCYTES % (AUTO) 7.9 % (3-13); PLATELET COUNT 348 10^3/uL (150-450); RED BLOOD COUNT 4.97 10^6/uL (4.35-5.55); RED CELL DISTRIBUTION WIDTH 14.1 % (11.5-14.0); SEGMENTED NEUTROPHILS % (AUTO) 82.9 % (42-78); TOTAL CELLS COUNTED % (AUTO) 100 %; WHITE BLOOD COUNT 11.2 10^3/uL (4.0-10.5)
[2020-05-04 13:31] LABS: ALBUMIN 4.6 g/dL (3.5-5.0); ALKALINE PHOSPHATASE 117 U/L (38-126); ASPARTATE AMINO TRANSFERASE 28 U/L (17-59); BILIRUBIN,DIRECT 0.3 mg/dL (0.0-0.4); BILIRUBIN,TOTAL 0.8 mg/dL (0.2-1.3); BLOOD UREA NITROGEN 19 mg/dL (7-20); CREATINE KINASE 315 U/L (55-170); GLUCOSE 117 mg/dL (75-110); POTASSIUM 3.4 mmol/L (3.6-5.0); TOTAL PROTEIN 7.4 g/dL (6.3-8.2)
[2020-05-04 13:36] LABS: ANION GAP 18 (5-19); CARBON DIOXIDE 18 mmol/L (22-30); CHLORIDE 103 mmol/L (98-107)
[2020-05-04 13:38] LABS: ACETAMINOPHEN < 10 ug/mL (10-30); ALCOHOL < 10 mg/dL (NONE DETECTED)
[2020-05-04] MEDS ORDERED: LORAZEPAM INJ 2 MG/1 ML VIAL IV ONE ×2 (15:42→17:03)
[2020-05-04] MEDS ORDERED: LEVETIRACETAM 1000 MG/NACL-ISO 1,000 MG/100 ML RTUPB IV ONE (15:46)
--- NOTE | 2020-05-04 16:22 | ER Document Report ---
Entered by AMANDA OLSON SCRIBE 05/04/20 1542 Acting as scribe for:STEVEN HAWKINS MD ED General - General Chief Complaint: Altered Mental Status Stated Complaint: POSSIBLE SEIZURE Time Seen by Provider: 05/04/20 13:14 Primary Care Provider: YOLETTE TORRES MD [Primary Care Provider] - Follow up as needed Mode of Arrival: Medic Information source: Patient Notes: This 54 year old male patient presents to the emergency department today with complaints of a witnessed seizure prior to arrival. Patient is known to be an alcoholic and has been prescribed Valium in the past. According to external pharmacy records it appears that the last Valium the patient filled was on 03/07 and it was a 30-day supply. He does not answer questions and is nonverbal at this time so history is extremely limited. He was incontinent of urine. TRAVEL OUTSIDE OF THE [place] IN LAST 30 DAYS: No - Related Data Allergies/Adverse Reactions: sertraline Allergy (Verified 05/04/20 14:16) Home Medications: Iron, Requip, Pantaprazole, Desmopressin, Trazadone, Docusate Sodium, Clozapine, Benztropine. Past Medical History - General Information source: Relative, Emergency Med Personnel - Social History Smoking Status: Unknown if Ever Smoked Frequency of alcohol use: None Drug Abuse: None Lives with: Family Family History: Reviewed & Not Pertinent - Past Medical History Cardiac Medical History: Reports: Hx Coronary Artery Disease - hyperlipedmia, Hx Hypercholesterolemia, Hx Hypertension Pulmonary Medical History: Reports: Hx COPD, Hx Respiratory Failure Endocrine Medical History: Reports: Hx Diabetes Mellitus Type 2, Hx Hypothyroidism GI Medical History: Reports: Hx Gastroesophageal Reflux Disease Psychiatric Medical History: Reports: Hx Attention Deficit Hyperactivity Disorder, Hx Schizoaffective Disorder Surgical Hx: Negative Review of Systems - Review of Systems -: Yes ROS unobtainable due to patient's medical condition - does not respond to questions Physical Exam - Vital signs Vitals: Temp 97.1 F 05/04/20 12:54 - Notes Notes: Physical Exam: General: Alert, behavior consistent with tardive dyskinesia, excessive usage of the muscles of the face and jaw. Does not answer or respond to any questions. HEENT: Normocephalic. Atraumatic. PERRL. Extraocular movements intact. Oropharynx clear. Neck: Supple. Non-tender. Respiratory: No respiratory distress. Clear and equal breath sounds bilaterally. Cardiovascular: Regular rate and rhythm. Abdominal: Normal Inspection. Non-tender. No distension. Normal Bowel Sounds. Back: No gross abnormalities. Extremities: Moves all four extremities. Upper extremities: Normal inspection. Normal ROM. Lower extremities: Normal inspection. No edema. Normal ROM. Skin: Warm. Dry. Normal color. Course - Re-evaluation Re-evalutation: 05/04/20 20:31 The patient's oral tardive dyskinesia improved considerably after the Cogentin. The patient was sleeping with no facial movement at all. I woke him up and when we were getting him to start talking, he did develop a little bit of the jaw and tongue movement, but not nearly as bad as it was prior to the Cogentin. - Vital Signs Vital signs: Temp Pulse Resp BP Pulse Ox 97.1 F 22 H 109/69 95 05/04/20 12:54 05/04/20 18:09 05/04/20 20:53 05/04/20 18:09 - Laboratory Results Result Diagrams: 05/04/20 12:44 05/04/20 12:44 Laboratory Results Interpreted: 05/04/20 05/04/20 05/04/20 12:44 12:44 12:44 WBC 11.2 H RDW 14.1 H Lymph % (Auto) 8.8 L Absolute Neuts (auto) 9.3 H Seg Neutrophils % 82.9 H Potassium 3.4 L Carbon Dioxide 18 L Glucose 117 H POC Glucose Magnesium Creatine Kinase 315 H Urine Protein Urine Glucose (UA) Urine Ketones Acetaminophen < 10 L 05/04/20 05/04/20 05/04/20 12:44 12:49 19:55 WBC RDW Lymph % (Auto) Absolute Neuts (auto) Seg Neutrophils % Potassium Carbon Dioxide Glucose POC Glucose 118 H Magnesium 2.4 H Creatine Kinase Urine Protein 30 H Urine Glucose (UA) 50 H Urine Ketones 80 H Acetaminophen Critical Laboratory Results Reviewed: No Critical Results - Radiology Results Critical Radiology Results Reviewed: No Critical Results - EKG Interpretation by Ri EKG shows normal: Sinus rhythm, Ross, Intervals, QRS Complexes, ST-T Waves Rate: Normal - 75 Rhythm: NSR Ross/QRS: RBBB P Waves: RENATO, LAE When compared to previous EKG there are: No significant change - Consults Dr. Larson Time consulted: 20:15 Consulted provider: will come to ER Discharge - Discharge Clinical Impression: Seizure, Tardive dyskinesia Altered mental status Qualifiers: Altered mental status type: unspecified Qualified Code(s): R41.82 - Altered mental status, unspecified Condition: Good Disposition: ADMITTED OBSERVATION Admitting Provider: [facility] Unit Admitted: I[facility]U Referrals: YOLETTE TORRES MD [Primary Care Provider] - Follow up as needed I personally performed the services described in the documentation, reviewed and edited the documentation which was dictated to the scribe in my presence, and it accurately records my words and actions.
[2020-05-04 16:53] LABS: FREE T3 3.16 pg/mL (2.77-5.27); FREE T4 (FREE THYROXINE) 1.3 ng/dL (0.78-2.19)
[2020-05-04 17:06] LABS: THYROID STIMULATING HORMONE 1.43 uIU/mL (0.47-4.68)
--- NOTE | 2020-05-04 18:29 | RADIOLOGY REPORT (SQ) ---
EXAM DESCRIPTION: CT HEAD WITHOUT IMAGES COMPLETED DATE/TIME: 05/04/2020 5:10 pm REASON FOR STUDY: fall none verbal COMPARISON: 09/07/2017 TECHNIQUE: Axial images acquired through the brain without intravenous contrast. Images reviewed wi th bone, brain and subdural windows. Additional sagittal and coronal reconstructions were generated. Images stored on PACS. All CT scanners at this facility use dose modulation, iterative reconstruction, and/or weight based d osing when appropriate to reduce radiation dose to as low as reasonably achievable (ALARA). [facility]: Dose Right [facility]: CareDose [facility]: Dose Right [facility]: Teradose 4D [facility]: Smart Nexi RADIATION DOSE: CT Rad equipment meets quality standard of care and radiation dose reduction techniq ues were employed. CTDIvol: 55.2 mGy. DLP: 2113 mGy-cm. mGy. LIMITATIONS: Beam hardening artifact and mild motion artifact. FINDINGS: VENTRICLES: Normal size and contour. CEREBRUM: No masses. Within the limits of the examination there is no evidence for intracranial hemo rrhage. No midline shift. No evidence for acute infarction. Normal garvey/white matter differentiatio n. No areas of low density in the white matter. CEREBELLUM: No masses. No hemorrhage. No alteration of density. No evidence for acute infarction. EXTRAAXIAL SPACES: No fluid collections. No masses. ORBITS AND GLOBE: No intra- or extraconal masses. Normal contour of globe without masses. CALVARIUM: No fracture. PARANASAL SINUSES: No fluid or mucosal thickening. SOFT TISSUES: No mass or hematoma. OTHER: No other significant finding. IMPRESSION: Somewhat limited evaluation due to motion and beam hardening artifact from tech holding the patients head. Within the limits of the examination there is no evidence of acute intracranial h emorrhage, mass, or evidence of acute territorial infarct. EVIDENCE OF ACUTE STROKE: NO. COMMENT: Quality ID # [id number]: Final reports with documentation of one or more dose reduction techniques (e.g., Automated exposure control, adjustment of the mA and/or kV according to patient size, use of iterative reconstruction technique) TECHNICAL DOCUMENTATION: JOB ID: [id number] 2010 [employer]- All Rights Reserved Reading location - IP/workstation name: [id number]
[2020-05-04] MEDS ORDERED: POTASSIUM CHLORIDE 20 MEQ PACKET PO ONE (18:56)
[2020-05-04] MEDS ORDERED: RINGERS SOLUTION,LACTATED 1,000 ML IV ONE (18:56)
[2020-05-04] MEDS ORDERED: BENZTROPINE MESYLATE INJ 2 MG/2 ML AMPULE IM STA (19:26)
[2020-05-04 20:35] LABS: APPEARANCE,URINE CLEAR; BILIRUBIN,URINE NEGATIVE (NEGATIVE); COLOR,URINE YELLOW; GLUCOSE, URINE 50 mg/dL (NEGATIVE); KETONES,URINE 80 mg/dL (NEGATIVE); LEUKOCYTE ESTERASE,URINE NEGATIVE (NEGATIVE); NITRITE,URINE NEGATIVE (NEGATIVE); PROTEIN,URINE 30 mg/dL (NEGATIVE); URINE SPECIFIC GRAVITY 1.026; UROBILINOGEN,URINE NEGATIVE mg/dL (<2.0)
[2020-05-04 20:55] LABS: URINE AMPHETAMINES SCREEN NEGATIVE; URINE BARBITURATES SCREEN NEGATIVE; URINE COCAINE SCREEN NEGATIVE; URINE MARIJUANA (THC) SCREEN NEGATIVE; URINE METHADONE SCREEN NEGATIVE; URINE PHENCYCLIDINE SCREEN NEGATIVE
[2020-05-04 20:57] LABS: URINE BENZODIAZEPINES SCREEN UNCONFIRMED POSITIVE
[2020-05-04] MEDS ORDERED: ACETAMINOPHEN 325 MG TABLET PO PRN (21:23)
--- NOTE | 2020-05-04 22:18 | PDOC H&P ---
History of Present Illness Admission Date/PCP: 05/04/20 21:09 YOLETTE TORRES MD Patient complains of: Witnessed clonic tonic seizure History of Present Illness: LIAM GRANT is a 54 year old male The patient was brought to the emergency department by EMS. The EMS was called by family members who witnessed a tonic-clonic seizure. When the patient arrived to the emergency department he was confused and he had dystonic movements of his neck and face. He was alert. He received intravenous lorazepam and intramuscular Cogentin. The dystonic reaction significantly improved. The patient did not have seizure activity in the emergency department. He was hemodynamically stable and afebrile. He maintained good oxygen saturation. Patient has history of schizophrenia. He was at [facility] in March. He was on clozapine 200 mg daily prior to admission along with Cogentin 1 mg twice a day. I do not have the discharge summary but I have the d ischarge medication instruction. The clozapine was changed to 100 mg twice a day, the Cogentin was discontinued. Patient is very poor historian and he has extremely poor understanding of his medical conditions. He remembers being in the psychiatric hospital but he does not remember details. He lives with his niece, unfortunately nobody picked up the phone and I was unable to talk to any family members. The patient said that he was not feeling well for about 2 to 3 days and was not eating much but he was drinking. He does not remember having a seizure or passing out. He thinks he took his medications this morning. As he can recall he never had a seizure in his life. He denies drinking alcohol, he said he never had a problem with alcohol and he does not drink at all. He denies doing any drugs. He was very pleasant and cooperative. He still had dystonic movements on his face. He cannot tell whether he has chronic dystonic movements or not. Past Medical History Cardiac Medical History: Reports: Coronary Artery Disease - hyperlipedmia, Hy perlipidema, Hypertension Denies: Myocardial Infarction Pulmonary Medical History: Reports: Chronic Obstructive Pulmonary Disease (COPD), Respiratory Failure Denies: Asthma, Bronchitis, Pneumonia Neurological Medical History: Denies: Seizures Endocrine Medical History: Reports: Hypothyroidism GI Medical History: Reports: Gastroesophageal Reflux Disease Musculoskeltal Medical History: Denies: Arthritis Psychiatric Medical History: Reports: Attention Deficit Hyperactivity Disorder, Schizoaffective Disorder Traumatic Medical History: Denies: Gunshot Wound Hematology: Denies: Anemia, Sickle Cell Disease Infectious Medical History: Denies: Methicillin-Resistant Staph Aureus Past Surgical History Past Surgical History: Reports: None Denies: Pacemaker Social History Lives with: Family Smoking Status: Unknown if Ever Smoked Frequency of Alcohol Use: Heavy - He consequently denies drinking alcohol. It is unclear what is the truth. Hx Prescription Drug Abuse: Yes Family History Family History: Reviewed & Not Pertinent Parental Family History Reviewed: No - The patient is unable to give any information. Children Family History Reviewed: No Sibling(s) Family History Reviewed.: No Medication/Allergy Home Medications: Clozapine [Clozaril 100 mg Tablet] 100 mg PO Q12 12/27/17 Docusate Sodium [Colace 100 mg Capsule] 100 mg PO BIDP PRN 12/27/17 Esomeprazole Magnesium [Nexium] 40 mg PO DAILY 12/27/17 Ropinirole HCl [Requip 2 mg Tablet] 2 mg PO QHS 12/27/17 Benztropine Mesylate [Cogentin 1 mg Tablet] 1 mg PO Q12 05/04/20 Desmopressin Acetate [Ddavp] 0.2 mg PO QHS 05/04/20 Diazepam [Valium] 5 mg PO BIDP PRN 05/04/20 Ferrous Sulfate [Feosol 325 mg Tablet] 325 mg PO DAILY 05/04/20 Lactulose [Cephulac 20 gm/30 ml Syrup UD Cup] 10 gm PO DAILY 05/04/20 Multivitamin [Tab-A-Long (Multiple Vitamin) Tablet] 1 tab PO DAILY 05/04/20 Pantoprazole Sodium [Protonix [address] Tablet] 40 mg PO QAM 05/04/20 Trazodone HCl 150 mg PO QHS 05/04/20 Allergies/Adverse Reactions: sertraline Allergy (Verified 05/04/20 14:16) Review of Systems Constitutional: ABSENT: chills, fever(s), headache(s), weight gain, weight loss Eyes: ABSENT: visual disturbances Cardiovascular: ABSENT: chest pain, dyspnea on exertion, edema, orthropnea, palpitations Respiratory: ABSENT: cough, hemoptysis Neurological: PRESENT: confusion, convulsions, memory loss Endocrine: ABSENT: cold intolerance, heat intolerance, polydipsia, polyuria Hematologic/Lymphatic: ABSENT: easy bleeding, easy bruising Physical Exam Vital Signs: Temp Pulse Resp BP Pulse Ox 97.1 F 22 H 109/69 95 05/04/20 12:54 05/04/20 18:09 05/04/20 20:53 05/04/20 18:09 Intake & Output 05/03/20 05/04/20 05/05/20 06:59 06:59 06:59 Intake Total 2100 Balance 2100 Weight 73.4 kg General appearance: PRESENT: no acute distress, disheveled Head exam: PRESENT: atraumatic Eye exam: PRESENT: conjunctiva pink, EOMI, PERRLA. ABSENT: scleral icterus Ear exam: PRESENT: normal external ear exam Mouth exam: PRESENT: moist, tongue midline Neck exam: ABSENT: carotid bruit, JVD, lymphadenopathy, thyromegaly Respiratory exam: PRESENT: clear to auscultation cleo. ABSENT: rales, rhonchi, wheezes Cardiovascular exam: PRESENT: RRR. ABSENT: diastolic murmur, rubs, systolic murmur Pulses: PRESENT: normal carotid pulses, normal radial pulses, normal femoral pulses Vascular exam: PRESENT: normal capillary refill GI/Abdominal exam: PRESENT: normal bowel sounds, soft. ABSENT: distended, guarding, mass, organolmegaly, rebound, tenderness Extremities exam: PRESENT: other - Superficial abrasion over the posterior right shoulder area. Neurological exam: PRESENT: alert, oriented to person, oriented to place, oriented to time - Partially oriented in time, other - Involuntary movement of the facial muscles. Minimal involuntary movement of the neck muscles. Focused psych exam: PRESENT: other - Involuntary movement of the facial and a little bit of the neck muscles. He is cooperative, answers questions, extremely poor memory, short and long-term memory being affected. Results Laboratory Results: 05/04/20 12:44 05/04/20 12:44 05/04/20 05/04/20 05/04/20 12:44 12:44 12:44 WBC 11.2 H RBC 4.97 Hgb 15.2 Hct 44.4 MCV 89 MCH 30.6 MCHC 34.3 RDW 14.1 H Plt Count 348 Seg Neutrophils % 82.9 H Sodium 139.3 Potassium 3.4 L Chloride 103 Carbon Dioxide 18 L Anion Gap 18 BUN 19 Creatinine 0.91 Est GFR ( Amer) > 60 Glucose 117 H Calcium 10.0 Magnesium Total Bilirubin 0.8 AST 28 Alkaline Phosphatase 117 Total Protein 7.4 Albumin 4.6 TSH Cancelled Free T4 Cancelled Free T3 pg/mL Cancelled Urine Color Urine Appearance Urine pH Ur Specific [place] Urine Protein Urine Glucose (UA) Urine Ketones Urine Blood Urine Nitrite Ur Leukocyte Esterase Urine WBC (Auto) Urine RBC (Auto) 05/04/20 05/04/20 05/04/20 12:44 12:44 12:44 WBC RBC Hgb Hct MCV MCH MCHC RDW Plt Count Seg Neutrophils % Sodium Potassium Chloride Carbon Dioxide Anion Gap BUN Creatinine Est GFR ( Amer) Glucose Calcium Magnesium Cancelled 2.4 H Total Bilirubin AST Alkaline Phosphatase Total Protein Albumin TSH 1.43 Free T4 1.30 Free T3 pg/mL 3.16 Urine Color Urine Appearance Urine pH Ur Specific [place] Urine Protein Urine Glucose (UA) Urine Ketones Urine Blood Urine Nitrite Ur Leukocyte Esterase Urine WBC (Auto) Urine RBC (Auto) 05/04/20 19:55 WBC RBC Hgb Hct MCV MCH MCHC RDW Plt Count Seg Neutrophils % Sodium Potassium Chloride Carbon Dioxide Anion Gap BUN Creatinine Est GFR ( Amer) Glucose Calcium Magnesium Total Bilirubin AST Alkaline Phosphatase Total Protein Albumin TSH Free T4 Free T3 pg/mL Urine Color YELLOW Urine Appearance CLEAR Urine pH 6.0 Ur Specific [place] 1.026 Urine Protein 30 H Urine Glucose (UA) 50 H Urine Ketones 80 H Urine Blood NEGATIVE Urine Nitrite NEGATIVE Ur Leukocyte Esterase NEGATIVE Urine WBC (Auto) 10 Urine RBC (Auto) 1 05/04/20 05/04/20 12:44 12:44 Creatine Kinase 315 H Troponin I 0.012 EKG Comments: Normal sinus rhythm Impressions: Head CT 05/04/20 13:15 IMPRESSION: Somewhat limited evaluation due to motion and beam hardening artifact from tech holding the patients head. Within the limits of the examination there is no evidence of acute intracranial hemorrhage, mass, or evidence of acute territorial infarct. EVIDENCE OF ACUTE STROKE: NO. Assessment and Plan - Diagnosis (1) Seizure Is this a current diagnosis for this admission?: Yes Plan: The patient had a episode with witnessed tonic-clonic seizure at home. No more seizure activity. The patient has no previous history of epilepsy. No previous history of seizure of other etiology according to our knowledge. Have only limited information, the patient unable to provide appropriate past medical history, family members are not available. He was given intravenous Keppra. I will continue Keppra 500 mg twice a day. If needed intravenous lorazepam. He received intravenous lorazepam in the emergency department. It is somewhat unclear whether the patient is taking benzodiazepines chronically or not. He was discharged home from the psychiatric hospital without any benzodiazepine prescription last month. Hopefully tomorrow we got him to be able to obtain more information from family members. Reviewing the discharge medication list from the psychiatric hospital ,no benzodiazepines being listed. In the chart it is documented the patient has history of alcoholism. He consequently denies drinking alcohol. He said he never had any problem with alcohol. I am going to put him on oral thiamine. (2) Dyskinesia Is this a current diagnosis for this admission?: Yes Plan: He has significant dyskinesia around the mouth, face, somewhat in the neck. It is a lot better since he received intravenous lorazepam and intramuscular Cogentin. The emergency department physician informed me that this dyskinesia was a whole lot worse on arrival. I am going to continue Cogentin by mouth. I am going to hold clozapine to avoid any adverse drug interaction. Tomorrow we may contact the psychiatrist who discharged the patient last month for some advice. Is unclear whether this dyskinesia is entirely acute,or partially acute and chronic or just chronic. I believe it is less likely that this is only chronic. (3) Schizo affective schizophrenia Is this a current diagnosis for this admission?: Yes Plan: We do not know his exact psychiatric diagnosis but previously he was diagnosed with schizoaffective disorder. I am going to hold Clozaril for now. I continue gabapentin and trazodone. - Plan Summary Summary: Patient was placed in observation after an episode with tonic-clonic seizure witnessed by family members at his home. He had no repeated seizure activity. According to our knowledge he does not have a diagnosis of epilepsy or other seizure disorder. He is very poor historian and he has significantly impaired short-term and long-term memory. He has schizophrenia or schizoaffective disorder and he was taking antipsychotic medications for long years. He has dyskinesia which significantly improved after lorazepam and benztropine. He was on oral benztropine along with Clozaril, benztropine was discontinued couple weeks ago. The patient was placed in observation to [facility]. We continued Keppra which was started earlier in the emergency department. Continue benztropine. Hold Clozaril. Try to discuss his case with his psychiatrist in the morning. Intravenous lorazepam as needed only. Oral thiamine. He denies having any alcohol problem. - Time Time Spent with patient: 35 or more minutes Medications reviewed and adjusted accordingly: Yes Anticipated Discharge Disposition: Home, Self Care Anticipated Discharge Timeframe: within 24 hours - Inpatient Certification Based on my medical assessment, after consideration of the patient's comorbidities, presenting symptoms, or acuity I expect that the services needed warrant INPATIENT care.: Yes I certify that my determination is in accordance with my understanding of Medicare's requirements for reasonable and necessary INPATIENT services [42 CFR 412.3e].: Yes Medical Necessity: Failure to Improve With Outpatient Therapy, Need Close Monitoring Due to Risk of Patient Decompensation, Need for Neurological Checks, Risk of Complication if Not Cared For in Hospital
[2020-05-04] MEDS: MELATONIN 3 MG TABLET PO SCH (23:24)
[2020-05-04] MEDS: TRAZODONE HCL 50 MG TABLET PO SCH (23:25)
[2020-05-04] MEDS: GABAPENTIN 100 MG CAPSULE PO SCH ×2 (23:29→23:33)
[2020-05-04] MEDS ORDERED: THIAMINE HCL 100 MG TABLET PO ONE (23:59)
[2020-05-05] MEDS: GABAPENTIN 100 MG CAPSULE PO SCH ×3 (05:09→21:14)
[2020-05-05] MEDS: PANTOPRAZOLE SODIUM 40 MG TABLET.DR PO SCH (05:10)
[2020-05-05 07:28] LABS: ALBUMIN 3.7 g/dL (3.5-5.0); ALKALINE PHOSPHATASE 89 U/L (38-126); ANION GAP 8 (5-19); ASPARTATE AMINO TRANSFERASE 29 U/L (17-59); BILIRUBIN,DIRECT 0.1 mg/dL (0.0-0.4); BILIRUBIN,TOTAL 0.6 mg/dL (0.2-1.3); BLOOD UREA NITROGEN 15 mg/dL (7-20); CALCIUM 9.2 mg/dL (8.4-10.2); CARBON DIOXIDE 24 mmol/L (22-30); CHLORIDE 107 mmol/L (98-107); GLUCOSE 123 mg/dL (75-110); POTASSIUM 3.4 mmol/L (3.6-5.0); TOTAL PROTEIN 6.1 g/dL (6.3-8.2)
[2020-05-05] MEDS ORDERED: POTASSIUM CHLORIDE 10 MEQ TABLET.ER PO ONE (09:00)
[2020-05-05] MEDS: BENZTROPINE MESYLATE 1 MG TABLET PO SCH ×2 (09:37→17:55)
[2020-05-05] MEDS: ASPIRIN 81 MG TABLET, CHEWABLE PO SCH (09:38)
[2020-05-05] MEDS: THIAMINE HCL 100 MG TABLET PO SCH (09:38)
--- NOTE | 2020-05-05 13:24 | EKG REPORT ---
SEVERITY:- ABNORMAL ECG - SINUS RHYTHM BIATRIAL ABNORMALITIES INCOMPLETE RIGHT BUNDLE BRANCH BLOCK : Confirmed by: Jesus Braxton 05-May-2020 13:23:09
[2020-05-05] MEDS ORDERED: DOCUSATE SODIUM 100 MG CAPSULE PO PRN (16:52)
--- NOTE | 2020-05-05 17:08 | PDOC PROGRESS REPORT ---
Subjective Date:: 05/05/20 Subjective:: Patient currently has no complaints. Reason For Visit: SEIZURE,DYSTONIC REACTION Physical Exam Vital Signs: Temp Pulse Resp BP Pulse Ox 97.8 F 84 20 137/72 H 97 05/05/20 12:20 05/05/20 12:20 05/05/20 12:20 05/05/20 12:20 05/05/20 12:20 Intake & Output 05/04/20 05/05/20 05/06/20 06:59 06:59 06:59 Intake Total 2570 960 Output Total 50 50 Balance 2520 910 Weight 73.4 kg General appearance: PRESENT: no acute distress, cooperative Neck exam: ABSENT: JVD Respiratory exam: PRESENT: unlabored. ABSENT: accessory muscle use, wheezes Cardiovascular exam: PRESENT: +S1, +S2 Neurological exam: PRESENT: alert, awake, oriented to person, oriented to place Psychiatric exam: PRESENT: unusual affect. ABSENT: agitated, anxious Results Laboratory Results: 05/04/20 12:44 05/05/20 05:51 05/04/20 05/04/20 05/05/20 12:44 19:55 05:51 Sodium 139.3 Potassium 3.4 L Chloride 107 Carbon Dioxide 24 Anion Gap 8 BUN 15 Creatinine 0.74 Est GFR ( Amer) > 60 Glucose 123 H Calcium 9.2 Magnesium 2.1 Total Bilirubin 0.6 AST 29 Alkaline Phosphatase 89 Total Protein 6.1 L Albumin 3.7 TSH 1.43 Free T4 1.30 Free T3 pg/mL 3.16 Urine Color YELLOW Urine Appearance CLEAR Urine pH 6.0 Ur Specific [place] 1.026 Urine Protein 30 H Urine Glucose (UA) 50 H Urine Ketones 80 H Urine Blood NEGATIVE Urine Nitrite NEGATIVE Ur Leukocyte Esterase NEGATIVE Urine WBC (Auto) 10 Urine RBC (Auto) 1 05/04/20 05/04/20 05/04/20 12:44 12:44 22:43 Creatine Kinase 315 H 688 H Troponin I 0.012 05/04/20 05/05/20 05/05/20 22:43 05:51 05:51 Creatine Kinase 559 H Troponin I 0.018 < 0.012 05/05/20 05/05/20 10:58 10:58 Creatine Kinase 517 H Troponin I < 0.012 Impressions: Head CT 05/04/20 13:15 IMPRESSION: Somewhat limited evaluation due to motion and beam hardening artifact from tech holding the patients head. Within the limits of the examination there is no evidence of acute intracranial hemorrhage, mass, or evidence of acute territorial infarct. EVIDENCE OF ACUTE STROKE: NO. Assessment and Plan - Diagnosis (1) Seizure Is this a current diagnosis for this admission?: Yes (2) Dyskinesia Is this a current diagnosis for this admission?: Yes (3) Schizo affective schizophrenia Is this a current diagnosis for this admission?: Yes - Plan Summary Summary: Per admitting provider 05/04/2020 [Patient was placed in observation after an episode with tonic-clonic seizure witnessed by family members at his home. He had no repeated seizure activity. According to our knowledge he does not have a diagnosis of epilepsy or other seizure disorder. He is very poor historian and he has significantly impaired short-term and long-term memory. He has schizophrenia or schizoaffective disorder and he was taking antipsychotic medications for long years. He has dyskinesia which significantly improved after lorazepam and benztropine. He was on oral benztropine along with Clozaril, benztropine was discontinued couple weeks ago. The patient was placed in observation to [facility]. We continued Keppra which was started earlier in the emergency department. Continue benztropine. Hold Clozaril. Try to discuss his case with his psychiatrist in the morning. Intravenous lorazepam as needed only. Oral thiamine. He denies having any alcohol problem.] 05/05/2020 Patient seems stable at this time. Has not had any recurrence of his seizure activity while in the hospital. His CK is trending downwards now. There is no obvious identified etiology of his seizure after review of blood work and head CT. Seizure is an uncommon adverse effect of clozapine and as such clozapine was held on admission. Psych consult. Continue benztropine for dyskinesia. I did put in for an EEG to be performed but I have been informed this afternoon that it cannot be done until Friday. I have tried to reach patient's listed family member and emergency contact to discuss discharge planning and follow-up but have been unsuccessful in reaching anybody. We will leave patient on observation and monitor check labs in am - Time Time Spent with patient: 15-24 minutes Anticipated Discharge Disposition: Home with Home Health Anticipated Discharge Timeframe: within 24 hours
[2020-05-05] MEDS: DESMOPRESSIN ACETATE 0.1 MG TABLET PO SCH (21:13)
[2020-05-05] MEDS: MELATONIN 3 MG TABLET PO SCH (21:14)
[2020-05-05] MEDS: TRAZODONE HCL 50 MG TABLET PO SCH (21:14)
[2020-05-05] MEDS: ROPINIROLE HCL 2 MG TABLET PO SCH (21:16)
[2020-05-06] MEDS: PANTOPRAZOLE SODIUM 40 MG TABLET.DR PO SCH (05:28)
[2020-05-06] MEDS: GABAPENTIN 100 MG CAPSULE PO SCH ×3 (05:28→22:07)
[2020-05-06 06:57] LABS: HEMATOCRIT 39.4 % (37.9-51.0); HEMOGLOBIN 13.6 g/dL (13.5-17.0); MEAN CORPUSCULAR HEMOGLOBIN 30.5 pg (27.0-33.4); MEAN CORPUSCULAR HGB CONC 34.4 g/dL (32.0-36.0); MEAN CORPUSCULAR VOLUME 89 fl (80-97); PLATELET COUNT 255 10^3/uL (150-450); RED BLOOD COUNT 4.45 10^6/uL (4.35-5.55); RED CELL DISTRIBUTION WIDTH 14.4 % (11.5-14.0); WHITE BLOOD COUNT 5.9 10^3/uL (4.0-10.5)
[2020-05-06 07:21] LABS: ANION GAP 8 (5-19); BLOOD UREA NITROGEN 13 mg/dL (7-20); CALCIUM 9.6 mg/dL (8.4-10.2); CARBON DIOXIDE 25 mmol/L (22-30); CHLORIDE 106 mmol/L (98-107); GLUCOSE 92 mg/dL (75-110); POTASSIUM 3.6 mmol/L (3.6-5.0)
[2020-05-06] MEDS ORDERED: PANTOPRAZOLE SODIUM 40 MG TABLET.DR PO SCH (08:00)
[2020-05-06] MEDS ORDERED: INFLUENZA QUAD (6MOS+) 2020-21 VAC 0.5 ML SYR IM ONE (08:00)
[2020-05-06] MEDS: LACTULOSE SYRUP 20 GM/30 ML UDCUP PO SCH (10:06)
[2020-05-06] MEDS: BENZTROPINE MESYLATE 1 MG TABLET PO SCH ×2 (10:06→17:37)
[2020-05-06] MEDS: THIAMINE HCL 100 MG TABLET PO SCH (10:07)
[2020-05-06] MEDS: FERROUS SULFATE 325 MG TABLET PO SCH (10:07)
[2020-05-06] MEDS: MULTIVITAMIN TABLET PO SCH (10:07)
[2020-05-06] MEDS: ASPIRIN 81 MG TABLET, CHEWABLE PO SCH (10:07)
--- NOTE | 2020-05-06 17:51 | PDOC PROGRESS REPORT ---
Subjective Subjective:: Per Previous Physician: "LIAM GRANT is a 54 year old male The patient was brought to the emergency department by EMS. The EMS was called by family members who witnessed a tonic-clonic seizure. When the patient arri wolfgang to the emergency department he was confused and he had dystonic movements of his neck and face. He was alert. He received intravenous lorazepam and intramuscular Cogentin. The dystonic reaction significantly improved. The patient did not have seizure activity in the emergency department. He was hemodynamically stable and afebrile. He maintained good oxygen saturation. Patient has history of schizophrenia. He was at [facility] in March. He was on clozapine 200 mg daily prior to admission along with Cogentin 1 mg twice a day. I do not have the discharge summary but I have the discharge medication instruction. The clozapine was changed to 100 mg twice a day, the Cogentin was discontinued. Patient is very poor historian and he has extremely poor understanding of his m edical conditions. He remembers being in the psychiatric hospital but he does not remember details. He lives with his niece, unfortunately nobody picked up the phone and I was unable to talk to any family members. The patient said that he was not feeling well for about 2 to 3 days and was not eating much but he was drinking. He does not remember having a seizure or passing out. He thinks he took his medications this morning. As he can recall he never had a seizure in his life. He denies drinking alcohol, he said he never had a problem with alcohol and he does not drink at all. He denies doing any drugs. He was very pleasant and cooperative. He still had dystonic movements on his face. He cannot tell whether he has chronic dystonic movements or not." 05/06/2020 Patient is mildly anxious today but this is likely due to his chronic schizoaffective disorder and possibly his baseline. His CK is lower and troponin has been flat x3. Patient has denied any alcohol abuse in recent history. Otherwise, he has no new complaints. No further seizure activity. EEG will be done on Friday. Reason For Visit: SEIZURE, DYSKINESIA Physical Exam Vital Signs: Temp Pulse Resp BP Pulse Ox 99.1 F 63 16 131/69 H 100 05/06/20 16:01 05/06/20 16:01 05/06/20 16:01 05/06/20 16:01 05/06/20 16:01 Intake & Output 05/05/20 05/06/20 05/07/20 06:59 06:59 06:59 Intake Total 2570 1260 Output Total 50 662 Balance 2520 598 Weight 73.4 kg 71.2 kg Exam: General appearance: PRESENT: no acute distress, well-developed, well-nourished, anxious in withdrawal Head exam: PRESENT: atraumatic, normocephalic Eye exam: PRESENT: conjunctiva pink. ABSENT: scleral icterus Mouth exam: PRESENT: moist Respiratory exam: PRESENT: clear to auscultation cleo. ABSENT: rales, rhonchi, wheezes Cardiovascular exam: PRESENT: RRR. ABSENT: diastolic murmur, rubs, systolic murmur GI/Abdominal exam: PRESENT: normal bowel sounds, soft. ABSENT: distended, g uarding, mass, organolmegaly, rebound, tenderness Neurological exam: PRESENT: alert, awake, oriented to person, oriented to place, oriented to time, oriented to situation Psychiatric exam: PRESENT: appropriate affect, normal mood Skin exam: PRESENT: dry, intact, warm Results Laboratory Results: 05/06/20 05:43 05/06/20 05:43 05/06/20 05/06/20 05:43 05:43 WBC 5.9 RBC 4.45 Hgb 13.6 Hct 39.4 MCV 89 MCH 30.5 MCHC 34.4 RDW 14.4 H Plt Count 255 Sodium 139.1 Potassium 3.6 Chloride 106 Carbon Dioxide 25 Anion Gap 8 BUN 13 Creatinine 0.67 Est GFR ( Amer) > 60 Glucose 92 Calcium 9.6 05/04/20 05/04/20 05/04/20 12:44 12:44 22:43 Creatine Kinase 315 H 688 H Troponin I 0.012 05/04/20 05/05/20 05/05/20 22:43 05:51 05:51 Creatine Kinase 559 H Troponin I 0.018 < 0.012 05/05/20 05/05/20 10:58 10:58 Creatine Kinase 517 H Troponin I < 0.012 Impressions: Head CT 05/04/20 13:15 IMPRESSION: Somewhat limited evaluation due to motion and beam hardening artifact from tech holding the patients head. Within the limits of the examination there is no evidence of acute intracranial hemorrhage, mass, or evidence of acute territorial infarct. EVIDENCE OF ACUTE STROKE: NO. Assessment and Plan - Diagnosis (1) Dyskinesia Is this a current diagnosis for this admission?: Yes (2) Schizo affective schizophrenia Is this a current diagnosis for this admission?: Yes (3) Seizure Is this a current diagnosis for this admission?: Yes (4) Schizoaffective disorder, bipolar type without good prognostic features Is this a current diagnosis for this admission?: Yes (5) Type 2 diabetes mellitus without complications Qualifiers: Diabetes mellitus snf insulin use: without snf use Qualified Code(s): E11.9 - Type 2 diabetes mellitus without complications Is this a current diagnosis for this admission?: Yes - Plan Summary Summary: Per Previous Physician: "Patient was placed in observation after an episode with tonic-clonic seizure witnessed by family members at his home. He had no repeated seizure activity. According to our knowledge he does not have a diagnosis of epilepsy or other seizure disorder. He is very poor historian and he has significantly impaired short-term and long-term memory. He has schizophrenia or schizoaffective disorder and he was taking antipsychotic medications for long years. He has dyskinesia which significantly improved after lorazepam and benztropine. He was on oral benztropine along with Clozaril, benztropine was discontinued couple weeks ago. The patient was placed in observation to [facility]. We continued Keppra which was started earlier in the emergency department. Continue benztropine. Hold Clozaril. Try to discuss his case with his psychiatrist in the morning. Intr avenous lorazepam as needed only. Oral thiamine. He denies having any alcohol problem.] 05/05/2020 Patient seems stable at this time. Has not had any recurrence of his seizure activity while in the hospital. His CK is trending downwards now. There is no obvious identified etiology of his seizure after review of blood work and head CT. Seizure is an uncommon adverse effect of clozapine and as such clozapine was held on admission. Psych consult. Continue benztropine for dyskinesia. I did put in for an EEG to be performed but I have been informed this afternoon that it cannot be done until Friday. I have tried to reach patient's listed family member and emergency contact to discuss discharge planning and follow-up but have been unsuccessful in reaching anybody. We will leave patient on observation and monitor check labs in am" (1) Seizure No further seizure activity EEG ordered for 05/08/2020 Needs neurology outpatient follow-up (2) Dyskinesia CK trending down, troponin negative x3 (3) Schizo affective schizophrenia Needs psychiatry follow-up outpatient Home medications continued - Time Time Spent with patient: 15-24 minutes Anticipated Discharge Disposition: Home, Self Care Anticipated Discharge Timeframe: within 48 hours - Inpatient Certification Based on my medical assessment, after consideration of the patient's comorbidities, presenting symptoms, or acuity I expect that the services needed warrant INPATIENT care.: Yes I certify that my determination is in accordance with my understanding of Medicare's requirements for reasonable and necessary INPATIENT services [42 CFR 412.3e].: Yes Medical Necessity: Significant Comorbidiites Make Outpatient Treatment Too Risky, Need Close Monitoring Due to Risk of Patient Decompensation, Need for Neurological Checks, Risk of Complication if Not Cared For in Hospital, Risk of Diagnosis Which Will Require Inpatient Eval/Care/Monitoring
[2020-05-06] MEDS: DESMOPRESSIN ACETATE 0.1 MG TABLET PO SCH (22:07)
[2020-05-06] MEDS: MELATONIN 3 MG TABLET PO SCH (22:07)
[2020-05-06] MEDS: ROPINIROLE HCL 2 MG TABLET PO SCH (22:07)
[2020-05-06] MEDS: TRAZODONE HCL 50 MG TABLET PO SCH (22:07)
[2020-05-07] MEDS: PANTOPRAZOLE SODIUM 40 MG TABLET.DR PO SCH (05:56)
[2020-05-07] MEDS: GABAPENTIN 100 MG CAPSULE PO SCH ×3 (05:56→21:59)
[2020-05-07] MEDS: THIAMINE HCL 100 MG TABLET PO SCH (10:45)
[2020-05-07] MEDS: MULTIVITAMIN TABLET PO SCH (10:45)
[2020-05-07] MEDS: FERROUS SULFATE 325 MG TABLET PO SCH (10:45)
[2020-05-07] MEDS: LACTULOSE SYRUP 20 GM/30 ML UDCUP PO SCH (10:45)
[2020-05-07] MEDS: ASPIRIN 81 MG TABLET, CHEWABLE PO SCH (10:45)
[2020-05-07] MEDS: BENZTROPINE MESYLATE 1 MG TABLET PO SCH ×2 (10:46→17:55)
--- NOTE | 2020-05-07 14:32 | PSYCHOLOGICAL NOTE ---
Psych Note - Psych Note Date seen by psych provider: 05/06/20 Time seen by psych provider: 12:50 - Attempted Psych Note: Reason for Consult: psychosis Patient arrived to [facility] after concerns of possible seizure. He reportedly was recently discharges [facility]. It is unclear if he has been taking his medications. Consult attempted; unfortunately, the patient was unavailable due to being on the bedside commode. Clinician waited for approximately 15 minutes and the patient was still unavailable. Will attempt at a later time.
--- NOTE | 2020-05-07 15:00 | PSYCHOLOGICAL NOTE ---
Psych Note - Psych Note Date seen by psych provider: 05/07/20 Time seen by psych provider: 13:00 Psych Note: Reason for Consult: psychosis Patient arrived to [facility] after concerns of possible seizure. He reportedly was recently discharges [facility]. It is unclear if he has been taking his medications. Patient reports that he has been experiencing some confusion. He knows he is in the hospital however is unsure what hospital it is. Patient identifies living in [facility] and is able to provide the address and directions and how to get there. He reports he has been living in [facility] most of his life however is unsure how many hospitals are in the critical access hospital. Patient confirms he has recently went to [facility] and that it was "pretty good." Patient does disclose that he fell while there because he "passed out." Patient is unsure if they made medication adjustments while he was at [facility] and reports he thinks that his medications have been changed since coming to [place]. He reports he was taking his medications but thinks he may have run out. He reports that he has to wait until the first of the month to get more medication because that is when he gets his money. Patient currently believes it is . Patient states that he thinks it is currently April. Patient confirms he has family locally and states he lives with his niece and nephew, nephew spouse and their children. He reports that they have dogs and that he does not like dogs. Patient states that he would like to go to a correction because he thinks "I will be safer there." Patient denies any thoughts of wanting to harm himself or others however reports experiencing visual hallucinations "every 3 minutes for about 15 minutes." He reports that they are in color and it has been chronic for about a year. Patient states that his medications does help but still experiences them. Patient reports he has currently been awake for 2 days and hopes that tonight his medications will help him sleep. Patient confirms he has diagnosis of "schizophrenia and bipolar" e.g. schizoaffective disorder; bipolar disorder. Patient is alert and orientated to person, place and situation. There is some noted confusion when it comes to place and time. Mood is euthymic with congruent affect as evidenced by smiling laughing engaging with clinician. Patient denies suicidal and homicidal ideation. Delusions are absent and behaviors congruent with an intact reality based presentation i.e. organized and linear thought process. Patient is not demonstrating any behaviors of responding to internal stimuli currently however reports experiencing chronic visual hallucinations. It is currently unclear if patient has intellectual/developmental disorder or his intellectual abilities are currently impaired due to chronic mental health. Attention and concentration is currently good to fair. Insight, judgment, impulse control is fair to poor.
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
[2020-05-07] MEDS: TRAZODONE HCL 50 MG TABLET PO SCH (21:59)
[2020-05-07] MEDS: MELATONIN 3 MG TABLET PO SCH (21:59)
[2020-05-07] MEDS: ROPINIROLE HCL 2 MG TABLET PO SCH (22:00)
[2020-05-07] MEDS: DESMOPRESSIN ACETATE 0.1 MG TABLET PO SCH (22:01)
[2020-05-08] MEDS: GABAPENTIN 100 MG CAPSULE PO SCH ×3 (06:43→22:21)
[2020-05-08] MEDS: PANTOPRAZOLE SODIUM 40 MG TABLET.DR PO SCH (06:44)
[2020-05-08] MEDS: LACTULOSE SYRUP 20 GM/30 ML UDCUP PO SCH ×2 (09:01→09:09)
[2020-05-08] MEDS: BENZTROPINE MESYLATE 1 MG TABLET PO SCH ×2 (09:02→17:01)
[2020-05-08] MEDS: ASPIRIN 81 MG TABLET, CHEWABLE PO SCH (09:03)
[2020-05-08] MEDS: THIAMINE HCL 100 MG TABLET PO SCH (09:03)
[2020-05-08] MEDS: MULTIVITAMIN TABLET PO SCH (09:03)
[2020-05-08] MEDS: FERROUS SULFATE 325 MG TABLET PO SCH (09:03)
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
[2020-05-08] MEDS: TRAZODONE HCL 50 MG TABLET PO SCH (22:21)
[2020-05-08] MEDS: MELATONIN 3 MG TABLET PO SCH (22:21)
[2020-05-08] MEDS: ROPINIROLE HCL 2 MG TABLET PO SCH (22:22)
[2020-05-08] MEDS: DESMOPRESSIN ACETATE 0.1 MG TABLET PO SCH (22:22)
[2020-05-09] MEDS: GABAPENTIN 100 MG CAPSULE PO SCH ×3 (05:42→22:11)
[2020-05-09] MEDS: PANTOPRAZOLE SODIUM 40 MG TABLET.DR PO SCH (05:43)
[2020-05-09] MEDS: FERROUS SULFATE 325 MG TABLET PO SCH (09:39)
[2020-05-09] MEDS: THIAMINE HCL 100 MG TABLET PO SCH (09:39)
[2020-05-09] MEDS: MULTIVITAMIN TABLET PO SCH (09:39)
[2020-05-09] MEDS: BENZTROPINE MESYLATE 1 MG TABLET PO SCH ×2 (09:39→17:21)
[2020-05-09] MEDS: ASPIRIN 81 MG TABLET, CHEWABLE PO SCH (09:39)
[2020-05-09] MEDS: LACTULOSE SYRUP 20 GM/30 ML UDCUP PO SCH (09:40)
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
[2020-05-09] MEDS: MELATONIN 3 MG TABLET PO SCH (22:11)
[2020-05-09] MEDS: TRAZODONE HCL 50 MG TABLET PO SCH (22:11)
[2020-05-09] MEDS: ROPINIROLE HCL 2 MG TABLET PO SCH (22:12)
[2020-05-09] MEDS: DESMOPRESSIN ACETATE 0.1 MG TABLET PO SCH (22:12)
[2020-05-10] MEDS: GABAPENTIN 100 MG CAPSULE PO SCH ×3 (05:38→21:33)
[2020-05-10] MEDS: PANTOPRAZOLE SODIUM 40 MG TABLET.DR PO SCH (05:38)
[2020-05-10] MEDS: MULTIVITAMIN TABLET PO SCH (09:27)
[2020-05-10] MEDS: FERROUS SULFATE 325 MG TABLET PO SCH (09:27)
[2020-05-10] MEDS: THIAMINE HCL 100 MG TABLET PO SCH (09:27)
[2020-05-10] MEDS: ASPIRIN 81 MG TABLET, CHEWABLE PO SCH (09:27)
[2020-05-10] MEDS: BENZTROPINE MESYLATE 1 MG TABLET PO SCH ×2 (09:27→17:08)
[2020-05-10] MEDS: LACTULOSE SYRUP 20 GM/30 ML UDCUP PO SCH (09:30)
--- NOTE | 2020-05-10 11:05 | PDOC PROGRESS REPORT ---
Subjective Subjective:: Per Previous Physician: "LIAM GRANT is a 54 year old male The patient was brought to the emergency department by EMS. The EMS was called by family members who witnessed a tonic-clonic seizure. When the patient arri wolfgang to the emergency department he was confused and he had dystonic movements of his neck and face. He was alert. He received intravenous lorazepam and intramuscular Cogentin. The dystonic reaction significantly improved. The patient did not have seizure activity in the emergency department. He was hemodynamically stable and afebrile. He maintained good oxygen saturation. Patient has history of schizophrenia. He was at [facility] in March. He was on clozapine 200 mg daily prior to admission along with Cogentin 1 mg twice a day. I do not have the discharge summary but I have the discharge medication instruction. The clozapine was changed to 100 mg twice a day, the Cogentin was discontinued. Patient is very poor historian and he has extremely poor understanding of his m edical conditions. He remembers being in the psychiatric hospital but he does not remember details. He lives with his niece, unfortunately nobody picked up the phone and I was unable to talk to any family members. The patient said that he was not feeling well for about 2 to 3 days and was not eating much but he was drinking. He does not remember having a seizure or passing out. He thinks he took his medications this morning. As he can recall he never had a seizure in his life. He denies drinking alcohol, he said he never had a problem with alcohol and he does not drink at all. He denies doing any drugs. He was very pleasant and cooperative. He still had dystonic movements on his face. He cannot tell whether he has chronic dystonic movements or not." 05/06/2020 Patient is mildly anxious today but this is likely due to his chronic schizoaffective disorder and possibly his baseline. His CK is lower and troponin has been flat x3. Patient has denied any alcohol abuse in recent history. Otherwise, he has no new complaints. No further seizure activity. EEG will be done on Friday. 05/07/2020 EEG still pending for tomorrow. No signs of nonconvulsive status epilepticus, EEG will likely be of limited utility. Patient states he would like to go to long-term nursing facility at discharge the case management is able to arrange this. Reportedly, APS has been involved in the patient's care and he states he is unable to afford his medications in the outpatient setting. I believe it would be in his best interest to have [id number] care and he is calm enough that I believe he would do relatively well in a nursing facility long-term. 05/08/2020 Patient can be discharged to long-term nursing facility whenever we have insurance authorization. I discussed this with case management today. I am not sure where we are in this process but the patient is medically ready to leave at this time. He states he feels well today and has no new complaints. 05/09/2020 Patient doing well today. He is ready for discharge to long-term nursing facility whenever case management can get this arranged. Patient is smiling and in good spirits today. He is in full agreement with the plan. No new complaints. 05/10/2020 Patient is doing well again today. He is having an EEG which has been ordered last week but was delayed due to lack of photo technician support. He has no signs or symptoms status epilepticus and has no signs or symptoms of nonconvulsive status. He is a very pleasant demeanor and is smiling and optimistic about his nursing facility prospects. I believe he would do quite well in a long-term nursing facility and will hopefully get the care and medication he deserves as ordered by his physicians. Reason For Visit: SEIZURE, DYSKINESIA Physical Exam Vital Signs: Temp Pulse Resp BP Pulse Ox 97.4 F 71 18 115/88 H 100 05/10/20 10:00 05/10/20 08:01 05/10/20 08:01 05/10/20 08:01 05/10/20 08:01 Intake & Output 05/09/20 05/10/20 05/11/20 06:59 06:59 06:59 Intake Total 942 960 Output Total 450 950 Balance 492 10 Weight 72 kg 70.8 kg Exam: eneral appearance: PRESENT: no acute distress, well-developed, well-nourished, states he feels very good today Head exam: PRESENT: atraumatic, normocephalic Eye exam: PRESENT: conjunctiva pink. ABSENT: scleral icterus Mouth exam: PRESENT: moist Respiratory exam: PRESENT: clear to auscultation cleo. ABSENT: rales, rhonchi, wheezes Cardiovascular exam: PRESENT: RRR. ABSENT: diastolic murmur, rubs, systolic murmur GI/Abdominal exam: PRESENT: normal bowel sounds, soft. ABSENT: distended, guarding, mass, organolmegaly, rebound, tenderness Neurological exam: PRESENT: alert, awake, oriented to person, oriented to place, oriented to time, oriented to situation Psychiatric exam: PRESENT: appropriate affect, normal mood Skin exam: PRESENT: dry, intact, warm Results Laboratory Results: 05/06/20 05:43 05/06/20 05:43 05/04/20 05/04/20 05/04/20 12:44 12:44 22:43 Creatine Kinase 315 H 688 H Troponin I 0.012 05/04/20 05/05/20 05/05/20 22:43 05:51 05:51 Creatine Kinase 559 H Troponin I 0.018 < 0.012 05/05/20 05/05/20 10:58 10:58 Creatine Kinase 517 H Troponin I < 0.012 Impressions: Head CT 05/04/20 13:15 IMPRESSION: Somewhat limited evaluation due to motion and beam hardening artifact from tech holding the patients head. Within the limits of the examination there is no evidence of acute intracranial hemorrhage, mass, or ev idence of acute territorial infarct. EVIDENCE OF ACUTE STROKE: NO. Assessment and Plan - Diagnosis (1) Dyskinesia Is this a current diagnosis for this admission?: Yes (2) Schizo affective schizophrenia Is this a current diagnosis for this admission?: Yes (3) Seizure Is this a current diagnosis for this admission?: Yes (4) Schizoaffective disorder, bipolar type without good prognostic features Is this a current diagnosis for this admission?: Yes (5) Type 2 diabetes mellitus without complications Qualifiers: Diabetes mellitus mcfp insulin use: without terminal make up operator use Qualified Code(s): E11.9 - Type 2 diabetes mellitus without complications Is this a current diagnosis for this admission?: Yes - Plan Summary Summary: Per Previous Physician: "Patient was placed in observation after an episode with tonic-clonic seizure witnessed by family members at his home. He had no repeated seizure activity. According to our knowledge he does not have a diagnosis of epilepsy or other seizure disorder. He is very poor historian and he has significantly impaired short-term and long-term memory. He has schizophrenia or schizoaffective disorder and he was taking antipsychotic medications for long years. He has dyskinesia which significantly improved after lorazepam and benztropine. He was on oral benztropine along with Clozaril, benztropine was discontinued couple weeks ago. The patient was placed in observation to [facility]. We continued Keppra which was started earlier in the emergency department. Continue benztropine. Hold Clozaril. Try to discuss his case with his psychiatrist in the morning. Intravenous lorazepam as needed only. Oral thiamine. He denies having any alcohol problem.] 05/05/2020 Patient seems stable at this time. Has not had any recurrence of his seizure activity while in the hospital. His CK is trending downwards now. There is no obvious identified etiology of his seizure after review of blood work and head CT. Seizure is an uncommon adverse effect of clozapine and as such clozapine was held on admission. Psych consult. Continue benztropine for dyskinesia. I did put in for an EEG to be performed but I have been informed this afternoon that it cannot be done until Friday. I have tried to reach patient's listed family member and emergency contact to discuss discharge planning and follow-up but have been unsuccessful in reaching anybody. We will leave patient on observation and monitor check labs in am" Waiting for placement at long-term nursing facility (1) Seizure No further seizure activity EEG ordered for 05/08/2020 Needs neurology outpatient follow-up Not on any antiepileptic medications EEG done 05/10, no signs or symptoms of status epilepticus or nonconvulsive status (2) Dyskinesia CK trending down, troponin negative x3 (3) Schizo affective schizophrenia Needs psychiatry follow-up outpatient Home medications continued Patient request discharge to long-term nursing facility, reportedly APS is involved as patient is potentially being neglected outpatient and he states he cannot afford his medications Plan to discharge patient to long-term nursing facility, he is in full agreement with this - Time Time Spent with patient: 15-24 minutes Anticipated Discharge Disposition: [facility] Anticipated Discharge Timeframe: within 24 hours - Inpatient Certification Based on my medical assessment, after consideration of the patient's comorbidities, presenting symptoms, or acuity I expect that the services needed warrant INPATIENT care.: Yes I certify that my determination is in accordance with my understanding of Medicare's requirements for reasonable and necessary INPATIENT services [42 CFR 412.3e].: Yes Medical Necessity: Significant Comorbidiites Make Outpatient Treatment Too Risky, Need Close Monitoring Due to Risk of Patient Decompensation, Risk of Complication if Not Cared For in Hospital, Risk of Diagnosis Which Will Require Inpatient Eval/Care/Monitoring
[2020-05-10] MEDS: DESMOPRESSIN ACETATE 0.1 MG TABLET PO SCH (21:33)
[2020-05-10] MEDS: ROPINIROLE HCL 2 MG TABLET PO SCH (21:34)
[2020-05-10] MEDS: MELATONIN 3 MG TABLET PO SCH (21:34)
[2020-05-10] MEDS: TRAZODONE HCL 50 MG TABLET PO SCH (21:34)
--- NOTE | 2020-05-10 22:31 | NEURO WORKBENCH EEG REPORT ---
EEG Report Patient: Juancho Garcia ID: [id number] Referring Doctor: Nicolasa Aguilar DOS: 05/10/2020 Medications: aspirin, cogentin, ddavp, feosol, gabapentin, lactulose, melatonin, multivitamins, protonix, requip, thiamine, desyrel History This is a 54 year old right handed male with a history of atrial fibrillation, hyperlipidemia, hypercholesterolemia, hypertension, respiratory failure, COPD, GERD, type 2 diabetes, hypothyroidism, bipolar disorder, depression, schizophrenia, tobacco use admitted with new onset seizure and dyskinesia. This EEG was requested for seizure. EEG Interpretation This EEG was recorded in the awake and minimal drowsy states. The awake EEG is characterized by a fairly well-organized background with a well-developed and reactive posterior dominant rhythm of 8.5 Hz. The remainder of the background was characterized by a combination of alpha with some beta frequencies. Drowsiness was characterized by slowing of the background rhythms. Photic stimulation resulted in no significant changes. There were no epileptiform abnormalities. The EKG showed a regular rhythm. EEG Classification * Normal EEG Impression This EEG is within normal limits for age. INTERPRETING NEUROLOGIST: Elke Wilson MD, FRCPC Board Certified in Neurology, with special qualification in Child Neurology, and in Clinical Neurophysiology [facility]
[2020-05-11] MEDS: PANTOPRAZOLE SODIUM 40 MG TABLET.DR PO SCH (06:06)
[2020-05-11] MEDS: GABAPENTIN 100 MG CAPSULE PO SCH ×3 (06:06→21:18)
[2020-05-11] MEDS: LACTULOSE SYRUP 20 GM/30 ML UDCUP PO SCH (09:57)
[2020-05-11] MEDS: THIAMINE HCL 100 MG TABLET PO SCH (09:57)
[2020-05-11] MEDS: BENZTROPINE MESYLATE 1 MG TABLET PO SCH ×2 (09:57→17:16)
[2020-05-11] MEDS: MULTIVITAMIN TABLET PO SCH (09:57)
[2020-05-11] MEDS: ASPIRIN 81 MG TABLET, CHEWABLE PO SCH (09:57)
[2020-05-11] MEDS: FERROUS SULFATE 325 MG TABLET PO SCH (09:57)
--- NOTE | 2020-05-11 18:19 | PDOC PROGRESS REPORT ---
Subjective Subjective:: Per Previous Physician: "LIAM GRANT is a 54 year old male The patient was brought to the emergency department by EMS. The EMS was called by family members who witnessed a tonic-clonic seizure. When the patient arri wolfgang to the emergency department he was confused and he had dystonic movements of his neck and face. He was alert. He received intravenous lorazepam and intramuscular Cogentin. The dystonic reaction significantly improved. The patient did not have seizure activity in the emergency department. He was hemodynamically stable and afebrile. He maintained good oxygen saturation. Patient has history of schizophrenia. He was at [facility] in March. He was on clozapine 200 mg daily prior to admission along with Cogentin 1 mg twice a day. I do not have the discharge summary but I have the discharge medication instruction. The clozapine was changed to 100 mg twice a day, the Cogentin was discontinued. Patient is very poor historian and he has extremely poor understanding of his m edical conditions. He remembers being in the psychiatric hospital but he does not remember details. He lives with his niece, unfortunately nobody picked up the phone and I was unable to talk to any family members. The patient said that he was not feeling well for about 2 to 3 days and was not eating much but he was drinking. He does not remember having a seizure or passing out. He thinks he took his medications this morning. As he can recall he never had a seizure in his life. He denies drinking alcohol, he said he never had a problem with alcohol and he does not drink at all. He denies doing any drugs. He was very pleasant and cooperative. He still had dystonic movements on his face. He cannot tell whether he has chronic dystonic movements or not." 05/06/2020 Patient is mildly anxious today but this is likely due to his chronic schizoaffective disorder and possibly his baseline. His CK is lower and troponin has been flat x3. Patient has denied any alcohol abuse in recent history. Otherwise, he has no new complaints. No further seizure activity. EEG will be done on Friday. 05/07/2020 EEG still pending for tomorrow. No signs of nonconvulsive status epilepticus, EEG will likely be of limited utility. Patient states he would like to go to long-term nursing facility at discharge the case management is able to arrange this. Reportedly, APS has been involved in the patient's care and he states he is unable to afford his medications in the outpatient setting. I believe it would be in his best interest to have [id number] care and he is calm enough that I believe he would do relatively well in a nursing facility long-term. 05/08/2020 Patient can be discharged to long-term nursing facility whenever we have insurance authorization. I discussed this with case management today. I am not sure where we are in this process but the patient is medically ready to leave at this time. He states he feels well today and has no new complaints. 05/09/2020 Patient doing well today. He is ready for discharge to long-term nursing facility whenever case management can get this arranged. Patient is smiling and in good spirits today. He is in full agreement with the plan. No new complaints. 05/10/2020 Patient is doing well again today. He is having an EEG which has been ordered last week but was delayed due to lack of tool grinding technician support. He has no signs or symptoms status epilepticus and has no signs or symptoms of nonconvulsive status. He is a very pleasant demeanor and is smiling and optimistic about his nursing facility prospects. I believe he would do quite well in a long-term nursing facility and will hopefully get the care and medication he deserves as ordered by his physicians. 05/11/2020 We are still looking for placement for patient. He is very pleasant and in rather good spirits. He has no complaints today. I think he would do well at any nursing facility which we send him to I think they would be pierre to have him as a patient. EEG showed normal results. Reason For Visit: SEIZURE, DYSKINESIA Physical Exam Vital Signs: Temp Pulse Resp BP Pulse Ox 98.8 F 62 18 116/70 98 05/11/20 11:59 05/11/20 14:00 05/11/20 11:59 05/11/20 11:59 05/11/20 11:59 Intake & Output 05/10/20 05/11/20 05/12/20 06:59 06:59 06:59 Intake Total 960 2022 1683 Output Total 950 125 Balance 10 1898 1683 Weight 70.8 kg 70.2 kg Exam: General appearance: PRESENT: no acute distress, well-developed, well-nourished, states he is glad to go to a nursing facility when they accept him Head exam: PRESENT: atraumatic, normocephalic Eye exam: PRESENT: conjunctiva pink. ABSENT: scleral icterus Mouth exam: PRESENT: moist Respiratory exam: PRESENT: clear to auscultation cleo. ABSENT: rales, rhonchi, wheezes Cardiovascular exam: PRESENT: RRR. ABSENT: diastolic murmur, rubs, systolic murmur GI/Abdominal exam: PRESENT: normal bowel sounds, soft. ABSENT: distended, guarding, mass, organolmegaly, rebound, tenderness Neurological exam: PRESENT: alert, awake, oriented to person, oriented to place, oriented to time, oriented to situation Psychiatric exam: PRESENT: appropriate affect, normal mood Skin exam: PRESENT: dry, intact, warm Results Laboratory Results: 05/06/20 05:43 05/06/20 05:43 05/04/20 05/04/20 05/04/20 12:44 12:44 22:43 Creatine Kinase 315 H 688 H Troponin I 0.012 05/04/20 05/05/20 05/05/20 22:43 05:51 05:51 Creatine Kinase 559 H Troponin I 0.018 < 0.012 05/05/20 05/05/20 10:58 10:58 Creatine Kinase 517 H Troponin I < 0.012 Impressions: Head CT 05/04/20 13:15 IMPRESSION: Somewhat limited evaluation due to motion and beam hardening artifact from tech holding the patients head. Within the limits of the examination there is no evidence of acute intracranial hemorrhage, mass, or evidence of acute territorial infarct. EVIDENCE OF ACUTE STROKE: NO. Assessment and Plan - Diagnosis (1) Dyskinesia Is this a current diagnosis for this admission?: Yes (2) Schizo affective schizophrenia Is this a current diagnosis for this admission?: Yes (3) Seizure Is this a current diagnosis for this admission?: Yes (4) Schizoaffective disorder, bipolar type without good prognostic features Is this a current diagnosis for this admission?: Yes (5) Type 2 diabetes mellitus without complications Qualifiers: Diabetes mellitus termite treater insulin use: without retirement use Qualified Code(s): E11.9 - Type 2 diabetes mellitus without complications Is this a current diagnosis for this admission?: Yes - Plan Summary Summary: Per Previous Physician: "Patient was placed in observation after an episode with tonic-clonic seizure witnessed by family members at his home. He had no repeated seizure activity. According to our knowledge he does not have a diagnosis of epilepsy or other seizure disorder. He is very poor historian and he has significantly impaired short-term and long-term memory. He has schizophrenia or schizoaffective disorder and he was taking antipsychotic medications for long years. He has dyskinesia which significantly improved after lorazepam and benztropine. He was on oral benztropine along with Clozaril, benztropine was discontinued couple weeks ago. The patient was placed in observation to [facility]. We continued Keppra which was started earlier in the emergency department. Continue benztropine. Hold Clozaril. Try to discuss his case with his psychiatrist in the morning. Intravenous lorazepam as needed only. Oral thiamine. He denies having any alcohol problem.] 05/05/2020 Patient seems stable at this time. Has not had any recurrence of his seizure activity while in the hospital. His CK is trending downwards now. There is no obvious identified etiology of his seizure after review of blood work and head CT. Seizure is an uncommon adverse effect of clozapine and as such clozapine was held on admission. Psych consult. Continue benztropine for dyskinesia. I did put in for an EEG to be performed but I have been informed this afternoon that it cannot be done until Friday. I have tried to reach patient's listed family member and emergency contact to discuss discharge planning and follow-up but have been unsuccessful in reaching anybody. We will leave patient on observation and monitor check labs in am" Waiting for placement at long-term nursing facility (1) Seizure No further seizure activity EEG ordered for 05/08/2020 Needs neurology outpatient follow-up Not on any antiepileptic medications Normal EEG done 05/10, no signs or symptoms of status epilepticus or nonconvulsive status (2) Dyskinesia CK trending down, troponin negative x3 (3) Schizo affective schizophrenia Needs psychiatry follow-up outpatient Home medications continued Patient request discharge to long-term nursing facility, reportedly APS is involved as patient is potentially being neglected outpatient and he states he cannot afford his medications Plan to discharge patient to long-term nursing facility, he is in full agreement with this - Time Time Spent with patient: Less than 15 minutes Medications reviewed and adjusted accordingly: Yes Anticipated Discharge Disposition: [facility] Anticipated Discharge Timeframe: within 24 hours - Inpatient Certification Based on my medical assessment, after consideration of the patient's comorbidities, presenting symptoms, or acuity I expect that the services needed warrant INPATIENT care.: Yes I certify that my determination is in accordance with my understanding of Medicare's requirements for reasonable and necessary INPATIENT services [42 CFR 412.3e].: Yes Medical Necessity: Significant Comorbidiites Make Outpatient Treatment Too Risky, Need Close Monitoring Due to Risk of Patient Decompensation, Risk of Complication if Not Cared For in Hospital, Risk of Diagnosis Which Will Require Inpatient Eval/Care/Monitoring
[2020-05-11] MEDS: MELATONIN 3 MG TABLET PO SCH (21:18)
[2020-05-11] MEDS: DESMOPRESSIN ACETATE 0.1 MG TABLET PO SCH (21:18)
[2020-05-11] MEDS: TRAZODONE HCL 50 MG TABLET PO SCH (21:18)
[2020-05-11] MEDS: ROPINIROLE HCL 2 MG TABLET PO SCH (21:18)
[2020-05-12] MEDS: PANTOPRAZOLE SODIUM 40 MG TABLET.DR PO SCH (06:36)
[2020-05-12] MEDS: GABAPENTIN 100 MG CAPSULE PO SCH ×3 (06:36→21:49)
[2020-05-12] MEDS: ASPIRIN 81 MG TABLET, CHEWABLE PO SCH (10:23)
[2020-05-12] MEDS: FERROUS SULFATE 325 MG TABLET PO SCH (10:23)
[2020-05-12] MEDS: THIAMINE HCL 100 MG TABLET PO SCH (10:23)
[2020-05-12] MEDS: BENZTROPINE MESYLATE 1 MG TABLET PO SCH ×2 (10:23→17:35)
[2020-05-12] MEDS: MULTIVITAMIN TABLET PO SCH (10:24)
[2020-05-12] MEDS: LACTULOSE SYRUP 20 GM/30 ML UDCUP PO SCH (10:24)
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
[2020-05-12] MEDS: TRAZODONE HCL 50 MG TABLET PO SCH (21:49)
[2020-05-12] MEDS: MELATONIN 3 MG TABLET PO SCH (21:49)
[2020-05-12] MEDS: ROPINIROLE HCL 2 MG TABLET PO SCH (21:50)
[2020-05-12] MEDS: DESMOPRESSIN ACETATE 0.1 MG TABLET PO SCH (21:50)
[2020-05-13] MEDS: GABAPENTIN 100 MG CAPSULE PO SCH ×3 (05:59→22:39)
[2020-05-13] MEDS: PANTOPRAZOLE SODIUM 40 MG TABLET.DR PO SCH (05:59)
[2020-05-13] MEDS: MULTIVITAMIN TABLET PO SCH (11:10)
[2020-05-13] MEDS: THIAMINE HCL 100 MG TABLET PO SCH (11:10)
[2020-05-13] MEDS: BENZTROPINE MESYLATE 1 MG TABLET PO SCH ×2 (11:10→17:47)
[2020-05-13] MEDS: LACTULOSE SYRUP 20 GM/30 ML UDCUP PO SCH (11:10)
[2020-05-13] MEDS: ASPIRIN 81 MG TABLET, CHEWABLE PO SCH (11:10)
[2020-05-13] MEDS: FERROUS SULFATE 325 MG TABLET PO SCH (11:11)
[2020-05-13] MEDS ORDERED: ONDANSETRON HCL INJ/PF 4 MG/2 ML SDV IV PRN (14:50)
--- NOTE | 2020-05-13 16:53 | PDOC PROGRESS REPORT ---
Subjective Date:: 05/13/20 Subjective:: No adverse events overnight. No new complaints. He sitting in bed watching tel evision. He is very pleasant and cooperative. Reason For Visit: SEIZURE, DYSKINESIA Physical Exam Vital Signs: Temp Pulse Resp BP Pulse Ox 97.7 F 63 18 115/62 96 05/13/20 10:00 05/13/20 14:00 05/13/20 03:31 05/13/20 03:31 05/13/20 03:31 Intake & Output 05/12/20 05/13/20 05/14/20 06:59 06:59 06:59 Intake Total 2383 2600 Output Total 1 Balance 2382 2600 Weight 71.4 kg 71.5 kg General appearance: PRESENT: no acute distress, well-developed, well-nourished, smiling and happy Head exam: PRESENT: atraumatic, normocephalic Eye exam: PRESENT: conjunctiva pink. ABSENT: scleral icterus Mouth exam: PRESENT: moist Respiratory exam: PRESENT: clear to auscultation cleo. ABSENT: rales, rhonchi, wheezes Cardiovascular exam: PRESENT: RRR. ABSENT: diastolic murmur, rubs, systolic murmur GI/Abdominal exam: PRESENT: normal bowel sounds, soft. ABSENT: distended, gu arding, mass, organolmegaly, rebound, tenderness Neurological exam: PRESENT: alert, awake, oriented to person, oriented to place, oriented to time, oriented to situation Psychiatric exam: PRESENT: appropriate affect, normal mood Skin exam: PRESENT: dry, intact, warm, smiling and happy today Results Laboratory Results: 05/06/20 05:43 05/06/20 05:43 05/04/20 05/04/20 05/04/20 12:44 12:44 22:43 Creatine Kinase 315 H 688 H Troponin I 0.012 05/04/20 05/05/20 05/05/20 22:43 05:51 05:51 Creatine Kinase 559 H Troponin I 0.018 < 0.012 05/05/20 05/05/20 10:58 10:58 Creatine Kinase 517 H Troponin I < 0.012 Impressions: Head CT 05/04/20 13:15 IMPRESSION: Somewhat limited evaluation due to motion and beam hardening artifact from tech holding the patients head. Within the limits of the examination there is no evidence of acute intracranial hemorrhage, mass, or evidence of acute territorial infarct. EVIDENCE OF ACUTE STROKE: NO. Assessment and Plan - Diagnosis (1) Dyskinesia Is this a current diagnosis for this admission?: Yes (2) Schizo affective schizophrenia Is this a current diagnosis for this admission?: Yes (3) Seizure Is this a current diagnosis for this admission?: Yes - Plan Summary Summary: Patient's clinical condition is unchanged. No evidence of dyskinesia or seizures. EEG was unremarkable. His psychiatric issues have been very stable. He has shown no evidence of any sort of a behavioral disturbance. He has been very pleasant and cooperative and is in full agreement with the plan for placement. - Time Time Spent with patient: 15-24 minutes Anticipated Discharge Disposition: [facility] Anticipated Discharge Timeframe: when bed available
[2020-05-13] MEDS: DESMOPRESSIN ACETATE 0.1 MG TABLET PO SCH (22:39)
[2020-05-13] MEDS: ROPINIROLE HCL 2 MG TABLET PO SCH (22:39)
[2020-05-13] MEDS: TRAZODONE HCL 50 MG TABLET PO SCH (22:40)
[2020-05-13] MEDS: MELATONIN 3 MG TABLET PO SCH (22:40)
[2020-05-14] MEDS: PANTOPRAZOLE SODIUM 40 MG TABLET.DR PO SCH (06:42)
[2020-05-14] MEDS: GABAPENTIN 100 MG CAPSULE PO SCH ×3 (06:42→21:28)
[2020-05-14] MEDS: BENZTROPINE MESYLATE 1 MG TABLET PO SCH ×2 (09:31→17:16)
[2020-05-14] MEDS: FERROUS SULFATE 325 MG TABLET PO SCH (09:31)
[2020-05-14] MEDS: THIAMINE HCL 100 MG TABLET PO SCH (09:31)
[2020-05-14] MEDS: MULTIVITAMIN TABLET PO SCH (09:31)
[2020-05-14] MEDS: ASPIRIN 81 MG TABLET, CHEWABLE PO SCH (09:31)
--- NOTE | 2020-05-14 14:58 | PDOC PROGRESS REPORT ---
Subjective Date:: 05/14/20 Subjective:: No adverse events overnight. No new complaints. He sitting in bed watching tel evision. He is very pleasant and cooperative. Reason For Visit: SEIZURE, DYSKINESIA Physical Exam Vital Signs: Temp Pulse Resp BP Pulse Ox 98.8 F 59 L 25 H 115/60 96 05/14/20 11:25 05/14/20 11:25 05/14/20 11:25 05/14/20 11:25 05/14/20 11:25 Intake & Output 05/13/20 05/14/20 05/15/20 06:59 06:59 06:59 Intake Total 2600 3329 Balance 2600 3329 Weight 71.5 kg 71.9 kg General appearance: PRESENT: no acute distress, well-developed, well-nourished, smiling and happy Head exam: PRESENT: atraumatic, normocephalic Eye exam: PRESENT: conjunctiva pink. ABSENT: scleral icterus Mouth exam: PRESENT: moist Respiratory exam: PRESENT: clear to auscultation cleo. ABSENT: rales, rhonchi, wheezes Cardiovascular exam: PRESENT: RRR. ABSENT: diastolic murmur, rubs, systolic m urmur GI/Abdominal exam: PRESENT: normal bowel sounds, soft. ABSENT: distended, guarding, mass, organolmegaly, rebound, tenderness Neurological exam: PRESENT: alert, awake, oriented to person, oriented to place, oriented to time, oriented to situation Psychiatric exam: PRESENT: appropriate affect, normal mood Skin exam: PRESENT: dry, intact, warm Results Laboratory Results: 05/06/20 05:43 05/06/20 05:43 05/04/20 05/04/20 05/04/20 12:44 12:44 22:43 Creatine Kinase 315 H 688 H Troponin I 0.012 05/04/20 05/05/20 05/05/20 22:43 05:51 05:51 Creatine Kinase 559 H Troponin I 0.018 < 0.012 05/05/20 05/05/20 10:58 10:58 Creatine Kinase 517 H Troponin I < 0.012 Impressions: Head CT 05/04/20 13:15 IMPRESSION: Somewhat limited evaluation due to motion and beam hardening artifact from tech holding the patients head. Within the limits of the examination there is no evidence of acute intracranial hemorrhage, mass, or evidence of acute territorial infarct. EVIDENCE OF ACUTE STROKE: NO. Assessment and Plan - Diagnosis (1) Dyskinesia Is this a current diagnosis for this admission?: Yes (2) Schizo affective schizophrenia Is this a current diagnosis for this admission?: Yes (3) Seizure Is this a current diagnosis for this admission?: Yes - Plan Summary Summary: Patient's clinical condition is unchanged. No evidence of dyskinesia or seizures. EEG was unremarkable. His psychiatric issues have been very stable. He has shown no evidence of any sort of a behavioral disturbance. He has been very pleasant and cooperative and is in full agreement with the plan for placement. - Time Time Spent with patient: Less than 15 minutes Anticipated Discharge Disposition: Residential Care Facility Anticipated Discharge Timeframe: when bed available
[2020-05-14] MEDS: ROPINIROLE HCL 2 MG TABLET PO SCH (21:28)
[2020-05-14] MEDS: TRAZODONE HCL 50 MG TABLET PO SCH (21:28)
[2020-05-14] MEDS: DESMOPRESSIN ACETATE 0.1 MG TABLET PO SCH (21:28)
[2020-05-14] MEDS: MELATONIN 3 MG TABLET PO SCH (21:28)
[2020-05-15] MEDS: GABAPENTIN 100 MG CAPSULE PO SCH ×3 (05:20→21:07)
[2020-05-15] MEDS: PANTOPRAZOLE SODIUM 40 MG TABLET.DR PO SCH (05:20)
[2020-05-15] MEDS: THIAMINE HCL 100 MG TABLET PO SCH (11:35)
[2020-05-15] MEDS: MULTIVITAMIN TABLET PO SCH (11:36)
[2020-05-15] MEDS: FERROUS SULFATE 325 MG TABLET PO SCH (11:36)
[2020-05-15] MEDS: ASPIRIN 81 MG TABLET, CHEWABLE PO SCH (11:36)
[2020-05-15] MEDS: BENZTROPINE MESYLATE 1 MG TABLET PO SCH ×2 (11:36→17:35)
--- NOTE | 2020-05-15 15:14 | PDOC PROGRESS REPORT ---
Subjective Date:: 05/15/20 Subjective:: No adverse events overnight. No new complaints. He sitting in bed watching tel evision. He is very pleasant and cooperative. Clinically very stable. Reason For Visit: SEIZURE, DYSKINESIA Physical Exam Vital Signs: Temp Pulse Resp BP Pulse Ox 99.3 F 61 25 H 113/63 97 05/15/20 11:16 05/15/20 11:16 05/15/20 11:16 05/15/20 11:16 05/15/20 11:16 Intake & Output 05/14/20 05/15/20 05/16/20 06:59 06:59 06:59 Intake Total 3329 2406 Balance 3329 2406 Weight 71.9 kg 72.1 kg General appearance: PRESENT: no acute distress, well-developed, well-nourished, smiling and happy Head exam: PRESENT: atraumatic, normocephalic Eye exam: PRESENT: conjunctiva pink. ABSENT: scleral icterus Mouth exam: PRESENT: moist Respiratory exam: PRESENT: clear to auscultation cleo. ABSENT: rales, rhonchi, wheezes Cardiovascular exam: PRESENT: RRR. ABSENT: diastolic murmur, rubs, systolic murmur GI/Abdominal exam: PRESENT: normal bowel sounds, soft. ABSENT: distended, guarding, mass, organolmegaly, rebound, tenderness Neurological exam: PRESENT: alert, awake, oriented to person, oriented to place, oriented to time, oriented to situation Psychiatric exam: PRESENT: appropriate affect, normal mood Skin exam: PRESENT: dry, intact, warm Results Laboratory Results: 05/06/20 05:43 05/06/20 05:43 05/04/20 05/04/20 05/04/20 12:44 12:44 22:43 Creatine Kinase 315 H 688 H Troponin I 0.012 05/04/20 05/05/20 05/05/20 22:43 05:51 05:51 Creatine Kinase 559 H Troponin I 0.018 < 0.012 05/05/20 05/05/20 10:58 10:58 Creatine Kinase 517 H Troponin I < 0.012 Impressions: Head CT 05/04/20 13:15 IMPRESSION: Somewhat limited evaluation due to motion and beam hardening artifact from tech holding the patients head. Within the limits of the examination there is no evidence of acute intracranial hemorrhage, mass, or evidence of acute territorial infarct. EVIDENCE OF ACUTE STROKE: NO. Assessment and Plan - Diagnosis (1) Dyskinesia Is this a current diagnosis for this admission?: Yes (2) Schizo affective schizophrenia Is this a current diagnosis for this admission?: Yes (3) Seizure Is this a current diagnosis for this admission?: Yes - Plan Summary Summary: Patient's clinical condition is unchanged. No evidence of dyskinesia or seizure s. EEG was unremarkable. His psychiatric issues have been very stable. He has shown no evidence of any sort of a behavioral disturbance. He has been very pleasant and cooperative and is in full agreement with the plan for placement. - Time Time Spent with patient: Less than 15 minutes Anticipated Discharge Disposition: Group Home Care Facility Anticipated Discharge Timeframe: when bed available
[2020-05-15] MEDS: MELATONIN 3 MG TABLET PO SCH (21:07)
[2020-05-15] MEDS: ROPINIROLE HCL 2 MG TABLET PO SCH (21:07)
[2020-05-15] MEDS: DESMOPRESSIN ACETATE 0.1 MG TABLET PO SCH (21:07)
[2020-05-15] MEDS: TRAZODONE HCL 50 MG TABLET PO SCH (21:07)
[2020-05-15] MEDS ORDERED: TEMAZEPAM 15 MG CAPSULE PO SCH (22:00)
[2020-05-16] MEDS: PANTOPRAZOLE SODIUM 40 MG TABLET.DR PO SCH (05:16)
[2020-05-16] MEDS: GABAPENTIN 100 MG CAPSULE PO SCH ×3 (05:16→21:28)
[2020-05-16] MEDS: FERROUS SULFATE 325 MG TABLET PO SCH (09:57)
[2020-05-16] MEDS: MULTIVITAMIN TABLET PO SCH (09:57)
[2020-05-16] MEDS: THIAMINE HCL 100 MG TABLET PO SCH (09:57)
[2020-05-16] MEDS: BENZTROPINE MESYLATE 1 MG TABLET PO SCH ×2 (09:57→17:42)
[2020-05-16] MEDS: ASPIRIN 81 MG TABLET, CHEWABLE PO SCH (09:57)
--- NOTE | 2020-05-16 15:22 | PDOC PROGRESS REPORT ---
Subjective Date:: 05/16/20 Subjective:: No adverse events overnight. No new complaints. He sitting in bed watching tel evision. He is very pleasant and cooperative. Clinically very stable. He said that he had a hard time sleeping again last night despite the fact that we ordered him some Restoril. Reason For Visit: SEIZURE, DYSKINESIA Physical Exam Vital Signs: Temp Pulse Resp BP Pulse Ox 98.8 F 55 L 20 122/63 98 05/16/20 12:05 05/16/20 12:05 05/16/20 12:05 05/16/20 12:05 05/16/20 12:05 Intake & Output 05/15/20 05/16/20 05/17/20 06:59 06:59 06:59 Intake Total 2406 1995 Output Total 5 Balance 2406 1990 Weight 72.1 kg 70.5 kg General appearance: PRESENT: no acute distress, well-developed, well-nourished, smiling and happy Head exam: PRESENT: atraumatic, normocephalic Eye exam: PRESENT: conjunctiva pink. ABSENT: scleral icterus Mouth exam: PRESENT: moist Respiratory exam: PRESENT: clear to auscultation cleo. ABSENT: rales, rhonchi, wheezes Cardiovascular exam: PRESENT: RRR. ABSENT: diastolic murmur, rubs, systolic murmur GI/Abdominal exam: PRESENT: normal bowel sounds, soft. ABSENT: distended, guarding, mass, organolmegaly, rebound, tenderness Neurological exam: PRESENT: alert, awake, oriented to person, oriented to place, oriented to time, oriented to situation Psychiatric exam: PRESENT: appropriate affect, normal mood Skin exam: PRESENT: dry, intact, warm Results Laboratory Results: 05/06/20 05:43 05/06/20 05:43 05/04/20 05/04/20 05/04/20 12:44 12:44 22:43 Creatine Kinase 315 H 688 H Troponin I 0.012 05/04/20 05/05/20 05/05/20 22:43 05:51 05:51 Creatine Kinase 559 H Troponin I 0.018 < 0.012 05/05/20 05/05/20 10:58 10:58 Creatine Kinase 517 H Troponin I < 0.012 Impressions: Head CT 05/04/20 13:15 IMPRESSION: Somewhat limited evaluation due to motion and beam hardening artifact from tech holding the patients head. Within the limits of the examination there is no evidence of acute intracranial hemorrhage, mass, or evidence of acute territorial infarct. EVIDENCE OF ACUTE STROKE: NO. Assessment and Plan - Diagnosis (1) Dyskinesia Is this a current diagnosis for this admission?: Yes (2) Schizo affective schizophrenia Is this a current diagnosis for this admission?: Yes (3) Seizure Is this a current diagnosis for this admission?: Yes - Plan Summary Summary: Patient's clinical condition is unchanged. No evidence of dyskinesia or seizures. EEG was unremarkable. His psychiatric issues have been very stable. He has shown no evidence of any sort of a behavioral disturbance. He has been very pleasant and cooperative and is in full agreement with the plan for placement. Restoril has been added to his trazodone and melatonin to help with sleep. - Time Time Spent with patient: 15-24 minutes Anticipated Discharge Disposition: [facility] Facility Anticipated Discharge Timeframe: Unknown
[2020-05-16] MEDS: TRAZODONE HCL 50 MG TABLET PO SCH (21:29)
[2020-05-16] MEDS: ROPINIROLE HCL 2 MG TABLET PO SCH (21:29)
[2020-05-16] MEDS: MELATONIN 3 MG TABLET PO SCH (21:29)
[2020-05-16] MEDS: DESMOPRESSIN ACETATE 0.1 MG TABLET PO SCH (21:29)
[2020-05-16] MEDS ORDERED: TEMAZEPAM 15 MG CAPSULE PO SCH (22:00)
[2020-05-17] MEDS: PANTOPRAZOLE SODIUM 40 MG TABLET.DR PO SCH (05:12)
[2020-05-17] MEDS: GABAPENTIN 100 MG CAPSULE PO SCH (05:12)
[2020-05-17] MEDS: MULTIVITAMIN TABLET PO SCH (09:37)
[2020-05-17] MEDS: ASPIRIN 81 MG TABLET, CHEWABLE PO SCH (09:37)
[2020-05-17] MEDS: BENZTROPINE MESYLATE 1 MG TABLET PO SCH (09:37)
[2020-05-17] MEDS: THIAMINE HCL 100 MG TABLET PO SCH (09:37)
[2020-05-17] MEDS: FERROUS SULFATE 325 MG TABLET PO SCH (09:37)
--- NOTE | 2020-05-17 11:44 | PDOC TRANSFER SUMMARY ---
Impression - Admit/DC Date/PCP Admission Date/Primary Care Provider: 05/06/20 15:00 YOLETTE TORRES MD Discharge Date: 05/17/20 - Discharge Diagnosis (1) Dyskinesia Is this a current diagnosis for this admission?: Yes (2) Schizo affective schizophrenia Is this a current diagnosis for this admission?: Yes (3) Seizure Is this a current diagnosis for this admission?: Yes - Assessment Summary: Patient's clinical condition is unchanged. No evidence of dyskinesia or seizures. EEG was unremarkable. His psychiatric issues have been very stable. He has shown no evidence of any sort of a behavioral disturbance. He has been very pleasant and cooperative and is in full agreement with the plan for placement. - Additional Information Resuscitation Status: Full Code Discharge Diet: As Tolerated Discharge Activity: Activity As Tolerated, Balance Activity w/Rest Referrals: ISA STANTON MD [NO LOCAL MD] - YOLETTE TORRES MD [Primary Care Provider] - Follow up as needed Home Medications: Docusate Sodium [Colace 100 mg Capsule] 100 mg PO BIDP PRN 12/27/17 Ropinirole HCl [Requip 2 mg Tablet] 2 mg PO QHS 12/27/17 Desmopressin Acetate [Ddavp] 0.2 mg PO QHS 05/04/20 Ferrous Sulfate [Feosol 325 mg Tablet] 325 mg PO DAILY 05/04/20 Lactulose [Cephulac Syrup 20 gm/30 ml Udcup] 15 gm PO DAILY 05/04/20 Multivitamin [Tab-A-Long (Multiple Vitamin) Tablet] 1 tab PO DAILY 05/04/20 Trazodone HCl 150 mg PO QHS 05/04/20 Acetaminophen [Tylenol 325 mg Tablet] 650 mg PO Q4HP PRN tablet 05/09/20 Benztropine Mesylate [Cogentin 1 mg Tablet] 2 mg PO BID tablet 05/09/20 Gabapentin [Neurontin 100 mg Capsule] 400 mg PO Q8 capsule 05/09/20 Pantoprazole Sodium [Protonix [address] Tablet] 40 mg PO Q6AM tablet.dr 05/09/20 Thiamine HCl [Thiamine 100 mg Tablet] 100 mg PO DAILY tablet 05/09/20 History of Present Illiness History of Present Illness: LIAM GRANT is a 54 year old male. The patient was brought to the emergency department by EMS. The EMS was called by family members who witnessed a tonic- clonic seizure. When the patient arrived to the emergency department he was confused and he had dystonic movements of his neck and face. He was alert. He received intravenous lorazepam and intramuscular Cogentin. The dystonic reaction significantly improved. The patient did not have seizure activity in the emergency department. He was hemodynamically stable and afebrile. He maintained good oxygen saturation. Patient has history of schizophrenia. He was at [facility] in March. He was on clozapine 200 mg daily prior to admission along with Cogentin 1 mg twice a day. I do not have the discharge summary but I have the discharge medication instruction. The clozapine was changed to 100 mg twice a day, the Cogentin was discontinued. Patient is very poor historian and he has extremely poor understanding of his medical conditions. He remembers being in the psychiatric hospital but he does not remember details. He lives with his niece, unfortunately nobody picked up the phone and I was unable to talk to any family members. The patient said that he was not feeling well for about 2 to 3 days and was not eating much but he was drinking. He does not remember having a seizure or passing out. He thinks he took his medications this morning. As he can recall he never had a seizure in his life. He denies drinking alcohol, he said he never had a problem with alcohol and he does not drink at all. He denies doing any drugs. He was very pleasant and cooperative. He still had dystonic movements on his face. He cannot tell whether he has chronic dystonic movements or not. Hospital Course Hospital Course: It was felt like that his seizure episode that was thought to be witnessed was actually dyskinesia from where he had not been taking his medications. He has been put back on Cogentin and has not had any more episodes of movement disorder. He had an EEG which was unremarkable. He was having trouble affording his medications as an outpatient apparently. He has been deemed a candidate for long-term care. He has been kept here in very stable condition, and has been pleasant and cooperative and easygoing, while we look for placement. A bed has been found for him and he is being transferred today in good condition. Physical Exam Vital Signs: Temp Pulse Resp BP Pulse Ox 97.7 F 66 18 113/65 97 05/17/20 08:09 05/17/20 08:09 05/17/20 08:09 05/17/20 08:09 05/17/20 08:09 Intake & Output 05/16/20 05/17/20 05/18/20 06:59 06:59 06:59 Intake Total 1995 1550 Output Total 5 Balance 1990 1550 Weight 70.5 kg 71.3 kg General appearance: PRESENT: no acute distress, well-developed, well-nourished, smiling and happy Head exam: PRESENT: atraumatic, normocephalic Eye exam: PRESENT: conjunctiva pink. ABSENT: scleral icterus Mouth exam: PRESENT: moist Respiratory exam: PRESENT: clear to auscultation cleo. ABSENT: rales, rhonchi, wheezes Cardiovascular exam: PRESENT: RRR. ABSENT: diastolic murmur, rubs, systolic murmur GI/Abdominal exam: PRESENT: normal bowel sounds, soft. ABSENT: distended, guarding, mass, organolmegaly, rebound, tenderness Neurological exam: PRESENT: alert, awake, oriented to person, oriented to place, oriented to time, oriented to situation Psychiatric exam: PRESENT: appropriate affect, normal mood Skin exam: PRESENT: dry, intact, warm Results Laboratory Results: WBC 5.9 10^3/uL (4.0-10.5) 05/06/20 05:43 RBC 4.45 10^6/uL (4.35-5.55) 05/06/20 05:43 Hgb 13.6 g/dL (13.5-17.0) 05/06/20 05:43 Hct 39.4 % (37.9-51.0) 05/06/20 05:43 MCV 89 fl (80-97) 05/06/20 05:43 MCH 30.5 pg (27.0-33.4) 05/06/20 05:43 MCHC 34.4 g/dL (32.0-36.0) 05/06/20 05:43 RDW 14.4 % (11.5-14.0) H 05/06/20 05:43 Plt Count 255 10^3/uL (150-450) 05/06/20 05:43 Lymph % (Auto) 8.8 % (13-45) L 05/04/20 12:44 Mckean % (Auto) 7.9 % (3-13) 05/04/20 12:44 Eos % (Auto) 0.1 % (0-6) 05/04/20 12:44 Baso % (Auto) 0.3 % (0-2) 05/04/20 12:44 Absolute Neuts (auto) 9.3 10^3/uL (1.7-8.2) H 05/04/20 12:44 Absolute Lymphs (auto) 1.0 10^3/uL (0.5-4.7) 05/04/20 12:44 Absolute Monos (auto) 0.9 10^3/uL (0.1-1.4) 05/04/20 12:44 Absolute Eos (auto) 0.0 10^3/uL (0.0-0.6) 05/04/20 12:44 Absolute Basos (auto) 0.0 10^3/uL (0.0-0.2) 05/04/20 12:44 Seg Neutrophils % 82.9 % (42-78) H 05/04/20 12:44 Sodium 139.1 mmol/L (137-145) 05/06/20 05:43 Potassium 3.6 mmol/L (3.6-5.0) 05/06/20 05:43 Chloride 106 mmol/L (98-107) 05/06/20 05:43 Carbon Dioxide 25 mmol/L (22-30) 05/06/20 05:43 Anion Gap 8 (5-19) 05/06/20 05:43 BUN 13 mg/dL (7-20) 05/06/20 05:43 Creatinine 0.67 mg/dL (0.52-1.25) 05/06/20 05:43 Est GFR ( Amer) > 60 (>60) 05/06/20 05:43 Est GFR (MDRD) Non-Af > 60 (>60) 05/06/20 05:43 Glucose 92 mg/dL (75-110) 05/06/20 05:43 POC Glucose 118 mg/dL (70-110) H 05/04/20 12:49 Calcium 9.6 mg/dL (8.4-10.2) 05/06/20 05:43 Magnesium 2.1 mg/dL (1.6-2.3) 05/05/20 05:51 Total Bilirubin 0.6 mg/dL (0.2-1.3) 05/05/20 05:51 Direct Bilirubin 0.1 mg/dL (0.0-0.4) 05/05/20 05:51 Neonat Total Bilirubin Not Reportable 05/05/20 05:51 Neonat Direct Bilirubin Not Reportable 05/05/20 05:51 Neonat Indirect Bili Not Reportable 05/05/20 05:51 AST 29 U/L (17-59) 05/05/20 05:51 ALT 17 U/L (<50) 05/05/20 05:51 Alkaline Phosphatase 89 U/L (38-126) 05/05/20 05:51 Creatine Kinase 517 U/L (55-170) H 05/05/20 10:58 Troponin I < 0.012 ng/mL 05/05/20 10:58 Total Protein 6.1 g/dL (6.3-8.2) L 05/05/20 05:51 Albumin 3.7 g/dL (3.5-5.0) 05/05/20 05:51 TSH 1.43 uIU/mL (0.47-4.68) 05/04/20 12:44 TSH Cancelled 05/04/20 12:44 Free T4 1.30 ng/dL (0.78-2.19) 05/04/20 12:44 Free T4 Cancelled 05/04/20 12:44 Free T3 pg/mL 3.16 pg/mL (2.77-5.27) 05/04/20 12:44 Free T3 pg/mL Cancelled 05/04/20 12:44 Urine Color YELLOW 05/04/20 19:55 Urine Appearance CLEAR 05/04/20 19:55 Urine pH 6.0 (5.0-9.0) 05/04/20 19:55 Ur Specific Mcclave 1.026 05/04/20 19:55 Urine Protein 30 mg/dL (NEGATIVE) H 05/04/20 19:55 Urine Glucose (UA) 50 mg/dL (NEGATIVE) H 05/04/20 19:55 Urine Ketones 80 mg/dL (NEGATIVE) H 05/04/20 19:55 Urine Blood NEGATIVE (NEGATIVE) 05/04/20 19:55 Urine Nitrite NEGATIVE (NEGATIVE) 05/04/20 19:55 Urine Bilirubin NEGATIVE (NEGATIVE) 05/04/20 19:55 Urine Urobilinogen NEGATIVE mg/dL (<2.0) 05/04/20 19:55 Ur Leukocyte Esterase NEGATIVE (NEGATIVE) 05/04/20 19:55 Urine WBC (Auto) 10 /HPF 05/04/20 19:55 Urine RBC (Auto) 1 /HPF 05/04/20 19:55 Urine Bacteria (Auto) 3+ /HPF 05/04/20 19:55 Squamous Epi Cells Auto <1 /HPF 05/04/20 19:55 Urine Mucus (Auto) FEW /LPF 05/04/20 19:55 Urine Ascorbic Acid NEGATIVE (NEGATIVE) 05/04/20 19:55 Urine Opiates Screen NEGATIVE 05/04/20 19:55 Urine Methadone Screen NEGATIVE 05/04/20 19:55 Acetaminophen < 10 ug/mL (10-30) L 05/04/20 12:44 Ur Barbiturates Screen NEGATIVE 05/04/20 19:55 Ur Phencyclidine Scrn NEGATIVE 05/04/20 19:55 Ur Amphetamines Screen NEGATIVE 05/04/20 19:55 U Benzodiazepines Scrn UNCONFIRMED POSITIVE 05/04/20 19:55 Urine Cocaine Screen NEGATIVE 05/04/20 19:55 U Marijuana (THC) Screen NEGATIVE 05/04/20 19:55 Serum Alcohol < 10 mg/dL (NONE DETECTED) 05/04/20 12:44 COVID-19 Source See comment 05/10/20 23:50 COVID-19 (STEFANIE) Not Detected (Not Detect) 05/10/20 23:50 05/04/20 05/04/20 05/05/20 12:44 22:43 05:51 Troponin I 0.012 0.018 < 0.012 05/05/20 10:58 Troponin I < 0.012 Impressions: Head CT 05/04/20 13:15 IMPRESSION: Somewhat limited evaluation due to motion and beam hardening artifact from tech holding the patients head. Within the limits of the examination there is no evidence of acute intracranial hemorrhage, mass, or evidence of acute territorial infarct. EVIDENCE OF ACUTE STROKE: NO. Plan Time Spent: Greater than 30 Minutes Stroke Is this a Stroke Patient?: No Acute Heart Failure Is this a Heart Failure Patient?: No
[2020-05-17 11:57] VITALS: BP 113/66
== END 2020-05-17 14:16 | disposition other institution (70) | DRG 93 ==
LOC: ER 12:40 → EH 21:09 → 3S 05-05 03:41 → OBSVTOIN 05-06 15:00
PROVIDERS: ADMIT Internal Medicine; ATTEND Family Medicine
DX: G24.01 Drug induced subacute dyskinesia (principal); I25.10 Atherosclerotic heart disease of native coronary artery without angina pectoris; E78.5 Hyperlipidemia, unspecified; I10 Essential (primary) hypertension; J44.9 Chronic obstructive pulmonary disease, unspecified; E03.9 Hypothyroidism, unspecified; K21.9 Gastro-esophageal reflux disease without esophagitis; F90.9 Attention-deficit hyperactivity disorder, unspecified type; G24.9 Dystonia, unspecified; Z91.14 Patient's other noncompliance with medication regimen; F25.9 Schizoaffective disorder, unspecified; E11.9 Type 2 diabetes mellitus without complications; Z88.8 Allergy status to other drugs, medicaments and biological substances; Z20.828 Contact with and (suspected) exposure to other viral communicable diseases
CPT/HCPCS: 36415; 70450; 80048; 80053; 80307; 81001; 82550; 82962; 83735; 84439; 84443; 84481; 84484; 85025; 85027; 87635; 93005; 93010; 95819; 96361; 96365; 96372; 96375; 96376; 99285; C9803; G0378; J0515; J1953; J2060; J2405; J3490; J7030; J7120